=== PATIENT | female | born 1985 | race Caucasian/White ===

== ENCOUNTER → 2018-11-22 | Day surgery (SDC) | payer OTHER ==
--- NOTE | 2018-11-23 16:04 | PATH ---
Surgical Pathology Report Patient Name: LISA CONWAY [facility]. Rec. #: [id number] /Age/Gender: 1985 (Age: 33) / F Account: [id number] [facility] Taken: 11/22/2018 Received: 11/22/2018 Reported: 11/23/2018 Physicians: Branden Bella M.D. Specimen(s) Received A: BREAST, RIGHT, 9:00 B: AXILLA, LYMPH NODE, RIGHT Clinical History Palpable mass Ultrasound findings: Highly suspicious/malignant Final Diagnosis A. BREAST, RIGHT, 9:00, CORE BIOPSY: INVASIVE DUCTAL CARCINOMA, POORLY DIFFERENTIATED, MEASURING AT LEAST 1.3 CM IN THIS MATERIAL. SEE COMMENT. B. AXILLA, LYMPH NODE, RIGHT, CORE BIOPSY: METASTATIC CARCINOMA. SEE COMMENT. Comment: Immunohistochemical stain performed and interpreted at [facility] show the breast tumor is E-Cadherin positive, supportive of ductal phenotype. The carcinoma in the breast (part A) and axillary lymph node (part B) show morphologic overlap. Findings discussed with Dr. Varela. Results of Estrogen Receptor (ER) and Progesterone Receptor (DC) studies performed on block "A" at [facility] are as follows: ER (clone [id number] mouse monoclonal antibody by [employer]): ~90% nuclear staining with moderate to strong intensity (Positive). DC (clone16 mouse monoclonal antibody by [employer]): ~80% nuclear staining with moderate to strong intensity (Positive). Positive and negative controls (internal if applicable) show appropriate results. Formalin fixation and cold ischemic times are within current ASCO/CAP recommendations for ER, DC and Her2 testing. Results of Her2 (IHC) & Ki-67 studies pending and will be reported separately. Electronically Signed June Castillo M.D. Addendum Reported: 11/24/2018 Addendum Diagnosis Results of Her2 (IHC) & Ki-67 studies performed on block "A" at [place], [place] ([id number]) are as follows: Her2 IHC (EP3 from [employer], formerly known as [id number], using Pérez Polymer Refine detection kit): 3+ (Positive). Ki-67: ~25% (Intermediate proliferative index). Positive and negative controls (internal if applicable) show appropriate results. June Castillo M.D. Gross Description A. Received in formalin labeled "right 9:00," are 4 clinton-yellow, cylindrical portions of fibroadipose tissue ranging from 0.5-1.5 cm in length and averaging 0.1 cm in diameter. The specimens are submitted in toto in one cassette. B. Received in formalin labeled "right axilla," are 2 clinton-yellow, cylindrical portions of fibroadipose tissue measuring 0.5 and 0.7 cm in length and averaging 0.1 cm in diameter. The specimens are submitted in toto in one cassette. Time to formalin fixation: Less than one minute Total formalin fixation time: Approximately 7 hours. 11/22/2018 [facility]11/22/2018
== END | disposition home or self-care (01) ==
LOC: JRADUS 10:38 → JRADUS-SUR 10:38
PROVIDERS: ATTEND Physician Assistant
PROC: 0HBT3ZX Excision of Right Breast, Percutaneous Approach, Diagnostic (ICD-10-PCS; principal; 2018-11-22)
PROC: 07B53ZX Excision of Right Axillary Lymphatic, Percutaneous Approach, Diagnostic (ICD-10-PCS; 2018-11-22)
DX: C50.911 Malignant neoplasm of unspecified site of right female breast (principal); C77.3 Secondary and unspecified malignant neoplasm of axilla and upper limb lymph nodes; Z17.0 Estrogen receptor positive status [ER+]
CPT/HCPCS: 19083; 19084; 38505; 87899; 88305-TC; A4648

== ENCOUNTER 2018-12-22 08:34 | Day surgery (SDC) | payer OTHER ==
[2018-12-21 13:29] VITALS: BMI 25.9
[2018-12-22 09:00] LABS: BASO % 0.6 % (0-2.0); EOS % 4.5 % (0-4.5); HEMATOCRIT 35.5 % (32.4-45.2); HEMOGLOBIN 11.6 GM/dL (10.7-15.3); LYMPH % 23.1 % (8-40); MCH 25.8 pg (25.7-33.7); MCHC 32.7 g/dl (32.0-36.0); MEAN CELL VOLUME 78.8 fl (80-96); MEAN PLT VOLUME 8.6 fl (7.5-11.1); MONO % 4.8 % (3.8-10.2); PLATELET COUNT 262 K/MM3 (134-434); RDW 13.6 % (11.6-15.6); WHITE BLOOD COUNT 8.2 K/mm3 (4.0-10.0)
[2018-12-22] MEDS ORDERED: PORTA CATH FLUSH 10 ML IVPUSH PRN (09:03)
[2018-12-22 09:43] LABS: INR 0.98 (0.83-1.09); PROTHROMBIN TIME (PATIENT) 11.6 SEC (9.7-13.0)
[2018-12-22 12:40] VITALS: BP 110/70; PULSE 78; TEMP 98.2
== END 2018-12-22 11:20 | disposition home or self-care (01) ==
LOC: JRADIR 08:34
PROVIDERS: ATTEND Internal Medicine Hematology & Oncology
PROC: 3E013GC Introduction of Other Therapeutic Substance into Subcutaneous Tissue, Percutaneous Approach (ICD-10-PCS; principal; 2018-12-22)
DX: Z53.8 Procedure and treatment not carried out for other reasons (principal)
CPT/HCPCS: 36415; 84703; 85025; 85610

== ENCOUNTER 2018-12-28 08:55 | Day surgery (SDC) | payer OTHER ==
[2018-12-24 10:20] VITALS: BMI 25.9
[2018-12-28] MEDS ORDERED: MIDAZOLAM HCL 2 MG/2 ML SINGLE DOSE VIAL ONE (11:10)
[2018-12-28] MEDS ORDERED: ACETAMINOPHEN 325 MG TABLET (FP) ONE (12:40)
[2018-12-28 13:03] VITALS: TEMP 98
[2018-12-28] MEDS ORDERED: oxyCODONE HCL 5 MG TABLET ONE (13:22)
[2018-12-28 15:13] VITALS: BP 118/78; PULSE 78
== END 2018-12-28 14:30 | disposition home or self-care (01) ==
LOC: JRADIR 08:55
PROVIDERS: ATTEND Internal Medicine Hematology & Oncology
PROC: 05HN33Z Insertion of Infusion Device into Left Internal Jugular Vein, Percutaneous Approach (ICD-10-PCS; principal; 2018-12-28)
PROC: B544ZZA Ultrasonography of Left Jugular Veins, Guidance (ICD-10-PCS; 2018-12-28)
DX: C50.911 Malignant neoplasm of unspecified site of right female breast (principal)
CPT/HCPCS: 36561; 76937; 77001; C1751; 84703; C1788

== ENCOUNTER 2019-01-10 11:42 | Inpatient (IN) | payer OTHER ==
--- NOTE | 2019-01-10 12:10 | PDOC ---
History of Present Illness - General Chief Complaint: Vomiting/Diarrhea Stated Complaint: SENT BY PCP Time Seen by Provider: 01/10/19 12:09 - History of Present Illness Initial Comments: 33yo F with PMH of invasive ductal breast carcinoma s/p 1st cycle of (tamoxifen , herceptin) chemotherapy sent by her oncologist Dr Cruz for abdominal pain, diarrhea, nausea, weakness, and chest pain. Reports fevers of 101 on both Thursday and Thursday. Patient states she had 11 episodes of diarrhea yesterday and 5 today. The episodes are watery and without blood. Her stools were black but have since turned brown which she associated with not taking an iron pill. No recent antibiotic use. Patient endorses nausea but no vomiting. She has no history of abdominal surgeries. Endorses two days of 10/10 epigastric pain that she describes as "exploding" and similar to an ulcer she has had in the past. Reports pain upon defecation which she attributes to an "acidy" feeling which she associates with the chemotherapy. She also reports the same sensation upon urinating for the same reason. No hematuria or frequency. Patient reports intermittent chest pain that started two days after chemotherapy which she rates 8/10. Has never felt this before. It is located midsternum and it is described as "pulling" and palpitations. She states her port is located on the left side of her chest and is wondering if it might be causing her pain. No personal or family history of CO. Maternal and paternal grandparents had CVAs in their 50s and 70s. No hemoptysis, no recent surgical history, no recent immobilization, no hormone use, no history of DVT or PE. Also reporting headaches. Patient has taken tylenol at home as recent as last night which relieved her pain but only for a half hour or so. PCP: Dr. Shakir Valentine Past History - Past Medical History Allergies/Adverse Reactions: Allergies Allergy/AdvReac Type Severity Reaction Status Date / Time No Known Allergies Allergy Verified 01/10/19 11:45 Home Medications: Ambulatory Orders NK [No Known Home Medication] 12/21/18 Anemia: Yes (sickle cell trait) Asthma: No Cancer: Yes (breast) Cardiac Disorders: No CVA: No COPD: No CHF: No Dementia: No Diabetes: No GI Disorders: No Disorders: No HTN: No (hypotension) Hypercholesterolemia: No Liver Disease: No Seizures: No Thyroid Disease: No - Immunization History Immunization Up to Date: Yes - Suicide/Smoking/Psychosocial Hx Smoking History: Never smoked Have you smoked in the past 12 months: No Hx Alcohol Use: No Drug/Substance Use Hx: No Review of Systems - Review of Systems Comments:: Constitutional: +fever, +chills HEENT: no throat pain, no dysphagia Cardiovascular: +chest pain, +palpitations Respiratory: no cough, no shortness of breath Gastrointestinal: +abdominal pain, +nausea Genitourinary: no hematuria, no frequency Musculoskeletal: no myalgia, no arthralgia Skin: no rash, no itching Neurologic: +headache, +weakness *Physical Exam - Vital Signs Last Vital Signs Temp Pulse Resp BP Pulse Ox 97.3 F L 94 H 16 126/76 100 01/10/19 11:45 01/10/19 11:45 01/10/19 11:45 01/10/19 11:45 01/10/19 11:45 - Physical Exam Comments: General: Awake, alert, and fully oriented, in no acute distress Head: No signs of trauma Eyes: EOMI, sclera anicteric ENT: Dry mucus membranes Neck: Normal ROM, supple Lungs: Lungs clear, Normal breath sounds Cardio: Regular rhythm, S1 and S2 present; port present on left side of chest Abdomen: Tender to palpation in epigastrium. Soft. No guarding, no rebound, no masses Extremities: Normal range of motion, Distal pulses present. No calf tenderness SKIN: Warm, Dry, normal turgor Neurologic: Cranial nerves II through XII grossly intact. Normal speech ED Treatment Course - LABORATORY CBC & Chemistry Diagram: 01/10/19 13:12 01/10/19 13:12 Medical Decision Making - Medical Decision Making 33yo F with PMH of invasive ductal breast carcinoma s/p 1st cycle of (tamoxifen , herceptin) chemotherapy sent by her oncologist Dr Cruz for abdominal pain, diarrhea, nausea, weakness, and chest pain. DDX including but not limited to infection due to c.diff colitis, bacteremia, UTI, pneumonia; ACS, PE, MSK, complication with port Patient immunosuppressed due to recent chemotherapy. Will complete thorough infectious workup. Empiric antibiotic coverage with cefepime and flagyl Fluids 4mg morphine for pain 10mg reglan for headache EKG: rate 83, QTc 420, NSR 01/10/19 13:23 CXR: "Single portable chest x-ray. Left port catheter in place. Unremarkable contour of the cardiomediastinal silhouette. The lungs are well aerated. There is no evidence of pneumonia, atelectasis. The pulmonary vasculature is normal. No pleural effusion or pneumothorax is seen. No evidence of bulky hilar adenopathy. The visualized osseous structures appear intact. Impression. No evidence of active pulmonary disease. No pleural effusion, or pneumothorax is seen. " CBC WBC 4.1 K/mm3 (4.0-10.0) 01/10/19 13:12 RBC 4.96 M/mm3 (3.60-5.2) 01/10/19 13:12 Hgb 13.1 GM/dL (10.7-15.3) 01/10/19 13:12 Hct 39.3 % (32.4-45.2) 01/10/19 13:12 MCV 79.1 fl (80-96) L 01/10/19 13:12 MCH 26.4 pg (25.7-33.7) 01/10/19 13:12 MCHC 33.4 g/dl (32.0-36.0) 01/10/19 13:12 RDW 13.5 % (11.6-15.6) 01/10/19 13:12 Plt Count 141 K/MM3 (134-434) D 01/10/19 13:12 MPV 9.6 fl (7.5-11.1) D 01/10/19 13:12 Absolute Neuts (auto) 1.4 K/mm3 (1.5-8.0) L 01/10/19 13:12 Neutrophils % 35.4 % (42.8-82.8) L D 01/10/19 13:12 Neutrophils % (Manual) 29.0 % (42.8-82.8) L 01/10/19 13:12 Band Neutrophils % 0.0 % 01/10/19 13:12 Lymphocytes % 43.9 % (8-40) H D 01/10/19 13:12 Lymphocytes % (Manual) 56.0 % (8-40) H 01/10/19 13:12 Monocytes % 18.2 % (3.8-10.2) H D 01/10/19 13:12 Monocytes % (Manual) 8 % (3.8-10.2) 01/10/19 13:12 Eosinophils % 2.1 % (0-4.5) 01/10/19 13:12 Eosinophils % (Manual) 2.0 % (0-4.5) 01/10/19 13:12 Basophils % 0.4 % (0-2.0) 01/10/19 13:12 Basophils % (Manual) 0.0 % (0-2.0) 01/10/19 13:12 Myelocytes % (Man) 0 % (0-2) 01/10/19 13:12 Promyelocytes % (Man) 0 % (0-2) 01/10/19 13:12 Blast Cells % (Manual) 0 % (0-0) 01/10/19 13:12 Nucleated RBC % 0 % (0-0) 01/10/19 13:12 Metamyelocytes 0 % (0-2) 01/10/19 13:12 Hypochromia 0 01/10/19 13:12 Platelet Estimate Normal 01/10/19 13:12 Polychromasia 0 01/10/19 13:12 Poikilocytosis 0 01/10/19 13:12 Anisocytosis 0 01/10/19 13:12 Microcytosis 0 01/10/19 13:12 Macrocytosis 0 01/10/19 13:12 Calculated ANC~ 1450 which indicates mild neutropenia No anemia or thrombocytopenia CMP Sodium 133 mmol/L (136-145) L 01/10/19 13:12 Potassium 3.6 mmol/L (3.5-5.1) 01/10/19 13:12 Chloride 98 mmol/L (98-107) 01/10/19 13:12 Carbon Dioxide 27 mmol/L (21-32) 01/10/19 13:12 Anion Gap 7 MMOL/L (8-16) L 01/10/19 13:12 BUN 12 mg/dL (7-18) 01/10/19 13:12 Creatinine 0.7 mg/dL (0.55-1.3) 01/10/19 13:12 Creat Clearance w eGFR 97.60 (>60) 01/10/19 13:12 Random Glucose 78 mg/dL (74-106) 01/10/19 13:12 Lactic Acid 1.2 mmol/L (0.4-2.0) 01/10/19 13:12 Calcium 9.5 mg/dL (8.5-10.1) 01/10/19 13:12 Total Bilirubin 0.6 mg/dL (0.2-1) 01/10/19 13:12 AST 14 U/L (15-37) L 01/10/19 13:12 ALT 38 U/L (13-61) 01/10/19 13:12 Alkaline Phosphatase 106 U/L (45-117) 01/10/19 13:12 Creatine Kinase 22 U/L (26-192) L 01/10/19 13:12 Troponin I < 0.02 ng/ml (0.00-0.05) 01/10/19 13:12 Total Protein 8.2 g/dl (6.4-8.2) 01/10/19 13:12 Albumin 4.3 g/dl (3.4-5.0) 01/10/19 13:12 Total Amylase 59 U/L (25-115) 01/10/19 13:12 Lipase 83 U/L (73-393) 01/10/19 13:12 Beta HCG, Quant < 1.0 mIU/ml 01/10/19 13:12 Serum , Qual Negative 01/10/19 13:12 Lactate normal Tpn undetectable Patient resting in stretcher. Will send to CT scan 01/10/19 15:[address] report Patient reports that her abdominal pain is alleviated Another 1L NS ordered 01/10/19 16:[address] Palafox who accepted patient for admission. 01/10/19 17:15 *DC/Admit/Observation/Transfer Diagnosis at time of Disposition: Colitis Neutropenia Qualifiers: Neutropenia type: secondary to cancer chemotherapy Qualified Code(s): D70.1 - Agranulocytosis secondary to cancer chemotherapy; T45.1X5A - Adverse effect of antineoplastic and immunosuppressive drugs, initial encounter - Discharge Dispostion Condition at time of disposition: Guarded Decision to Admit order: Yes - Referrals Referrals: ON STAFF,NOT [Primary Care Provider] - - Patient Instructions - Post Discharge Activity
[2019-01-10] MEDS ORDERED: morphine CARPU-JECT 4 MG/1 ML DISP.SYRIN IVPUSH ONE (12:54)
[2019-01-10] MEDS ORDERED: METOCLOPRAMIDE HCL INJECTION 10 MG/2 ML VIAL IVPUSH ONE (12:54)
[2019-01-10] MEDS ORDERED: SODIUM CHLORIDE 1,000 ML IV STA ×2 (12:54→16:50)
[2019-01-10] MEDS ORDERED: CEFEPIME HCL/D5W 2 GM/50 ML BAG IVPB ONE (12:57)
[2019-01-10] MEDS ORDERED: morphine SULFATE 4 MG/ML VIAL ONE (13:27)
[2019-01-10] MEDS ORDERED: CEFEPIME 2 GM/100 ML BAG IVPB ONE (13:27)
[2019-01-10] MEDS ORDERED: METOCLOPRAMIDE HCL INJECTION 10 MG/2 ML VIAL ONE (13:27)
[2019-01-10 13:56] LABS: BASO % 0.4 % (0-2.0); EOS % 2.1 % (0-4.5); HEMATOCRIT 39.3 % (32.4-45.2); HEMOGLOBIN 13.1 GM/dL (10.7-15.3); LYMPH % 43.9 % (8-40); MCH 26.4 pg (25.7-33.7); MCHC 33.4 g/dl (32.0-36.0); MEAN CELL VOLUME 79.1 fl (80-96); MEAN PLT VOLUME 9.6 fl (7.5-11.1); MONO % 18.2 % (3.8-10.2); NEUT % 35.4 % (42.8-82.8); PLATELET COUNT 141 K/MM3 (134-434); RBC 4.96 M/mm3 (3.60-5.2); RDW 13.5 % (11.6-15.6); WHITE BLOOD COUNT 4.1 K/mm3 (4.0-10.0)
[2019-01-10 14:07] LABS: INR 1.2 (0.83-1.09); PROTHROMBIN TIME (PATIENT) 14.2 SEC (9.7-13.0)
[2019-01-10 14:10] LABS: ACTIVATED PTT 31.1 SECONDS (25.2-36.5)
[2019-01-10 14:18] LABS: EPI CELLS 6.6 /HPF (0-5/HPF); URINE APPEARANCE CLEAR; URINE BACTERIA 81.1 /hpf (NEGATIVE); URINE BILIRUBIN NEGATIVE (NEGATIVE); URINE CASTS 6 /lpf (0-8); URINE COLOR YELLOW; URINE GLUCOSE (UA) TRACE (NEGATIVE); URINE KETONE NEGATIVE (NEGATIVE); URINE LEUK ESTERASE NEGATIVE (NEGATIVE); URINE NITRITE NEGATIVE (NEGATIVE); URINE PROTEIN 1+ (NEGATIVE); URINE RBC 2 /hpf (0-4); URINE UROBILINOGEN 0.2 mg/dL (0.2-1.0); URINE WBC 5 /hpf (0-5)
[2019-01-10] MEDS ORDERED: PANTOPRAZOLE SODIUM 40 MG VIAL IVPUSH SCH (14:30)
[2019-01-10] MEDS ORDERED: PANTOPRAZOLE SODIUM 40 MG/100 ML BAG IVPB ONE (14:31)
[2019-01-10 14:35] LABS: ANISOCYTOSIS 0; MACROCYTOSIS 0; PLATELET ESTIMATE NORMAL
[2019-01-10 14:48] LABS: ALBUMIN 4.3 g/dl (3.4-5.0); ALK PHOS 106 U/L (45-117); ANION GAP 7 MMOL/L (8-16); BILIRUBIN,TOTAL 0.6 mg/dL (0.2-1); BLOOD UREA NITROGEN 12 mg/dL (7-18); CALCIUM 9.5 mg/dL (8.5-10.1); CHLORIDE 98 mmol/L (98-107); CO2 27 mmol/L (21-32); CREATININE 0.7 mg/dL (0.55-1.3); GLUCOSE,RANDOM 78 mg/dL (74-106); POTASSIUM 3.6 mmol/L (3.5-5.1); SGOT/AST 14 U/L (15-37); SGPT/ALT 38 U/L (13-61); SODIUM 133 mmol/L (136-145); TOT PROT 8.2 g/dl (6.4-8.2)
--- NOTE | 2019-01-10 15:00 | CONSULT ---
Consultation: REQUESTING PROVIDER: CONSULT REQUEST: We have been asked to medically evaluate this patient for heme/ onc. HISTORY OF PRESENT ILLNESS: 33 y/o F w/PMH of recently diagnosed R breast ca (poorly diff ductal ca w/mets to R axillary node s/p chemo on 01/04 (first chemo)) presents to the ER with abdominal pain and diarrhea. She has had abdominal pain since having chemo but over the last 3 days has had 11 episodes of diarrhea (without blood and not tarry). She has felt nauseous but has not vomited but has not had an appetite due to the pain. The pain is located in epigastric and LUQ with no radiation and no alleviating or aggravating factors. She also reports having a fever 12/31 and 01/01. Fever on 01/01 was 102 F and no fevers since then but daily chills since getting chemo. She also reports R chest tightness with no radiation currently (initially had radiation to the R shoulder) with no aggravating or alleviating factors and is constant. She also reports having a runny nose currently but no cough and she also reports burning with urination since getting chemo. She denies SOB, dizziness, LE edema, sick contacts, recent travel , vomiting. Last episode of diarrhea was at 10:30 AM today. Has not had BM since. PMH: recently diagnosed R breast ca (poorly diff ductal ca w/mets to R axillary node s/p chemo on 01/04), Anemia PSHx: No surgeries SH: No smoking, drinking. +marijuana use. 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 FH: Maternal uncle with colon cancer, no other cancer hx in family Allergies: NKDA REVIEW OF SYSTEMS: CONSTITUTIONAL: +fevers and chills, decreased appetite HEENT: +rhinorrhea CARDIOVASCULAR: +chest pain Absent: peripheral edema RESPIRATORY: Absent: cough, shortness of breath GASTROINTESTINAL:+abd pain, nausea, diarrhea Absent: vomiting, constipation, melena, hematochezia GENITOURINARY: +dysuria Absent: hematuria NEUROLOGIC: Absent: mental status change PHYSICAL EXAMINATION Vital Signs - 24 hr 01/10/19 01/10/19 11:45 13:34 Temperature 97.3 F L Pulse Rate 94 H Respiratory 16 Rate Blood Pressure 126/76 O2 Sat by Pulse 100 99 Oximetry (%) GENERAL: Awake, alert, and fully oriented, in no acute distress. EYES: extraocular movements intact, sclera anicteric, conjunctiva clear. NECK: Normal range of motion, supple LUNGS: Breath sounds equal, clear to auscultation bilaterally. HEART: Regular rate and rhythm, normal S1 and S2 ABDOMEN: Soft. +RUQ, epigastric, LUQ tenderness. No rebound. Hypoactive BS. LOWER EXTREMITIES: warm, well-perfused. No calf tenderness. No peripheral edema. NEUROLOGICAL: Cranial nerves II-XII grossly intact. Normal speech. Gait not observed. MSK: No CVA tenderness. PSYCHIATRIC: Cooperative. Good eye contact. Appropriate mood and affect. SKIN: Warm, dry CBCD WBC 4.1 K/mm3 (4.0-10.0) 01/10/19 13:12 RBC 4.96 M/mm3 (3.60-5.2) 01/10/19 13:12 Hgb 13.1 GM/dL (10.7-15.3) 01/10/19 13:12 Hct 39.3 % (32.4-45.2) 01/10/19 13:12 MCV 79.1 fl (80-96) L 01/10/19 13:12 MCHC 33.4 g/dl (32.0-36.0) 01/10/19 13:12 RDW 13.5 % (11.6-15.6) 01/10/19 13:12 Plt Count 141 K/MM3 (134-434) D 01/10/19 13:12 MPV 9.6 fl (7.5-11.1) D 01/10/19 13:12 CMP Sodium 133 mmol/L (136-145) L 01/10/19 13:12 Potassium 3.6 mmol/L (3.5-5.1) 01/10/19 13:12 Chloride 98 mmol/L (98-107) 01/10/19 13:12 Carbon Dioxide 27 mmol/L (21-32) 01/10/19 13:12 Anion Gap 7 MMOL/L (8-16) L 01/10/19 13:12 BUN 12 mg/dL (7-18) 01/10/19 13:12 Creatinine 0.7 mg/dL (0.55-1.3) 01/10/19 13:12 Creat Clearance w eGFR 97.60 (>60) 01/10/19 13:12 Random Glucose 78 mg/dL (74-106) 01/10/19 13:12 Calcium 9.5 mg/dL (8.5-10.1) 01/10/19 13:12 Total Bilirubin 0.6 mg/dL (0.2-1) 01/10/19 13:12 AST 14 U/L (15-37) L 01/10/19 13:12 ALT 38 U/L (13-61) 01/10/19 13:12 Alkaline Phosphatase 106 U/L (45-117) 01/10/19 13:12 Total Protein 8.2 g/dl (6.4-8.2) 01/10/19 13:12 Albumin 4.3 g/dl (3.4-5.0) 01/10/19 13:12 CARDIAC ENZYMES Creatine Kinase 22 U/L (26-192) L 01/10/19 13:12 Troponin I < 0.02 ng/ml (0.00-0.05) 01/10/19 13:12 Active Medications Generic Name Dose Route Start Last Admin Trade Name Freq PRN Reason Stop Dose Admin Pantoprazole Sodium 40 mg 01/10/19 14:30 Protonix Iv IVPUSH DAILY BRENNON ASSESSMENT/PLAN: 33 y/o F w/PMH of recently diagnosed R breast ca (poorly diff ductal ca w/mets to R axillary node s/p chemo on 01/04 (first chemo)) presents to the ER with abdominal pain and diarrhea. Breast ca s/p chemo Abd pain with diarrhea Fevers Dysuria Chest pain -Pt with recent chemotherapy and immunocompromised. May not be mounting sufficient response on labs/testing to look for infectious etiology. Will need to treat empirically for infection (pt does c/o dysuria and fevers). Monitor for fevers. c/w abx Metro and Cefepime. -f/u CT abd/pelvis, BCx, UCx, stool studies, C. Diff -GI consult and ID consult appreciated. -R/o ACS Dispo: We will continue to follow the patient. Thank you for this consultative opportunity. Visit type - Emergency Visit Emergency Visit: Yes Care time: The patient presented to the Emergency Department on the above date and was hospitalized for further evaluation of their emergent condition. - New Patient This patient is new to me today: Yes Date on this admission: 01/10/19 - Critical Care Critical Care patient: No
[2019-01-10 15:14] LABS: AMYLASE 59 U/L (25-115); LIPASE 83 U/L (73-393)
--- NOTE | 2019-01-10 17:16 | PDOC ---
Documentation entered by Dannie Copeland SCRIBE, acting as scribe for Bo Mcguire MD. Bo Mcguire MD: This documentation has been prepared by the Min douglas Nirvannie, SCRIBE, under my direction and personally reviewed by me in its entirety. I confirm that the documentation accurately reflects all work, treatment, procedures, and medical decision making performed by me. Attending Attestation - Resident Resident Name: Sabrina Ozuna - ED Attending Attestation I have performed the following: I have examined & evaluated the patient, The case was reviewed & discussed with the resident, I agree w/resident's findings & plan - HPI HPI: 01/10/19 13:45 CC: Chest pain, abdominal pain, nausea, and diarrhea HPI: The patient is a 33 year old female, with a significant past medical history of metastatic breast cancer (on Tamoxifen), who presents to the emergency department with, abdominal pain, nausea, diarrhea, and chest pain. She endorses approx 11 episodes of diarrhea and 5 episodes today. She describes her chest pain as lasting 2 days, pleuritic, and ranked a 8/10. She denies recent fevers, chills, headache or dizziness. She denies recent dysuria, frequency, urgency or hematuria. Allergies: NKDA Heme/Onc: Dr. Cruz - Physicial Exam PE: 01/10/19 17:49 Vitals: Triage Vital signs reviewed General Appearance: no acute distress, well nourished well developed, Head: Atraumatic, Neck: Supple;No Nucal rigidity Chest Wall: Nontender Cardiac: Regular rate and rhythym, no murmurs, no rubs, no gallops, Lungs: Clear to auscultation bilateral, good air movement bilaterally, Abdomen: Soft, non distended, normal bowel sounds, Epigastric tenderness to palpation] Extremities: Full range of motion to all extremities, no cyanosis, clubbing, or edema Skin: Warm and dry, no rashes or lesions, no rash, no petechiae Psych: normal mood, normal affect - Medical Decision Making 01/10/19 17:49 Patient sent to the ED for admission and antibiotics 2/2 mild neutropenia and GI symptoms CAT scan demonstrates colitis patient has a ready been covered with antibiotics We'll admit the hospital for further management. Oncology aware for consultation.
[2019-01-10] MEDS ORDERED: ACETAMINOPHEN 1000 MG/100 ML VIAL (NON FORMULARY) IVPB ONE (17:40)
[2019-01-10] MEDS ORDERED: ACETAMINOPHEN INJECTION 100 ML IVPB ONE (17:50)
--- NOTE | 2019-01-10 18:56 | HP ---
Admitting History and Physical - Primary Care Physician PCP: Leandro Palafox - Admission History of Present Illness: 33 year old female, with a significant past medical history of metastatic breast cancer (on Tamoxifen), who presents to the emergency department with, abdominal pain, nausea, diarrhea, and chest pain. She endorses approx 11 episodes of diarrhea and 5 episodes today. She describes her chest pain as lasting 2 days, pleuritic, and ranked a 8/10. 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, Other (astigmatism) ...LMP: 11/18/18 Heme/Onc: Yes: Sickle Cell Trait - Smoking History Smoking history: Never smoked Have you smoked in the past 12 months: No - Alcohol/Substance Use Hx Alcohol Use: No Home Medications - Allergies Allergies/Adverse Reactions: Allergies Allergy/AdvReac Type Severity Reaction Status Date / Time No Known Allergies Allergy Verified 01/10/19 11:45 - Home Medications Home Medications: Ambulatory Orders NK [No Known Home Medication] 12/21/18 Physical Examination Vital Signs: Vital Signs Temperature 97.3 F L 01/10/19 11:45 Pulse Rate 94 H 01/10/19 11:45 Respiratory Rate 16 01/10/19 11:45 Blood Pressure 126/76 01/10/19 11:45 O2 Sat by Pulse Oximetry (%) 99 01/10/19 13:34 Constitutional: Yes: No Distress HENT: Yes: Atraumatic Neck: Yes: Supple Cardiovascular: Yes: Regular Rate and Rhythm Respiratory: Yes: CTA Bilaterally Gastrointestinal: Yes: Normal Bowel Sounds Extremities: Yes: WNL Edema: No Neurological: Yes: Alert, Oriented Labs: CBC, BMP 01/10/19 13:12 01/10/19 13:12 Imaging - Results Cat Scan: Report Reviewed Problem List - Problems (1) Colitis Assessment/Plan: prn pain meds ivf clear liquid diet on iv abx id and onc consult send stool cxs and c diff Code(s): K52.9 - NONINFECTIVE GASTROENTERITIS AND COLITIS, UNSPECIFIED (2) Neutropenia Assessment/Plan: wbc count high Code(s): D70.9 - NEUTROPENIA, UNSPECIFIED Qualifiers: Neutropenia type: secondary to cancer chemotherapy Qualified Code(s): D70.1 - Agranulocytosis secondary to cancer chemotherapy; T45.1X5A - Adverse effect of antineoplastic and immunosuppressive drugs, initial encounter Assessment/Plan Laboratory Tests 01/10/19 01/10/19 01/10/19 13:12 13:12 13:12 WBC 4.1 RBC 4.96 Hgb 13.1 Hct 39.3 MCV 79.1 L MCH 26.4 MCHC 33.4 RDW 13.5 Plt Count 141 D MPV 9.6 D Absolute Neuts (auto) 1.4 L Neutrophils % 35.4 L D Neutrophils % (Manual) 29.0 L Band Neutrophils % 0.0 Lymphocytes % 43.9 H D Lymphocytes % (Manual) 56.0 H Monocytes % 18.2 H D Monocytes % (Manual) 8 Eosinophils % 2.1 Eosinophils % (Manual) 2.0 Basophils % 0.4 Basophils % (Manual) 0.0 Myelocytes % (Man) 0 Promyelocytes % (Man) 0 Blast Cells % (Manual) 0 Nucleated RBC % 0 Metamyelocytes 0 Hypochromia 0 Platelet Estimate Normal Polychromasia 0 Poikilocytosis 0 Anisocytosis 0 Microcytosis 0 Macrocytosis 0 PT with INR 14.20 H INR 1.20 H PTT (Actin FS) 31.1 Sodium 133 L Potassium 3.6 Chloride 98 Carbon Dioxide 27 Anion Gap 7 L BUN 12 Creatinine 0.7 Creat Clearance w eGFR 97.60 Random Glucose 78 Lactic Acid Calcium 9.5 Total Bilirubin 0.6 AST 14 L ALT 38 Alkaline Phosphatase 106 Creatine Kinase 22 L Troponin I < 0.02 Total Protein 8.2 Albumin 4.3 Total Amylase 59 Lipase 83 Beta HCG, Quant < 1.0 Serum , Qual Urine Color Urine Appearance Urine pH Ur Specific [place] Urine Protein Urine Glucose (UA) Urine Ketones Urine Blood Urine Nitrite Urine Bilirubin Urine Urobilinogen Ur Leukocyte Esterase Urine WBC (Auto) Urine RBC (Auto) Urine Casts (Auto) U Epithel Cells (Auto) Urine Bacteria (Auto) 01/10/19 01/10/19 01/10/19 13:12 13:12 13:40 WBC RBC Hgb Hct MCV MCH MCHC RDW Plt Count MPV Absolute Neuts (auto) Neutrophils % Neutrophils % (Manual) Band Neutrophils % Lymphocytes % Lymphocytes % (Manual) Monocytes % Monocytes % (Manual) Eosinophils % Eosinophils % (Manual) Basophils % Basophils % (Manual) Myelocytes % (Man) Promyelocytes % (Man) Blast Cells % (Manual) Nucleated RBC % Metamyelocytes Hypochromia Platelet Estimate Polychromasia Poikilocytosis Anisocytosis Microcytosis Macrocytosis PT with INR INR PTT (Actin FS) Sodium Potassium Chloride Carbon Dioxide Anion Gap BUN Creatinine Creat Clearance w eGFR Random Glucose Lactic Acid 1.2 Calcium Total Bilirubin AST ALT Alkaline Phosphatase Creatine Kinase Troponin I Total Protein Albumin Total Amylase Lipase Beta HCG, Quant Serum , Qual Negative Urine Color Yellow Urine Appearance Clear Urine pH 6.0 Ur Specific [place] 1.016 Urine Protein 1+ H Urine Glucose (UA) Trace Urine Ketones Negative Urine Blood Negative Urine Nitrite Negative Urine Bilirubin Negative Urine Urobilinogen 0.2 Ur Leukocyte Esterase Negative Urine WBC (Auto) 5 Urine RBC (Auto) 2 Urine Casts (Auto) 6 U Epithel Cells (Auto) 6.6 Urine Bacteria (Auto) 81.1 Active Medications Generic Name Dose Route Start Last Admin Trade Name Freq PRN Reason Stop Dose Admin Cefepime HCl 2 gm in 50 mls @ 100 mls/hr 01/10/19 22:00 Maxipime 2gm Ivpb (Premix) IVPB Q8H BRENNON Protocol Metronidazole 500 mg in 100 mls @ 100 mls/hr 01/10/19 22:00 Flagyl 500mg Premixed Ivpb - IVPB Q8H-IV BRENNON Cefepime HCl 2 gm/ Dextrose 100 mls @ 200 mls/hr 01/10/19 22:00 IVPB 01/11/19 14:29 Q8H BRENNON Pantoprazole Sodium 40 mg 01/10/19 14:30 01/10/19 15:00 Protonix Iv IVPUSH 40 mg DAILY BRENNON Administration
[2019-01-10] MEDS: SODIUM CHLORIDE 1,000 ML IV SCH (19:04)
--- NOTE | 2019-01-10 20:02 | PN ---
Teaching Attending Note Name of Resident: Rodney Ro ATTENDING PHYSICIAN STATEMENT I saw and evaluated the patient. I reviewed the resident's note and discussed the case with the resident. I agree with the resident's findings and plan as documented. 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 hepatic cyst, right pericolic fluid Chemotherapy induced colitis Check blood cultures/ stool for c.diff/oand P Cefepime/flagyl emopirically Protonix IV IV fluids Immodium pain control as needed
[2019-01-10] MEDS ORDERED: LOPERAMIDE HCL 2 MG CAPSULE PO PRN (20:03)
[2019-01-10] MEDS ORDERED: DEXTROSE 5%-WATER 100 ML IVPB ONE (21:17)
[2019-01-10] MEDS ORDERED: CEFEPIME HCL 2 GM VIAL (RESTRICTED TO ID) ONE (21:17)
[2019-01-10] MEDS: HEPARIN NA (PORCINE) 5,000 UNITS/ML 1ML VIAL SQ SCH (21:44)
[2019-01-10] MEDS: PANTOPRAZOLE SODIUM 40 MG VIAL IVPB SCH (21:44)
[2019-01-10] MEDS ORDERED: CEFEPIME HCL/D5W 2 GM/50 ML BAG IVPB SCH (22:00)
[2019-01-10] MEDS: CEFEPIME 2 GM in DEXTROSE 5%-WATER 100 ML IVPB SCH (23:15)
[2019-01-10] MEDS: morphine SULFATE 4 MG/ML VIAL IVPUSH PRN (23:59)
[2019-01-11] MEDS: ONDANSETRON 4 MG/2 ML VIAL IVPB PRN ×3 (01:20→21:31)
[2019-01-11] MEDS: CEFEPIME 2 GM in DEXTROSE 5%-WATER 100 ML IVPB SCH ×4 (05:47→18:36)
[2019-01-11 07:25] LABS: BASO % 0.3 % (0-2.0); EOS % 0.8 % (0-4.5); HEMATOCRIT 31.9 % (32.4-45.2); HEMOGLOBIN 10.6 GM/dL (10.7-15.3); LYMPH % 27.4 % (8-40); MCH 26.2 pg (25.7-33.7); MCHC 33.3 g/dl (32.0-36.0); MEAN CELL VOLUME 78.5 fl (80-96); MEAN PLT VOLUME 9.6 fl (7.5-11.1); MONO % 18.4 % (3.8-10.2); NEUT % 53.1 % (42.8-82.8); PLATELET COUNT 138 K/MM3 (134-434); RBC 4.06 M/mm3 (3.60-5.2); RDW 13.6 % (11.6-15.6); WHITE BLOOD COUNT 8.1 K/mm3 (4.0-10.0)
[2019-01-11 07:39] LABS: ALBUMIN 3.3 g/dl (3.4-5.0); ALK PHOS 83 U/L (45-117); AMYLASE 70 U/L (25-115); ANION GAP 7 MMOL/L (8-16); BILIRUBIN,TOTAL 0.4 mg/dL (0.2-1); BLOOD UREA NITROGEN 8 mg/dL (7-18); CALCIUM 8.5 mg/dL (8.5-10.1); CHLORIDE 103 mmol/L (98-107); CO2 27 mmol/L (21-32); CREATININE 0.7 mg/dL (0.55-1.3); GLUCOSE,RANDOM 78 mg/dL (74-106); LDH 150 U/L (84-246); LIPASE 93 U/L (73-393); SGOT/AST 11 U/L (15-37); SGPT/ALT 29 U/L (13-61); SODIUM 137 mmol/L (136-145); TOT PROT 6.2 g/dl (6.4-8.2)
[2019-01-11 09:35] LABS: ANISOCYTOSIS 0; MACROCYTOSIS 0; PLATELET ESTIMATE DECREASED
--- NOTE | 2019-01-11 09:54 | CON.GI ---
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: Yes: Migraine, Other (astigmatism) ...LMP: 11/18/18 Additional Medical History: hemorrhoids - Alcohol/Substance Use Hx Alcohol Use: No - Smoking History Smoking history: Never smoked Have you smoked in the past 12 months: No Home Medications - Allergies Allergies/Adverse Reactions: Allergies Allergy/AdvReac Type Severity Reaction Status Date / Time No Known Allergies Allergy Verified 01/10/19 11:45 - Home Medications Home Medications: Ambulatory Orders NK [No Known Home Medication] 12/21/18 Physical Exam-GI Vital Signs: Vital Signs Temperature 98.8 F 01/11/19 05:52 Pulse Rate 87 01/11/19 05:52 Respiratory Rate 18 01/11/19 05:52 Blood Pressure 99/56 L 01/11/19 05:52 O2 Sat by Pulse Oximetry (%) 100 01/11/19 03:00 Labs: CBC, BMP 01/11/19 06:00 01/11/19 06:00 INR, PTT INR 1.20 (0.83-1.09) H 01/10/19 13:12
[2019-01-11] MEDS: PANTOPRAZOLE SODIUM 40 MG VIAL IVPB SCH ×2 (10:20→23:05)
[2019-01-11] MEDS: morphine SULFATE 4 MG/ML VIAL IVPUSH PRN (10:20)
[2019-01-11] MEDS: HEPARIN NA (PORCINE) 5,000 UNITS/ML 1ML VIAL SQ SCH ×3 (10:20→21:31)
--- NOTE | 2019-01-11 12:20 | CONS ---
DATE OF CONSULTATION: DATE OF DICTATION: 01/11/2019 HISTORY OF PRESENT ILLNESS: The patient is a 33-year-old female with a past medical history significant for peptic ulcer disease. Last upper endoscopy was done in 2012 as well as a colonoscopy at that time. She was recently diagnosed this past November with metastatic breast cancer and is currently on tamoxifen. She has also received her 1st cycle of chemotherapy and shortly after developed abdominal pain in the epigastrium along with crampy diffuse abdominal pain, nausea, vomiting and multiple episodes of diarrhea apparently 11 episodes prior to admission and she states her symptoms got better this morning after being given Imodium. She denies any blood in the stool or mucus, hematemesis, fevers, chills or other symptoms. PAST MEDICAL HISTORY: As per the HPI with the addition of migraine headache and sickle cell trait. SURGICAL HISTORY: As per the HPI. SOCIAL HISTORY: Does not smoke, drink or use drugs. FAMILY HISTORY: No history of GI malignancy. ALLERGIES: No known drug allergies. HOME MEDICATIONS: Reviewed. PHYSICAL EXAMINATION: Vital Signs: Temperature 98, pulse 87, blood pressure 102/63, respiratory rate 18, saturation of oxygen 100% on room air. General: No acute distress. HEENT: Anicteric sclerae. Cardiovascular: S1, S2. Regular rate and rhythm. Lungs: Bilaterally clear to auscultation. Abdomen: Soft and nontender. Extremities: No edema. LABORATORIES: White blood cell count 8.1, hemoglobin 10, hematocrit 31, MCV 78, platelet count 138. INR 1.2. Sodium 137, potassium 4, BUN 8, creatinine 0.7, lactic acid 1.2, AST 11, ALT 29, total bilirubin 0.4, alkaline phosphatase 83, lipase 93, amylase 70. Urine: Protein 1+. Cultures are pending. She had a CT scan of the abdomen and pelvis which revealed possible acute colitis, normal amount of free fluid in the right paracolic space, 2.3-cm involuting left ovarian cyst, 0.5-cm right hepatic lobe hypodense focus representing a cyst although too difficult to characterize secondary to size, thickened skin along partially imaged breast also noted on a previous CT scan. IMPRESSION: Acute diarrheal illness in the setting of recent chemotherapy most likely secondary to an infectious etiology. RECOMMENDATIONS: Stool culture, ova, parasites, C difficile, PCR. Would also check the stool for opportunistic infections considering she is immunosuppressed on chemotherapy. Microsporidium, cryptosporidium, Isospora, Cyclospora, stool Giardia antigen. She can be continued on clear liquid diet today. As she continues to improve would advance her to a low-residue lactose-free diet. Start her on Protonix 40 mg IV daily for her history of peptic ulcer disease. Also continue her antiemetic therapy. If her stool cultures are negative for C difficile she can be started on Lomotil therapy prior to her meals. This patient will be followed by the GI service. DO LUIS A SALTER/[id number]
--- NOTE | 2019-01-11 12:25 | CON.GI ---
Consult Consult Specialty:: GI Reason for Consultation:: Diarrhea - History of Present Illness Chief Complaint: diarrhea , vomiting History of Present Illness: 33 y/o F w/PMH of recently diagnosed R breast ca (poorly diff ductal ca w/mets to R axillary node s/p chemo on 01/04 (first chemo)) presents to the ER with abdominal pain and diarrhea. She has had abdominal pain since having chemo but over the last 3 days has had 11 episodes of diarrhea (without blood and not tarry). She has felt nauseous but has not vomited but has not had an appetite due to the pain. The pain is located in epigastric and periumbilical and suprapubic with no radiation and no alleviating or aggravating factors. She also reports having a fever 12/31 and 01/01. Fever on 01/01 was 102 F and no fevers since then but daily chills since getting chemo. She also reports R chest tightness with no radiation currently (initially had radiation to the R shoulder) with no aggravating or alleviating factors and is constant. She also reports having a runny nose currently but no cough and she also reports burning with urination since getting chemo. She denies SOB, dizziness, LE edema, sick contacts, recent travel, vomiting. PMH: recently diagnosed R breast ca (poorly diff ductal ca w/mets to R axillary node s/p chemo on 01/04), Anemia PSHx: No surgeries SH: No smoking, drinking. +marijuana use. 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, Other (astigmatism) ...LMP: 11/18/18 Additional Medical History: hemorrhoids - Alcohol/Substance Use Hx Alcohol Use: No - Smoking History Smoking history: Never smoked Have you smoked in the past 12 months: No Home Medications - Allergies Allergies/Adverse Reactions: Allergies Allergy/AdvReac Type Severity Reaction Status Date / Time No Known Allergies Allergy Verified 01/10/19 11:45 - Home Medications Home Medications: Ambulatory Orders NK [No Known Home Medication] 12/21/18 Physical Exam-GI Vital Signs: Vital Signs Temperature 98.8 F 01/11/19 05:52 Pulse Rate 87 01/11/19 05:52 Respiratory Rate 18 01/11/19 05:52 Blood Pressure 99/56 L 01/11/19 05:52 O2 Sat by Pulse Oximetry (%) 100 01/11/19 03:00 Labs: CBC, BMP 01/11/19 06:00 01/11/19 06:00 INR, PTT INR 1.20 (0.83-1.09) H 01/10/19 13:12 Problem List - Problems (1) Acute diarrhea Assessment/Plan: s.p chemo therapy C.diff stool ove and paracytes Microsporidium cryptosporidium Stool lytes Stool wbc stool osmolality stool fat cont abx cefipim and metronidazole follow cx tylenol for fever cont iv fluids monitor lytes and replenished as needed Zofran for nausea Stool H pylroi ag as pt has a history of H.pylori 9 years ago Code(s): R19.7 - DIARRHEA, UNSPECIFIED
--- NOTE | 2019-01-11 13:39 | CON.ID ---
Consult Consult Specialty:: infectious diseases Referred by:: Reason for Consultation:: dirhoea/colitis - History of Present Illness Chief Complaint: abd pain,dirrhoea History of Present Illness: 33 y/o F w/PMH of recently diagnosed R breast ca (poorly diff ductal ca w/mets to R axillary node s/p chemo on 01/04 (first chemo)) admitted with abdominal pain and diarrhea. She has had abdominal pain since having chemo but over the last 3 days has had 11 episodes of diarrhea (without blood and not tarry). She has felt nauseous but has not vomited but has not had an appetite due to the pain. The pain is located in epigastric and LUQ with no radiation and no alleviating or aggravating factors. She also reports having a fever 12/31 and . Fever on 01/01 was 102 F and no fevers since then but daily chills since getting chemo. She also reports R chest tightness with no radiation currently ( initially had radiation to the R shoulder) with no aggravating or alleviating factors and is constant. She also reports having a runny nose currently but no cough and she also reports burning with urination since getting chemo. She denies SOB, dizziness, LE edema, sick contacts, recent travel, vomiting. Last episode of diarrhea was at 10:30 AM today. Has not had BM since. 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, Other (astigmatism) ...LMP: 11/18/18 Additional Medical History: hemorrhoids - Alcohol/Substance Use Hx Alcohol Use: No - Smoking History Smoking history: Never smoked Have you smoked in the past 12 months: No Home Medications - Allergies Allergies/Adverse Reactions: Allergies Allergy/AdvReac Type Severity Reaction Status Date / Time No Known Allergies Allergy Verified 01/10/19 11:45 - Home Medications Home Medications: Ambulatory Orders NK [No Known Home Medication] 12/21/18 Review of Systems - Review of Systems Constitutional: reports: Fever, Weakness Eyes: reports: No Symptoms HENT: reports: No Symptoms Neck: reports: No Symptoms Cardiovascular: reports: No Symptoms Respiratory: reports: No Symptoms Gastrointestinal: reports: Abdominal Pain, Diarrhea Genitourinary: reports: No Symptoms Musculoskeletal: reports: No Symptoms Integumentary: reports: No Symptoms Neurological: reports: No Symptoms Endocrine: reports: No Symptoms Hematology/Lymphatic: reports: No Symptoms Psychiatric: reports: No Symptoms Physical Exam Vital Signs: Vital Signs Temperature 98.8 F 01/11/19 05:52 Pulse Rate 87 01/11/19 05:52 Respiratory Rate 18 01/11/19 05:52 Blood Pressure 99/56 L 01/11/19 05:52 O2 Sat by Pulse Oximetry (%) 100 01/11/19 03:00 Constitutional: Yes: Well Nourished, No Distress, Calm HENT: Yes: Atraumatic, Normocephalic Neck: Yes: Supple, Trachea Midline Cardiovascular: Yes: Regular Rate and Rhythm Respiratory: Yes: Regular, CTA Bilaterally Gastrointestinal: Yes: Normal Bowel Sounds, Soft, Other (dirrhoea) Musculoskeletal: Yes: WNL Extremities: Yes: WNL Neurological: Yes: Alert, Oriented Psychiatric: Yes: Alert, Oriented Labs: CBC, BMP 01/11/19 06:00 01/11/19 06:00 Imaging - Results Chest X-ray: Report Reviewed, Image Reviewed Cat Scan: Report Reviewed, Image Reviewed Assessment/Plan Problem List - Problems (1) Chemotherapy induced diarrhea Code(s): K52.1 - TOXIC GASTROENTERITIS AND COLITIS; T45.1X5A - ADVERSE EFFECT OF ANTINEOPLASTIC AND IMMUNOSUP DRUGS, INIT (2) Diarrhea of presumed infectious origin Code(s): R19.7 - DIARRHEA, UNSPECIFIED (3) Nausea and vomiting Code(s): R11.2 - NAUSEA WITH VOMITING, UNSPECIFIED Qualifiers: Vomiting type: unspecified Vomiting Intractability: non-intractable Qualified Code(s): R11.2 - Nausea with vomiting, unspecified (4) Epigastric pain Code(s): R10.13 - EPIGASTRIC PAIN (5) Cancer of right breast Code(s): C50.911 - MALIGNANT NEOPLASM OF UNSP SITE OF RIGHT FEMALE BREAST Qualifiers: Breast location: unspecified site of breast Estrogen receptor status: positive Patient sex: female Qualified Code(s): C50.911 - Malignant neoplasm of unspecified site of right female breast; Z17.0 - Estrogen receptor positive status [ER+] (6) Epistaxis Code(s): R04.0 - EPISTAXIS 7 colitis plan will continue current abx will see how patient behaves monitor dirrhoea and fever rest as per the team
[2019-01-11] MEDS ORDERED: traMADol HCL 50 MG TABLET PO PRN (13:43)
[2019-01-11] MEDS ORDERED: CEFEPIME HCL/D5W 2 GM/50 ML BAG IVPB SCH (13:45)
--- NOTE | 2019-01-11 14:25 | EKG ---
Test Reason : Blood Pressure : / mmHG Vent. Rate : 083 BPM Atrial Rate : 083 BPM P-R Int : 130 ms QRS Dur : 082 ms QT Int : 358 ms P-R-T Axes : 061 043 025 degrees QTc Int : 420 ms NORMAL SINUS RHYTHM NORMAL ECG NO PREVIOUS ECGS AVAILABLE Confirmed by MD SOURAV, NEGRA ([id number]) on 01/11/2019 2:25:19 PM Referred By: Confirmed By:NEGRA BENJAMIN MD
--- NOTE | 2019-01-11 14:26 | PN ---
Progress Note, Physician History of Present Illness: still has diarrhea - Current Medication List Current Medications: Active Medications Heparin Sodium (Porcine) (Heparin -) 5,000 unit SQ BID BRENNON Last Admin: 01/11/19 10:40 Dose: Not Given Metronidazole (Flagyl 500mg Premixed Ivpb -) 500 mg in 100 mls @ 100 mls/hr IVPB Q8H-IV BRENNON Last Admin: 01/11/19 10:21 Dose: 100 mls/hr Sodium Chloride (Normal Saline -) 1,000 mls @ 75 mls/hr IV ASDIR BRENNON Last Admin: 01/10/19 19:04 Dose: 75 mls/hr Cefepime HCl 2 gm/ Dextrose 100 mls @ 200 mls/hr IVPB Q8H-IV BRENNON; Protocol Loperamide HCl (Imodium -) 2 mg PO Q4H PRN PRN Reason: DIARRHEA Ondansetron HCl (Zofran Injection) 8 mg IVPB Q12H PRN PRN Reason: NAUSEA Last Admin: 01/11/19 10:37 Dose: 8 mg Pantoprazole Sodium (Protonix Iv) 40 mg IVPB BID BRENNON Last Admin: 01/11/19 10:20 Dose: 40 mg Tramadol HCl (Ultram -) 50 mg PO Q6H PRN PRN Reason: PAIN LEVEL 6-10 Last Admin: 01/11/19 14:12 Dose: 50 mg - Objective Vital Signs: Vital Signs Temperature 98 F 01/11/19 09:00 Pulse Rate 89 01/11/19 09:00 Respiratory Rate 18 01/11/19 11:00 Blood Pressure 103/61 01/11/19 09:00 O2 Sat by Pulse Oximetry (%) 100 01/11/19 11:00 Constitutional: Yes: No Distress HENT: Yes: Atraumatic Neck: Yes: Supple Cardiovascular: Yes: Regular Rate and Rhythm Respiratory: Yes: CTA Bilaterally Gastrointestinal: Yes: Normal Bowel Sounds Extremities: Yes: WNL Edema: No Peripheral Pulses WNL: Yes Neurological: Yes: Alert, Oriented Labs: CBC, BMP 01/11/19 06:00 01/11/19 06:00 INR, PTT INR 1.20 (0.83-1.09) H 01/10/19 13:12 Problem List - Problems (1) Colitis Assessment/Plan: prn pain meds ivf clear liquid diet on iv abx Code(s): K52.9 - NONINFECTIVE GASTROENTERITIS AND COLITIS, UNSPECIFIED (2) Neutropenia Assessment/Plan: wbc count high Code(s): D70.9 - NEUTROPENIA, UNSPECIFIED Qualifiers: Neutropenia type: secondary to cancer chemotherapy Qualified Code(s): D70.1 - Agranulocytosis secondary to cancer chemotherapy; T45.1X5A - Adverse effect of antineoplastic and immunosuppressive drugs, initial encounter
--- NOTE | 2019-01-11 15:39 | PN ---
Physical Exam: SUBJECTIVE: Patient seen and examined at bedside. Had multiple episodes of emesis. No BMs so far while in hospital. Still having abd pain but is hungry. Has not passed gas since yesterday. OBJECTIVE: Vital Signs Period Temp Pulse Resp BP Sys/James Pulse Ox Last 24 Hr 98 F-98.8 F 77-89 18-18 93-103/55-63 100-100 GENERAL: Awake, alert, and fully oriented, in no acute distress. EYES: extraocular movements intact, sclera anicteric, conjunctiva clear. NECK: Normal range of motion, supple LUNGS: Breath sounds equal, clear to auscultation bilaterally. HEART: Regular rate and rhythm, normal S1 and S2 ABDOMEN: Soft. +RUQ, epigastric, LUQ tenderness. No rebound. Hypoactive BS. LOWER EXTREMITIES: warm, well-perfused. No calf tenderness. No peripheral edema. NEUROLOGICAL: Cranial nerves II-XII grossly intact. Normal speech. Gait not observed. MSK: No CVA tenderness. PSYCHIATRIC: Cooperative. Good eye contact. Appropriate mood and affect. SKIN: Warm, dry Laboratory Results - last 24 hr 01/11/19 01/11/19 06:00 06:00 WBC 8.1 RBC 4.06 Hgb 10.6 L Hct 31.9 L D MCV 78.5 L MCH 26.2 MCHC 33.3 RDW 13.6 Plt Count 138 MPV 9.6 Absolute Neuts (auto) 4.3 Neutrophils % 53.1 D Neutrophils % (Manual) 28.9 L Band Neutrophils % 13.4 Lymphocytes % 27.4 D Lymphocytes % (Manual) 32.0 D Monocytes % 18.4 H Monocytes % (Manual) 13 H Eosinophils % 0.8 Eosinophils % (Manual) 2.1 Basophils % 0.3 Basophils % (Manual) 1.0 D Myelocytes % (Man) 0 Promyelocytes % (Man) 0 Blast Cells % (Manual) 0 Nucleated RBC % 0 Metamyelocytes 1 D Hypochromia 0 Platelet Estimate Decreased Polychromasia 0 Poikilocytosis 0 Anisocytosis 0 Microcytosis 0 Macrocytosis 0 Sodium 137 Potassium 4.0 Chloride 103 Carbon Dioxide 27 Anion Gap 7 L BUN 8 Creatinine 0.7 Creat Clearance w eGFR 97.60 Random Glucose 78 Calcium 8.5 Total Bilirubin 0.4 AST 11 L ALT 29 Alkaline Phosphatase 83 LD Total 150 Total Protein 6.2 L Albumin 3.3 L Total Amylase 70 Lipase 93 Active Medications Generic Name Dose Route Start Last Admin Trade Name Freq PRN Reason Stop Dose Admin Heparin Sodium (Porcine) 5,000 unit 01/10/19 22:00 01/11/19 10:40 Heparin - SQ Not Given BID BRENNON Metronidazole 500 mg in 100 mls @ 100 mls/hr 01/10/19 22:00 01/11/19 10:21 Flagyl 500mg Premixed Ivpb - IVPB 100 mls/hr Q8H-IV BRENNON Administration Sodium Chloride 1,000 mls @ 75 mls/hr 01/10/19 19:00 01/10/19 19:04 Normal Saline - IV 75 mls/hr ASDIR BRENNON Administration Cefepime HCl 2 gm/ Dextrose 100 mls @ 200 mls/hr 01/11/19 14:30 IVPB Q8H-IV BRENNON Protocol Loperamide HCl 2 mg 01/10/19 20:03 Imodium - PO Q4H PRN DIARRHEA Ondansetron HCl 8 mg 01/10/19 21:16 01/11/19 10:37 Zofran Injection IVPB 8 mg Q12H PRN Administration NAUSEA Pantoprazole Sodium 40 mg 01/10/19 22:00 01/11/19 10:20 Protonix Iv IVPB 40 mg BID BRENNON Administration Tramadol HCl 50 mg 01/11/19 13:43 01/11/19 14:12 Ultram - PO 50 mg Q6H PRN Administration PAIN LEVEL 6-10 ASSESSMENT/PLAN: 33 y/o F w/PMH of recently diagnosed R breast ca (poorly diff ductal ca w/mets to R axillary node s/p chemo on 01/04 (first chemo)) presents to the ER with abdominal pain and diarrhea. Breast ca s/p chemo Abd pain with diarrhea -KUB shows no signs of obstrution. No BMs and no flatus since yesterday. Loperamide stopped. -Pain meds changed from morphine to tramadol. -Tramadol caused dizziness. Pt would is ok with trying tylenol for now for pain. -Pt with recent chemotherapy and immunocompromised. May not be mounting sufficient response on labs/testing to look for infectious etiology. Will need to treat empirically for infection (pt does c/o dysuria and fevers). Monitor for fevers. c/w abx Metro and Cefepime. -Possible chemo induced colitis. -BCx, UCx, stool studies, C. Diff -GI consult and ID consult. Visit type - Emergency Visit Emergency Visit: Yes ED Registration Date: 01/10/19 Care time: The patient presented to the Emergency Department on the above date and was hospitalized for further evaluation of their emergent condition. - New Patient This patient is new to me today: No - Critical Care Critical Care patient: No
[2019-01-11] MEDS ORDERED: SODIUM CHLORIDE 500 ML IV STA (16:35)
[2019-01-11] MEDS ORDERED: ACETAMINOPHEN 325 MG TABLET (FP) PO PRN ×2 (16:40→20:51)
[2019-01-11] MEDS ORDERED: HYDROCORTISONE 0.5% TOPICAL CREAM 30 GM TUBE TP PRN (17:29)
--- NOTE | 2019-01-11 17:35 | PN ---
Teaching Attending Note Name of Resident: Rodney Ro ATTENDING PHYSICIAN STATEMENT I saw and evaluated the patient. I reviewed the resident's note and discussed the case with the resident. I agree with the resident's findings and plan as documented. SUBJECTIVE: Patient seen and examined No further diarrhea. Feels somewhat 'strange' likely related to morphine and tramadol These will be discontinued Last Vital Signs Temp Pulse Resp BP Pulse Ox 98.8 F 77 18 93/55 L 100 01/11/19 14:39 01/11/19 14:39 01/11/19 14:39 01/11/19 14:39 01/11/19 11:00 HEENT: GÉNESIS, EOM Intact Oropharynx: No thrush, No mucositis Breasts: Current Medications Generic Name Dose Route Start Last Admin Trade Name Freq PRN Reason Stop Dose Admin Acetaminophen 650 mg 01/11/19 16:40 Tylenol - PO Q4H PRN PAIN Heparin Sodium (Porcine) 5,000 unit 01/10/19 22:00 01/11/19 10:40 Heparin - SQ Not Given BID BRENNON Hydrocortisone 1 applic 01/11/19 17:29 Hytone 0.5% Cream - TP DAILY PRN DRY SKIN Metronidazole 500 mg in 100 mls @ 100 mls/hr 01/10/19 22:00 01/11/19 10:21 Flagyl 500mg Premixed Ivpb - IVPB 100 mls/hr Q8H-IV BRENNON Administration Sodium Chloride 1,000 mls @ 75 mls/hr 01/10/19 19:00 01/10/19 19:04 Normal Saline - IV 75 mls/hr ASDIR BRENNON Administration Cefepime HCl 2 gm/ Dextrose 100 mls @ 200 mls/hr 01/11/19 14:30 01/11/19 16: 49 IVPB Not Given Q8H-IV BRENNON Protocol Sodium Chloride 500 mls @ 500 mls/hr 01/11/19 16:35 Normal Saline - IV 01/11/19 17:34 ASDIR STA Ondansetron HCl 8 mg 01/10/19 21:16 01/11/19 10:37 Zofran Injection IVPB 8 mg Q12H PRN Administration NAUSEA Pantoprazole Sodium 40 mg 01/10/19 22:00 01/11/19 10:20 Protonix Iv IVPB 40 mg BID BRENNON Administration RUOQ breast mass Cor: RSR, No murmurs, No gallops Lungs: Clear to P&A Abd: Soft, Normal bowel sounds, No organomegaly Ext:No significant edema Skin: No rashes, Integument intact CBC, BMP 01/11/19 06:00 01/11/19 06:00 Impression: Breast ca Colitis Plan: Continue with antibiotics , monitoring of chems and CBC ; clear diet. to advancement. OBJECTIVE: ASSESSMENT AND PLAN:
[2019-01-11] MEDS ORDERED: CEFEPIME 2 GM in DEXTROSE 5%-WATER 100 ML IVPB SCH (18:00)
--- NOTE | 2019-01-11 18:07 | CONSULT ---
Consult Consult Specialty:: General Surgery Referred by:: Dr. Nancy Pimentel Reason for Consultation:: colitis, possibly chemo-related - History of Present Illness Chief Complaint: epigastric pain, fever, n/v, diarrhea History of Present Illness: 33yo F with h/o migraines, possible "ulcer," R breast CA stage 2 on chemotherapy first started last Thursday, was admitted through ER yesterday with 3 days of many episodes of "hot" diarrhea, not foul-smelling, associated with fevers (to 102 at home), sharp epigastric pain, weakness overall, and N/V starting yesterday, prompting ER visit. In ER, she was neutropenic, afebrile, and had CT without po contrast showing possible wall thickening of ascending and part of transverse colon, little fluid in pelvis and R paracolic space, suggestive of possible colitis. She has had chills here at hospital. Nausea persists, but she has not had stool yet to offer for studies, including C. diff. She is on empiric antibiotics. She just went down for AXR and has returned to the floor. Surgery was asked to assess. She is seen and examined in bed, family stepped out for exam. She reports feeling better overall, but c/o nausea near the end of exam. She has had chills. Since starting chemo, noted overall elements of weakness, body aches and pains, crampy abdominal discomfort in addition to the more unusual sharp epigastric pain noted above, and she had a runny nose a couple days after chemo started. She used to smoke MJ daily, but stopped a few days before the chemo started because she was concerned about possible effects. She is considering a medical MJ card. Never smoked cigarettes. Does not drink alcohol but rarely, as she had a problem in the past requiring them to "pump her stomach," and she recalls being told about an ulcer, but not if she was scoped from above. Had colonoscopy in past. She also reports a few days of epistaxis at home. She gets migraines sometimes, but only uses tylenol prn. She has not had BM since yesterday, but feels some rumbling in her abdomen. Has been hesitant to have much of the liquids offered. 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, Other (astigmatism) Gastrointestinal: Yes: Peptic Ulcer Disease (reports previous h/o ulcer - had "stomach pumped," not sure if endoscopy) Reproductive: No: Postmenopausal ...LMP: 11/18/18 ...: No ...: 2 ...Para: 2 Heme/Onc: Yes: Cancer (right breast, stage 2 by onc notes, ER/[place]/Her-2+), Current Chemotherapy (first cycle last Thursday) Additional Medical History: hemorrhoids - Past Surgical History Past Surgical History: Yes: Breast Biopsy (right excisional biopsy and LN sampled from axilla), Colonoscopy Additional Surgical History: left chest port placement - Alcohol/Substance Use Hx Alcohol Use: Yes (rarely) History of Substance Use: reports: Marijuana (daily until few days before chemo started, plans to get med [facility] card) - Smoking History Smoking history: Never smoked Have you smoked in the past 12 months: No - Social History ADL: Independent Home Medications - Allergies Allergies/Adverse Reactions: Allergies Allergy/AdvReac Type Severity Reaction Status Date / Time No Known Allergies Allergy Verified 01/10/19 11:45 - Home Medications Home Medications: Ambulatory Orders NK [No Known Home Medication] 12/21/18 Home Medications (free text): tylenol prn Family Disease History - Family Disease History Family History: Unremarkable (noncontributory) Review of Systems - Review of Systems Constitutional: reports: Chills (here in hospital), Fever, Weakness Eyes: denies: Blurred Vision, Recent Change in Vision HENT: reports: Epistaxis (for 3 days). denies: Difficult Swallowing, Nasal Congestion, Throat Pain Neck: reports: Other (occasional pain in neck, with migraines). denies: Swollen Glands, Tenderness Cardiovascular: reports: Chest Pain (since port placed, sometimes tightness, more to right), Palpitations (racing heartbeats, since port placed) Respiratory: reports: SOB (at times, feels SOB when heart races). denies: Cough Gastrointestinal: reports: Abdominal Pain (with hpi), Diarrhea (with hpi), Nausea (with hpi), Vomiting (with hpi). denies: Constipation, Vomiting Blood Genitourinary: reports: Other (feels "hot" - thinks it might be the chemo). denies: Burning, Dysuria Musculoskeletal: reports: Back Pain (at times), Joint Pain (since chemo started) . denies: Muscle Pain Integumentary: denies: Change in Color, Rash Neurological: reports: Dizziness (mild, with hpi), Headache (migraines at times) Psychiatric: denies: Anxiety, Depression Physical Exam Vital Signs: Vital Signs Temperature 98.8 F 01/11/19 14:39 Pulse Rate 77 01/11/19 14:39 Respiratory Rate 18 01/11/19 14:39 Blood Pressure 93/55 L 01/11/19 14:39 O2 Sat by Pulse Oximetry (%) 100 01/11/19 11:00 Vital Signs Period Temp Pulse Resp BP Sys/James Pulse Ox Last 24 Hr 98 F-98.8 F 77-89 18-18 93-103/55-63 100-100 Constitutional: Yes: Well Nourished, No Distress, Calm Eyes: Yes: Conjunctiva Clear, EOM Intact HENT: Yes: Atraumatic, Normocephalic. No: Epistaxis Neck: Yes: Supple, Trachea Midline Cardiovascular: Yes: Regular Rate and Rhythm, Murmur (poss soft systolic) Respiratory: Yes: Regular, CTA Bilaterally Gastrointestinal: Yes: Normal Bowel Sounds (normal to light), Soft, Tenderness, Epigastrium (no R/G), Other (feeling nauseated). No: Distention ...Rectal Exam: Yes: Deferred Renal/: No: CVA Tenderness - Left, CVA Tenderness - Right Extremities: No: Cool, Cyanosis Edema: No Peripheral Pulses WNL: Yes Integumentary: No: Jaundice, Rash Neurological: Yes: Alert, Oriented Psychiatric: Yes: Alert, Oriented Labs: CBC, BMP 01/11/19 06:00 01/11/19 06:00 wbc was 4.1 yesterday with ANC 1400; today ANC over 4000 CMP Sodium 137 mmol/L (136-145) 01/11/19 06:00 Potassium 4.0 mmol/L (3.5-5.1) 01/11/19 06:00 Chloride 103 mmol/L (98-107) 01/11/19 06:00 Carbon Dioxide 27 mmol/L (21-32) 01/11/19 06:00 Anion Gap 7 MMOL/L (8-16) L 01/11/19 06:00 BUN 8 mg/dL (7-18) 01/11/19 06:00 Creatinine 0.7 mg/dL (0.55-1.3) 01/11/19 06:00 Creat Clearance w eGFR 97.60 (>60) 01/11/19 06:00 Random Glucose 78 mg/dL (74-106) 01/11/19 06:00 Lactic Acid 1.2 mmol/L (0.4-2.0) 01/10/19 13:12 Calcium 8.5 mg/dL (8.5-10.1) 01/11/19 06:00 Total Bilirubin 0.4 mg/dL (0.2-1) 01/11/19 06:00 AST 11 U/L (15-37) L 01/11/19 06:00 ALT 29 U/L (13-61) 01/11/19 06:00 Alkaline Phosphatase 83 U/L (45-117) 01/11/19 06:00 LD Total 150 U/L (84-246) 01/11/19 06:00 Creatine Kinase 22 U/L (26-192) L 01/10/19 13:12 Troponin I < 0.02 ng/ml (0.00-0.05) 01/10/19 13:12 Total Protein 6.2 g/dl (6.4-8.2) L 01/11/19 06:00 Albumin 3.3 g/dl (3.4-5.0) L 01/11/19 06:00 Total Amylase 70 U/L (25-115) 01/11/19 06:00 Lipase 93 U/L (73-393) 01/11/19 06:00 Beta HCG, Quant < 1.0 mIU/ml 01/10/19 13:12 Serum , Qual Negative 01/10/19 13:12 INR, PTT INR 1.20 (0.83-1.09) H 01/10/19 13:12 Urine Test Results Urine Color Yellow 01/10/19 13:40 Urine Appearance Clear 01/10/19 13:40 Urine pH 6.0 (5.0-8.0) 01/10/19 13:40 Ur Specific [place] 1.016 (1.010-1.035) 01/10/19 13:40 Urine Protein 1+ (NEGATIVE) H 01/10/19 13:40 Urine Glucose (UA) Trace (NEGATIVE) 01/10/19 13:40 Urine Ketones Negative (NEGATIVE) 01/10/19 13:40 Urine Blood Negative (NEGATIVE) 01/10/19 13:40 Urine Nitrite Negative (NEGATIVE) 01/10/19 13:40 Urine Bilirubin Negative (NEGATIVE) 01/10/19 13:40 Ur Leukocyte Esterase Negative (NEGATIVE) 01/10/19 13:40 Microbiology 01/10/19 13:10 Blood Culture - Preliminary Blood - Peripheral Venous NO GROWTH OBTAINED AFTER 24 HOURS, INCUBATION TO CONTINUE FOR 4 DAYS. 01/10/19 13:26 Blood Culture - Preliminary Blood - Peripheral Venous NO GROWTH OBTAINED AFTER 24 HOURS, INCUBATION TO CONTINUE FOR 4 DAYS. 01/10/19 13:40 Urine Culture - Final Urine - Urine Clean Catch Imaging - Results X-ray: Report Reviewed, Image Reviewed (AXR just taken - no remarkable findings) Cat Scan: Report Reviewed, Image Reviewed (images reviewed - possible mild concentric thickening of ascending and proximal transverse colon, little fluid in pelvis and RLQ/paracolic space, limited with no enteric contrast; no appendicitis, no obstruction) Problem List - Problems (1) Chemotherapy induced diarrhea Assessment/Plan: with N/V, fever also epistaxis, epigastric pain neutropenic stool studies pending to evaluate for infectious cause - no stool since getting here would not use imodium unless C. diff r/o for certain no acute surgical issues agree with going slowly on resumption of PO obtain stool for studies will follow peripherally and remain available for questions Thank you for the opportunity to participate in the care of this patient. discussed with Dr. Beckett Code(s): K52.1 - TOXIC GASTROENTERITIS AND COLITIS; T45.1X5A - ADVERSE EFFECT OF ANTINEOPLASTIC AND IMMUNOSUP DRUGS, INIT (2) Diarrhea of presumed infectious origin Assessment/Plan: awaiting stool for studies improved - no stool today or last night Code(s): R19.7 - DIARRHEA, UNSPECIFIED (3) Nausea and vomiting Assessment/Plan: still nauseated - getting zofran prn clears and fulls at bedside - pt hesitant about having much Code(s): R11.2 - NAUSEA WITH VOMITING, UNSPECIFIED Qualifiers: Vomiting type: unspecified Vomiting Intractability: non-intractable Qualified Code(s): R11.2 - Nausea with vomiting, unspecified (4) Epigastric pain Assessment/Plan: improved but still present some, tender recommend GI prophylaxis pt gives h/o possible previous "ulcer" - not sure if it was ever scoped might consider carafate as well Code(s): R10.13 - EPIGASTRIC PAIN (5) Cancer of right breast Assessment/Plan: first cycle of chemo was last Thursday Code(s): C50.911 - MALIGNANT NEOPLASM OF UNSP SITE OF RIGHT FEMALE BREAST Qualifiers: Breast location: unspecified site of breast Estrogen receptor status: positive Patient sex: female Qualified Code(s): C50.911 - Malignant neoplasm of unspecified site of right female breast; Z17.0 - Estrogen receptor positive status [ER+] (6) Epistaxis Assessment/Plan: pt reports episodes over past 3 days - initially may have been provoked "cleaning her nose" the next morning, woke up with bleeding from nose had one more time not in hospital Code(s): R04.0 - EPISTAXIS
[2019-01-11] MEDS ORDERED: DEXTROSE 5%-WATER 100 ML IVPB ONE (18:35)
[2019-01-11] MEDS ORDERED: CEFEPIME HCL 2 GM VIAL (RESTRICTED TO ID) ONE (18:35)
[2019-01-11] MEDS ORDERED: ACETAMINOPHEN 1000 MG/100 ML VIAL (NON FORMULARY) IVPB ONE (21:35)
[2019-01-11] MEDS: SODIUM CHLORIDE 1,000 ML IV SCH (23:06)
[2019-01-12] MEDS ORDERED: CEFEPIME HCL 2 GM VIAL (RESTRICTED TO ID) ONE ×3 (01:50→16:46)
[2019-01-12] MEDS ORDERED: DEXTROSE 5%-WATER 100 ML IVPB ONE ×3 (01:50→16:45)
[2019-01-12] MEDS: CEFEPIME 2 GM in DEXTROSE 5%-WATER 100 ML IVPB SCH ×3 (02:15→17:00)
[2019-01-12] MEDS ORDERED: PANTOPRAZOLE SODIUM 40 MG VIAL IVPB SCH (10:00)
[2019-01-12] MEDS ORDERED: ACETAMINOPHEN 325 MG TABLET (FP) PO PRN (10:07)
[2019-01-12] MEDS: HEPARIN NA (PORCINE) 5,000 UNITS/ML 1ML VIAL SQ SCH ×3 (10:14→21:21)
[2019-01-12] MEDS: PANTOPRAZOLE SODIUM 40 MG VIAL IVPB SCH ×2 (10:14→21:21)
--- NOTE | 2019-01-12 11:23 | PN.GI ---
GI Progress Note Subjective: Pt seen/examined at bedside, feels slightly better, reports intermittent nausea/ vomiting, no blood, with no further diarrhea or bms since admission Some epigastric pain and appetite poor. Denies fever/chills. - Objective Vital Signs: Vital Signs Temperature 97.7 F 01/12/19 10:00 Pulse Rate 73 01/12/19 10:00 Respiratory Rate 18 01/12/19 10:00 Blood Pressure 102/60 01/12/19 10:00 O2 Sat by Pulse Oximetry (%) 100 01/12/19 03:00 Constitutional: Well Nourished, No Distress, Calm Cardiovascular: Yes: WNL, Regular Rate and Rhythm Respiratory: Yes: WNL, Regular, CTA Bilaterally Gastrointestinal Inspection: Yes: WNL ...Palpate: Yes: Other (Abd soft, mildly tender in epigastrium on palpation, nondistended) Labs: CBC, BMP 01/11/19 06:00 01/11/19 06:00 INR, PTT INR 1.20 (0.83-1.09) H 01/10/19 13:12 Problem List - Problems (1) Acute diarrhea Assessment/Plan: 33 yo female h/o breast ca s/p chemotherapy (12/2018) presenting with diarrhea up to 12x daily now resolved, no further bm since admission though pt was given loperamide on 01/10. No stool studies yet obtained. CT imaging revealing thickening at right and transverse colons ?infectious colitis vs underdistension. Diarrhea may also be secondary to chemotherapy. Low grade temperature and leucocytosis noted today. -Recommend obtain stool studies for C difficile and ova/parasites if further loose stool r/o infectious diarrhea -Avoid loperamide until infectious diarrhea has been excluded -Complete infectious workup including blood/urine cultures -Follow up ID recommendations Code(s): R19.7 - DIARRHEA, UNSPECIFIED (2) Nausea and vomiting Assessment/Plan: with associated epigastric pain, possibly secondary to chemotherapy vs gastritis vs self limiting gastroenteritis. No overt bleeding. -Check stool studies as noted above -Continue supportive measures, IVF, diet as tolerated -Decrease to PPI daily -Repeat abd xray -Note reported h/o PUD, if symptoms persist and infectious workup negative may consider EGD at that time Code(s): R11.2 - NAUSEA WITH VOMITING, UNSPECIFIED Qualifiers: Vomiting type: unspecified Vomiting Intractability: non-intractable Qualified Code(s): R11.2 - Nausea with vomiting, unspecified
--- NOTE | 2019-01-12 13:37 | PN ---
Progress Note, Physician History of Present Illness: patient starting to feel better was able to eat a little still with abd pain improving - Current Medication List Current Medications: Active Medications Acetaminophen (Tylenol -) 650 mg PO Q4H PRN PRN Reason: PAIN Heparin Sodium (Porcine) (Heparin -) 5,000 unit SQ BID [facility] Last Admin: 01/12/19 10:15 Dose: 5,000 unit Hydrocortisone (Hytone 0.5% Cream -) 1 applic TP DAILY PRN PRN Reason: DRY SKIN Metronidazole (Flagyl 500mg Premixed Ivpb -) 500 mg in 100 mls @ 100 mls/hr IVPB Q8H-IV [facility] Last Admin: 01/12/19 10:14 Dose: 100 mls/hr Sodium Chloride (Normal Saline -) 1,000 mls @ 75 mls/hr IV ASDIR [facility] Last Admin: 01/11/19 23:06 Dose: 75 mls/hr Cefepime HCl 2 gm/ Dextrose 100 mls @ 200 mls/hr IVPB Q8H-IV [facility]; Protocol Last Admin: 01/12/19 10:15 Dose: 200 mls/hr Ondansetron HCl (Zofran Injection) 8 mg IVPB Q12H PRN PRN Reason: NAUSEA Last Admin: 01/11/19 21:31 Dose: 8 mg Pantoprazole Sodium (Protonix Iv) 40 mg IVPB BID [facility] Last Admin: 01/12/19 10:14 Dose: 40 mg - Objective Vital Signs: Vital Signs Temperature 97.7 F 01/12/19 10:00 Pulse Rate 73 01/12/19 10:00 Respiratory Rate 18 01/12/19 10:00 Blood Pressure 102/60 01/12/19 10:00 O2 Sat by Pulse Oximetry (%) 100 01/12/19 03:00 Constitutional: Yes: No Distress, Calm Cardiovascular: Yes: Regular Rate and Rhythm Respiratory: Yes: Regular, CTA Bilaterally Gastrointestinal: Yes: Soft, Hyperactive Bowel Sounds Musculoskeletal: Yes: WNL Extremities: Yes: WNL Neurological: Yes: Alert, Oriented Psychiatric: Yes: Alert, Oriented Labs: CBC, BMP 01/11/19 06:00 01/11/19 06:00 INR, PTT INR 1.20 (0.83-1.09) H 01/10/19 13:12 Assessment/Plan Problem List - Problems (1) Chemotherapy induced diarrhea Code(s): K52.1 - TOXIC GASTROENTERITIS AND COLITIS; T45.1X5A - ADVERSE EFFECT OF ANTINEOPLASTIC AND IMMUNOSUP DRUGS, INIT (2) Diarrhea of presumed infectious origin Code(s): R19.7 - DIARRHEA, UNSPECIFIED (3) Nausea and vomiting Code(s): R11.2 - NAUSEA WITH VOMITING, UNSPECIFIED Qualifiers: Vomiting type: unspecified Vomiting Intractability: non-intractable Qualified Code(s): R11.2 - Nausea with vomiting, unspecified (4) Epigastric pain Code(s): R10.13 - EPIGASTRIC PAIN (5) Cancer of right breast Code(s): C50.911 - MALIGNANT NEOPLASM OF UNSP SITE OF RIGHT FEMALE BREAST Qualifiers: Breast location: unspecified site of breast Estrogen receptor status: positive Patient sex: female Qualified Code(s): C50.911 - Malignant neoplasm of unspecified site of right female breast; Z17.0 - Estrogen receptor positive status [ER+] (6) Epistaxis Code(s): R04.0 - EPISTAXIS plan will continue abx will deescalte flagyl tomorrow continue current mgmt rest as per the team
[2019-01-12 14:01] LABS: BASO % 0.3 % (0-2.0); EOS % 0.2 % (0-4.5); HEMATOCRIT 33.1 % (32.4-45.2); LYMPH % 13.2 % (8-40); MCH 25.7 pg (25.7-33.7); MCHC 33.2 g/dl (32.0-36.0); MEAN CELL VOLUME 77.5 fl (80-96); MEAN PLT VOLUME 8.7 fl (7.5-11.1); MONO % 8.2 % (3.8-10.2); NEUT % 78.1 % (42.8-82.8); PLATELET COUNT 195 K/MM3 (134-434); RBC 4.28 M/mm3 (3.60-5.2); RDW 13.3 % (11.6-15.6); WHITE BLOOD COUNT 16.7 K/mm3 (4.0-10.0)
[2019-01-12 14:44] LABS: ALBUMIN 3.8 g/dl (3.4-5.0); ALK PHOS 107 U/L (45-117); ANION GAP 8 MMOL/L (8-16); BILIRUBIN,TOTAL 0.3 mg/dL (0.2-1); BLOOD UREA NITROGEN 8 mg/dL (7-18); CHLORIDE 102 mmol/L (98-107); CO2 25 mmol/L (21-32); CREATININE 0.8 mg/dL (0.55-1.3); GLUCOSE,RANDOM 93 mg/dL (74-106); POTASSIUM 3.4 mmol/L (3.5-5.1); SGOT/AST 26 U/L (15-37); SGPT/ALT 41 U/L (13-61); SODIUM 135 mmol/L (136-145); TOT PROT 6.9 g/dl (6.4-8.2)
--- NOTE | 2019-01-12 14:45 | PN ---
Progress Note (short form) - Note Progress Note: Patient seen and examined Abdominal discomfort has improved Had BM and stool sample submitted Has no fevers. Emesis last PM Last Vital Signs Temp Pulse Resp BP Pulse Ox 97.7 F 73 18 102/60 100 01/12/19 10:00 01/12/19 10:00 01/12/19 10:00 01/12/19 10:00 01/12/19 03:00 HEENT: GÉNESIS, EOM Intact Oropharynx: No thrush, No mucositis Cor: RSR, No murmurs, No gallops Lungs: Clear to P&A Abd: Soft, Normal bowel sounds, No organomegaly Ext:No significant edema Skin: No rashes, Integument intact CBC, BMP 01/12/19 13:13 Current Medications Generic Name Dose Route Start Last Admin Trade Name Freq PRN Reason Stop Dose Admin Acetaminophen 650 mg 01/12/19 10:07 Tylenol - PO Q4H PRN PAIN Heparin Sodium (Porcine) 5,000 unit 01/10/19 22:00 01/12/19 10:15 Heparin - SQ 5,000 unit BID [facility] Administration Hydrocortisone 1 applic 01/11/19 17:29 Hytone 0.5% Cream - TP DAILY PRN DRY SKIN Metronidazole 500 mg in 100 mls @ 100 mls/hr 01/10/19 22:00 01/12/19 10:14 Flagyl 500mg Premixed Ivpb - IVPB 100 mls/hr Q8H-IV [facility] Administration Sodium Chloride 1,000 mls @ 75 mls/hr 01/10/19 19:00 01/11/19 23:06 Normal Saline - IV 75 mls/hr ASDIR [facility]NON Administration Cefepime HCl 2 gm/ Dextrose 100 mls @ 200 mls/hr 01/11/19 14:30 01/12/19 10: 15 IVPB 200 mls/hr Q8H-IV [facility] Administration Protocol Ondansetron HCl 8 mg 01/10/19 21:16 01/11/19 21:31 Zofran Injection IVPB 8 mg Q12H PRN Administration NAUSEA Pantoprazole Sodium 40 mg 01/11/19 22:00 01/12/19 10:14 Protonix Iv IVPB 40 mg BID [facility] Administration Impression: Breast ca S/P chemotherapy and neulasta -01/04 and 01/05 Diarrhea and abdominal discomfort with CT revealing thickening of transverse colon ? colitis. On antibiotics and improving Leucocytosis- recovering BM s/p neulasta. Plan: Check stool cultures ?change to oral antibiotics Continue to monitor labs.
[2019-01-12 14:59] LABS: ANISOCYTOSIS 0; MACROCYTOSIS 0; PLATELET ESTIMATE NORMAL
[2019-01-12 16:20] VITALS: BMI 26.4
[2019-01-12] MEDS: ONDANSETRON 4 MG/2 ML VIAL IVPB PRN (16:50)
--- NOTE | 2019-01-12 18:25 | PN ---
Progress Note, Physician - Current Medication List Current Medications: Active Medications Acetaminophen (Tylenol -) 650 mg PO Q4H PRN PRN Reason: PAIN Heparin Sodium (Porcine) (Heparin -) 5,000 unit SQ BID [facility] Last Admin: 01/12/19 10:15 Dose: 5,000 unit Hydrocortisone (Hytone 0.5% Cream -) 1 applic TP DAILY PRN PRN Reason: DRY SKIN Metronidazole (Flagyl 500mg Premixed Ivpb -) 500 mg in 100 mls @ 100 mls/hr IVPB Q8H-IV [facility] Last Admin: 01/12/19 17:00 Dose: 100 mls/hr Sodium Chloride (Normal Saline -) 1,000 mls @ 75 mls/hr IV ASDIR [facility] Last Admin: 01/11/19 23:06 Dose: 75 mls/hr Cefepime HCl 2 gm/ Dextrose 100 mls @ 200 mls/hr IVPB Q8H-IV [facility]; Protocol Last Admin: 01/12/19 17:00 Dose: 200 mls/hr Ondansetron HCl (Zofran Injection) 8 mg IVPB Q12H PRN PRN Reason: NAUSEA Last Admin: 01/12/19 16:50 Dose: 8 mg Pantoprazole Sodium (Protonix Iv) 40 mg IVPB BID [facility] Last Admin: 01/12/19 10:14 Dose: 40 mg - Objective Vital Signs: Vital Signs Temperature 98.5 F 01/12/19 15:00 Pulse Rate 83 01/12/19 15:00 Respiratory Rate 20 01/12/19 15:00 Blood Pressure 115/67 01/12/19 15:00 O2 Sat by Pulse Oximetry (%) 100 01/12/19 11:00 Constitutional: Yes: No Distress HENT: Yes: Atraumatic Neck: Yes: Supple Cardiovascular: Yes: Regular Rate and Rhythm Respiratory: Yes: CTA Bilaterally Gastrointestinal: Yes: Normal Bowel Sounds Extremities: Yes: WNL Edema: No Peripheral Pulses WNL: Yes Neurological: Yes: Alert, Oriented Labs: CBC, BMP 01/12/19 13:13 01/12/19 13:13 INR, PTT INR 1.20 (0.83-1.09) H 01/10/19 13:12 Problem List - Problems (1) Colitis Assessment/Plan: prn pain meds ivf clear liquid diet on iv abx Code(s): K52.9 - NONINFECTIVE GASTROENTERITIS AND COLITIS, UNSPECIFIED (2) Neutropenia Assessment/Plan: wbc count high Code(s): D70.9 - NEUTROPENIA, UNSPECIFIED Qualifiers: Neutropenia type: secondary to cancer chemotherapy Qualified Code(s): D70.1 - Agranulocytosis secondary to cancer chemotherapy; T45.1X5A - Adverse effect of antineoplastic and immunosuppressive drugs, initial encounter
[2019-01-12] MEDS: SODIUM CHLORIDE 1,000 ML IV SCH (19:56)
[2019-01-13] MEDS ORDERED: ACETAMINOPHEN 1000 MG/100 ML VIAL (NON FORMULARY) IVPB PRN (01:14)
[2019-01-13] MEDS: SODIUM CHLORIDE 1,000 ML IV SCH ×2 (01:55→06:50)
[2019-01-13] MEDS ORDERED: DEXTROSE 5%-WATER 100 ML IVPB ONE ×2 (02:14→09:03)
[2019-01-13] MEDS ORDERED: CEFEPIME HCL 2 GM VIAL (RESTRICTED TO ID) ONE ×2 (02:14→09:04)
[2019-01-13] MEDS: CEFEPIME 2 GM in DEXTROSE 5%-WATER 100 ML IVPB SCH ×2 (02:17→09:23)
[2019-01-13 07:44] LABS: BASO % 0.3 % (0-2.0); EOS % 0.2 % (0-4.5); HEMATOCRIT 29.9 % (32.4-45.2); HEMOGLOBIN 9.8 GM/dL (10.7-15.3); LYMPH % 14.6 % (8-40); MCH 25.7 pg (25.7-33.7); MCHC 32.9 g/dl (32.0-36.0); MEAN CELL VOLUME 78.1 fl (80-96); MEAN PLT VOLUME 8.6 fl (7.5-11.1); MONO % 5.9 % (3.8-10.2); PLATELET COUNT 160 K/MM3 (134-434); RBC 3.83 M/mm3 (3.60-5.2); RDW 13.2 % (11.6-15.6); WHITE BLOOD COUNT 14.4 K/mm3 (4.0-10.0)
[2019-01-13 08:01] LABS: ALBUMIN 3.1 g/dl (3.4-5.0); ALK PHOS 92 U/L (45-117); ANION GAP 6 MMOL/L (8-16); BILIRUBIN,TOTAL 0.3 mg/dL (0.2-1); BLOOD UREA NITROGEN 7 mg/dL (7-18); CALCIUM 8.3 mg/dL (8.5-10.1); CHLORIDE 106 mmol/L (98-107); CO2 26 mmol/L (21-32); CREATININE 0.7 mg/dL (0.55-1.3); GLUCOSE,RANDOM 82 mg/dL (74-106); POTASSIUM 3.4 mmol/L (3.5-5.1); SGOT/AST 24 U/L (15-37); SGPT/ALT 35 U/L (13-61); SODIUM 137 mmol/L (136-145); TOT PROT 5.8 g/dl (6.4-8.2)
[2019-01-13] MEDS: PANTOPRAZOLE SODIUM 40 MG VIAL IVPB SCH (09:25)
[2019-01-13] MEDS: HEPARIN NA (PORCINE) 5,000 UNITS/ML 1ML VIAL SQ SCH ×2 (09:25→21:46)
[2019-01-13] MEDS ORDERED: POTASSIUM CHLORIDE TABS 20 MEQ TABLET.ER (FP) PO ONE (10:45)
[2019-01-13] MEDS ORDERED: LOPERAMIDE HCL 2 MG CAPSULE PO ONE (10:45)
[2019-01-13] MEDS ORDERED: LOPERAMIDE HCL 2 MG CAPSULE PO PRN (10:46)
[2019-01-13 11:17] LABS: ANISOCYTOSIS 0; MACROCYTOSIS 0; PLATELET ESTIMATE DECREASED
--- NOTE | 2019-01-13 12:08 | PN ---
Physical Exam: SUBJECTIVE: Patient seen and examined at bedside. Had 8 watery BMs overnight. No blood. Less nauseous. Is tolerating diet but is going to bathroom right after eating. No fevers. OBJECTIVE: Vital Signs Period Temp Pulse Resp BP Sys/James Pulse Ox Last 24 Hr 98.2 F-98.6 F 77-83 18-20 90-115/43-70 100-100 GENERAL: Awake, alert, and fully oriented, in no acute distress. EYES: extraocular movements intact, sclera anicteric, conjunctiva clear. NECK: Normal range of motion, supple LUNGS: Breath sounds equal, clear to auscultation bilaterally. HEART: Regular rate and rhythm, normal S1 and S2 ABDOMEN: Soft. mild +RUQ, epigastric, LUQ tenderness. No rebound. Normoactive BS LOWER EXTREMITIES: warm, well-perfused. No calf tenderness. No peripheral edema. NEUROLOGICAL: Cranial nerves II-XII grossly intact. Normal speech. Gait not observed. MSK: No CVA tenderness. PSYCHIATRIC: Cooperative. Good eye contact. Appropriate mood and affect. SKIN: Warm, dry Laboratory Results - last 24 hr 01/12/19 01/12/19 01/13/19 13:13 13:13 06:15 WBC 16.7 H 14.4 H RBC 4.28 3.83 Hgb 11.0 9.8 L Hct 33.1 29.9 L MCV 77.5 L 78.1 L MCH 25.7 25.7 MCHC 33.2 32.9 RDW 13.3 13.2 Plt Count 195 D 160 MPV 8.7 8.6 Absolute Neuts (auto) 13.1 H 11.3 H Neutrophils % 78.1 D 79.0 Neutrophils % (Manual) 61.6 Band Neutrophils % 15.2 Lymphocytes % 13.2 D 14.6 Lymphocytes % (Manual) 11.1 D Monocytes % 8.2 5.9 Monocytes % (Manual) 7 Eosinophils % 0.2 0.2 Eosinophils % (Manual) 0.0 D Basophils % 0.3 0.3 Basophils % (Manual) 0.0 Myelocytes % (Man) 1 D Promyelocytes % (Man) 0 Blast Cells % (Manual) 0 Nucleated RBC % 1 H 0 Metamyelocytes 4 H D Hypochromia 0 Platelet Estimate Normal Polychromasia 0 Poikilocytosis 0 Anisocytosis 0 Microcytosis 0 Macrocytosis 0 Sodium 135 L Potassium 3.4 L Chloride 102 Carbon Dioxide 25 Anion Gap 8 BUN 8 Creatinine 0.8 Creat Clearance w eGFR 83.66 Random Glucose 93 Calcium 9.0 Total Bilirubin 0.3 AST 26 ALT 41 Alkaline Phosphatase 107 Total Protein 6.9 Albumin 3.8 01/13/19 06:15 WBC RBC Hgb Hct MCV MCH MCHC RDW Plt Count MPV Absolute Neuts (auto) Neutrophils % Neutrophils % (Manual) Band Neutrophils % Lymphocytes % Lymphocytes % (Manual) Monocytes % Monocytes % (Manual) Eosinophils % Eosinophils % (Manual) Basophils % Basophils % (Manual) Myelocytes % (Man) Promyelocytes % (Man) Blast Cells % (Manual) Nucleated RBC % Metamyelocytes Hypochromia Platelet Estimate Polychromasia Poikilocytosis Anisocytosis Microcytosis Macrocytosis Sodium 137 Potassium 3.4 L Chloride 106 Carbon Dioxide 26 Anion Gap 6 L BUN 7 Creatinine 0.7 Creat Clearance w eGFR 97.60 Random Glucose 82 Calcium 8.3 L Total Bilirubin 0.3 AST 24 ALT 35 Alkaline Phosphatase 92 Total Protein 5.8 L Albumin 3.1 L Active Medications Generic Name Dose Route Start Last Admin Trade Name Freq PRN Reason Stop Dose Admin Acetaminophen 650 mg 01/12/19 10:07 01/12/19 19:29 Tylenol - PO 650 mg Q4H PRN Administration PAIN Acetaminophen 1,000 mg 01/13/19 01:14 01/13/19 01:21 Ofirmev Injection - IVPB 1,000 mg Q6H PRN Administration PAIN SCALE 4-6 Heparin Sodium (Porcine) 5,000 unit 01/10/19 22:00 01/13/19 09:25 Heparin - SQ 5,000 unit BID [facility] Administration Hydrocortisone 1 applic 01/11/19 17:29 Hytone 0.5% Cream - TP DAILY PRN DRY SKIN Metronidazole 500 mg in 100 mls @ 100 mls/hr 01/10/19 22:00 01/13/19 09:25 Flagyl 500mg Premixed Ivpb - IVPB 100 mls/hr Q8H-IV [facility] Administration Cefepime HCl 2 gm/ Dextrose 100 mls @ 200 mls/hr 01/11/19 14:30 01/13/19 09: 23 IVPB 200 mls/hr Q8H-IV [facility] Administration Protocol Sodium Chloride 1,000 mls @ 100 mls/hr 01/13/19 01:15 01/13/19 06:50 Normal Saline - IV 100 mls/hr ASDIR [facility] Administration Loperamide HCl 2 mg 01/13/19 10:46 Imodium - PO Q4H PRN DIARRHEA Ondansetron HCl 8 mg 01/10/19 21:16 01/12/19 16:50 Zofran Injection IVPB 8 mg Q12H PRN Administration NAUSEA Pantoprazole Sodium 40 mg 01/11/19 22:00 01/13/19 09:25 Protonix Iv IVPB 40 mg BID [facility] Administration ASSESSMENT/PLAN: 33 y/o F w/PMH of recently diagnosed R breast ca (poorly diff ductal ca w/mets to R axillary node s/p chemo on 01/04 (first chemo)) presents to the ER with abdominal pain and diarrhea. Breast ca s/p chemo Abd pain with diarrhea Leukocytosis -F/u stool cultures, c. diff -Leukocytosis may now be from recovering BM s/p neulasta -c/w abx as per ID. Visit type - Emergency Visit Emergency Visit: Yes ED Registration Date: 01/10/19 Care time: The patient presented to the Emergency Department on the above date and was hospitalized for further evaluation of their emergent condition. - New Patient This patient is new to me today: No - Critical Care Critical Care patient: No
--- NOTE | 2019-01-13 12:32 | PN ---
Progress Note, Physician History of Present Illness: patient stable though having lot of bm still cdiff negative no other symptoms - Current Medication List Current Medications: Active Medications Acetaminophen (Tylenol -) 650 mg PO Q4H PRN PRN Reason: PAIN Last Admin: 01/12/19 19:29 Dose: 650 mg Acetaminophen (Ofirmev Injection -) 1,000 mg IVPB Q6H PRN PRN Reason: PAIN SCALE 4-6 Last Admin: 01/13/19 01:21 Dose: 1,000 mg Heparin Sodium (Porcine) (Heparin -) 5,000 unit SQ BID BRENNON Last Admin: 01/13/19 09:25 Dose: 5,000 unit Hydrocortisone (Hytone 0.5% Cream -) 1 applic TP DAILY PRN PRN Reason: DRY SKIN Metronidazole (Flagyl 500mg Premixed Ivpb -) 500 mg in 100 mls @ 100 mls/hr IVPB Q8H-IV BRENNON Last Admin: 01/13/19 09:25 Dose: 100 mls/hr Cefepime HCl 2 gm/ Dextrose 100 mls @ 200 mls/hr IVPB Q8H-IV BRENNON; Protocol Last Admin: 01/13/19 09:23 Dose: 200 mls/hr Sodium Chloride (Normal Saline -) 1,000 mls @ 100 mls/hr IV ASDIR BRENNON Last Admin: 01/13/19 06:50 Dose: 100 mls/hr Loperamide HCl (Imodium -) 2 mg PO Q4H PRN PRN Reason: DIARRHEA Ondansetron HCl (Zofran Injection) 8 mg IVPB Q12H PRN PRN Reason: NAUSEA Last Admin: 01/12/19 16:50 Dose: 8 mg Pantoprazole Sodium (Protonix Iv) 40 mg IVPB BID BRENNON Last Admin: 01/13/19 09:25 Dose: 40 mg - Objective Vital Signs: Vital Signs Temperature 98.3 F 01/13/19 05:37 Pulse Rate 78 01/13/19 06:59 Respiratory Rate 18 01/13/19 05:37 Blood Pressure 90/45 L 01/13/19 06:59 O2 Sat by Pulse Oximetry (%) 100 01/13/19 03:00 Constitutional: Yes: No Distress, Calm Cardiovascular: Yes: Regular Rate and Rhythm Respiratory: Yes: Regular, CTA Bilaterally Gastrointestinal: Yes: Normal Bowel Sounds, Soft Musculoskeletal: Yes: WNL Extremities: Yes: WNL Neurological: Yes: Alert, Oriented Psychiatric: Yes: Alert, Oriented Labs: CBC, BMP 01/13/19 06:15 01/13/19 06:15 INR, PTT INR 1.20 (0.83-1.09) H 01/10/19 13:12 Assessment/Plan Problem List - Problems (1) Chemotherapy induced diarrhea Code(s): K52.1 - TOXIC GASTROENTERITIS AND COLITIS; T45.1X5A - ADVERSE EFFECT OF ANTINEOPLASTIC AND IMMUNOSUP DRUGS, INIT (2) Diarrhea of presumed infectious origin Code(s): R19.7 - DIARRHEA, UNSPECIFIED (3) Nausea and vomiting Code(s): R11.2 - NAUSEA WITH VOMITING, UNSPECIFIED Qualifiers: Vomiting type: unspecified Vomiting Intractability: non-intractable Qualified Code(s): R11.2 - Nausea with vomiting, unspecified (4) Epigastric pain Code(s): R10.13 - EPIGASTRIC PAIN (5) Cancer of right breast Code(s): C50.911 - MALIGNANT NEOPLASM OF UNSP SITE OF RIGHT FEMALE BREAST Qualifiers: Breast location: unspecified site of breast Estrogen receptor status: positive Patient sex: female Qualified Code(s): C50.911 - Malignant neoplasm of unspecified site of right female breast; Z17.0 - Estrogen receptor positive status [ER+] (6) Epistaxis Code(s): R04.0 - EPISTAXIS plan will continue abx will see how patient does tomorrow will decide after that rest as per the team
--- NOTE | 2019-01-13 17:07 | PN.GI ---
GI Progress Note Subjective: Overall states feeling better, however states still having loose BM's without Imodium 1 episode of vomiting this afternoon. No fevers/chills. Still with some upper abdominal discomfort No rectal bleeding - Objective Vital Signs: Vital Signs Temperature 98.0 F 01/13/19 15:15 Pulse Rate 83 01/13/19 15:15 Respiratory Rate 18 01/13/19 15:15 Blood Pressure 139/57 L 01/13/19 15:15 O2 Sat by Pulse Oximetry (%) 100 01/13/19 11:00 Constitutional: Calm Eyes: No: Sclera Icterus Cardiovascular: Yes: Regular Rate and Rhythm Respiratory: Yes: CTA Bilaterally Gastrointestinal Inspection: No: Distention ...Auscultate: Yes: Normoactive Bowel Sounds ...Palpate: Yes: Tenderness (Mild TTP). No: Guarding, Tenderness, Rebound ...Percussion: No: Tympanitic Edema: No (No LE edema) Neurological: Yes: Alert Labs: CBC, BMP 01/13/19 06:15 01/13/19 06:15 INR, PTT INR 1.20 (0.83-1.09) H 01/10/19 13:12 Problem List - Problems (1) Acute diarrhea Assessment/Plan: Still with diarrhea O&P pending C. Diff neg Culture not collected as of yet Cefepime doscontinued D/C'd metronidazole (? if contributing to nausea and diarrhea) Supportive measures Code(s): R19.7 - DIARRHEA, UNSPECIFIED (2) Epigastric pain Assessment/Plan: Minimal tenderness noted on exam. ? if related to retching that occurred along with her nausea/vomiting Changed Protonix to 20mg PO daily Upper GI series ordered for AM Code(s): R10.13 - EPIGASTRIC PAIN
--- NOTE | 2019-01-13 17:22 | PN ---
Progress Note, Physician History of Present Illness: had 2 bms today feeling much better - Current Medication List Current Medications: Active Medications Acetaminophen (Tylenol -) 650 mg PO Q4H PRN PRN Reason: PAIN Last Admin: 01/12/19 19:29 Dose: 650 mg Acetaminophen (Ofirmev Injection -) 1,000 mg IVPB Q6H PRN PRN Reason: PAIN SCALE 4-6 Last Admin: 01/13/19 01:21 Dose: 1,000 mg Heparin Sodium (Porcine) (Heparin -) 5,000 unit SQ BID BRENNON Last Admin: 01/13/19 09:25 Dose: 5,000 unit Hydrocortisone (Hytone 0.5% Cream -) 1 applic TP DAILY PRN PRN Reason: DRY SKIN Sodium Chloride (Normal Saline -) 1,000 mls @ 100 mls/hr IV ASDIR [facility] Last Admin: 01/13/19 06:50 Dose: 100 mls/hr Loperamide HCl (Imodium -) 2 mg PO Q4H PRN PRN Reason: DIARRHEA Ondansetron HCl (Zofran Injection) 8 mg IVPB Q12H PRN PRN Reason: NAUSEA Last Admin: 01/12/19 16:50 Dose: 8 mg Pantoprazole Sodium (Protonix -) 20 mg PO DAILY [facility] - Objective Vital Signs: Vital Signs Temperature 98.0 F 01/13/19 15:15 Pulse Rate 83 01/13/19 15:15 Respiratory Rate 18 01/13/19 15:15 Blood Pressure 139/57 L 01/13/19 15:15 O2 Sat by Pulse Oximetry (%) 100 01/13/19 11:00 Constitutional: Yes: No Distress HENT: Yes: Atraumatic Neck: Yes: Supple Cardiovascular: Yes: Regular Rate and Rhythm Respiratory: Yes: CTA Bilaterally Gastrointestinal: Yes: Normal Bowel Sounds Extremities: Yes: WNL Neurological: Yes: Alert, Oriented Labs: CBC, BMP 01/13/19 06:15 01/13/19 06:15 INR, PTT INR 1.20 (0.83-1.09) H 01/10/19 13:12 Problem List - Problems (1) Colitis Assessment/Plan: prn pain meds ivf full liquid diet cxs negative dc iv abx Code(s): K52.9 - NONINFECTIVE GASTROENTERITIS AND COLITIS, UNSPECIFIED (2) Neutropenia Assessment/Plan: wbc count high Code(s): D70.9 - NEUTROPENIA, UNSPECIFIED Qualifiers: Neutropenia type: secondary to cancer chemotherapy Qualified Code(s): D70.1 - Agranulocytosis secondary to cancer chemotherapy; T45.1X5A - Adverse effect of antineoplastic and immunosuppressive drugs, initial encounter
[2019-01-13] MEDS: ONDANSETRON 4 MG/2 ML VIAL IVPB PRN (17:52)
[2019-01-13] MEDS ORDERED: SODIUM CHLORIDE 1,000 ML IV SCH (19:20)
--- NOTE | 2019-01-13 19:24 | PN ---
Progress Note (short form) - Note Progress Note: Patient seen and eexamined Feels better Had diarrhea overnight Last Vital Signs Temp Pulse Resp BP Pulse Ox 99 F 112 H 20 122/65 100 01/13/19 18:00 01/13/19 18:00 01/13/19 18:00 01/13/19 18:00 01/13/19 11:00 Cor: RSR, No murmurs, No gallops Lungs: Clear to P&A Abd: Soft, Normal bowel sounds, No organomegaly Ext:No significant edema Abnormal Lab Results 01/13/19 01/13/19 06:15 06:15 WBC 14.4 H Hgb 9.8 L Hct 29.9 L MCV 78.1 L Absolute Neuts (auto) 11.3 H Myelocytes % (Man) 4 H D Potassium 3.4 L Anion Gap 6 L Calcium 8.3 L Total Protein 5.8 L Albumin 3.1 L Active Medications Generic Name Dose Route Start Last Admin Trade Name Freq PRN Reason Stop Dose Admin Acetaminophen 650 mg 01/12/19 10:07 01/12/19 19:29 Tylenol - PO 650 mg Q4H PRN Administration PAIN Acetaminophen 1,000 mg 01/13/19 01:14 01/13/19 01:21 Ofirmev Injection - IVPB 1,000 mg Q6H PRN Administration PAIN SCALE 4-6 Heparin Sodium (Porcine) 5,000 unit 01/10/19 22:00 01/13/19 09:25 Heparin - SQ 5,000 unit BID BRENNON Administration Hydrocortisone 1 applic 01/11/19 17:29 Hytone 0.5% Cream - TP DAILY PRN DRY SKIN Loperamide HCl 2 mg 01/13/19 10:46 Imodium - PO Q4H PRN DIARRHEA Metronidazole 250 mg 01/14/19 22:00 Flagyl - PO TID BRENNON Ondansetron HCl 8 mg 01/10/19 21:16 01/13/19 17:52 Zofran Injection IVPB 8 mg Q12H PRN Administration NAUSEA Pantoprazole Sodium 20 mg 01/14/19 10:00 Protonix - PO DAILY [facility] A/P 33 y/o patient with stage II ER+ , OR+, Her2-3+ IDC of rt. breast, s/p C1TCHP/ zoladex with neulasta support-- C1D10 today Patient comes in with diarrhea for 3 days, fever yesterday upto 102 Also reports abdominal pain--currently epigastric No shortness of breath or cough CT a/p with IV ontast ( no PO contrast) -- no pneumoperitoneum, ? hepatic cyst, right pericolic fluid Chemotherapy induced colitis Gastritis d/c iv fluids d/c antibiotics UGI series protonix Zofran d/c planning appreciate GI recommendations Will follow
[2019-01-13] MEDS ORDERED: diphenhydrAMINE HCL 25 MG CAPSULE (FP) PO ONE (23:15)
[2019-01-13] MEDS ORDERED: ACETAMINOPHEN 325 MG TABLET (FP) PO ONE (23:15)
[2019-01-14 07:31] LABS: BASO % 0.4 % (0-2.0); EOS % 0.1 % (0-4.5); HEMATOCRIT 29.1 % (32.4-45.2); HEMOGLOBIN 9.9 GM/dL (10.7-15.3); LYMPH % 18.2 % (8-40); MCH 26.4 pg (25.7-33.7); MCHC 33.9 g/dl (32.0-36.0); MEAN CELL VOLUME 77.7 fl (80-96); MEAN PLT VOLUME 8.5 fl (7.5-11.1); MONO % 4.7 % (3.8-10.2); NEUT % 76.6 % (42.8-82.8); PLATELET COUNT 152 K/MM3 (134-434); RBC 3.75 M/mm3 (3.60-5.2); RDW 13.6 % (11.6-15.6); WHITE BLOOD COUNT 11.7 K/mm3 (4.0-10.0)
[2019-01-14 07:58] LABS: ALBUMIN 3.2 g/dl (3.4-5.0); ALK PHOS 94 U/L (45-117); ANION GAP 6 MMOL/L (8-16); BILIRUBIN,TOTAL 0.2 mg/dL (0.2-1); BLOOD UREA NITROGEN 5 mg/dL (7-18); CALCIUM 8.3 mg/dL (8.5-10.1); CHLORIDE 107 mmol/L (98-107); CO2 26 mmol/L (21-32); CREATININE 0.7 mg/dL (0.55-1.3); GLUCOSE,RANDOM 82 mg/dL (74-106); LDH 205 U/L (84-246); POTASSIUM 3.4 mmol/L (3.5-5.1); SGOT/AST 25 U/L (15-37); SGPT/ALT 40 U/L (13-61); SODIUM 138 mmol/L (136-145); TOT PROT 5.9 g/dl (6.4-8.2)
--- NOTE | 2019-01-14 09:57 | PN ---
Progress Note, Physician History of Present Illness: patient stable no new issues - Current Medication List Current Medications: Active Medications Acetaminophen (Ofirmev Injection -) 1,000 mg IVPB Q6H PRN PRN Reason: PAIN SCALE 4-6 Last Admin: 01/13/19 01:21 Dose: 1,000 mg Heparin Sodium (Porcine) (Heparin -) 5,000 unit SQ BID BRENNON Last Admin: 01/13/19 21:46 Dose: Not Given Hydrocortisone (Hytone 0.5% Cream -) 1 applic TP DAILY PRN PRN Reason: DRY SKIN Loperamide HCl (Imodium -) 2 mg PO Q4H PRN PRN Reason: DIARRHEA Ondansetron HCl (Zofran Injection) 8 mg IVPB Q12H PRN PRN Reason: NAUSEA Last Admin: 01/13/19 17:52 Dose: 8 mg Pantoprazole Sodium (Protonix -) 20 mg PO DAILY [facility] - Objective Vital Signs: Vital Signs Temperature 98.9 F 01/14/19 06:00 Pulse Rate 75 01/14/19 06:00 Respiratory Rate 18 01/14/19 06:00 Blood Pressure 110/57 L 01/14/19 06:00 O2 Sat by Pulse Oximetry (%) 100 01/14/19 03:00 Constitutional: Yes: No Distress, Calm Cardiovascular: Yes: Regular Rate and Rhythm Respiratory: Yes: Regular, CTA Bilaterally Gastrointestinal: Yes: Normal Bowel Sounds, Soft Musculoskeletal: Yes: WNL Extremities: Yes: WNL Neurological: Yes: Alert, Oriented Psychiatric: Yes: Alert, Oriented Labs: CBC, BMP 01/14/19 07:00 01/14/19 07:00 INR, PTT INR 1.20 (0.83-1.09) H 01/10/19 13:12 Assessment/Plan Problem List - Problems (1) Chemotherapy induced diarrhea Code(s): K52.1 - TOXIC GASTROENTERITIS AND COLITIS; T45.1X5A - ADVERSE EFFECT OF ANTINEOPLASTIC AND IMMUNOSUP DRUGS, INIT (2) Diarrhea of presumed infectious origin Code(s): R19.7 - DIARRHEA, UNSPECIFIED (3) Nausea and vomiting Code(s): R11.2 - NAUSEA WITH VOMITING, UNSPECIFIED Qualifiers: Vomiting type: unspecified Vomiting Intractability: non-intractable Qualified Code(s): R11.2 - Nausea with vomiting, unspecified (4) Epigastric pain Code(s): R10.13 - EPIGASTRIC PAIN (5) Cancer of right breast Code(s): C50.911 - MALIGNANT NEOPLASM OF UNSP SITE OF RIGHT FEMALE BREAST Qualifiers: Breast location: unspecified site of breast Estrogen receptor status: positive Patient sex: female Qualified Code(s): C50.911 - Malignant neoplasm of unspecified site of right female breast; Z17.0 - Estrogen receptor positive status [ER+] (6) Epistaxis Code(s): R04.0 - EPISTAXIS 7 colitis plan can change patient to oral levaquin and flagyl rest continue current mgmt
[2019-01-14] MEDS ORDERED: PANTOPRAZOLE 20 MG TABLET (FP) PO SCH (10:00)
[2019-01-14] MEDS: HEPARIN NA (PORCINE) 5,000 UNITS/ML 1ML VIAL SQ SCH ×2 (10:47→11:31)
[2019-01-14 11:13] LABS: ANISOCYTOSIS 1+; MACROCYTOSIS 0; PLATELET ESTIMATE DECREASED
--- NOTE | 2019-01-14 11:17 | DS ---
Physical Examination Vital Signs: Vital Signs Temperature 98.9 F 01/14/19 06:00 Pulse Rate 75 01/14/19 06:00 Respiratory Rate 18 01/14/19 06:00 Blood Pressure 110/57 L 01/14/19 06:00 O2 Sat by Pulse Oximetry (%) 100 01/14/19 03:00 Constitutional: Yes: No Distress HENT: Yes: Atraumatic Neck: Yes: Supple Cardiovascular: Yes: Regular Rate and Rhythm Respiratory: Yes: CTA Bilaterally Gastrointestinal: Yes: Normal Bowel Sounds Extremities: Yes: WNL Neurological: Yes: Alert, Oriented Labs: CBC, BMP 01/14/19 07:00 01/14/19 07:00 Discharge Summary Reason For Visit: COLITIS,NEUTROPENIA Current Active Problems Acute diarrhea (Acute) Cancer of right breast (Acute) Chemotherapy induced diarrhea (Acute) Colitis (Acute) Diarrhea of presumed infectious origin (Acute) Epigastric pain (Acute) Epistaxis (Acute) Nausea and vomiting (Acute) Neutropenia (Acute) Condition: Guarded - Instructions Disposition: HOME - Home Medications Comprehensive Discharge Medication List: Ambulatory Orders Pantoprazole Sodium [Protonix -] 20 mg PO DAILY #30 tablet.ec 01/13/19 nc home
[2019-01-14] MEDS ORDERED: POTASSIUM CHLORIDE ORAL LIQUID 20 MEQ/15 ML PO ONE (11:25)
--- NOTE | 2019-01-14 11:33 | PN.GI ---
GI Progress Note Subjective: No acute events No BM's overnight 2 loose BM's this morning No abdominal pain UGIS unrevealing - Objective Vital Signs: Vital Signs Temperature 98.9 F 01/14/19 06:00 Pulse Rate 75 01/14/19 06:00 Respiratory Rate 18 01/14/19 06:00 Blood Pressure 110/57 L 01/14/19 06:00 O2 Sat by Pulse Oximetry (%) 100 01/14/19 03:00 Constitutional: Calm Eyes: No: Sclera Icterus Cardiovascular: Yes: Regular Rate and Rhythm. No: Murmur Respiratory: Yes: CTA Bilaterally Gastrointestinal Inspection: No: Distention ...Auscultate: Yes: Normoactive Bowel Sounds ...Palpate: Yes: Soft. No: Tenderness Edema: No (No LE edema) Neurological: Yes: Alert Labs: CBC, BMP 01/14/19 07:00 01/14/19 07:00 INR, PTT INR 1.20 (0.83-1.09) H 01/10/19 13:12 Hepatic Panel Total Bilirubin 0.2 mg/dL (0.2-1) 01/14/19 07:00 AST 25 U/L (15-37) 01/14/19 07:00 ALT 40 U/L (13-61) 01/14/19 07:00 Alkaline Phosphatase 94 U/L (45-117) 01/14/19 07:00 Albumin 3.2 g/dl (3.4-5.0) L 01/14/19 07:00 Problem List - Problems (1) Acute diarrhea Assessment/Plan: Suspected chemo induced colitis Improving overall Stool O&P pending Stool culture if diarrhea persists Code(s): R19.7 - DIARRHEA, UNSPECIFIED (2) Epigastric pain Assessment/Plan: Improved. Unrevealing UGIS Protonix 20mg once daily Code(s): R10.13 - EPIGASTRIC PAIN
[2019-01-14 14:16] LABS: MAGNESIUM 1.8 mg/dL (1.8-2.4)
[2019-01-14 14:49] VITALS: BP 115/61; PULSE 77; TEMP 97.9
--- NOTE | 2019-01-14 16:33 | PN ---
Progress Note (short form) - Note Progress Note: Patient seen and eexamined Feels much better Bowel movements are now semiformed Last Vital Signs Temp Pulse Resp BP Pulse Ox 97.9 F 77 18 115/61 100 01/14/19 14:46 01/14/19 14:46 01/14/19 14:46 01/14/19 14:46 01/14/19 11:00 Cor: RSR, No murmurs, No gallops Lungs: Clear to P&A Abd: Soft, Normal bowel sounds, No organomegaly Ext:No significant edema Abnormal Lab Results 01/14/19 01/14/19 01/14/19 07:00 07:00 07:00 WBC 11.7 H Hgb 9.9 L Hct 29.1 L MCV 77.7 L Absolute Neuts (auto) 9.0 H Potassium 3.4 L Anion Gap 6 L BUN 5 L Calcium 8.3 L Total Protein 5.9 L Albumin 3.2 L Vitamin B12 5039 H A/P 33 y/o patient with stage II ER+ , LA+, Her2-3+ IDC of rt. breast, s/p C1TCHP/ zoladex with neulasta support-- C1D10 today Patient comes in with diarrhea for 3 days, fever yesterday upto 102 Also reports abdominal pain--currently epigastric No shortness of breath or cough CT a/p with IV ontast ( no PO contrast) -- no pneumoperitoneum, ? hepatic cyst, right pericolic fluid Chemotherapy induced colitis Gastritis UGI series --no ulcer protonix Zofran immodium replete potaium chloride d/c planning f/u in the office
[2019-01-14] MEDS ORDERED: metroNIDAZOLE 250 MG TABLET PO SCH (22:00)
[2019-01-15 04:10] LABS: SERUM IRON SATURATION 56 % (15-55); TOTAL IRON BINDING CAPACITY 211 ug/dL (250-450); UIBC 93 ug/dL (131-425)
[2019-01-16 02:08] LABS: STOOL CHLORIDE 46 mmol/L (.); STOOL POTASSIUM 19 mmol/L (.); STOOL SODIUM 118 mmol/L (.)
== END 2019-01-14 15:37 | disposition home or self-care (01) | DRG 249 ==
LOC: JER 11:42 → JERBED 17:17 → OBSVTOIN 19:08 → J7W 20:48
PROVIDERS: ADMIT Internal Medicine; ATTEND Internal Medicine
DX: K52.1 Toxic gastroenteritis and colitis (principal); D70.1 Agranulocytosis secondary to cancer chemotherapy; C50.911 Malignant neoplasm of unspecified site of right female breast; C79.89 Secondary malignant neoplasm of other specified sites; D64.9 Anemia, unspecified; T45.1X5A Adverse effect of antineoplastic and immunosuppressive drugs, initial encounter; K27.9 Peptic ulcer, site unspecified, unspecified as acute or chronic, without hemorrhage or perforation; D57.3 Sickle-cell trait; R04.0 Epistaxis; Z17.0 Estrogen receptor positive status [ER+]; K29.60 Other gastritis without bleeding
CPT/HCPCS: 36415; 71045-TC-FY; 74018-TC-FY; 74019-TC-FY; 74177-TC; 74240-TC-FY; 80053; 81003; 82150; 82438; 82550; 82607; 82728; 82747; 83540; 83550; 83605; 83615; 83690; 83735; 84302; 84484; 84702; 84703; 84999; 85014; 85025; 85610; 85730; 87040; 87086; 87177; 87209; 87324; 87328; 87449; 93005; 93010; 99283-25; G0378; J0131; J1644; J7030

== ENCOUNTER 2019-01-29 18:44 | Inpatient (IN) | payer OTHER, SELFPAY | END 2019-02-03 19:35 | disposition home or self-care (01) | LOC: J7W 02-02 13:34 → JER 18:44 → JERBED 01-30 00:47 → J7W 01-30 02:44 ==

== ENCOUNTER 2019-02-18 07:23 | Day surgery (SDC) | payer OTHER ==
[2019-02-18] MEDS ORDERED: SODIUM CHLORIDE 1,000 ML IV ONE (10:00)
[2019-02-18] MEDS: MAGNESIUM SULF 50% (8.12 MEQ/2 ML-1 GM VIAL) IVPB SCH ×2 (16:40→17:48)
[2019-02-18] MEDS ORDERED: MAGNESIUM SULF 50% (8.12 MEQ/2 ML-1 GM VIAL) IVPB ONE (16:45)
[2019-02-18 18:44] VITALS: BP 99/59; PULSE 79
[2019-02-18 18:45] VITALS: TEMP 97.4
== END 2019-02-18 18:49 | disposition home or self-care (01) ==
LOC: JONCNONCHE 07:23 → J7W 16:07 → JONCNONCHE 18:49
PROVIDERS: ATTEND Internal Medicine Hematology & Oncology
PROC: 3E0337Z Introduction of Electrolytic and Water Balance Substance into Peripheral Vein, Percutaneous Approach (ICD-10-PCS; principal; 2019-02-18)
DX: T45.1X5A Adverse effect of antineoplastic and immunosuppressive drugs, initial encounter (principal); E86.0 Dehydration; C50.111 Malignant neoplasm of central portion of right female breast; Y92.9 Unspecified place or not applicable
CPT/HCPCS: 96361; 96415; 96417; J7030

== ENCOUNTER 2019-02-19 14:11 | Inpatient (IN) | payer OTHER | END 2019-02-23 18:50 | disposition home or self-care (01) | LOC: JONCNONCHE 14:15 → J7W 02-20 13:38 ==

== ENCOUNTER 2019-03-11 22:55 | Inpatient (IN) | payer OTHER ==
[2019-03-11 23:02] VITALS: BMI 24.6
[2019-03-11] MEDS ORDERED: LACTATED RINGERS SOLUTION 1000 ML INFUS.BAG IV ONE ×2 (23:26→23:35)
[2019-03-11] MEDS ORDERED: ONDANSETRON 4 MG/2 ML VIAL IVPUSH ONE (23:37)
[2019-03-11] MEDS ORDERED: METOCLOPRAMIDE HCL INJECTION 10 MG/2 ML VIAL IVPUSH ONE (23:39)
[2019-03-11 23:56] LABS: BASO % 0.4 % (0-2.0); EOS % 0.1 % (0-4.5); HEMATOCRIT 25.2 % (32.4-45.2); HEMOGLOBIN 8.4 GM/dL (10.7-15.3); LYMPH % 15.5 % (8-40); MCH 27.4 pg (25.7-33.7); MCHC 33.3 g/dl (32.0-36.0); MEAN CELL VOLUME 82.2 fl (80-96); MEAN PLT VOLUME 8.4 fl (7.5-11.1); MONO % 0.8 % (3.8-10.2); NEUT % 83.2 % (42.8-82.8); PLATELET COUNT 163 K/MM3 (134-434); RBC 3.07 M/mm3 (3.60-5.2); RDW 18.1 % (11.6-15.6); WHITE BLOOD COUNT 11.4 K/mm3 (4.0-10.0)
--- NOTE | 2019-03-11 23:58 | PDOC ---
History of Present Illness - General Chief Complaint: Pain Stated Complaint: PAIN/SENT BY ONCOLOGIST Time Seen by Provider: 03/11/19 23:17 History Source: Patient, Family (Father present at bedside.), Old Records, Other (Dr. Cruz called prior to pt's arrival.) Exam Limitations: No Limitations - History of Present Illness Initial Comments: HPI: 33 y/o female presenting to [facility] ER complaining of two days of upper abdominal pain, nausea, fatigue, and diaphoresis. Pt reports decreased PO intake. Attempted to eat today, which made the pain worse. Now reports she is unable to tolerate even her silivia secondary to nausea. Last BM over two days ago, which she suspects is secondary to her iron supplementation. Is not on a bowel regimin. Endorses nonproductive cough, generalized aches, diaphoresis, and chills. Pt is s/p fourth cycle of chemotherapy on Thursday (08 March 2019) for ductal breast CA. Was suppose to come in to clinic today for IV hydration but felt too weak. Dr. Cruz called before pts arrival and requested IV hydration and CMP. Would like phone call to discuss results. Oncologist: Dr. Cruz Medical Hx: - Invasive ductal breast carcinoma on chemotherapy - S/p port placement in left chest Review of Systems: In addition to that documented in the HPI above, the additional ROS was obtained : Constitutional: Endorses chills and general malaise. Denies fevers Head: Denies vision changes ENMT: Denies sore throat CV: Denies chest pain Resp: Denies SOB GI: Denies vomiting or diarrhea : Endorses painful urination MSK: Denies recent trauma Skin: Denies new rashes Neuro: Denies new numbness or tingling or weakness Endocrine: Denies polyuria Heme: Denies bleeding or bruising Physical Examination: Constitutional: Puny appearing adult female in no acute distress but obvious discomfort. Found semi-fowlers on hospital bed. Alert and oriented x4. Answered all questions appropriately and completely. Speech was non-labored, non- pressured. Head: Normocephalic. No obvious external signs of trauma. Cardiovascular / Chest: Mildly tachycardic rate with regular rhythm. No murmur, rubs, clicks, or gallops. Peripheral pulses: radial pulses full. Port in left upper region. Respiratory: Breathing unlabored. Equal chest rise and fall. Clear to auscultation bilaterally. No stridor, no wheezing, no rhonchi. Gastrointestinal: abdomen is tender with grimace in epigastric> LUQ and RUQ. Globally, abdomen is soft and non-distended. Pt able to bend at the waist without obvious discomfort. No pulsatile masses. No overlying skin lesions or obvious signs of trauma. Neuro: Alert and oriented. Moving all four extremities spontaneously. Skin: Pale and diaphoretic. : No R or L CVA tenderness. Psych: Affect: appropriate. Mood: normal. MDM: *Reviewed vital signs, nursing notes, and prior visit documentation (if available). Previously healthy, fully immunized 10 y/o male presenting with nausea/vomiting, sore throat, fever, and headache x6 hours. Febrile. Vitals remarkable for tachycardia without hypotension. Physical exam as described above. No acute abdominal signs. Suspect likely viral pharyngitis versus strep pharyngitis versus gastritis versus influenza versus other viral syndrome. Low suspicion for SBI given immunization status and clinical picture. Zofran ODT ordered by RME. Ordered Motrin for symptom relief. Rapid influenza and strep throat negative. Pt reassessed. Reports feeling better. Fever and tachycardia have downtrended but persist. Ordered Tylenol. Fever and tachycardia resolved after second antipyretic. ED Attending assessed pt and provided discharge instructions. Prescription for Zofran ODT sent to pharmacy. Encouraged pt to f/u with director of strategic marketing on Thursday. Sergio Dodd M.D., PGY1 Emergency Medicine Resident Past History - Past Medical History Allergies/Adverse Reactions: Allergies Allergy/AdvReac Type Severity Reaction Status Date / Time No Known Allergies Allergy Verified 01/10/19 11:45 Home Medications: Ambulatory Orders Pantoprazole Sodium [Protonix -] 20 mg PO DAILY #30 tablet.ec 01/13/19 Ondansetron HCl [Zofran] 8 mg PO Q6H PRN 7 Days #28 tablet 02/03/19 oxyCODONE HCL [Roxicodone -] 5 mg PO Q6H PRN #8 tablet MDD 4 02/03/19 Anemia: Yes (sickle cell trait) Asthma: No Cancer: Yes (breast) Cardiac Disorders: No CVA: No COPD: No CHF: No Dementia: No Diabetes: No GI Disorders: No Disorders: No HTN: No (hypotension) Hypercholesterolemia: No Liver Disease: No Seizures: No Thyroid Disease: No - Surgical History Abdominal Surgery: No Appendectomy: No Cardiac Surgery: No Cholecystectomy: No Lung Surgery: No Neurologic Surgery: No Orthopedic Surgery: No - Immunization History Immunization Up to Date: Yes - Suicide/Smoking/Psychosocial Hx Smoking History: Never smoked Have you smoked in the past 12 months: No Hx Alcohol Use: No Drug/Substance Use Hx: No Substance Use Type: Marijuana Hx Substance Use Treatment: No *Physical Exam - Vital Signs Last Vital Signs Temp Pulse Resp BP Pulse Ox 98.5 F 96 H 18 89/58 L 98 03/11/19 22:59 03/11/19 22:59 03/11/19 22:59 03/11/19 22:59 03/11/19 22:59 ED Treatment Course - LABORATORY CBC & Chemistry Diagram: 03/11/19 23:45 03/11/19 23:45 - ADDITIONAL ORDERS Additional order review: 03/11/19 23:45 RBC 3.07 L MCV 82.2 MCHC 33.3 RDW 18.1 H MPV 8.4 Neutrophils % 83.2 H D Lymphocytes % 15.5 D Monocytes % 0.8 L D Eosinophils % 0.1 D Basophils % 0.4 - RADIOLOGY Radiology Studies Ordered: Category Date Time Status CHEST PA & LAT [RAD] Stat Radiology 03/11/19 23:37 Ordered - Medications Given in the ED: ED Medications Discontinued Medications Generic Name Dose Route Start Last Admin Trade Name Freq PRN Reason Stop Dose Admin Lactated Ringer's 1,000 ml 03/11/19 23:26 03/11/19 23:46 Lactated Ringers Solution IV 03/11/19 23:27 1,000 ml ONCE ONE Administration *DC/Admit/Observation/Transfer Diagnosis at time of Disposition: Hypokalemia, Hypomagnesemia, Chills (without fever) Hypotension Qualifiers: Hypotension type: unspecified hypotension type Qualified Code(s): I95.9 - Hypotension, unspecified - Discharge Dispostion Condition at time of disposition: Stable Decision to Admit order: Yes - Referrals - Patient Instructions - Post Discharge Activity
[2019-03-12] MEDS ORDERED: METOCLOPRAMIDE HCL INJECTION 10 MG/2 ML VIAL ONE
[2019-03-12 00:21] LABS: ALBUMIN 3.5 g/dl (3.4-5.0); BILIRUBIN,TOTAL 0.4 mg/dL (0.2-1); BLOOD UREA NITROGEN 11.7 mg/dL (7-18); CALCIUM 8.1 mg/dL (8.5-10.1); CREATININE 0.6 mg/dL (0.55-1.3); MAGNESIUM 1.5 mg/dL (1.8-2.4); PHOSPHOROUS 2.8 mg/dL (2.5-4.9); TOT PROT 6.3 g/dl (6.4-8.2)
[2019-03-12 00:22] LABS: POTASSIUM 2.9 mmol/L (3.5-5.1)
[2019-03-12] MEDS ORDERED: KCL 10 MEQ IVPB 10 MEQ/100 ML INFUS.BAG IVPB SCH (00:30)
[2019-03-12] MEDS ORDERED: MAGNESIUM SULF 50% (8.12 MEQ/2 ML-1 GM VIAL) IVPB ONE ×2 (00:43→02:00)
[2019-03-12] MEDS ORDERED: MAGNESIUM SULF 50% (8.12 MEQ/2 ML-1 GM VIAL) ONE (00:58)
--- NOTE | 2019-03-12 01:09 | PN ---
Teaching Attending Note Name of Resident: Johnson Us ATTENDING PHYSICIAN STATEMENT I saw and evaluated the patient. I reviewed the resident's note and discussed the case with the resident. I agree with the resident's findings and plan as documented. SUBJECTIVE: Seen and examined; please refer to resident note for further historical information. Briefly, this is a 33 y/o female presenting to the ER after being sent in by her oncologist. 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 He has had issues with hypokalemia, hypomagnesemia, and hypocalcemia in the past and was seen by nephrology at that time. She is on neoadjuvant TCHP with Neulasta and Zolodez infusions q3 weeks with planned mastectomy. 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 Last time this occurred she was not taking her K of Mg supplements and presented with lip twitching. Today, her K is 2.9, Mg is 1.5, Ca 8.1 with normal albumin by lab indices. Her last infusion was several days ago and she is having chills/malaise/etc. She was too weak to go to the clinic to get fluid so she came here. She tells us that he BP runs low-normal. She occasionally will develop severe nausea and has vomited up her medications several times over the past couple days. MAP is normal and HR never technically tachycardic. Will place on the medicine service. When I saw the patient later in the night she informed me she doesn't think she had a BM in 2 days. 10 sys ROS done and negative aside from HPI PMH, PSH, FH, SH reviewed Home Medications Medication Instructions Recorded Pantoprazole Sodium [Protonix -] 20 mg PO DAILY #30 tablet.ec 01/13/19 Ondansetron HCl [Zofran] 8 mg PO Q6H PRN 7 Days #28 tablet 02/03/19 oxyCODONE HCL [Roxicodone -] 5 mg PO Q6H PRN #8 tablet MDD 4 02/03/19 OBJECTIVE: VS, labs, imaging reviewed NAD, AAO, resting in bed NC AT EOMI PERRLA RRR s1/2 no mgr Lungs CTAB, w/ sym exp Mild to moderate tenderness throughout ND +BS CN2-12 wnl, no fnd EKG reviewed Telemetry reviewed CXR reviewed CT Abdomen pending ASSESSMENT AND PLAN: Patient presents with repeated electrolyte derangements and is found to have abdominal pain; she had diarrhea several days ago and has a history of chemo- induced colitis. 1) Chemo Rxn/nausea/vomiting/malaise/weakness -Continue pain meds; advance diet as tolerated; PRN antiemetics -IV protonix from her home PO -Discuss with her oncology team in the AM 2) Electrolyte derrangements (low K, Mg, Ca) -Replacing 60K, 4mg, 1Ca. Rechecking post infusion. If e-lytes improved DC telemetry. -Confirm doses of home supplements and continue -Address underlying nausea 3) Abdominal Pain -History of colitis noted; will obtain CT and followup. She is not having diarrhea today but was a few days ago. She has seen Dr. Medrano for this before in the past. 4) Metabolic Alkalosis -Cl 100 (low nl) with hx vomiting, diarrhea several days ago; will hydrate and trend repeat BMP. Has had elevated in past. 5) Normocytic Anemia -No s/s bleeding; does have the sickle cell trait. Can discuss with heme onc. Checking retics, iron studies, b12/folate, FOBT. 6) Leukocytosis -Could be reactive; monitor CBC and followup UA and CT Abdomen. 7) Constipation -No bowel obstruction on CT; sx tx but keep in mind her propensity for diarrhea Full Code
--- NOTE | 2019-03-12 01:32 | PDOC ---
Documentation entered by Brook Esteves SCRIBE, acting as scribe for Donna Katz MD. Donna Katz MD: This documentation has been prepared by the Linn douglas Xhesika, SCRIBE, under my direction and personally reviewed by me in its entirety. I confirm that the documentation accurately reflects all work, treatment, procedures, and medical decision making performed by me. Attending Attestation - Resident Resident Name: Sergio Dodd - ED Attending Attestation I have performed the following: I have examined & evaluated the patient, The case was reviewed & discussed with the resident, I agree w/resident's findings & plan, Exceptions are as noted - HPI HPI: 03/12/19 00:25 The patient is a 33 year old female, with a significant PMH of chemotherapy induced colitis and invasive ductal breast carcinoma (s/p port placement in left chest, on chemotherapy, 4th cycle was on 03/08/19) sent by her oncologist Dr. Cruz with 2 days of generalized malaise, upper abdominal pain, increased nausea, constipation, chills, sweats, and decreased PO intake. The patient states she was able to eat earlier today which made her pain worse, however, she is now unable to tolerate her own saliva. The patient notes her last normal bowel movement was 2 days ago. The patient denies chest pain, shortness of breath, headache, focal weakness/ numbness, and dizziness. Denies fever, vomiting, diarrhea. Denies dysuria, frequency, urgency and hematuria. Allergies: NKA, NKDA Oncologist: Dr. Cruz - Physicial Exam PE: 03/12/19 00:26 GENERAL: Awake, alert, and fully oriented, in no acute distress. Look uncomfortable. EYES: PERRLA, EOMI, sclera anicteric, conjunctiva clear ENT: Auricles normal inspection, hearing grossly normal, nares patent, oropharynx clear without exudates. Dry MM NECK: Normal ROM, supple, no lymphadenopathy, JVD, or masses LUNGS: Breath sounds equal, clear to auscultation bilaterally. No wheezes, and no crackles HEART: Regular rate and rhythm, normal S1 and S2, no murmurs, rubs or gallops ABDOMEN: Soft, nontender, normoactive bowel sounds. No guarding, no rebound. No masses EXTREMITIES: Normal range of motion, no edema. No cords, erythema, or tenderness. WWP. 2+ peripheral pulses BACK: No midline spinal tenderness in cervical/thoracic/lumbar region NEUROLOGICAL: Normal speech, cranial nerves intact, equal strength and sensation b/l SKIN: Warm, Dry, normal turgor, no rashes or lesions noted. - Medical Decision Making 03/12/19 01:18 33yo F presents to the ED with malaise, N/V since chemo 3 days ago No abd ttp, abdomen is benign BP low, likely 2/2 hypovolemia from GI losses Pt with similar sxs after previous 3 rounds of chemo Labs with hypokalemia and hypomagnesemia Pt's port accessed, will replete mg with 2G, as well as K at 20meq/hr Dr. Cruz updated Pt accepted for admission Case discussed in detail with admitting physician including history, physical exam and ancillary studies. Admitting physician has assumed care for the patient, will follow all pending diagnostics and will complete the evaluation and treatment.
[2019-03-12] MEDS ORDERED: CALCIUM GLUCONATE 10% - 1,000 MG/10 ML VIAL IVPUSH ONE (02:00)
[2019-03-12] MEDS ORDERED: LACTATED RINGERS IV SCH (02:00)
[2019-03-12] MEDS ORDERED: WATER DEXTROSE IV SCH (02:00)
[2019-03-12] MEDS ORDERED: DEXTROSE IV SCH (02:00)
[2019-03-12 02:08] LABS: PH,URINE 7.5 (5.0-8.0); URINE APPEARANCE CLEAR; URINE BILIRUBIN NEGATIVE (NEGATIVE); URINE COLOR YELLOW; URINE GLUCOSE (UA) NEGATIVE (NEGATIVE); URINE KETONE NEGATIVE (NEGATIVE); URINE LEUK ESTERASE NEGATIVE (NEGATIVE); URINE NITRITE NEGATIVE (NEGATIVE); URINE PROTEIN NEGATIVE (NEGATIVE); URINE UROBILINOGEN 0.2 mg/dL (0.2-1.0)
[2019-03-12] MEDS ORDERED: KCL 10 MEQ IVPB 10 MEQ/100 ML INFUS.BAG IVPB ONE (02:19)
--- NOTE | 2019-03-12 02:20 | HP ---
CHIEF COMPLAINT: abd pain/weakness/fatigue PCP: Dr. Cruz HISTORY OF PRESENT ILLNESS: Patient is a 33 yo F with a PMHx of Stage II ER+/MI+ HER 2-3+ IDC of the R- breast (chemo q3 weeks), sickle cell trait, presenting with abdominal pain and cramping with nausea, fatigue, chills, malaise. She says she usually gets these symptoms after chemo. Her last chemo was Thursday (4th cycle). She says she has cramping lower abdominal pain and also some epigastric fullness. Her last BM was 2 days ago. She was supposed to get IV fluids today at the office but says she felt too weak so she came here. She has nausea, but denies vomiting. She does admit to not being able to tolerate her medications. Says she spits them back up. She's had decreased PO intake since chemo. She also admits to generalized aches, chills, weakness. 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 Denies urinary symptoms, sob, worsening cough ( chronic), fevers, vomiting, diarrhea, blood in stool, rash, chest pain. In the ER she was found with K of 2.9. Mag 1.5 and hypocalcemia. BP at baseline. Potassium 20mg IV x 3 started in ED via L chest port and 2gm of Mag. Blood cultures, ucx sent. Recent Travel: denies PAST MEDICAL HISTORY: per HPI Social History: Smoking: denies Alcohol: denies Drugs: denies Family History: Allergies No Known Allergies Allergy (Verified 01/10/19 11:45) HOME MEDICATIONS: Home Medications Medication Instructions Recorded Pantoprazole Sodium [Protonix -] 20 mg PO DAILY #30 tablet.ec 01/13/19 Ondansetron HCl [Zofran] 8 mg PO Q6H PRN 7 Days #28 tablet 02/03/19 oxyCODONE HCL [Roxicodone -] 5 mg PO Q6H PRN #8 tablet MDD 4 02/03/19 REVIEW OF SYSTEMS CONSTITUTIONAL: chills, diaphoresis, gen weakness, malaise, loss of appetite Absent: fever, weight change HEENT: Absent: rhinorrhea, nasal congestion, throat pain, throat swelling, difficulty swallowing, mouth swelling, ear pain, eye pain, visual changes CARDIOVASCULAR: Absent: chest pain, syncope, palpitations, irregular heart rate, lightheadedness , peripheral edema RESPIRATORY: Absent: cough, shortness of breath, dyspnea with exertion, orthopnea, wheezing, stridor, hemoptysis GASTROINTESTINAL: abd pain, nausea, constipation, cramping Absent: abdominal distension, melena, hematochezia GENITOURINARY: Absent: dysuria, frequency, urgency, hesitancy, hematuria, flank pain, genital pain MUSCULOSKELETAL: Absent: myalgia, arthralgia, joint swelling, back pain, neck pain SKIN: Absent: rash, itching, pallor HEMATOLOGIC/IMMUNOLOGIC: Absent: easy bleeding, easy bruising, lymphadenopathy, frequent infections NEUROLOGIC: Absent: headache, focal weakness or paresthesias, dizziness, unsteady gait, seizure, mental status changes, bladder or bowel incontinence PHYSICAL EXAMINATION Vital Signs - 24 hr 03/11/19 03/12/19 03/12/19 22:59 00:20 01:14 Temperature 98.5 F Pulse Rate 96 H Pulse Rate [ 80 86 Radial] Respiratory 18 Rate Blood Pressure 89/58 L Blood Pressure 91/59 L 93/61 [Left Arm] O2 Sat by Pulse 98 96 100 Oximetry (%) 03/12/19 01:39 Temperature Pulse Rate Pulse Rate [ Radial] Respiratory Rate Blood Pressure Blood Pressure 96/58 L [Left Arm] O2 Sat by Pulse Oximetry (%) GENERAL: a/o x 3, laying in bed HEAD: Normal with no signs of trauma. EYES: Pupils equal, round and reactive to light, extraocular movements intact, sclera anicteric, conjunctiva clear. EARS, NOSE, THROAT: oropharynx clear without exudates. dry mucous membranes NECK: Normal range of motion, supple without lymphadenopathy, JVD, or masses. LUNGS: Breath sounds equal, clear to auscultation bilaterally. No wheezes, and no crackles. HEART: Regular rate and rhythm, normal S1 and S2 without murmur, rub or gallop. ABDOMEN: Soft, epigastric tenderness, not distended, normoactive bowel sounds, no guarding, no rebound, no masses. MUSCULOSKELETAL: Normal range of motion at all joints. No bony deformities or tenderness. LOWER EXTREMITIES: 2+ pulses, warm, well-perfused. No calf tenderness. No peripheral edema. NEUROLOGICAL: Cranial nerves II-XII intact. Normal speech. PSYCHIATRIC: Cooperative. Good eye contact. Appropriate mood and affect. Chest: + L chest port Laboratory Results - last 24 hr 03/11/19 03/11/19 03/11/19 23:45 23:45 23:45 WBC 11.4 H RBC 3.07 L Hgb 8.4 L Hct 25.2 L MCV 82.2 MCH 27.4 MCHC 33.3 RDW 18.1 H Plt Count 163 D MPV 8.4 Absolute Neuts (auto) 9.5 H Neutrophils % 83.2 H D Neutrophils % (Manual) 83.0 H Lymphocytes % 15.5 D Lymphocytes % (Manual) 16.0 D Monocytes % 0.8 L D Monocytes % (Manual) 1 L D Eosinophils % 0.1 D Eosinophils % (Manual) 0.0 Basophils % 0.4 Basophils % (Manual) 0.0 Nucleated RBC % 0 Sodium 140 Potassium 2.9 L* Chloride 100 Carbon Dioxide 34 H Anion Gap 5 L BUN 11.7 Creatinine 0.6 Est GFR (CKD-EPI)AfAm 140.77 Est GFR (CKD-EPI)NonAf 121.46 Random Glucose 90 Lactic Acid 1.0 Calcium 8.1 L Phosphorus 2.8 Magnesium 1.5 L Total Bilirubin 0.4 AST 15 ALT 33 Alkaline Phosphatase 93 Total Protein 6.3 L Albumin 3.5 Lipase 128 Serum , Qual 03/11/19 23:45 WBC RBC Hgb Hct MCV MCH MCHC RDW Plt Count MPV Absolute Neuts (auto) Neutrophils % Neutrophils % (Manual) Lymphocytes % Lymphocytes % (Manual) Monocytes % Monocytes % (Manual) Eosinophils % Eosinophils % (Manual) Basophils % Basophils % (Manual) Nucleated RBC % Sodium Potassium Chloride Carbon Dioxide Anion Gap BUN Creatinine Est GFR (CKD-EPI)AfAm Est GFR (CKD-EPI)NonAf Random Glucose Lactic Acid Calcium Phosphorus Magnesium Total Bilirubin AST ALT Alkaline Phosphatase Total Protein Albumin Lipase Serum , Qual Negative ASSESSMENT/PLAN: 33 yo F with a PMHx of Stage II ER+/MI+ HER 2-3+ IDC of the R-breast (chemo q3 weeks), sickle cell trait, presenting with abdominal pain and cramping with nausea, fatigue, chills, malaise. #Nausea/vomiting/malaise/weakness -likely effect from chemo -Zofran prn q6h -IV fluids D5-LR @ 100 -IV protonix 40mg Daily -Give calcium gluc 1gm -Discuss with heme/onc in the AM -Give pain meds if needed. Currently in no pain. #Electrolyte Derangements -Hypokalemia 2.9, hypocalcemic, low mag 1.9 -20meq K x 3 ordered in ER -Mag 2gm given, order 2 more -IV fluids D5-LR @ 100 -tele monitoring -repeat CMP, mag, phos in AM -monitor lytes #Abd pain -recent hx of chemo-induced colitis -CTAP w contrast ordered' #Metabolic Alkalosis -Cl 100, low normal -IV fluids -elevated in the past -monitor #Normocytic Anemia -has sickle cell trait. -no signs of bleeding -FU retics, iron studies, b12/folate -FOBT #Leukocytosis -likely reactive -monitor #Hx of R sided IDC Breast Cancer -outpatient management #DVT ppx -hep sq -monitor lytes and replete as needed #FEN -D5-LR @ 100 -monitor lytes and replete as needed dispo: monitor for now Visit type - Emergency Visit Emergency Visit: Yes ED Registration Date: 03/12/19 Care time: The patient presented to the Emergency Department on the above date and was hospitalized for further evaluation of their emergent condition. - New Patient This patient is new to me today: Yes Date on this admission: 03/12/19 - Critical Care Critical Care patient: No
[2019-03-12] MEDS: POTASSIUM CHLORIDE 20 MEQ PREMIX IVPB 100 ML IVPB SCH ×3 (02:27→04:50)
[2019-03-12] MEDS ORDERED: KCL 10 MEQ IVPB 20 MEQ/200 ML INFUS.BAG IVPB ONE (03:42)
[2019-03-12] MEDS: DEXTROSE 5%-LACTATED RINGERS 1,000 ML IV SCH ×3 (03:54→21:50)
[2019-03-12 05:22] LABS: EOS % 0.2 % (0-4.5); HEMOGLOBIN 8.6 GM/dL (10.7-15.3); RBC 3.12 M/mm3 (3.60-5.2); RDW 17.7 % (11.6-15.6)
[2019-03-12] MEDS ORDERED: CALCIUM GLUCONATE 10% - 1,000 MG/10 ML VIAL ONE (05:35)
[2019-03-12 05:36] LABS: BASO % 0.4 % (0-2.0); HEMATOCRIT 25.6 % (32.4-45.2); LYMPH % 18.2 % (8-40); MCH 27.6 pg (25.7-33.7); MCHC 33.5 g/dl (32.0-36.0); MEAN CELL VOLUME 82.2 fl (80-96); MEAN PLT VOLUME 8.8 fl (7.5-11.1); MONO % 0.7 % (3.8-10.2); NEUT % 80.5 % (42.8-82.8); PLATELET COUNT 149 K/MM3 (134-434); WHITE BLOOD COUNT 8.7 K/mm3 (4.0-10.0)
[2019-03-12] MEDS ORDERED: HEPARIN NA (PORCINE) 5,000 UNITS/ML 1ML VIAL SQ SCH (06:00)
[2019-03-12 06:24] LABS: ALBUMIN 3.2 g/dl (3.4-5.0); BILIRUBIN,TOTAL 0.3 mg/dL (0.2-1); CALCIUM 8.1 mg/dL (8.5-10.1); CREATININE 0.6 mg/dL (0.55-1.3); PHOSPHOROUS 2.8 mg/dL (2.5-4.9); POTASSIUM 3.4 mmol/L (3.5-5.1); TOT PROT 5.6 g/dl (6.4-8.2)
[2019-03-12] MEDS ORDERED: HEPARIN NA (PORCINE) 5,000 UNITS/ML 1ML VIAL ONE (06:46)
[2019-03-12] MEDS ORDERED: ONDANSETRON 4 MG/2 ML VIAL ONE ×2 (06:47)
[2019-03-12] MEDS: ONDANSETRON 4 MG/2 ML VIAL IVPUSH PRN ×4 (06:51→22:48)
[2019-03-12] MEDS: PANTOPRAZOLE SODIUM 40 MG VIAL IVPUSH SCH (10:34)
--- NOTE | 2019-03-12 10:50 | PN ---
Progress Note (short form) - Note Progress Note: c/o lethargy and anorexia. states abdominal pain has improved. tolerating clear liquids but does not have an appetite to eat any more. had 1 BM this AM and since then has had abdominal pain relief. also admits to metallic taste in the mouth, has had EGD in the past and was told she had ulcers but never had repeat EGD. had neulasta on Thursday. denies Cp, SOB< fever, chills, N/V/C?D Current Medications Generic Name Dose Route Start Last Admin Trade Name Freq PRN Reason Stop Dose Admin Heparin Sodium (Porcine) 5,000 unit 03/12/19 06:00 03/12/19 06:51 Heparin - SQ Not Given TID BRENNON Dextrose/Lactated Ringer's 1,000 mls @ 100 mls/hr 03/12/19 02:00 03/12/19 08: 28 D5-Lr - IV 100 mls/hr ASDIR BRENNON Administration Ondansetron HCl 4 mg 03/12/19 01:51 03/12/19 06:51 Zofran Injection IVPUSH 4 mg Q6H PRN Administration NAUSEA Pantoprazole Sodium 40 mg 03/12/19 10:00 03/12/19 10:34 Protonix Iv IVPUSH 40 mg DAILY BRENNON Administration Last Vital Signs Temp Pulse Resp BP Pulse Ox 98.5 F 70 14 100/64 100 03/11/19 22:59 03/12/19 04:51 03/12/19 08:30 03/12/19 04:51 03/12/19 08:30 General lethargic and pale CV S1 S2 RRR no murmur/rub/gallop + L chest port Lungs CTA B/L no wheezing/rlaes/rhonchi Abdomen soft +epigastric tenderness no rebound or guarding normoactive BS Extremities no pedal edema CBCD WBC 8.7 K/mm3 (4.0-10.0) 03/12/19 05:08 RBC 3.12 M/mm3 (3.60-5.2) L 03/12/19 05:08 Hgb 8.6 GM/dL (10.7-15.3) L 03/12/19 05:08 Hct 25.6 % (32.4-45.2) L 03/12/19 05:08 MCV 82.2 fl (80-96) 03/12/19 05:08 MCHC 33.5 g/dl (32.0-36.0) 03/12/19 05:08 RDW 17.7 % (11.6-15.6) H 03/12/19 05:08 Plt Count 149 K/MM3 (134-434) 03/12/19 05:08 MPV 8.8 fl (7.5-11.1) 03/12/19 05:08 CMP Sodium 139 mmol/L (136-145) 03/12/19 05:08 Potassium 3.4 mmol/L (3.5-5.1) L 03/12/19 05:08 Chloride 100 mmol/L (98-107) 03/12/19 05:08 Carbon Dioxide 35 mmol/L (21-32) H 03/12/19 05:08 Anion Gap 4 MMOL/L (8-16) L 03/12/19 05:08 BUN 9.0 mg/dL (7-18) 03/12/19 05:08 Creatinine 0.6 mg/dL (0.55-1.3) 03/12/19 05:08 Calcium 8.1 mg/dL (8.5-10.1) L 03/12/19 05:08 Total Bilirubin 0.3 mg/dL (0.2-1) 03/12/19 05:08 AST 14 U/L (15-37) L 03/12/19 05:08 ALT 30 U/L (13-61) 03/12/19 05:08 Alkaline Phosphatase 88 U/L (45-117) 03/12/19 05:08 Total Protein 5.6 g/dl (6.4-8.2) L 03/12/19 05:08 Albumin 3.2 g/dl (3.4-5.0) L 03/12/19 05:08 A/P 33yo F wtih PMH Stage II ER+/VA+ HER 2-3+ IDC of the R-breast on chemotherapy since December presenting with abdominal pain and constipation 1. ABdominal pain- could be GERD vs PUD vs constipation. CT done but awaiting read. tolerated clears and pain relief with bowel movement. will cont with current diet as no interest in advancing at this time. start with stool softeners and PPI. cont with IVF for hydration. trial elimination diet to see if improvement in epigstric pain with metallic taste and encouraged to f/u with GI as may benefit from repeat EGD 2. leukocytosis- can be stressed induced vs recent Neulasta. no assoc fevers. however pt may not mount fever or white count given cancer hx. UA and CXR negative for infection. will hold off on abx at this time 3. Hypokalemia- improved. will add Kcl to IVF 4. Hypomagnesemia- resolved. monitor while on PPI 5. pseudoHypocalcemia- corrected Ca 8.7 but would benefit from calcium supplementation 6. Met alkalosis- due to GI losses. slowly improving. 7. Normocytic anemia- no signs of bleeding. received neulasta last week. iron studies pending. no indication for transfusion 8. breast cancer- oncology eval 9. DVT ppx- switch hep to lovenox Visit type - Emergency Visit Emergency Visit: Yes ED Registration Date: 03/12/19 Care time: The patient presented to the Emergency Department on the above date and was hospitalized for further evaluation of their emergent condition. - New Patient This patient is new to me today: Yes Date on this admission: 03/12/19 - Critical Care Critical Care patient: No - Discharge Referral Referred to [facility] Med P.C.: No
[2019-03-12 11:37] LABS: ANISOCYTOSIS 0; HELMET CELLS 0; HOWELL-JOLLY BODIES 0; MACROCYTOSIS 0; OVALOCYTE 0; PLATELET ESTIMATE DECREASED; ROULEAU 0; SICKELED CELLS 0; TARGET CELLS 0; TEAR DROP CELLS 0; TOXIC GRANULATION 0
[2019-03-12] MEDS: POLYETHYLENE GLYCOL 3350 119 GM BTL PO SCH ×2 (17:22→21:28)
--- NOTE | 2019-03-12 17:37 | CONSULT ---
Consult Consult Specialty:: Oncology Referred by:: Dr. Marin Reason for Consultation:: Breast ca - History of Present Illness Chief Complaint: abdominal pain History of Present Illness: 33 yo F with a PMHx of Stage II ER+/ID+ HER 2-3+ IDC of the R-breast on neoadjuvant taxotere/carboplatin/perjeta/herceptin (C4D5) presents with abdominal pain, nausea, generalized weakness, decreased PO intake and malaise. Symptoms are typical after chemo. Has had recurrent chemo induced colitis with multiple admission. Feeling better after IVF so far. Still nauseas. Has not had vomiting. No diarrhea. No bleeding. Denies fevers. Repeat CTAP with possible mild enteritis. - Past Medical History CIGAR BANDER: Yes: Migraine, Other (astigmatism) Gastrointestinal: Yes: Peptic Ulcer Disease (reports previous h/o ulcer - had "stomach pumped," not sure if endoscopy) ...LMP: 01/21/19 Additional Medical History: hemorrhoids - Past Surgical History Past Surgical History: Yes: Breast Biopsy (right excisional biopsy and LN sampled from axilla), Colonoscopy - Alcohol/Substance Use Hx Alcohol Use: No History of Substance Use: reports: Marijuana (daily until few days before chemo started, plans to get [employer] card) - Smoking History Smoking history: Never smoked Have you smoked in the past 12 months: No - Social History ADL: Independent Home Medications - Allergies Allergies/Adverse Reactions: Allergies Allergy/AdvReac Type Severity Reaction Status Date / Time No Known Allergies Allergy Verified 01/10/19 11:45 - Home Medications Home Medications: Ambulatory Orders Pantoprazole Sodium [Protonix -] 20 mg PO DAILY #30 tablet.ec 01/13/19 Ondansetron HCl [Zofran] 8 mg PO Q6H PRN 7 Days #28 tablet 02/03/19 oxyCODONE HCL [Roxicodone -] 5 mg PO Q6H PRN #8 tablet MDD 4 02/03/19 Nystatin Oral Suspension - 100,000 units PO DAILY 03/12/19 Potassium Chloride [Potassium Chloride Oral Liquid] 20 meq PO DAILY 03/12/19 Prochlorperazine Maleate [Compazine] 10 mg PO PRN PRN 03/12/19 Review of Systems - Review of Systems Constitutional: denies: Fever Cardiovascular: reports: No Symptoms Respiratory: reports: No Symptoms Gastrointestinal: reports: Abdominal Pain, Constipation. denies: Vomiting Neurological: reports: No Symptoms Hematology/Lymphatic: reports: No Symptoms Physical Exam Vital Signs: Vital Signs Temperature 98.3 F 03/12/19 13:58 Pulse Rate 84 03/12/19 13:58 Respiratory Rate 20 03/12/19 13:58 Blood Pressure 107/72 03/12/19 13:58 O2 Sat by Pulse Oximetry (%) 100 03/12/19 08:30 Constitutional: Yes: No Distress, Calm Eyes: Yes: Conjunctiva Clear Cardiovascular: Yes: Regular Rate and Rhythm Respiratory: Yes: Regular, CTA Bilaterally Gastrointestinal: Yes: Normal Bowel Sounds, Soft, Tenderness (mild, diffuse). No: Distention Edema: No Labs: CBC, BMP 03/12/19 05:08 03/12/19 05:08 Assessment/Plan 33F with stage II ER+/ID+/Her2-3+ IDC of rt. breast, on neoadjuvant TCHP c/b recurrent chemo induced colitis, c4d5, admitted with abdominal pain, nausea, generalized weakness in setting of poor PO intake. Symptoms are typical after chemo. CTAP with possible mild enteritis. No neutropenia. Please continue IVF with monitoring of volume status, correction of electrolyte abnormalities, Zofran. Will follow.
[2019-03-12] MEDS: CALCIUM 500MG/VIT-D 200 UNITS COMBO TABLET (FP) PO SCH (17:42)
[2019-03-12] MEDS ORDERED: MELATONIN 5 MG TABLETS PO ONE (23:20)
[2019-03-13] MEDS: DEXTROSE 5%-LACTATED RINGERS 1,000 ML IV SCH ×2 (02:10→07:03)
[2019-03-13] MEDS ORDERED: ACETAMINOPHEN 1000 MG/100 ML VIAL (NON FORMULARY) IVPB ONE ×2 (06:48→22:35)
[2019-03-13] MEDS ORDERED: LOPERAMIDE HCL 2 MG CAPSULE PO ONE ×2 (06:52→10:34)
[2019-03-13 07:08] LABS: SERUM IRON SATURATION 83 % (15-55); TOTAL IRON BINDING CAPACITY 224 ug/dL (250-450)
[2019-03-13 07:39] LABS: BASO % 0.4 % (0-2.0); EOS % 1.8 % (0-4.5); HEMATOCRIT 24.4 % (32.4-45.2); HEMOGLOBIN 8.3 GM/dL (10.7-15.3); LYMPH % 43.7 % (8-40); MCH 27.6 pg (25.7-33.7); MCHC 33.8 g/dl (32.0-36.0); MEAN CELL VOLUME 81.6 fl (80-96); MONO % 2.7 % (3.8-10.2); NEUT % 51.4 % (42.8-82.8); RDW 17.5 % (11.6-15.6); WHITE BLOOD COUNT 2.3 K/mm3 (4.0-10.0)
[2019-03-13 08:03] LABS: BLOOD UREA NITROGEN 6.3 mg/dL (7-18); CALCIUM 8.4 mg/dL (8.5-10.1); CREATININE 0.6 mg/dL (0.55-1.3); MAGNESIUM 1.4 mg/dL (1.8-2.4); POTASSIUM 3.1 mmol/L (3.5-5.1)
[2019-03-13] MEDS ORDERED: MAGNESIUM SULF 50% (8.12 MEQ/2 ML-1 GM VIAL) IVPB ONE (08:10)
[2019-03-13] MEDS ORDERED: POTASSIUM CHLORIDE TABS 20 MEQ TABLET.ER (FP) PO ONE (08:10)
[2019-03-13] MEDS ORDERED: MAGNESIUM OXIDE 400 MG TABLET (FP) PO ONE (08:10)
[2019-03-13 08:48] LABS: PLATELET COUNT 121 K/MM3 (134-434)
--- NOTE | 2019-03-13 11:09 | PN ---
Teaching Attending Note Name of Resident: Gege Greene ATTENDING PHYSICIAN STATEMENT I saw and evaluated the patient. I reviewed the resident's note and discussed the case with the resident. I agree with the resident's findings and plan as documented. SUBJECTIVE:able to eat some breakfast. had 3 loose BM this AM. denies Cp, SOB, fever, chills, N/V/C OBJECTIVE: Last Vital Signs Temp Pulse Resp BP Pulse Ox 98.7 F 85 17 94/50 L 100 03/13/19 05:00 03/13/19 05:00 03/13/19 05:00 03/13/19 05:00 03/12/19 21:00 General NAD CV S1 S2 RRR + chest port Lungs CTA B/L no wheezing/rale/rhonchi Assessment and PLan 33yo F wtih PMH Stage II ER+/MT+ HER 2-3+ IDC of the R-breast on chemotherapy since December presenting with abdominal pain and constipation 1. ABdominal pain- could be GERD vs PUD vs constipation. CT abdomen showing enterocoloitis. tolerating diet. requesting to go home. will ensure she is able to eat a larger portion at lunch time. immodium prn with loose BM. encouraged GI follow up as outpatient for further testing. 2. leukocytosis- can be stressed induced vs recent Neulasta. no assoc fevers. however pt may not mount fever or white count given cancer hx. UA and CXR negative for infection. will hold off on abx at this time 3. Hypokalemia- improved. Kcl po and IV. will repeat 4. Hypomagnesemia- will give Mg IV and po. will need monitoring while on PPI 5. pseudoHypocalcemia- corrected Ca 8.7 but would benefit from calcium supplementation 6. Met alkalosis- due to GI losses. slowly improving. 7. Normocytic anemia- no signs of bleeding. received neulasta last week. iron studies pending. no indication for transfusion 8. breast cancer- oncology eval 9. DVT ppx- switch hep to lovenox 10. requests to go home. will ensure is eating adequately and repeat electrolytes. if ok possible d/c later today
[2019-03-13] MEDS: CALCIUM 500MG/VIT-D 200 UNITS COMBO TABLET (FP) PO SCH (11:12)
[2019-03-13] MEDS: PANTOPRAZOLE SODIUM 40 MG VIAL IVPUSH SCH (11:12)
[2019-03-13] MEDS: POLYETHYLENE GLYCOL 3350 119 GM BTL PO SCH (11:13)
[2019-03-13] MEDS: DEXTROSE 5%-LACTATED RINGERS 990 ML with POTASSIUM CHLORIDE 20 MEQ IVPB SCH ×2 (11:13→19:19)
[2019-03-13] MEDS: ENOXAPARIN NA (PORCINE) 40 MG/0.4 ML DISP.SYRIN SQ SCH (11:13)
[2019-03-13 11:25] LABS: ANISOCYTOSIS 0; HELMET CELLS 0; HOWELL-JOLLY BODIES 0; MACROCYTOSIS 0; OVALOCYTE 0; PLATELET ESTIMATE DECREASED; ROULEAU 0; SICKELED CELLS 0; TARGET CELLS 0; TEAR DROP CELLS 0; TOXIC GRANULATION 0
--- NOTE | 2019-03-13 14:27 | PN ---
Physical Exam: SUBJECTIVE: Patient seen and examined at bedside. Overnight, nauseated- received zofran x 1. Had three BM's this AM which were of liquid consistency. OBJECTIVE: Vital Signs Period Temp Pulse Resp BP Sys/James Pulse Ox Last 24 Hr 98.3 F-98.9 F 80-85 17-20 90-106/50-73 100 GENERAL: AAO x 3, in NAD HEAD: Normal with no signs of trauma. EYES: PERRL, extraocular movements intact, sclera anicteric, conjunctiva clear. ENT: Ears normal, nares patent, oropharynx clear without exudates, moist mucous membranes. NECK: Trachea midline,supple. LUNGS: Breath sounds equal, clear to auscultation bilaterally HEART: Regular rate and rhythm, S1, S2 without murmur, rub or gallop. ABDOMEN: Soft, +diffusely TTP, edith in lower quadrants. nondistended, normoactive bowel sounds EXTREMITIES: 2+ pt pulses, warm, well-perfused, no edema. NEUROLOGICAL: Cranial nerves II through XII grossly intact. PSYCH: Normal mood, normal affect. SKIN: Warm, dry, normal turgor Laboratory Results - last 24 hr 03/12/19 03/13/19 03/13/19 05:08 05:45 05:45 WBC 2.3 L RBC 3.00 L Hgb 8.3 L Hct 24.4 L MCV 81.6 MCH 27.6 MCHC 33.8 RDW 17.5 H Plt Count 121 L MPV 9.0 Absolute Neuts (auto) 1.2 L Neutrophils % 51.4 D Neutrophils % (Manual) 41.7 L Band Neutrophils % 2.9 Lymphocytes % 43.7 H D Lymphocytes % (Manual) 54.4 H D Monocytes % 2.7 L D Monocytes % (Manual) 1 L D Eosinophils % 1.8 D Eosinophils % (Manual) 0.0 Basophils % 0.4 Basophils % (Manual) 0.0 Myelocytes % (Man) 0 Promyelocytes % (Man) 0 Blast Cells % (Manual) 0 Nucleated RBC % 0 Metamyelocytes 0 Hypochromia 0 Toxic Granulation 0 Dohle Bodies 0 Platelet Estimate Decreased Polychromasia 0 Poikilocytosis 0 Basophilic Stippling 0 Anisocytosis 0 Microcytosis 0 Macrocytosis 0 Spherocytes 0 Sickle Cells 0 Target Cells 0 Tear Drop Cells 0 Ovalocytes 0 Stomatocytes 0 Helmet Cells 0 [place] Bodies 0 [place] Rings 0 [place] Cells 0 Acanthocytes (Spur) 0 Rouleaux 0 Fragmented RBCs 0 Schistocytes 0 Sodium 139 Potassium 3.1 L Chloride 100 Carbon Dioxide 34 H Anion Gap 6 L BUN 6.3 L Creatinine 0.6 Est GFR (CKD-EPI)AfAm 140.77 Est GFR (CKD-EPI)NonAf 121.46 Random Glucose 93 Calcium 8.4 L Magnesium 1.4 L Iron 185 H TIBC 224 L Iron Saturation 83 H Unsaturated IBC 39 L ASSESSMENT/PLAN: 33yo F with PMH 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 Found to have chemo-induced colitis. #Abdominal pain likely 2/2 chemo-induced colitis -with mild toleration of PO diet. continue to monitor for improvement -nausea resolving -c/w stool softeners. miralax. can give loperamide PRN for loose stools -c/w protonix -seen by onc. -will need GI f/u as outpt #Neutropenia -2/2 chemotherapy -neutropenic precautions -cont to monitor #hypokalemia, hypomagnesemia -possible 2/2 current diarrhea -repleted. cont to monitor levels #F/E/N c/w IVF until improved PO intake. d5LR +20meq KCl 100 cc/hr continue to follow lytes reg diet #PPX on lovenox #dispo cont'd monitoring on med-surg if neutropenia improves, anticipate d/c Visit type - Emergency Visit Emergency Visit: No - New Patient This patient is new to me today: Yes Date on this admission: 03/13/19 - Critical Care Critical Care patient: No
[2019-03-13] MEDS: ONDANSETRON 4 MG/2 ML VIAL IVPUSH PRN (15:23)
[2019-03-13] MEDS ORDERED: LOPERAMIDE HCL 2 MG CAPSULE PO PRN (16:15)
[2019-03-13] MEDS: PROCHLORPERAZINE MALEATE 5 MG TABLET PO PRN (19:18)
--- NOTE | 2019-03-13 19:56 | PN ---
Progress Note, Physician History of Present Illness: Still with nausea. Eating a little. Tolerated orange. No vomiting. Starting having diarrhea - Current Medication List Current Medications: Active Medications Calcium Carbonate/Cholecalciferol (Os-Rafael 500+D -) 2 tab PO DAILY [facility] Last Admin: 03/13/19 11:12 Dose: Not Given Enoxaparin Sodium (Lovenox -) 40 mg SQ DAILY [facility] Last Admin: 03/13/19 11:13 Dose: 40 mg Potassium Chloride 20 meq/ (Dextrose/Lactated Ringer's) 1,000 mls @ 100 mls/hr IVPB ASDIR [facility] Last Admin: 03/13/19 19:19 Dose: 100 mls/hr Loperamide HCl (Imodium -) 2 mg PO Q4H PRN PRN Reason: DIARRHEA Ondansetron HCl (Zofran Injection) 8 mg IVPB Q12H PRN PRN Reason: NAUSEA Pantoprazole Sodium (Protonix Iv) 40 mg IVPUSH DAILY [facility] Prochlorperazine Maleate (Compazine -) 10 mg PO Q6H PRN PRN Reason: NAUSEA AND/OR VOMITING Last Admin: 03/13/19 19:18 Dose: 10 mg - Objective Vital Signs: Vital Signs Temperature 98.9 F 03/13/19 17:35 Pulse Rate 90 03/13/19 17:35 Respiratory Rate 18 03/13/19 17:35 Blood Pressure 111/62 03/13/19 17:35 O2 Sat by Pulse Oximetry (%) 100 03/13/19 09:00 Constitutional: Yes: Well Nourished, No Distress Eyes: Yes: Conjunctiva Clear Cardiovascular: Yes: Regular Rate and Rhythm Respiratory: Yes: Regular, CTA Bilaterally Gastrointestinal: Yes: Soft. No: Tenderness Edema: No Labs: CBC, BMP 03/13/19 05:45 03/13/19 05:45 Assessment/Plan 33F with stage II ER+/AZ+/Her2-3+ IDC of rt. breast, on neoadjuvant TCHP c/b recurrent chemo induced colitis, c4d5, admitted with abdominal pain, nausea, generalized weakness in setting of poor PO intake. Symptoms are typical after chemo. CTAP with possible mild enteritis. Plt/ANC trending down after chemo. Pls c/w pain control (patient says IV tylenol helps with abd pain), nausea meds , PO as tolerated. Will follow.
[2019-03-13] MEDS ORDERED: ACETAMINOPHEN 500 MG TABLET (FP) PO ONE (21:35)
--- NOTE | 2019-03-14 00:30 | EKG ---
Test Reason : Blood Pressure : / mmHG Vent. Rate : 075 BPM Atrial Rate : 075 BPM P-R Int : 138 ms QRS Dur : 084 ms QT Int : 350 ms P-R-T Axes : 059 034 020 degrees QTc Int : 390 ms NORMAL SINUS RHYTHM NORMAL ECG WHEN COMPARED WITH ECG OF 20-FEB-2019 00:12, NONSPECIFIC T WAVE ABNORMALITY NOW EVIDENT IN ANTERIOR LEADS Confirmed by MD Benton, Justin ([id number]) on 03/14/2019 12:29:40 AM Referred By: Confirmed By:Justin Bhardwaj MD
[2019-03-14] MEDS: D5-LR+20 MEQ KCL - 20 MEQ/1,000 ML INFUS.BAG IV SCH ×2 (05:02→15:14)
[2019-03-14 08:00] LABS: BASO % 0.4 % (0-2.0); EOS % 1.4 % (0-4.5); HEMATOCRIT 25.2 % (32.4-45.2); HEMOGLOBIN 8.5 GM/dL (10.7-15.3); LYMPH % 48.9 % (8-40); MCH 27.5 pg (25.7-33.7); MCHC 33.6 g/dl (32.0-36.0); MEAN CELL VOLUME 81.7 fl (80-96); MEAN PLT VOLUME 9.1 fl (7.5-11.1); NEUT % 34.3 % (42.8-82.8); PLATELET COUNT 122 K/MM3 (134-434); RBC 3.09 M/mm3 (3.60-5.2); RDW 17.2 % (11.6-15.6); WHITE BLOOD COUNT 2.2 K/mm3 (4.0-10.0)
[2019-03-14 08:09] LABS: BLOOD UREA NITROGEN 5.8 mg/dL (7-18); CALCIUM 9.1 mg/dL (8.5-10.1); CREATININE 0.6 mg/dL (0.55-1.3); MAGNESIUM 1.6 mg/dL (1.8-2.4); PHOSPHOROUS 3.8 mg/dL (2.5-4.9); POTASSIUM 3.4 mmol/L (3.5-5.1)
[2019-03-14] MEDS: ONDANSETRON 4 MG/2 ML VIAL IVPB PRN ×2 (09:00→21:07)
[2019-03-14] MEDS: ENOXAPARIN NA (PORCINE) 40 MG/0.4 ML DISP.SYRIN SQ SCH (09:11)
[2019-03-14] MEDS: PANTOPRAZOLE SODIUM 40 MG VIAL IVPUSH SCH (09:12)
[2019-03-14] MEDS: CALCIUM 500MG/VIT-D 200 UNITS COMBO TABLET (FP) PO SCH (09:12)
[2019-03-14 10:41] LABS: ANISOCYTOSIS 2+; MACROCYTOSIS 0; PLATELET ESTIMATE DECREASED; TEAR DROP CELLS 1+
[2019-03-14] MEDS: ACETAMINOPHEN 1000 MG/100 ML VIAL (NON FORMULARY) IVPB PRN (12:31)
[2019-03-14] MEDS: KCL 10 MEQ IVPB 10 MEQ/100 ML INFUS.BAG IVPB SCH ×3 (15:14→18:51)
[2019-03-14] MEDS ORDERED: MAGNESIUM OXIDE 400 MG TABLET (FP) PO ONE (15:17)
[2019-03-14] MEDS ORDERED: MAGNESIUM SULF 50% (8.12 MEQ/2 ML-1 GM VIAL) IVPB ONE ×2 (15:17)
--- NOTE | 2019-03-14 15:17 | PN ---
Teaching Attending Note Name of Resident: Kristine Joe ATTENDING PHYSICIAN STATEMENT I saw and evaluated the patient. I reviewed the resident's note and discussed the case with the resident. I agree with the resident's findings and plan as documented. SUBJECTIVE:continues to have epigastric pain. not related to eating. but has been having difficulty keeping food down. and was only able to tolerate some jello for lunch at this point. continue to have diarrhea. denies Cp, SOB, fever , chills, N/V/C OBJECTIVE: Last Vital Signs Temp Pulse Resp BP Pulse Ox 98.9 F 87 18 99/51 L 96 03/14/19 13:53 03/14/19 13:53 03/14/19 13:53 03/14/19 13:53 03/14/19 09:00 General NAD abdomen soft +epigastric tenderness Assessment and PLan 33yo F wtih PMH Stage II ER+/WA+ HER 2-3+ IDC of the R-breast on chemotherapy since December presenting with abdominal pain and constipation 1. ABdominal pain-CT showing enterocolitis and now Cdiff ag +. although patient did not have diarrhea on presentation would treat with abx. start vanco po. will d/c loperamide. cont with clear liquid diet. contact precautions. would benefit from EGD as outpatient to further evaluate hx of gastric ulcers and r/o hpylori. 2. leukocytosis-+neutropenia. on neutrapenic precuations. 3. Hypokalemia- improved. Kcl po and IV. will repeat 4. Hypomagnesemia- will give Mg IV and po. will need monitoring while on PPI 5. pseudoHypocalcemia- corrected Ca 8.7 but would benefit from calcium supplementation 6. Met alkalosis- due to GI losses. resolved 7. Normocytic anemia- no signs of bleeding. received neulasta last week. iron studies pending. no indication for transfusion 8. breast cancer- oncology eval 9. DVT ppx- lovenox
[2019-03-14] MEDS ORDERED: KCL 10 MEQ IVPB 10 MEQ/100 ML INFUS.BAG IVPB SCH (15:30)
[2019-03-14] MEDS: VANCOMYCIN 250 MG/5 ML ORAL SOLUTION PO SCH (17:23)
--- NOTE | 2019-03-14 18:02 | PN ---
Physical Exam: SUBJECTIVE: Patient examined at bedside today. She continues to endorse diffuse abdominal cramping most severe in the lower abdomen. Labs for C.Dif Ag were +- pt started on PO Vanc. She was able to eat 1 cup of jello and a popsicle early this afternoon and tolerated well. OBJECTIVE: Vital Signs Period Temp Pulse Resp BP Sys/James Pulse Ox Last 24 Hr 98.2 F-98.9 F 81-92 18-18 91-99/51-59 96-100 GENERAL: The patient is awake, alert, and fully oriented, in mild discomfort motion, supple. LUNGS: Breath sounds equal, clear to auscultation bilaterally, no wheezes, no crackles, no accessory muscle use. HEART: Regular rate and rhythm, S1, S2 without murmur, rub or gallop. ABDOMEN: Soft, mildly tender to palpation in lower abdomen, nondistended, normoactive bowel sounds, no masses. EXTREMITIES: 2+ pulses, warm, well-perfused, no edema. PSYCH: Normal mood, normal affect. SKIN: No rashes or lesions noted Laboratory Results - last 24 hr Laboratory Last Values WBC 2.2 K/mm3 (4.0-10.0) L 03/14/19 06:00 RBC 3.09 M/mm3 (3.60-5.2) L 03/14/19 06:00 Hgb 8.5 GM/dL (10.7-15.3) L 03/14/19 06:00 Hct 25.2 % (32.4-45.2) L 03/14/19 06:00 MCV 81.7 fl (80-96) 03/14/19 06:00 MCH 27.5 pg (25.7-33.7) 03/14/19 06:00 MCHC 33.6 g/dl (32.0-36.0) 03/14/19 06:00 RDW 17.2 % (11.6-15.6) H 03/14/19 06:00 Plt Count 122 K/MM3 (134-434) L 03/14/19 06:00 MPV 9.1 fl (7.5-11.1) 03/14/19 06:00 Absolute Neuts (auto) 0.8 K/mm3 (1.5-8.0) L 03/14/19 06:00 Neutrophils % 34.3 % (42.8-82.8) L D 03/14/19 06:00 Neutrophils % (Manual) 24.0 % (42.8-82.8) L 03/14/19 06:00 Band Neutrophils % 1.0 % 03/14/19 06:00 Lymphocytes % 48.9 % (8-40) H 03/14/19 06:00 Lymphocytes % (Manual) 61.0 % (8-40) H 03/14/19 06:00 Monocytes % 15.0 % (3.8-10.2) H D 03/14/19 06:00 Monocytes % (Manual) 7 % (3.8-10.2) D 03/14/19 06:00 Eosinophils % 1.4 % (0-4.5) 03/14/19 06:00 Eosinophils % (Manual) 2.0 % (0-4.5) D 03/14/19 06:00 Basophils % 0.4 % (0-2.0) 03/14/19 06:00 Basophils % (Manual) 0.0 % (0-2.0) 03/14/19 06:00 Myelocytes % (Man) 0 % (0-2) 03/14/19 06:00 Promyelocytes % (Man) 0 % (0-2) 03/14/19 06:00 Blast Cells % (Manual) 0 % (0-0) 03/14/19 06:00 Nucleated RBC % 0 % (0-0) 03/14/19 06:00 Metamyelocytes 4 % (0-2) H D 03/14/19 06:00 Hypochromia 0 03/14/19 06:00 Toxic Granulation 0 03/13/19 05:45 Dohle Bodies 0 03/13/19 05:45 Platelet Estimate Decreased 03/14/19 06:00 Platelet Comment Present 03/14/19 06:00 Polychromasia 0 03/14/19 06:00 Poikilocytosis 1+ 03/14/19 06:00 Basophilic Stippling 0 03/13/19 05:45 Anisocytosis 2+ 03/14/19 06:00 Microcytosis 1+ 03/14/19 06:00 Macrocytosis 0 03/14/19 06:00 Spherocytes 0 03/13/19 05:45 Sickle Cells 0 03/13/19 05:45 Target Cells 0 03/13/19 05:45 Tear Drop Cells 1+ 03/14/19 06:00 Ovalocytes 0 03/13/19 05:45 Stomatocytes 0 03/13/19 05:45 Helmet Cells 0 03/13/19 05:45 [place] Bodies 0 03/13/19 05:45 [place] Rings 0 03/13/19 05:45 [place] Cells 0 03/13/19 05:45 Acanthocytes (Spur) 1+ 03/14/19 06:00 Rouleaux 0 03/13/19 05:45 Fragmented RBCs 0 03/13/19 05:45 Schistocytes 0 03/13/19 05:45 Retic Count 0.67 % (0.5-1.5) 03/12/19 05:08 Sodium 139 mmol/L (136-145) 03/14/19 06:00 Potassium 3.4 mmol/L (3.5-5.1) L 03/14/19 06:00 Chloride 100 mmol/L (98-107) 03/14/19 06:00 Carbon Dioxide 32 mmol/L (21-32) 03/14/19 06:00 Anion Gap 6 MMOL/L (8-16) L 03/14/19 06:00 BUN 5.8 mg/dL (7-18) L 03/14/19 06:00 Creatinine 0.6 mg/dL (0.55-1.3) 03/14/19 06:00 Est GFR (CKD-EPI)AfAm 140.77 03/14/19 06:00 Est GFR (CKD-EPI)NonAf 121.46 03/14/19 06:00 Random Glucose 94 mg/dL (74-106) 03/14/19 06:00 Lactic Acid 1.0 mmol/L (0.4-2.0) 03/11/19 23:45 Calcium 9.1 mg/dL (8.5-10.1) 03/14/19 06:00 Phosphorus 3.8 mg/dL (2.5-4.9) 03/14/19 06:00 Magnesium 1.6 mg/dL (1.8-2.4) L 03/14/19 06:00 Iron 185 ug/dL (27-159) H 03/12/19 05:08 TIBC 224 ug/dL (250-450) L 03/12/19 05:08 Iron Saturation 83 % (15-55) H 03/12/19 05:08 Unsaturated IBC 39 ug/dL (131-425) L 03/12/19 05:08 Total Bilirubin 0.3 mg/dL (0.2-1) 03/12/19 05:08 AST 14 U/L (15-37) L 03/12/19 05:08 ALT 30 U/L (13-61) 03/12/19 05:08 Alkaline Phosphatase 88 U/L (45-117) 03/12/19 05:08 Total Protein 5.6 g/dl (6.4-8.2) L 03/12/19 05:08 Albumin 3.2 g/dl (3.4-5.0) L 03/12/19 05:08 Lipase 128 U/L (73-393) 03/11/19 23:45 Vitamin B12 5218 pg/ml (193-986) H 03/12/19 05:08 Serum Folate 5 ng/mL (3.1-17.5) 03/12/19 05:08 Serum , Qual Negative 03/11/19 23:45 Urine Color Yellow 03/12/19 01:35 Urine Appearance Clear 03/12/19 01:35 Urine pH 7.5 (5.0-8.0) 03/12/19 01:35 Ur Specific Babb 1.006 (1.010-1.035) L 03/12/19 01:35 Urine Protein Negative (NEGATIVE) 03/12/19 01:35 Urine Glucose (UA) Negative (NEGATIVE) 03/12/19 01:35 Urine Ketones Negative (NEGATIVE) 03/12/19 01:35 Urine Blood Negative (NEGATIVE) 03/12/19 01:35 Urine Nitrite Negative (NEGATIVE) 03/12/19 01:35 Urine Bilirubin Negative (NEGATIVE) 03/12/19 01:35 Urine Urobilinogen 0.2 mg/dL (0.2-1.0) 03/12/19 01:35 Ur Leukocyte Esterase Negative (NEGATIVE) 03/12/19 01:35 Stool Occult Blood Negative (NEGATIVE) 03/13/19 20:00 Active Medications Generic Name Dose Route Start Last Admin Trade Name Freq PRN Reason Stop Dose Admin Acetaminophen 1,000 mg 03/14/19 12:16 03/14/19 12:31 Ofirmev Injection - IVPB 1,000 mg Q6H PRN Administration PAIN LEVEL 5-10 Calcium Carbonate/Cholecalciferol 2 tab 03/12/19 12:00 03/14/19 09:12 Os-Rafael 500+D - PO Not Given DAILY [facility] Enoxaparin Sodium 40 mg 03/13/19 10:00 03/14/19 09:11 Lovenox - SQ 40 mg DAILY [facility] Administration Dextrose/Lactated Ringer's 20 meq in 1,000 mls @ 100 mls/hr 03/14/19 05:15 15:14 D5-Lr+20 Meq Kcl - IV 100 mls/hr ASDIR [facility] Administration Potassium Chloride 10 meq in 100 mls @ 100 mls/hr 03/14/19 15:00 03/14/19 17: 24 Potassium Chloride 10 Meq Premix Ivpb - IVPB 03/14/19 17:59 100 mls/hr Q60M [facility] Administration Ondansetron HCl 8 mg 03/13/19 16:13 03/14/19 09:00 Zofran Injection IVPB 8 mg Q12H PRN Administration NAUSEA Pantoprazole Sodium 40 mg 03/14/19 10:00 03/14/19 09:12 Protonix Iv IVPUSH 40 mg DAILY [facility] Administration Prochlorperazine Maleate 10 mg 03/13/19 16:12 03/13/19 19:18 Compazine - PO 10 mg Q6H PRN Administration NAUSEA AND/OR VOMITING Vancomycin HCl 125 mg 03/14/19 18:00 03/14/19 17:23 Vancomycin Oral Solution PO 125 mg Q6HPO [facility] Administration ASSESSMENT/PLAN: 33yo F w/ PMH Stage II ER+/ID+ HER 2-3+ IDC of the R-breast on chemotherapy since December who presented to the ED with abdominal pain and constipation. Found to have enteritis of small bowel and + C. Dif antigen. Pt is on contact and neutropenic precautions #Abdominal pain -CT Abd/ pelvis 03/12: minimal enhancehent of all visualized sm bowel; mild enteritis -C. Dif Ag+: Vanc PO -D/c loperamide -CLD -Contact precautions -F/u with GI outpt for gastric ulcers to r/o H.Pylori #Neutropenia -neutropenic precautions -ANC 776 today #hypokalemia -replete w/ KCl IV & PO -Repeat BMP #Hypomagnesemia -Mg IV & PO -Repeat Mg #Breast CA -Follow oncology recs #DVT ppx -Lovenox #Dispo -If neutropenia improves, d/c Visit type - Emergency Visit Emergency Visit: No - New Patient This patient is new to me today: No - Critical Care Critical Care patient: No
--- NOTE | 2019-03-14 18:19 | PN ---
Progress Note (short form) - Note Progress Note: Patient seen and examined Has diarrhea C. diff antigen +/ toxin negative Last Vital Signs Temp Pulse Resp BP Pulse Ox 98.9 F 87 18 99/51 L 96 03/14/19 13:53 03/14/19 13:53 03/14/19 13:53 03/14/19 13:53 03/14/19 09:00 Cor: RSR, No murmurs, No gallops Lungs: Clear to P&A Abd: Soft, Normal bowel sounds, No organomegaly Ext:No significant edema Abnormal Lab Results 03/14/19 03/14/19 06:00 06:00 WBC 2.2 L RBC 3.09 L Hgb 8.5 L Hct 25.2 L RDW 17.2 H Plt Count 122 L Absolute Neuts (auto) 0.8 L Neutrophils % 34.3 L D Neutrophils % (Manual) 24.0 L Lymphocytes % 48.9 H Lymphocytes % (Manual) 61.0 H Monocytes % 15.0 H D Metamyelocytes 4 H D Potassium 3.4 L Anion Gap 6 L BUN 5.8 L Magnesium 1.6 L Active Medications Generic Name Dose Route Start Last Admin Trade Name Freq PRN Reason Stop Dose Admin Acetaminophen 1,000 mg 03/14/19 12:16 03/14/19 12:31 Ofirmev Injection - IVPB 1,000 mg Q6H PRN Administration PAIN LEVEL 5-10 Calcium Carbonate/Cholecalciferol 2 tab 03/12/19 12:00 03/14/19 09:12 Os-Rafael 500+D - PO Not Given DAILY [facility] Enoxaparin Sodium 40 mg 03/13/19 10:00 03/14/19 09:11 Lovenox - SQ 40 mg DAILY [facility] Administration Dextrose/Lactated Ringer's 20 meq in 1,000 mls @ 100 mls/hr 03/14/19 05:15 15:14 D5-Lr+20 Meq Kcl - IV 100 mls/hr ASDIR [facility] Administration Ondansetron HCl 8 mg 03/13/19 16:13 03/14/19 09:00 Zofran Injection IVPB 8 mg Q12H PRN Administration NAUSEA Pantoprazole Sodium 40 mg 03/14/19 10:00 03/14/19 09:12 Protonix Iv IVPUSH 40 mg DAILY [facility] Administration Prochlorperazine Maleate 10 mg 03/13/19 16:12 03/13/19 19:18 Compazine - PO 10 mg Q6H PRN Administration NAUSEA AND/OR VOMITING Vancomycin HCl 125 mg 03/14/19 18:00 03/14/19 17:23 Vancomycin Oral Solution PO 125 mg Q6HPO [facility] Administration A/P 33F with stage II ER+/NE+/Her2-3+ IDC of rt. breast, on neoadjuvant TCHP c/b recurrent chemo induced colitis, c4d7, admitted with abdominal pain, nausea, generalized weakness in setting of poor PO intake. CTAP with possible mild enteritis. c. diff antigen +/toxin negative --for vancomycin 125 mg PO Q6h for 10-14 days Replete potasium/Magnesium Advance diet will follow
[2019-03-14] MEDS ORDERED: PORTA CATH FLUSH 10 ML IVPUSH ONE (22:04)
[2019-03-15] MEDS: VANCOMYCIN 250 MG/5 ML ORAL SOLUTION PO SCH ×4 (00:56→17:10)
[2019-03-15] MEDS: D5-LR+20 MEQ KCL - 20 MEQ/1,000 ML INFUS.BAG IV SCH (06:03)
[2019-03-15] MEDS: ACETAMINOPHEN 1000 MG/100 ML VIAL (NON FORMULARY) IVPB PRN ×2 (08:09→17:13)
[2019-03-15 08:42] LABS: BASO % 0.3 % (0-2.0); EOS % 0.2 % (0-4.5); HEMATOCRIT 27.3 % (32.4-45.2); HEMOGLOBIN 9.1 GM/dL (10.7-15.3); LYMPH % 32.6 % (8-40); MCH 27.5 pg (25.7-33.7); MCHC 33.3 g/dl (32.0-36.0); MEAN CELL VOLUME 82.5 fl (80-96); MONO % 21.9 % (3.8-10.2); PLATELET COUNT 138 K/MM3 (134-434); RBC 3.32 M/mm3 (3.60-5.2); RDW 17.7 % (11.6-15.6); WHITE BLOOD COUNT 5.6 K/mm3 (4.0-10.0)
[2019-03-15 09:07] LABS: ALBUMIN 2.4 g/dl (3.4-5.0); BILIRUBIN,TOTAL 0.6 mg/dL (0.2-1); CREATININE 0.4 mg/dL (0.55-1.3); TOT PROT 4.3 g/dl (6.4-8.2)
[2019-03-15] MEDS ORDERED: MAGNESIUM OXIDE 400 MG TABLET (FP) PO ONE (09:12)
[2019-03-15] MEDS ORDERED: MAGNESIUM SULF 50% (8.12 MEQ/2 ML-1 GM VIAL) IVPB ONE ×3 (09:12→22:16)
[2019-03-15 09:21] LABS: BLOOD UREA NITROGEN 2.8 mg/dL (7-18)
[2019-03-15 09:22] LABS: CALCIUM 5.8 mg/dL (8.5-10.1); POTASSIUM 2.7 mmol/L (3.5-5.1)
[2019-03-15] MEDS: ENOXAPARIN NA (PORCINE) 40 MG/0.4 ML DISP.SYRIN SQ SCH (09:44)
[2019-03-15] MEDS: PANTOPRAZOLE SODIUM 40 MG VIAL IVPUSH SCH (09:44)
[2019-03-15] MEDS: CALCIUM 500MG/VIT-D 200 UNITS COMBO TABLET (FP) PO SCH (09:44)
[2019-03-15 11:06] LABS: ANISOCYTOSIS 0; MACROCYTOSIS 0; PLATELET ESTIMATE DECREASED
[2019-03-15] MEDS ORDERED: CALCIUM GLUCONATE 10% - 1,000 MG/10 ML VIAL IVPB ONE ×2 (11:30→22:16)
--- NOTE | 2019-03-15 11:39 | PN ---
Progress Note (short form) - Note Progress Note: ID CONSULT DICTATED C DIFFICILE COLITIS CHEMO-INDUCED DIARRHEA LEUKOPENIA/ NEUTROPENIA RESOLVED VANCOMYCIN 125MG PO QID X 10D
--- NOTE | 2019-03-15 12:31 | CONS ---
DATE OF CONSULTATION: DATE OF DICTATION: 03/15/2019 HISTORY OF PRESENT ILLNESS: The patient is a 33-year-old female with a history of stage II breast cancer, evaluated for positive C-difficile. She presented to the hospital with a 2-day history of malaise, abdominal discomfort, anorexia, nausea, chills and sweats. She had received chemotherapy approximately 3 days prior to admission. In the emergency room she was noted to be hypotensive and hypokalemic. She was also noted to be leukopenic/pancytopenic. Stool for C-difficile was sent and is positive for C-difficile antigen. Patient reports several loose bowel movements daily described as non-bloody. She reports she has had similar episodes after chemotherapy. She denies any recent antibiotic therapy. She was recently hospitalized earlier this month. PAST MEDICAL HISTORY: Positive for invasive ductal cancer stage II. ALLERGIES: No known allergies. PAST SURGICAL HISTORY: She is status post port placement. LABORATORY DATA: White count 5.6, 45 neutrophils, 32 lymphocytes, 21 monocytes, hematocrit 27.2, platelet count 138, creatinine 0.4. Urine leukocyte esterase negative. Blood cultures negative. CAT scan of the abdomen and pelvis consistent with mild enteritis. PHYSICAL EXAMINATION: General: On physical examination, she was alert and awake in no acute distress. She is supine in bed, appears pale. Vitals: Temperature 98.6, blood pressure 91/57, pulse 91 regular, respirations 18 per minute. HEENT: Sclera anicteric. Port site no erythema or tenderness. Heart: Sounds S1, S2. Lungs: Clear. Abdomen: Soft. No tenderness elicited. Extremities: Negative for edema. IMPRESSION: 1. Clostridium difficile colitis. 2. Chemotherapy-induced diarrhea. 3. Stage II breast cancer on chemotherapy. 4. Leukopenia/neutropenia, now resolved. RECOMMENDATIONS: Continue vancomycin 125 mg p.o. 4 times daily, complete 10-day course. Contact precautions for C-difficile. Thank you for the kind referral. MADELEINE SANCHEZ M.D. [id number]
[2019-03-15] MEDS: KCL 10 MEQ IVPB 10 MEQ/100 ML INFUS.BAG IVPB SCH ×6 (12:51→23:06)
[2019-03-15] MEDS: ONDANSETRON 4 MG/2 ML VIAL IVPB PRN (14:56)
--- NOTE | 2019-03-15 15:20 | PN ---
Physical Exam: SUBJECTIVE: Patient seen and examined at bedside today. Remains on contact precautions. Endorses she is still having some diarrhea, 1 episode this morning , but significantly less than yesterday. She tolerated CLD well today with mild nausea. Will advance to full She denies abdominal pain, blood in stool, fatigue. OBJECTIVE: Vital Signs Period Temp Pulse Resp BP Sys/James Pulse Ox Last 24 Hr 98.2 F-98.8 F 91-107 18-20 91-125/57-68 98-98 GENERAL: The patient is awake, alert, and fully oriented, in no acute distress. HEENT: No lymphadenopathy LUNGS: CTABL HEART: S1 S2h eard. Tachycardic. ABDOMEN: Soft, ND. Mild epigastric discomfort. EXTREMITIES: No edema. 2+ dorsalis pedis & radial pulses. PSYCH: Normal mood, good affect. Skin: No lesions, bruising, ulcerations noted Laboratory Results - last 24 hr Laboratory Last Values WBC 5.6 K/mm3 (4.0-10.0) 03/15/19 06:00 RBC 3.32 M/mm3 (3.60-5.2) L 03/15/19 06:00 Hgb 9.1 GM/dL (10.7-15.3) L 03/15/19 06:00 Hct 27.3 % (32.4-45.2) L 03/15/19 06:00 MCV 82.5 fl (80-96) 03/15/19 06:00 MCH 27.5 pg (25.7-33.7) 03/15/19 06:00 MCHC 33.3 g/dl (32.0-36.0) 03/15/19 06:00 RDW 17.7 % (11.6-15.6) H 03/15/19 06:00 Plt Count 138 K/MM3 (134-434) 03/15/19 06:00 MPV 9.0 fl (7.5-11.1) 03/15/19 06:00 Absolute Neuts (auto) 2.5 K/mm3 (1.5-8.0) 03/15/19 06:00 Neutrophils % 45.0 % (42.8-82.8) D 03/15/19 06:00 Neutrophils % (Manual) 22.5 % (42.8-82.8) L 03/15/19 06:00 Band Neutrophils % 14.3 % 03/15/19 06:00 Lymphocytes % 32.6 % (8-40) D 03/15/19 06:00 Lymphocytes % (Manual) 37.8 % (8-40) D 03/15/19 06:00 Monocytes % 21.9 % (3.8-10.2) H 03/15/19 06:00 Monocytes % (Manual) 17 % (3.8-10.2) H D 03/15/19 06:00 Eosinophils % 0.2 % (0-4.5) D 03/15/19 06:00 Eosinophils % (Manual) 0.0 % (0-4.5) D 03/15/19 06:00 Basophils % 0.3 % (0-2.0) 03/15/19 06:00 Basophils % (Manual) 0.0 % (0-2.0) 03/15/19 06:00 Myelocytes % (Man) 4 % (0-2) H D 03/15/19 06:00 Promyelocytes % (Man) 0 % (0-2) 03/15/19 06:00 Blast Cells % (Manual) 0 % (0-0) 03/15/19 06:00 Nucleated RBC % 1 % (0-0) H 03/15/19 06:00 Metamyelocytes 2 % (0-2) D 03/15/19 06:00 Hypochromia 0 03/15/19 06:00 Toxic Granulation 0 03/13/19 05:45 Dohle Bodies 0 03/13/19 05:45 Platelet Estimate Decreased 03/15/19 06:00 Platelet Comment Present 03/14/19 06:00 Polychromasia 0 03/15/19 06:00 Poikilocytosis 0 03/15/19 06:00 Basophilic Stippling 0 03/13/19 05:45 Anisocytosis 0 03/15/19 06:00 Microcytosis 0 03/15/19 06:00 Macrocytosis 0 03/15/19 06:00 Spherocytes 0 03/13/19 05:45 Sickle Cells 0 03/13/19 05:45 Target Cells 0 03/13/19 05:45 Tear Drop Cells 1+ 03/14/19 06:00 Ovalocytes 0 03/13/19 05:45 Stomatocytes 0 03/13/19 05:45 Helmet Cells 0 03/13/19 05:45 [place] Bodies 0 03/13/19 05:45 [place] Rings 0 03/13/19 05:45 [place] Cells 0 03/13/19 05:45 Acanthocytes (Spur) 1+ 03/14/19 06:00 Rouleaux 0 03/13/19 05:45 Fragmented RBCs 0 03/13/19 05:45 Schistocytes 0 03/13/19 05:45 Retic Count 0.67 % (0.5-1.5) 03/12/19 05:08 Sodium 148 mmol/L (136-145) H 03/15/19 06:00 Potassium 2.7 mmol/L (3.5-5.1) L* 03/15/19 06:00 Chloride 120 mmol/L (98-107) H 03/15/19 06:00 Carbon Dioxide 20 mmol/L (21-32) L 03/15/19 06:00 Anion Gap 9 MMOL/L (8-16) 03/15/19 06:00 BUN 2.8 mg/dL (7-18) L* 03/15/19 06:00 Creatinine 0.4 mg/dL (0.55-1.3) L 03/15/19 06:00 Est GFR (CKD-EPI)AfAm 160.86 03/15/19 06:00 Est GFR (CKD-EPI)NonAf 138.79 03/15/19 06:00 Random Glucose 69 mg/dL (74-106) L 03/15/19 06:00 Lactic Acid 1.0 mmol/L (0.4-2.0) 03/11/19 23:45 Calcium 5.8 mg/dL (8.5-10.1) L* 03/15/19 06:00 Phosphorus 3.8 mg/dL (2.5-4.9) 03/14/19 06:00 Magnesium 1.0 mg/dL (1.8-2.4) L 03/15/19 06:00 Iron 185 ug/dL (27-159) H 03/12/19 05:08 TIBC 224 ug/dL (250-450) L 03/12/19 05:08 Iron Saturation 83 % (15-55) H 03/12/19 05:08 Unsaturated IBC 39 ug/dL (131-425) L 03/12/19 05:08 Total Bilirubin 0.6 mg/dL (0.2-1) 03/15/19 06:00 AST 15 U/L (15-37) 03/15/19 06:00 ALT 40 U/L (13-61) 03/15/19 06:00 Alkaline Phosphatase 66 U/L (45-117) 03/15/19 06:00 Total Protein 4.3 g/dl (6.4-8.2) L 03/15/19 06:00 Albumin 2.4 g/dl (3.4-5.0) L 03/15/19 06:00 Lipase 128 U/L (73-393) 03/11/19 23:45 Vitamin B12 5218 pg/ml (193-986) H 03/12/19 05:08 Serum Folate 5 ng/mL (3.1-17.5) 03/12/19 05:08 Serum , Qual Negative 03/11/19 23:45 Urine Color Yellow 03/12/19 01:35 Urine Appearance Clear 03/12/19 01:35 Urine pH 7.5 (5.0-8.0) 03/12/19 01:35 Ur Specific [place] 1.006 (1.010-1.035) L 03/12/19 01:35 Urine Protein Negative (NEGATIVE) 03/12/19 01:35 Urine Glucose (UA) Negative (NEGATIVE) 03/12/19 01:35 Urine Ketones Negative (NEGATIVE) 03/12/19 01:35 Urine Blood Negative (NEGATIVE) 03/12/19 01:35 Urine Nitrite Negative (NEGATIVE) 03/12/19 01:35 Urine Bilirubin Negative (NEGATIVE) 03/12/19 01:35 Urine Urobilinogen 0.2 mg/dL (0.2-1.0) 03/12/19 01:35 Ur Leukocyte Esterase Negative (NEGATIVE) 03/12/19 01:35 Stool Occult Blood Negative (NEGATIVE) 03/13/19 20:00 Active Medications Generic Name Dose Route Start Last Admin Trade Name Freq PRN Reason Stop Dose Admin Acetaminophen 1,000 mg 03/14/19 12:16 03/15/19 08:09 Ofirmev Injection - IVPB 1,000 mg Q6H PRN Administration PAIN LEVEL 5-10 Calcium Carbonate/Cholecalciferol 2 tab 03/12/19 12:00 03/15/19 09:44 Os-Rafael 500+D - PO Not Given DAILY BRENNON Enoxaparin Sodium 40 mg 03/13/19 10:00 03/15/19 09:44 Lovenox - SQ 40 mg DAILY BRENNON Administration Dextrose/Lactated Ringer's 20 meq in 1,000 mls @ 100 mls/hr 03/14/19 05:15 06:03 D5-Lr+20 Meq Kcl - IV 100 mls/hr ASDIR BRENNON Administration Potassium Chloride 10 meq in 100 mls @ 100 mls/hr 03/15/19 11:30 03/15/19 13: 54 Potassium Chloride 10 Meq Premix Ivpb - IVPB 03/15/19 16:29 100 mls/hr Q60M BRENNON Administration Ondansetron HCl 8 mg 03/13/19 16:13 03/15/19 14:56 Zofran Injection IVPB 8 mg Q12H PRN Administration NAUSEA Pantoprazole Sodium 40 mg 03/14/19 10:00 03/15/19 09:44 Protonix Iv IVPUSH 40 mg DAILY BRENNON Administration Prochlorperazine Maleate 10 mg 03/13/19 16:12 03/13/19 19:18 Compazine - PO 10 mg Q6H PRN Administration NAUSEA AND/OR VOMITING Vancomycin HCl 125 mg 03/14/19 18:00 03/15/19 12:06 Vancomycin Oral Solution PO 125 mg Q6HPO BRENNON Administration Imaging CXR 03/11: hair left apex artifact Abd/ pelvis CT: Possible minimal enhancement of practically all of the visualized small bowel abreu with no surrounding inflammation but a mild enteritis cannot be excluded ASSESSMENT/PLAN: 33yo F w/ PMH 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 Found to have enteritis of small bowel on CT abd/pelvis and + C. Dif antigen. Pt is on contact precautions. Tolerating CLD well, advancing to full liquids tonight. #Abdominal pain -CT Abd/ pelvis 03/12: minimal enhancehent of all visualized sm bowel; mild enteritis -C. Dif Ag+: Vanc PO day #2 -D/c loperamide -FLD; advance to soft diet in AM if tolerated -Contact precautions -F/u with GI outpt for gastric ulcers to r/o H.Pylori #Neutropenia -resolved -ANC 3320; neutrophils 45% #Hypokalemia -2.7 today -replete w/ KCl IV & PO (pt refused PO today d/t nausea) -Repeat BMP tonight and in AM #Hypomagnesemia -Mg IV & PO -Repeat Mg tonight & in AM #Breast CA -Follow oncology recs #FEN -D5-LR 20meq in 1,000mL @ 100/hr -Replete K+ & Mg as needed -Advancing to full liquids tonight -Ambulating well #DVT ppx -Lovenox #Dispo -Home Visit type - Emergency Visit Emergency Visit: No - New Patient This patient is new to me today: No - Critical Care Critical Care patient: No
--- NOTE | 2019-03-15 18:44 | PN ---
Progress Note (short form) - Note Progress Note: Patient seen and examined Complains of crampy abdominal pains Having diarrhea Elecctrolyte imbalance Receiving Ca++, K+, Mg++ repletion Last Vital Signs Temp Pulse Resp BP Pulse Ox 98.2 F 99 H 20 125/61 98 03/15/19 14:42 03/15/19 14:42 03/15/19 14:42 03/15/19 14:42 03/15/19 09:00 HEENT: GÉNESIS, EOM Intact Oropharynx: No thrush, No mucositis Cor: RSR, No murmurs, No gallops Lungs: Clear to P&A Abd: Soft, Normal bowel sounds, No organomegaly, some tenderness Ext:No significant edema Skin: No rashes, Integument intact CBC, BMP 03/15/19 06:00 03/15/19 06:00 Current Medications Generic Name Dose Route Start Last Admin Trade Name Freq PRN Reason Stop Dose Admin Acetaminophen 1,000 mg 03/14/19 12:16 03/15/19 17:13 Ofirmev Injection - IVPB 1,000 mg Q6H PRN Administration PAIN LEVEL 5-10 Calcium Carbonate/Cholecalciferol 2 tab 03/12/19 12:00 03/15/19 09:44 Os-Rafael 500+D - PO Not Given DAILY BRENNON Enoxaparin Sodium 40 mg 03/13/19 10:00 03/15/19 09:44 Lovenox - SQ 40 mg DAILY BRENNON Administration Dextrose/Lactated Ringer's 20 meq in 1,000 mls @ 100 mls/hr 03/14/19 05:15 06:03 D5-Lr+20 Meq Kcl - IV 100 mls/hr ASDIR BRENNON Administration Ondansetron HCl 8 mg 03/13/19 16:13 03/15/19 14:56 Zofran Injection IVPB 8 mg Q12H PRN Administration NAUSEA Pantoprazole Sodium 40 mg 03/14/19 10:00 03/15/19 09:44 Protonix Iv IVPUSH 40 mg DAILY BRENNON Administration Prochlorperazine Maleate 10 mg 03/13/19 16:12 03/13/19 19:18 Compazine - PO 10 mg Q6H PRN Administration NAUSEA AND/OR VOMITING Vancomycin HCl 125 mg 03/14/19 18:00 03/15/19 17:10 Vancomycin Oral Solution PO 125 mg Q6HPO BRENNON Administration Breast ca Neoadjuvant therapy Hypokalemia, Hypomagnesemia,hypocalcemia Anemia C. diff Ag +, toxin negative. Continue electrolyte repletion
--- NOTE | 2019-03-15 18:52 | PN ---
Teaching Attending Note Name of Resident: Kristine Joe ATTENDING PHYSICIAN STATEMENT I saw and evaluated the patient. I reviewed the resident's note and discussed the case with the resident. I agree with the resident's findings and plan as documented. SUBJECTIVE: Reports improving abdominal pain and improvement is diarrheal episodes. No nausea/vomiting/hematemesis/melena/hematochezia. No fever/chills. OBJECTIVE: Afebrile, Hemodynamically Stable. Last Vital Signs Temp Pulse Resp BP Pulse Ox 98.2 F 99 H 20 125/61 98 03/15/19 14:42 03/15/19 14:42 03/15/19 14:42 03/15/19 14:42 03/15/19 09:00 HEENT - Atraumatic, Normocephalic. Heart - S 1, S2, RRR Lungs - clear to auscultation. L permacath Abdomen - Soft, non-tender. Bowel Sounds normal. Extremities - no edema, no calf tenderness. Laboratory Results - last 24 hr 03/15/19 03/15/19 06:00 06:00 WBC 5.6 RBC 3.32 L Hgb 9.1 L Hct 27.3 L MCV 82.5 MCH 27.5 MCHC 33.3 RDW 17.7 H Plt Count 138 MPV 9.0 Absolute Neuts (auto) 2.5 Neutrophils % 45.0 D Neutrophils % (Manual) 22.5 L Band Neutrophils % 14.3 Lymphocytes % 32.6 D Lymphocytes % (Manual) 37.8 D Monocytes % 21.9 H Monocytes % (Manual) 17 H D Eosinophils % 0.2 D Eosinophils % (Manual) 0.0 D Basophils % 0.3 Basophils % (Manual) 0.0 Myelocytes % (Man) 4 H D Promyelocytes % (Man) 0 Blast Cells % (Manual) 0 Nucleated RBC % 1 H Metamyelocytes 2 D Hypochromia 0 Platelet Estimate Decreased Polychromasia 0 Poikilocytosis 0 Anisocytosis 0 Microcytosis 0 Macrocytosis 0 Sodium 148 H Potassium 2.7 L* Chloride 120 H Carbon Dioxide 20 L Anion Gap 9 BUN 2.8 L* Creatinine 0.4 L Est GFR (CKD-EPI)AfAm 160.86 Est GFR (CKD-EPI)NonAf 138.79 Random Glucose 69 L Calcium 5.8 L* Magnesium 1.0 L Total Bilirubin 0.6 AST 15 ALT 40 Alkaline Phosphatase 66 Total Protein 4.3 L Albumin 2.4 L Current Medications Generic Name Dose Route Start Last Admin Trade Name Freq PRN Reason Stop Dose Admin Acetaminophen 1,000 mg 03/14/19 12:16 03/15/19 17:13 Ofirmev Injection - IVPB 1,000 mg Q6H PRN Administration PAIN LEVEL 5-10 Calcium Carbonate/Cholecalciferol 2 tab 03/12/19 12:00 03/15/19 09:44 Os-Rafael 500+D - PO Not Given DAILY BRENNON Enoxaparin Sodium 40 mg 03/13/19 10:00 03/15/19 09:44 Lovenox - SQ 40 mg DAILY BRENNON Administration Dextrose/Lactated Ringer's 20 meq in 1,000 mls @ 100 mls/hr 03/14/19 05:15 06:03 D5-Lr+20 Meq Kcl - IV 100 mls/hr ASDIR BRENNON Administration Ondansetron HCl 8 mg 03/13/19 16:13 03/15/19 14:56 Zofran Injection IVPB 8 mg Q12H PRN Administration NAUSEA Pantoprazole Sodium 40 mg 03/14/19 10:00 03/15/19 09:44 Protonix Iv IVPUSH 40 mg DAILY BRENNON Administration Prochlorperazine Maleate 10 mg 03/13/19 16:12 03/13/19 19:18 Compazine - PO 10 mg Q6H PRN Administration NAUSEA AND/OR VOMITING Vancomycin HCl 125 mg 03/14/19 18:00 03/15/19 17:10 Vancomycin Oral Solution PO 125 mg Q6HPO BRENNON Administration ASSESSMENT AND PLAN: 33 year old female with Stage II ER+/KS+ HER 2-3+ IDC of the R-breast on chemotherapy since December, presents with abdominal pain, nausea, and constipation , eventually developed watery diarrhea, Cdiff positive. 1. Enterocolitis sec to Chemotherapy + Cdiff CT A/P - Enterocolitis. Cdiff positive. Diarrhea resolving. Continue Vancomycin po. Advance diet as tolerated. 2. Neutropenia - resolved. No signs of sepsis. 3. Hypokalemia - recurrent - repleted. Will monitor. 4. Hypomagnesemia - recurrent. Will replete and monitor. 5. Normocytic Anemia - no signs of bleeding. Likely secondary to marrow suppression due to Chemotherapy. Folate borderline at 5, will supplement. 6. Breast Ca - on Chemotherapy. Further management as per Oncology. DVT Px - Lovenox SQ. GI Px - PPI
[2019-03-15 21:33] LABS: MAGNESIUM 1.5 mg/dL (1.8-2.4); POTASSIUM 4.4 mmol/L (3.5-5.1)
[2019-03-15 21:38] LABS: BLOOD UREA NITROGEN 3.3 mg/dL (7-18); CREATININE 0.3 mg/dL (0.55-1.3)
[2019-03-15 21:39] LABS: POTASSIUM 2.9 mmol/L (3.5-5.1)
[2019-03-15 21:42] LABS: CALCIUM 5.7 mg/dL (8.5-10.1)
[2019-03-15] MEDS ORDERED: oxyCODONE HCL 5 MG TABLET PO ONE (22:15)
[2019-03-15] MEDS ORDERED: SODIUM CHLORIDE 0.45% 1,000 ML IV SCH (22:30)
[2019-03-15] MEDS ORDERED: PORTA CATH FLUSH 10 ML IVPUSH ONE (22:42)
[2019-03-16] MEDS: KCL 10 MEQ IVPB 10 MEQ/100 ML INFUS.BAG IVPB SCH ×10 (00:17→23:29)
[2019-03-16] MEDS: VANCOMYCIN 250 MG/5 ML ORAL SOLUTION PO SCH ×5 (00:17→23:35)
[2019-03-16 06:51] LABS: BASO % 0.2 % (0-2.0); EOS % 0.1 % (0-4.5); HEMATOCRIT 26.1 % (32.4-45.2); HEMOGLOBIN 8.5 GM/dL (10.7-15.3); LYMPH % 22.7 % (8-40); MCHC 32.6 g/dl (32.0-36.0); MEAN CELL VOLUME 82.7 fl (80-96); MEAN PLT VOLUME 8.8 fl (7.5-11.1); MONO % 11.4 % (3.8-10.2); NEUT % 65.6 % (42.8-82.8); PLATELET COUNT 141 K/MM3 (134-434); RBC 3.15 M/mm3 (3.60-5.2); RDW 17.4 % (11.6-15.6); WHITE BLOOD COUNT 11.4 K/mm3 (4.0-10.0)
[2019-03-16 08:06] LABS: ALBUMIN 2.3 g/dl (3.4-5.0); BILIRUBIN,TOTAL 0.2 mg/dL (0.2-1); CREATININE 0.3 mg/dL (0.55-1.3); MAGNESIUM 1.5 mg/dL (1.8-2.4); TOT PROT 4.1 g/dl (6.4-8.2)
[2019-03-16 08:09] LABS: CALCIUM 6.1 mg/dL (8.5-10.1); POTASSIUM 2.9 mmol/L (3.5-5.1)
[2019-03-16] MEDS ORDERED: MAGNESIUM SULF 50% (8.12 MEQ/2 ML-1 GM VIAL) IVPB ONE (09:15)
[2019-03-16] MEDS ORDERED: CALCIUM GLUCONATE 10% - 1,000 MG/10 ML VIAL IVPB ONE (09:16)
[2019-03-16 09:54] LABS: ANISOCYTOSIS 1+; MACROCYTOSIS 0; PLATELET ESTIMATE DECREASED
--- NOTE | 2019-03-16 11:10 | CON.GI ---
Consult Consult Specialty:: GI Referred by:: bhavani rios Reason for Consultation:: Hematemesis - History of Present Illness Chief Complaint: streak of blood. presented with abdominal pain and N/V low oral intake History of Present Illness: 33 year odl female with pmhx of breat cancer on chemo therapy last dose 3 weeks ago presented with sever abdominal pain / , local non radiating comes and goes , associated with 10 episode of sever vomiting /nausea , she developed diarrhea dueing hospitalization and was started on Vancomycin as C diff Ag is positive pt is very dehydrated with low BGM , generalized fatigue and low oral intake due to chemo therapy with low mg/ca and k today pt had one episode of diarrhea with watery stool but no blood and one episode of vomiting with streak of blood. never had hematemesis or hematochesia , denies any blood in urine or stool , no black stool was reported. - History Source History Provided By: Patient Limitations to Obtaining History: No Limitations - Past Medical History [employer]QU[employer] BARTENDER: Yes: Migraine, Other (astigmatism) Gastrointestinal: Yes: Gastritis, Peptic Ulcer Disease (reports previous h/o ulcer - had "stomach pumped," not sure if endoscopy) ...LMP: 01/21/19 Heme/Onc: Yes: Anemia, Cancer (breast CA ), Current Chemotherapy Additional Medical History: hemorrhoids - Past Surgical History Past Surgical History: Yes: Breast Biopsy (right excisional biopsy and LN sampled from axilla), Colonoscopy - Alcohol/Substance Use Hx Alcohol Use: No History of Substance Use: reports: Marijuana (daily until few days before chemo started, plans to get med [employer] card) - Smoking History Smoking history: Never smoked Have you smoked in the past 12 months: No - Social History ADL: Independent History of Recent Travel: No <Lux Sood - Last Filed: 03/16/19 14:15> Home Medications <Lux Sood - Last Filed: 03/16/19 14:15> <Arin Ahmadi - Last Filed: 03/16/19 16:00> - Allergies Allergies/Adverse Reactions: Allergies Allergy/AdvReac Type Severity Reaction Status Date / Time No Known Allergies Allergy Verified 01/10/19 11:45 - Home Medications Home Medications: Ambulatory Orders Pantoprazole Sodium [Protonix -] 20 mg PO DAILY #30 tablet.ec 05/02/19 Ondansetron HCl [Zofran] 8 mg PO Q6H PRN 7 Days #28 tablet 02/03/19 oxyCODONE HCL [Roxicodone -] 5 mg PO Q6H PRN #8 tablet MDD 4 02/03/19 Nystatin Oral Suspension - 5,000 units PO QID 03/12/19 Potassium Chloride [Potassium Chloride Oral Liquid] 20 meq PO DAILY 03/12/19 Calcium 500Mg/Vit-D 200 Units [Os-Rafael 500+D -] 2 tab PO DAILY #60 tab 03/13/19 Loperamide HCl [Imodium -] 2 mg PO Q8H #12 capsule 03/13/19 Review of Systems - Review of Systems Constitutional: reports: Chills, Lethargy, Loss of Appetite, Malaise, Night Sweats, Weakness Neck: denies: Stiffness Cardiovascular: reports: Palpitations, Shortness of Breath Respiratory: reports: Hemoptysis (streak of blood with vomiting) Gastrointestinal: reports: Abdominal Pain, Bloating, Diarrhea, Nausea, Vomiting Neurological: denies: Parasthesia, Seizure, Syncope <Lux Sood - Last Filed: 03/16/19 14:15> Physical Exam-GI Vital Signs: Vital Signs Temperature 98.3 F 03/16/19 05:37 Pulse Rate 100 H 03/16/19 05:37 Respiratory Rate 18 03/16/19 05:37 Blood Pressure 103/62 03/16/19 05:37 O2 Sat by Pulse Oximetry (%) 97 03/15/19 20:04 Constitutional: Yes: Well Nourished, Calm, Mild Distress, Pallor Eyes: Yes: Conjunctiva Clear, PERRL HENT: Yes: Atraumatic, Normocephalic Neck: Yes: Supple Cardiovascular: Yes: Regular Rate and Rhythm Respiratory: Yes: CTA Bilaterally Gastrointestinal Inspection: No: Distention ...Auscultate: Yes: Normoactive Bowel Sounds ...Palpate: Yes: Tenderness, Epigastium (epigastric and kyler umbilical). No: Firm/Rigid, Guarding ...Rectal Exam: Yes: Deferred Genitourinary: No: CVA Tenderness - Right, Hematuria, Incontinence Musculoskeletal: Yes: Back Pain, Other (bone pain generalized on chemo therapy) Edema: No Peripheral Pulses WNL: Yes Neurological: Yes: Alert, Oriented Labs: CBC, [facility] 03/16/19 06:00 03/16/19 06:00 <Noe Soodi - Last Filed: 03/16/19 14:15> Vital Signs: Vital Signs Temperature 98 F 03/16/19 13:56 Pulse Rate 97 H 03/16/19 13:56 Respiratory Rate 20 03/16/19 13:56 Blood Pressure 108/69 03/16/19 13:56 O2 Sat by Pulse Oximetry (%) 97 03/16/19 09:00 Labs: CBC, [facility] 03/16/19 06:00 03/16/19 06:00 <Arin Ahmadi - Last Filed: 03/16/19 16:00> Imaging - Results Cat Scan: Report Reviewed (mild eneteritis , small bowel inhacement) <IndigoLux - Last Filed: 03/16/19 14:15> Problem List - Problems (1) Hypokalemia Code(s): E87.6 - HYPOKALEMIA (2) Hypomagnesemia Code(s): E83.42 - HYPOMAGNESEMIA (3) Colitis Code(s): K52.9 - NONINFECTIVE GASTROENTERITIS AND COLITIS, UNSPECIFIED (4) Hypocalcemia Code(s): E83.51 - HYPOCALCEMIA (5) Cancer of right breast Code(s): C50.911 - MALIGNANT NEOPLASM OF UNSP SITE OF RIGHT FEMALE BREAST Qualifiers: Breast location: unspecified site of breast Estrogen receptor status: positive Patient sex: female Qualified Code(s): C50.911 - Malignant neoplasm of unspecified site of right female breast; Z17.0 - Estrogen receptor positive status [ER+] (6) Chemotherapy induced diarrhea Code(s): K52.1 - TOXIC GASTROENTERITIS AND COLITIS; T45.1X5A - ADVERSE EFFECT OF ANTINEOPLASTIC AND IMMUNOSUP DRUGS, INIT <AlankellemonicaLux - Last Filed: 03/16/19 14:15> Assessment/Plan CBC, [facility] 03/16/19 06:00 03/16/19 06:00 # diarrhea 2/2 cdiff 2/2 chemotherapy cont vancomycin for 10 days as it s first episode , # hematemesis streak 2/2 sever vomiting 2 days ago , no need for intervention , monitor H/H , PPI 40 po daily # Enetritis :Nausea /vomiting one time today , zofran and compazin , IV fluids , advance diet as tolerated # Electrolytes imbalance : replenished as needed # Anemia s.p 2 units PRBC transfusion , repeat cbc after transfusion # Hypoglycemia due to low oral intake , advance diet as tolerated <Lux Sood - Last Filed: 03/16/19 14:15> Pt seen/examined with Dr. Sood, agree with above assessment and plan. 33 yo female h/o Breast ca s/p chemotherapy (last session 1 week ago) with diarrhea and episode of blood streaked emesis. Hb stable, no further emesis reported. Diarrhea improved today (one bm reported), no blood. 1. ?hematemesis: no urgency for endoscopy in absence of ongoing overt bleeding and with stable Hb -Recommend continue supportive measures, antiemetics prn -Diet as tolerated -Monitor Hb -PPI daily -If further overt bleeding with drop in Hb would consider endoscopy at that time 2. Diarrhea: possibly secondary to chemotherapy vs C difficile (antigen +/toxin -) ?colonization vs false negative. Now improved. -Monitor stool output -Continue to monitor and replete electrolytes as needed -Continue course of po vancomycin <Arin Ahmadi - Last Filed: 03/16/19 16:00>
[2019-03-16] MEDS: ENOXAPARIN NA (PORCINE) 40 MG/0.4 ML DISP.SYRIN SQ SCH (11:31)
[2019-03-16] MEDS: POTASSIUM CHLORIDE TABS 20 MEQ TABLET.ER (FP) PO ONE ×2 (11:32→11:55)
[2019-03-16] MEDS: PROCHLORPERAZINE MALEATE 5 MG TABLET PO PRN (11:32)
[2019-03-16] MEDS: CALCIUM 500MG/VIT-D 200 UNITS COMBO TABLET (FP) PO SCH (11:34)
[2019-03-16] MEDS: PANTOPRAZOLE SODIUM 40 MG VIAL IVPUSH SCH (11:34)
--- NOTE | 2019-03-16 13:11 | CONSULT ---
Consult Consult Specialty:: Nephrology Reason for Consultation:: electrolyte abnormalities - History of Present Illness Chief Complaint: sent in for malaise and decreased PO intake History of Present Illness: Pt is a 33 year old female with pmhx of breast cancer on taxotere/carboplatin, perjeta/herceptin who presents to the ER wth malaise and decrease PO intake. She says she has not had much to eat for the last week. She also complains of diarrhea. She was found to be hypokalemic and hypocalcemic. She was on PO supplements at home but did not always tolerate them. She was recently admitted with similar symptoms. She denies shortness of breath. She is able to tolerate clears. 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, Other (astigmatism) Gastrointestinal: Yes: Peptic Ulcer Disease (reports previous h/o ulcer - had "stomach pumped," not sure if endoscopy) ...LMP: 01/21/19 Additional Medical History: hemorrhoids - Past Surgical History Past Surgical History: Yes: Breast Biopsy (right excisional biopsy and LN sampled from axilla), Colonoscopy - Alcohol/Substance Use Hx Alcohol Use: No History of Substance Use: reports: Marijuana (daily until few days before chemo started, plans to get [employer] card) - Smoking History Smoking history: Never smoked Have you smoked in the past 12 months: No - Social History ADL: Independent Home Medications - Allergies Allergies/Adverse Reactions: Allergies Allergy/AdvReac Type Severity Reaction Status Date / Time No Known Allergies Allergy Verified 01/10/19 11:45 - Home Medications Home Medications: Ambulatory Orders Pantoprazole Sodium [Protonix -] 20 mg PO DAILY #30 tablet.ec 01/13/19 Ondansetron HCl [Zofran] 8 mg PO Q6H PRN 7 Days #28 tablet 02/03/19 oxyCODONE HCL [Roxicodone -] 5 mg PO Q6H PRN #8 tablet MDD 4 02/03/19 Nystatin Oral Suspension - 100,000 units PO DAILY 03/12/19 Potassium Chloride [Potassium Chloride Oral Liquid] 20 meq PO DAILY 03/12/19 Calcium 500Mg/Vit-D 200 Units [Os-Rafael 500+D -] 2 tab PO DAILY #60 tab 03/13/19 Loperamide HCl [Imodium -] 2 mg PO Q8H #12 capsule 03/13/19 Family Disease History - Family Disease History Family History: Denies Review of Systems - Review of Systems Constitutional: reports: Loss of Appetite, Malaise Eyes: reports: No Symptoms HENT: reports: No Symptoms Neck: reports: No Symptoms Cardiovascular: reports: No Symptoms Respiratory: reports: No Symptoms Gastrointestinal: reports: Diarrhea Genitourinary: reports: No Symptoms Musculoskeletal: reports: No Symptoms Integumentary: reports: No Symptoms Neurological: reports: No Symptoms Endocrine: reports: No Symptoms Hematology/Lymphatic: reports: No Symptoms Psychiatric: reports: No Symptoms Physical Exam Vital Signs: Vital Signs Temperature 98.2 F 03/16/19 10:00 Pulse Rate 94 H 03/16/19 10:00 Respiratory Rate 20 03/16/19 10:00 Blood Pressure 105/50 L 03/16/19 10:00 O2 Sat by Pulse Oximetry (%) 97 03/16/19 09:00 Constitutional: Yes: Calm Eyes: Yes: Conjunctiva Clear HENT: Yes: Atraumatic Neck: Yes: Supple Cardiovascular: Yes: S1, S2 Respiratory: Yes: CTA Bilaterally Gastrointestinal: Yes: Soft Renal/: Yes: WNL Musculoskeletal: Yes: WNL Edema: No Neurological: Yes: Oriented Psychiatric: Yes: Oriented Labs: CBC, BMP 03/16/19 06:00 03/16/19 06:00 Laboratory Tests 03/12/19 03/13/19 03/13/19 01:35 20:00 20:00 WBC Hgb Potassium Calcium Magnesium Urine Protein Negative Urine Blood Negative Stool Occult Blood Negative Stool O & P [place] Pending 03/15/19 03/15/19 03/16/19 06:00 20:30 06:00 WBC 11.4 H Hgb 9.1 L 8.5 L Potassium 2.9 L* Calcium Magnesium Urine Protein Urine Blood Stool Occult Blood Stool O & P [place] 03/16/19 06:00 WBC Hgb Potassium 2.9 L* Calcium 6.1 L* Magnesium 1.5 L Urine Protein Urine Blood Stool Occult Blood Stool O & P [place] [facility] - Results Cat Scan: Report Reviewed Problem List - Problems (1) Hypokalemia Code(s): E87.6 - HYPOKALEMIA (2) Hypomagnesemia Code(s): E83.42 - HYPOMAGNESEMIA (3) Colitis Code(s): K52.9 - NONINFECTIVE GASTROENTERITIS AND COLITIS, UNSPECIFIED (4) Hypocalcemia Code(s): E83.51 - HYPOCALCEMIA (5) Cancer of right breast Code(s): C50.911 - MALIGNANT NEOPLASM OF UNSP SITE OF RIGHT FEMALE BREAST Qualifiers: Breast location: unspecified site of breast Estrogen receptor status: positive Patient sex: female Qualified Code(s): C50.911 - Malignant neoplasm of unspecified site of right female breast; Z17.0 - Estrogen receptor positive status [ER+] Assessment/Plan Current Medications Generic Name Dose Route Start Last Admin Trade Name Freq PRN Reason Stop Dose Admin Acetaminophen 1,000 mg 03/14/19 12:16 03/15/19 17:13 Ofirmev Injection - IVPB 1,000 mg Q6H PRN Administration PAIN LEVEL 5-10 Calcium Carbonate/Cholecalciferol 2 tab 03/12/19 12:00 03/16/19 11:34 Os-Rafael 500+D - PO Not Given DAILY BRENNON Enoxaparin Sodium 40 mg 03/13/19 10:00 03/16/19 11:31 Lovenox - SQ 40 mg DAILY BRENNON Administration Sodium Chloride 1,000 mls @ 75 mls/hr 03/15/19 22:30 03/15/19 22:52 1/2 Normal Saline IV 75 mls/hr ASDIR BRENNON Administration Potassium Chloride 10 meq in 100 mls @ 100 mls/hr 03/16/19 09:15 03/16/19 12: 24 Potassium Chloride 10 Meq Premix Ivpb - IVPB 03/16/19 15:14 100 mls/hr Q60M BRENNON Administration Ondansetron HCl 8 mg 03/13/19 16:13 03/15/19 14:56 Zofran Injection IVPB 8 mg Q12H PRN Administration NAUSEA Pantoprazole Sodium 40 mg 03/14/19 10:00 03/16/19 11:34 Protonix Iv IVPUSH 40 mg DAILY BRENNON Administration Prochlorperazine Maleate 10 mg 03/13/19 16:12 03/16/19 11:32 Compazine - PO 10 mg Q6H PRN Administration NAUSEA AND/OR VOMITING Vancomycin HCl 125 mg 03/14/19 18:00 03/16/19 05:17 Vancomycin Oral Solution PO 125 mg Q6HPO BRENNON Administration Impression 1. hypokalemia 2. hypocalcemia 3. hypomagnesemia 4. breast cancer 5. migraine 6. hx of colitis 7. pancytopenia 8. diarrhea Plan - replace lytes - changed fluids last night, will add potassium to fluids as well - replace mag and calcium - cont to monitor lytes - encourage PO intake Dr Ervin
[2019-03-16] MEDS ORDERED: SODIUM CHLORIDE 0.45%/POT 20 MEQ/1,000 ML INFUS.BAG IV SCH ×2 (13:12→13:14)
[2019-03-16] MEDS: ONDANSETRON 4 MG/2 ML VIAL IVPB PRN (16:02)
--- NOTE | 2019-03-16 17:05 | PN ---
Physical Exam: SUBJECTIVE: Patient assessed at bedside. Reported severe abdominal pain overnight which has since resolved today. 1 episode of blood tinged emesis, GI notified. Pt had ~10 loose bowel movements last night. OBJECTIVE: Vital Signs Period Temp Pulse Resp BP Sys/James Pulse Ox Last 24 Hr 98 F-98.3 F 84-100 18-20 97-108/50-69 97-97 GENERAL: Lying in bed NAD LUNGS: CTABL. No wheezing or use of access muscles for breathing HEART: Regular rate and rhythm, S1, S2 without murmur, rub or gallop. ABDOMEN: Soft, mild diffuse tenderness, ND EXTREMITIES: no edema. SKIN: No rashes/ bruising Laboratory Results - last 24 hr Laboratory Last Values WBC 11.4 K/mm3 (4.0-10.0) H 03/16/19 06:00 RBC 3.15 M/mm3 (3.60-5.2) L 03/16/19 06:00 Hgb 8.5 GM/dL (10.7-15.3) L 03/16/19 06:00 Hct 26.1 % (32.4-45.2) L 03/16/19 06:00 MCV 82.7 fl (80-96) 03/16/19 06:00 MCH 27.0 pg (25.7-33.7) 03/16/19 06:00 MCHC 32.6 g/dl (32.0-36.0) 03/16/19 06:00 RDW 17.4 % (11.6-15.6) H 03/16/19 06:00 Plt Count 141 K/MM3 (134-434) 03/16/19 06:00 MPV 8.8 fl (7.5-11.1) 03/16/19 06:00 Absolute Neuts (auto) 7.5 K/mm3 (1.5-8.0) 03/16/19 06:00 Neutrophils % 65.6 % (42.8-82.8) D 03/16/19 06:00 Neutrophils % (Manual) 48.0 % (42.8-82.8) 03/16/19 06:00 Band Neutrophils % 16.0 % 03/16/19 06:00 Lymphocytes % 22.7 % (8-40) D 03/16/19 06:00 Lymphocytes % (Manual) 23.0 % (8-40) D 03/16/19 06:00 Monocytes % 11.4 % (3.8-10.2) H 03/16/19 06:00 Monocytes % (Manual) 8 % (3.8-10.2) 03/16/19 06:00 Eosinophils % 0.1 % (0-4.5) 03/16/19 06:00 Eosinophils % (Manual) 0.0 % (0-4.5) 03/16/19 06:00 Basophils % 0.2 % (0-2.0) 03/16/19 06:00 Basophils % (Manual) 1.0 % (0-2.0) D 03/16/19 06:00 Myelocytes % (Man) 1 % (0-2) D 03/16/19 06:00 Promyelocytes % (Man) 0 % (0-2) 03/16/19 06:00 Blast Cells % (Manual) 0 % (0-0) 03/16/19 06:00 Nucleated RBC % 0 % (0-0) 03/16/19 06:00 Metamyelocytes 3 % (0-2) H D 03/16/19 06:00 Hypochromia 1+ 03/16/19 06:00 Toxic Granulation 0 03/13/19 05:45 Dohle Bodies 0 03/13/19 05:45 Platelet Estimate Decreased 03/16/19 06:00 Platelet Comment Present 03/14/19 06:00 Polychromasia 0 03/16/19 06:00 Poikilocytosis 0 03/16/19 06:00 Basophilic Stippling 0 03/13/19 05:45 Anisocytosis 1+ 03/16/19 06:00 Microcytosis 1+ 03/16/19 06:00 Macrocytosis 0 03/16/19 06:00 Spherocytes 0 03/13/19 05:45 Sickle Cells 0 03/13/19 05:45 Target Cells 0 03/13/19 05:45 Tear Drop Cells 1+ 03/14/19 06:00 Ovalocytes 0 03/13/19 05:45 Stomatocytes 0 03/13/19 05:45 Helmet Cells 0 03/13/19 05:45 [place] Bodies 0 03/13/19 05:45 [place] Rings 0 03/13/19 05:45 [place] Cells 0 03/13/19 05:45 Acanthocytes (Spur) 1+ 03/14/19 06:00 Rouleaux 0 03/13/19 05:45 Fragmented RBCs 0 03/13/19 05:45 Schistocytes 0 03/13/19 05:45 Retic Count 0.67 % (0.5-1.5) 03/12/19 05:08 Sodium 146 mmol/L (136-145) H 03/16/19 06:00 Potassium 2.9 mmol/L (3.5-5.1) L* 03/16/19 06:00 Chloride 118 mmol/L (98-107) H 03/16/19 06:00 Carbon Dioxide 21 mmol/L (21-32) 03/16/19 06:00 Anion Gap 7 MMOL/L (8-16) L 03/16/19 06:00 BUN 3.0 mg/dL (7-18) L 03/16/19 06:00 Creatinine 0.3 mg/dL (0.55-1.3) L 03/16/19 06:00 Est GFR (CKD-EPI)AfAm 176.82 03/16/19 06:00 Est GFR (CKD-EPI)NonAf 152.57 03/16/19 06:00 POC Glucometer 100 UNITS (80-120) 03/16/19 11:36 Random Glucose 55 mg/dL (74-106) L 03/16/19 06:00 Lactic Acid 1.0 mmol/L (0.4-2.0) 03/11/19 23:45 Calcium 6.1 mg/dL (8.5-10.1) L* 03/16/19 06:00 Phosphorus 3.8 mg/dL (2.5-4.9) 03/14/19 06:00 Magnesium 1.5 mg/dL (1.8-2.4) L 03/16/19 06:00 Iron 185 ug/dL (27-159) H 03/12/19 05:08 TIBC 224 ug/dL (250-450) L 03/12/19 05:08 Iron Saturation 83 % (15-55) H 03/12/19 05:08 Unsaturated IBC 39 ug/dL (131-425) L 03/12/19 05:08 Total Bilirubin 0.2 mg/dL (0.2-1) 03/16/19 06:00 AST 19 U/L (15-37) 03/16/19 06:00 ALT 49 U/L (13-61) 03/16/19 06:00 Alkaline Phosphatase 73 U/L (45-117) 03/16/19 06:00 Total Protein 4.1 g/dl (6.4-8.2) L 03/16/19 06:00 Albumin 2.3 g/dl (3.4-5.0) L 03/16/19 06:00 Lipase 128 U/L (73-393) 03/11/19 23:45 Vitamin B12 5218 pg/ml (193-986) H 03/12/19 05:08 Serum Folate 5 ng/mL (3.1-17.5) 03/12/19 05:08 Serum , Qual Negative 03/11/19 23:45 Urine Color Yellow 03/12/19 01:35 Urine Appearance Clear 03/12/19 01:35 Urine pH 7.5 (5.0-8.0) 03/12/19 01:35 Ur Specific [place] 1.006 (1.010-1.035) L 03/12/19 01:35 Urine Protein Negative (NEGATIVE) 03/12/19 01:35 Urine Glucose (UA) Negative (NEGATIVE) 03/12/19 01:35 Urine Ketones Negative (NEGATIVE) 03/12/19 01:35 Urine Blood Negative (NEGATIVE) 03/12/19 01:35 Urine Nitrite Negative (NEGATIVE) 03/12/19 01:35 Urine Bilirubin Negative (NEGATIVE) 03/12/19 01:35 Urine Urobilinogen 0.2 mg/dL (0.2-1.0) 03/12/19 01:35 Ur Leukocyte Esterase Negative (NEGATIVE) 03/12/19 01:35 Stool Occult Blood Negative (NEGATIVE) 03/13/19 20:00 Blood Type O POSITIVE 03/16/19 13:54 Antibody Screen Negative 03/16/19 12:05 Crossmatch See Detail 03/16/19 12:05 Active Medications Generic Name Dose Route Start Last Admin Trade Name Freq PRN Reason Stop Dose Admin Acetaminophen 1,000 mg 03/14/19 12:16 03/15/19 17:13 Ofirmev Injection - IVPB 1,000 mg Q6H PRN Administration PAIN LEVEL 5-10 Calcium Carbonate/Cholecalciferol 2 tab 03/12/19 12:00 03/16/19 11:34 Os-Rafael 500+D - PO Not Given DAILY BRENNON Enoxaparin Sodium 40 mg 03/13/19 10:00 03/16/19 11:31 Lovenox - SQ 40 mg DAILY BRENNON Administration Potassium Chloride/Sodium Chloride 20 meq in 1,000 mls @ 75 mls/hr 03/16/19 13 :14 03/16/19 14:49 1/2ns+20meq Kcl IV 75 mls/hr ASDIR BRENNON Administration Ondansetron HCl 8 mg 03/13/19 16:13 03/16/19 16:02 Zofran Injection IVPB 8 mg Q12H PRN Administration NAUSEA Pantoprazole Sodium 40 mg 03/14/19 10:00 03/16/19 11:34 Protonix Iv IVPUSH 40 mg DAILY BRENNON Administration Prochlorperazine Maleate 10 mg 03/13/19 16:12 03/16/19 11:32 Compazine - PO 10 mg Q6H PRN Administration NAUSEA AND/OR VOMITING Vancomycin HCl 125 mg 03/14/19 18:00 03/16/19 14:17 Vancomycin Oral Solution PO 125 mg Q6HPO BRENNON Administration ASSESSMENT/PLAN: 33 year old female with 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 Found to have enteritis of small bowel on CT abd/pelvis and + C. Dif antigen. Pt remains on contact precautions. Gi consulted regarding blood tinged emesis; hgb is stable, no further emesis reported, no urgency for endoscopy in absence of ongoing overt bleeding, recommends supportive measures at this time. #Colitis 2/2 chemo -CT Abd/ pelvis 03/12: minimal enhancehent of all visualized sm bowel; mild enteritis -C Dif ag +, c/w vanc PO day #3 -contact precautions -Full liquid diet; advance as tolerated #Hematemesis - 1 episode of blood streaked emesis -GI following; alert if drop in hgb #Neutropenia -resolved #Hypokalemia -2.9 today -repleted & monitoring #Hypomagnesemia -1.5 today, repeat Mg in AM -Replete PRN #Breast CA -Follow oncology recs #FEN -D5-LR 20meq in 1,000mL @ 100/hr -Replete K+ & Mg as needed -Advancing to full liquids tonight -Ambulating well #DVT ppx -Lovenox #Dispo -Home Visit type - Emergency Visit Emergency Visit: No - New Patient This patient is new to me today: No - Critical Care Critical Care patient: No
--- NOTE | 2019-03-16 17:06 | PN ---
Teaching Attending Note Name of Resident: Kristine Joe ATTENDING PHYSICIAN STATEMENT I saw and evaluated the patient. I reviewed the resident's note and discussed the case with the resident. I agree with the resident's findings and plan as documented. SUBJECTIVE: Improving abdominal pain. Multiple diarrheal episodes yesterday, one BM this AM, more formed. reports 1 episode of bloody vomitus. No melena/ hematochezia. No fever/chills. OBJECTIVE: Afebrile, Hemodynamically Stable. Last Vital Signs Temp Pulse Resp BP Pulse Ox 98 F 97 H 20 108/69 97 03/16/19 13:56 03/16/19 13:56 03/16/19 13:56 03/16/19 13:56 03/16/19 09:00 Heart - S 1, S2, RRR Lungs - clear to auscultation. L permacath Abdomen - Soft, mild epigastric tenderness. Bowel Sounds normal. Extremities - no edema, no calf tenderness. Laboratory Results - last 24 hr 03/15/19 03/15/19 03/16/19 20:30 20:30 06:00 WBC 11.4 H RBC 3.15 L Hgb 8.5 L Hct 26.1 L MCV 82.7 MCH 27.0 MCHC 32.6 RDW 17.4 H Plt Count 141 MPV 8.8 Absolute Neuts (auto) 7.5 Neutrophils % 65.6 D Neutrophils % (Manual) 48.0 Band Neutrophils % 16.0 Lymphocytes % 22.7 D Lymphocytes % (Manual) 23.0 D Monocytes % 11.4 H Monocytes % (Manual) 8 Eosinophils % 0.1 Eosinophils % (Manual) 0.0 Basophils % 0.2 Basophils % (Manual) 1.0 D Myelocytes % (Man) 1 D Promyelocytes % (Man) 0 Blast Cells % (Manual) 0 Nucleated RBC % 0 Metamyelocytes 3 H D Hypochromia 1+ Platelet Estimate Decreased Polychromasia 0 Poikilocytosis 0 Anisocytosis 1+ Microcytosis 1+ Macrocytosis 0 Sodium 148 H Potassium 4.4 2.9 L* Chloride 120 H Carbon Dioxide 18 L Anion Gap 9 BUN 3.3 L Creatinine 0.3 L Est GFR (CKD-EPI)AfAm 176.82 Est GFR (CKD-EPI)NonAf 152.57 POC Glucometer Random Glucose 85 Calcium 5.7 L* Magnesium 1.5 L Total Bilirubin AST ALT Alkaline Phosphatase Total Protein Albumin Blood Type Antibody Screen Crossmatch 03/16/19 03/16/19 03/16/19 06:00 11:36 12:05 WBC RBC Hgb Hct MCV MCH MCHC RDW Plt Count MPV Absolute Neuts (auto) Neutrophils % Neutrophils % (Manual) Band Neutrophils % Lymphocytes % Lymphocytes % (Manual) Monocytes % Monocytes % (Manual) Eosinophils % Eosinophils % (Manual) Basophils % Basophils % (Manual) Myelocytes % (Man) Promyelocytes % (Man) Blast Cells % (Manual) Nucleated RBC % Metamyelocytes Hypochromia Platelet Estimate Polychromasia Poikilocytosis Anisocytosis Microcytosis Macrocytosis Sodium 146 H Potassium 2.9 L* Chloride 118 H Carbon Dioxide 21 Anion Gap 7 L BUN 3.0 L Creatinine 0.3 L Est GFR (CKD-EPI)AfAm 176.82 Est GFR (CKD-EPI)NonAf 152.57 POC Glucometer 100 Random Glucose 55 L Calcium 6.1 L* Magnesium 1.5 L Total Bilirubin 0.2 AST 19 ALT 49 Alkaline Phosphatase 73 Total Protein 4.1 L Albumin 2.3 L Blood Type O POSITIVE Antibody Screen Negative Crossmatch See Detail 03/16/19 13:54 WBC RBC Hgb Hct MCV MCH MCHC RDW Plt Count MPV Absolute Neuts (auto) Neutrophils % Neutrophils % (Manual) Band Neutrophils % Lymphocytes % Lymphocytes % (Manual) Monocytes % Monocytes % (Manual) Eosinophils % Eosinophils % (Manual) Basophils % Basophils % (Manual) Myelocytes % (Man) Promyelocytes % (Man) Blast Cells % (Manual) Nucleated RBC % Metamyelocytes Hypochromia Platelet Estimate Polychromasia Poikilocytosis Anisocytosis Microcytosis Macrocytosis Sodium Potassium Chloride Carbon Dioxide Anion Gap BUN Creatinine Est GFR (CKD-EPI)AfAm Est GFR (CKD-EPI)NonAf POC Glucometer Random Glucose Calcium Magnesium Total Bilirubin AST ALT Alkaline Phosphatase Total Protein Albumin Blood Type O POSITIVE Antibody Screen Crossmatch Current Medications Generic Name Dose Route Start Last Admin Trade Name Freq PRN Reason Stop Dose Admin Acetaminophen 1,000 mg 03/14/19 12:16 03/15/19 17:13 Ofirmev Injection - IVPB 1,000 mg Q6H PRN Administration PAIN LEVEL 5-10 Calcium Carbonate/Cholecalciferol 2 tab 03/12/19 12:00 03/16/19 11:34 Os-Rafael 500+D - PO Not Given DAILY BRENNON Enoxaparin Sodium 40 mg 03/13/19 10:00 03/16/19 11:31 Lovenox - SQ 40 mg DAILY BRENNON Administration Potassium Chloride/Sodium Chloride 20 meq in 1,000 mls @ 75 mls/hr 03/16/19 13 :14 03/16/19 14:49 1/2ns+20meq Kcl IV 75 mls/hr ASDIR BRENNON Administration Ondansetron HCl 8 mg 03/13/19 16:13 03/16/19 16:02 Zofran Injection IVPB 8 mg Q12H PRN Administration NAUSEA Pantoprazole Sodium 40 mg 03/14/19 10:00 03/16/19 11:34 Protonix Iv IVPUSH 40 mg DAILY BRENNON Administration Prochlorperazine Maleate 10 mg 03/13/19 16:12 03/16/19 11:32 Compazine - PO 10 mg Q6H PRN Administration NAUSEA AND/OR VOMITING Vancomycin HCl 125 mg 03/14/19 18:00 03/16/19 14:17 Vancomycin Oral Solution PO 125 mg Q6HPO BRENNON Administration ASSESSMENT AND PLAN: 33 year old female with Stage II ER+/MI+ HER 2-3+ IDC of the R-breast on chemotherapy since December, presents with abdominal pain, nausea, and constipation , eventually developed watery diarrhea, Cdiff positive. 1. Enterocolitis sec to Chemotherapy + Cdiff CT A/P - Enterocolitis. Cdiff positive. Continue Vancomycin po. Advance diet as tolerated. 2. Hematemesis - one episode of BRB in vomitus. GI consulted for eval. On PPI. 3. Neutropenia secondary to Chemotherapy - resolved. No signs of sepsis. 4. Hypokalemia - recurrent - K 2.9, repleted. Will monitor. 5. Hypomagnesemia - recurrent. Will replete and monitor. 6. Hypocalcemia - repleted. 7. Normocytic Anemia - no signs of bleeding. Likely secondary to marrow suppression due to Chemotherapy. Folate borderline at 5, will supplement. 8. Breast Ca - on Chemotherapy. Further management as per Oncology. DVT Px - Lovenox SQ. GI Px - PPI
[2019-03-16] MEDS: FOLIC ACID 1 MG TABLET (FP) PO SCH (18:10)
--- NOTE | 2019-03-16 19:21 | PN ---
Progress Note (short form) - Note Progress Note: Patient seen and examined Bad day --dizzy, light headed most of day with nausea, emesis blood tinged Cramps abdominal and back pains Minimal p.o. intake Currently receiving packed cells Has only had one round of IV -K+ to date Needs repletion of K+, Ca++ __ received infusion , and needs Mg++ repletion Last Vital Signs Temp Pulse Resp BP Pulse Ox 98.6 F 102 H 18 115/74 97 03/16/19 17:16 03/16/19 17:16 03/16/19 17:16 03/16/19 17:16 03/16/19 09:00 HEENT: GÉNESIS, EOM Intact Oropharynx: No thrush, No mucositis Cor: RSR, No murmurs, No gallops Lungs: Clear to P&A Abd: Soft, Normal bowel sounds, No organomegaly Ext:No significant edema Skin: No rashes, Integument intact CBC, BMP 03/16/19 06:00 03/16/19 06:00 Current Medications Generic Name Dose Route Start Last Admin Trade Name Freq PRN Reason Stop Dose Admin Acetaminophen 1,000 mg 03/14/19 12:16 03/15/19 17:13 Ofirmev Injection - IVPB 1,000 mg Q6H PRN Administration PAIN LEVEL 5-10 Calcium Carbonate/Cholecalciferol 2 tab 03/12/19 12:00 03/16/19 11:34 Os-Rafael 500+D - PO Not Given DAILY BRENNON Enoxaparin Sodium 40 mg 03/13/19 10:00 03/16/19 11:31 Lovenox - SQ 40 mg DAILY BRENNON Administration Folic Acid 1 mg 03/16/19 17:15 03/16/19 18:10 Folic Acid - PO 1 mg DAILY BRENNON Administration Potassium Chloride/Sodium Chloride 20 meq in 1,000 mls @ 75 mls/hr 03/16/19 13 :14 03/16/19 14:49 1/2ns+20meq Kcl IV 75 mls/hr ASDIR BRENNON Administration Ondansetron HCl 8 mg 03/13/19 16:13 03/16/19 16:02 Zofran Injection IVPB 8 mg Q12H PRN Administration NAUSEA Pantoprazole Sodium 40 mg 03/14/19 10:00 03/16/19 11:34 Protonix Iv IVPUSH 40 mg DAILY BRENNON Administration Prochlorperazine Maleate 10 mg 03/13/19 16:12 03/16/19 11:32 Compazine - PO 10 mg Q6H PRN Administration NAUSEA AND/OR VOMITING Vancomycin HCl 125 mg 03/14/19 18:00 03/16/19 19:08 Vancomycin Oral Solution PO 125 mg Q6HPO BRENNON Administration Impression: Post chemotherapy C. difficile Ag+, toxin -negative - diarrhea has improved -continue p.o. vancomycin Emesis - blood tinged on protonix - continue with lovenox Electrolyte abnormalities-repletion of K+, Mg+, and Ca++ Anemia- receiving packed cells.
[2019-03-16] MEDS ORDERED: POTASSIUM CHLORIDE 20 MEQ PREMIX IVPB 100 ML IVPB SCH (19:45)
[2019-03-16 22:10] LABS: BASO % 0.2 % (0-2.0); EOS % 0.1 % (0-4.5); HEMATOCRIT 31.6 % (32.4-45.2); HEMOGLOBIN 10.4 GM/dL (10.7-15.3); LYMPH % 20.7 % (8-40); MCH 27.3 pg (25.7-33.7); MEAN CELL VOLUME 82.7 fl (80-96); MEAN PLT VOLUME 8.5 fl (7.5-11.1); MONO % 8.6 % (3.8-10.2); NEUT % 70.4 % (42.8-82.8); PLATELET COUNT 138 K/MM3 (134-434); RBC 3.82 M/mm3 (3.60-5.2); RDW 16.9 % (11.6-15.6)
[2019-03-16] MEDS ORDERED: oxyCODONE HCL 5 MG TABLET PO ONE (23:18)
[2019-03-16] MEDS ORDERED: PT OWN MED DRAWER 7, Y5N ONE (23:22)
[2019-03-16 23:23] LABS: ANISOCYTOSIS 1+; MACROCYTOSIS 1+; PLATELET ESTIMATE NORMAL
[2019-03-17] MEDS: KCL 10 MEQ IVPB 10 MEQ/100 ML INFUS.BAG IVPB SCH ×2 (02:14→04:31)
[2019-03-17] MEDS ORDERED: PT OWN MED DRAWER 7, Y5N ONE ×2 (04:38→06:30)
[2019-03-17] MEDS: VANCOMYCIN 250 MG/5 ML ORAL SOLUTION PO SCH ×4 (05:31→23:23)
[2019-03-17 07:25] LABS: BASO % 0.2 % (0-2.0); EOS % 0.1 % (0-4.5); HEMATOCRIT 30.3 % (32.4-45.2); HEMOGLOBIN 10.2 GM/dL (10.7-15.3); MCH 27.6 pg (25.7-33.7); MCHC 33.8 g/dl (32.0-36.0); MEAN CELL VOLUME 81.6 fl (80-96); MEAN PLT VOLUME 8.7 fl (7.5-11.1); MONO % 8.5 % (3.8-10.2); NEUT % 73.2 % (42.8-82.8); RBC 3.72 M/mm3 (3.60-5.2); RDW 17.2 % (11.6-15.6); WHITE BLOOD COUNT 12.9 K/mm3 (4.0-10.0)
[2019-03-17 07:43] LABS: ALBUMIN 3.6 g/dl (3.4-5.0); BILIRUBIN,TOTAL 0.4 mg/dL (0.2-1); BLOOD UREA NITROGEN 6.8 mg/dL (7-18); CALCIUM 8.7 mg/dL (8.5-10.1); CREATININE 0.9 mg/dL (0.55-1.3); MAGNESIUM 1.7 mg/dL (1.8-2.4); PHOSPHOROUS 4.2 mg/dL (2.5-4.9); POTASSIUM 4.3 mmol/L (3.5-5.1); TOT PROT 6.4 g/dl (6.4-8.2)
[2019-03-17] MEDS ORDERED: MAGNESIUM SULF 50% (8.12 MEQ/2 ML-1 GM VIAL) IVPB ONE (08:15)
[2019-03-17 08:16] LABS: PLATELET COUNT 142 K/MM3 (134-434)
[2019-03-17] MEDS: FOLIC ACID 1 MG TABLET (FP) PO SCH (10:01)
[2019-03-17] MEDS: ENOXAPARIN NA (PORCINE) 40 MG/0.4 ML DISP.SYRIN SQ SCH (10:01)
[2019-03-17] MEDS: D5-1/2NS+10 MEQ KCL - 10 MEQ/1,000 ML INFUS.BAG IV SCH ×2 (10:01→23:24)
[2019-03-17] MEDS: PANTOPRAZOLE SODIUM 40 MG VIAL IVPUSH SCH (10:01)
[2019-03-17] MEDS: CALCIUM 500MG/VIT-D 200 UNITS COMBO TABLET (FP) PO SCH (10:02)
--- NOTE | 2019-03-17 10:14 | PN ---
Progress Note, Physician History of Present Illness: Pt seen and examined at bedside. She had vomiting yesterday. She denies diarrhea today. - Current Medication List Current Medications: Active Medications Acetaminophen (Ofirmev Injection -) 1,000 mg IVPB Q6H PRN PRN Reason: PAIN LEVEL 5-10 Last Admin: 03/15/19 17:13 Dose: 1,000 mg Calcium Carbonate/Cholecalciferol (Os-Rafael 500+D -) 2 tab PO DAILY [facility] Last Admin: 03/17/19 10:02 Dose: 2 tab Enoxaparin Sodium (Lovenox -) 40 mg SQ DAILY [facility] Last Admin: 03/17/19 10:01 Dose: 40 mg Folic Acid (Folic Acid -) 1 mg PO DAILY [facility] Last Admin: 03/17/19 10:01 Dose: 1 mg Potassium Chloride/Dextrose/Sod Cl (D5-1/2ns+10 Meq Kcl -) 10 meq in 1,000 mls @ 100 mls/hr IV ASDIR [facility] Last Admin: 03/17/19 10:01 Dose: 100 mls/hr Ondansetron HCl (Zofran Injection) 8 mg IVPB Q12H PRN PRN Reason: NAUSEA Last Admin: 03/16/19 16:02 Dose: 8 mg Pantoprazole Sodium (Protonix Iv) 40 mg IVPUSH DAILY [facility] Last Admin: 03/17/19 10:01 Dose: 40 mg Prochlorperazine Maleate (Compazine -) 10 mg PO Q6H PRN PRN Reason: NAUSEA AND/OR VOMITING Last Admin: 03/16/19 11:32 Dose: 10 mg Vancomycin HCl (Vancomycin Oral Solution) 125 mg PO Q6HPO [facility] Last Admin: 03/17/19 05:31 Dose: 125 mg - Objective Vital Signs: Vital Signs Temperature 98.5 F 03/17/19 06:00 Pulse Rate 97 H 03/17/19 06:00 Respiratory Rate 18 03/17/19 06:00 Blood Pressure 99/56 L 03/17/19 06:00 O2 Sat by Pulse Oximetry (%) 99 03/16/19 21:00 Constitutional: Yes: Calm Eyes: Yes: Conjunctiva Clear HENT: Yes: Atraumatic Neck: Yes: Supple Cardiovascular: Yes: S1, S2 Respiratory: Yes: CTA Bilaterally Gastrointestinal: Yes: Soft Genitourinary: Yes: WNL Musculoskeletal: Yes: WNL Edema: No Neurological: Yes: Oriented Psychiatric: Yes: Oriented Labs: CBC, BMP 03/17/19 06:15 03/17/19 06:15 Problem List - Problems (1) Hypokalemia Code(s): E87.6 - HYPOKALEMIA (2) Hypomagnesemia Code(s): E83.42 - HYPOMAGNESEMIA (3) Colitis Code(s): K52.9 - NONINFECTIVE GASTROENTERITIS AND COLITIS, UNSPECIFIED (4) Hypocalcemia Code(s): E83.51 - HYPOCALCEMIA (5) Cancer of right breast Code(s): C50.911 - MALIGNANT NEOPLASM OF UNSP SITE OF RIGHT FEMALE BREAST Qualifiers: Breast location: unspecified site of breast Estrogen receptor status: positive Patient sex: female Qualified Code(s): C50.911 - Malignant neoplasm of unspecified site of right female breast; Z17.0 - Estrogen receptor positive status [ER+] Assessment/Plan Current Medications Generic Name Dose Route Start Last Admin Trade Name Freq PRN Reason Stop Dose Admin Acetaminophen 1,000 mg 03/14/19 12:16 03/15/19 17:13 Ofirmev Injection - IVPB 1,000 mg Q6H PRN Administration PAIN LEVEL 5-10 Calcium Carbonate/Cholecalciferol 2 tab 03/12/19 12:00 03/17/19 10:02 Os-Rafael 500+D - PO 2 tab DAILY [facility] Administration Enoxaparin Sodium 40 mg 03/13/19 10:00 03/17/19 10:01 Lovenox - SQ 40 mg DAILY [facility] Administration Folic Acid 1 mg 03/16/19 17:15 03/17/19 10:01 Folic Acid - PO 1 mg DAILY [facility] Administration Potassium Chloride/Dextrose/Sod Cl 10 meq in 1,000 mls @ 100 mls/hr 03/17/19 09:45 03/17/19 10:01 D5-1/2ns+10 Meq Kcl - IV 100 mls/hr ASDIR [facility] Administration Ondansetron HCl 8 mg 03/13/19 16:13 03/16/19 16:02 Zofran Injection IVPB 8 mg Q12H PRN Administration NAUSEA Pantoprazole Sodium 40 mg 03/14/19 10:00 03/17/19 10:01 Protonix Iv IVPUSH 40 mg DAILY [facility] Administration Prochlorperazine Maleate 10 mg 03/13/19 16:12 03/16/19 11:32 Compazine - PO 10 mg Q6H PRN Administration NAUSEA AND/OR VOMITING Vancomycin HCl 125 mg 03/14/19 18:00 03/17/19 05:31 Vancomycin Oral Solution PO 125 mg Q6HPO [facility] Administration Impression 1. hypokalemia 2. hypocalcemia 3. hypomagnesemia 4. breast cancer 5. migraine 6. hx of colitis 7. pancytopenia 8. diarrhea Plan - potassium improved - replace mag - monitor lytes - dextrose added to fluids - if she does not tolerated diet then start clinimix, discussed with medical team and heme onc - will follow PRN - pt has GI and renal losses - monitor health and wellness coordinator Dr Ervin
[2019-03-17 11:50] LABS: ANISOCYTOSIS 2+; MACROCYTOSIS 1+; PLATELET ESTIMATE DECREASED; TARGET CELLS 1+; TEAR DROP CELLS 1+; TOXIC GRANULATION 1+
--- NOTE | 2019-03-17 13:20 | PN ---
Physical Exam: SUBJECTIVE: Patient seen and examined this AM. Overnight patient reports 2 dark BM's, 2 episodes of vomiting with red streaks. Attempts to tolerate jello. Continued to have abdominal pain requiring 5mg Oxycodone x1. Denies any fevers, chills, chest pain, SOB, diarrhea, constipation. OBJECTIVE: Vital Signs Period Temp Pulse Resp BP Sys/James Pulse Ox Last 24 Hr 98 F-98.7 F 89-102 18-20 91-121/55-75 99 GENERAL: A&Ox3, NAD HEAD: NCAT EYES: PERRL, EOMI ENT: Moist mucous membranes. NECK: Supple, No JVD LUNGS: Clear to auscultation bilaterally, no wheezes, no crackles HEART: Regular rate and rhythm, S1, S2 without murmur ABDOMEN: Soft, mild midepigastric tenderness, nondistended, + bowel sounds, no guarding EXTREMITIES: No edema NEUROLOGICAL: Cranial nerves II through XII grossly intact. Normal speech. SKIN: Warm, dry Laboratory Results - last 24 hr 03/13/19 03/16/19 03/16/19 20:00 12:05 13:54 WBC RBC Hgb Hct MCV MCH MCHC RDW Plt Count MPV Absolute Neuts (auto) Neutrophils % Neutrophils % (Manual) Band Neutrophils % Lymphocytes % Lymphocytes % (Manual) Monocytes % Monocytes % (Manual) Eosinophils % Eosinophils % (Manual) Basophils % Basophils % (Manual) Myelocytes % (Man) Promyelocytes % (Man) Blast Cells % (Manual) Nucleated RBC % Metamyelocytes Hypochromia Toxic Granulation Platelet Estimate Platelet Comment Polychromasia Poikilocytosis Anisocytosis Microcytosis Macrocytosis Target Cells Tear Drop Cells [place] Cells Acanthocytes (Spur) Sodium Potassium Chloride Carbon Dioxide Anion Gap BUN Creatinine Est GFR (CKD-EPI)AfAm Est GFR (CKD-EPI)NonAf Random Glucose Calcium Phosphorus Magnesium Total Bilirubin AST ALT Alkaline Phosphatase Total Protein Albumin Stool O & P Wet [place] O & P Permanent Slide Final report Blood Type O POSITIVE O POSITIVE Antibody Screen Negative Crossmatch See Detail 03/16/19 03/17/19 03/17/19 21:50 06:15 06:15 WBC 14.0 H 12.9 H RBC 3.82 3.72 Hgb 10.4 L 10.2 L Hct 31.6 L D 30.3 L MCV 82.7 81.6 MCH 27.3 27.6 MCHC 33.0 33.8 RDW 16.9 H 17.2 H Plt Count 138 142 MPV 8.5 8.7 Absolute Neuts (auto) 9.9 H 9.4 H Neutrophils % 70.4 73.2 Neutrophils % (Manual) 73.0 48.0 Band Neutrophils % 13.0 Lymphocytes % 20.7 18.0 Lymphocytes % (Manual) 23.0 28.0 D Monocytes % 8.6 8.5 Monocytes % (Manual) 4 8 D Eosinophils % 0.1 0.1 Eosinophils % (Manual) 0.0 Basophils % 0.2 0.2 Basophils % (Manual) 0.0 Myelocytes % (Man) 0 D Promyelocytes % (Man) 0 Blast Cells % (Manual) 0 Nucleated RBC % 0 0 Metamyelocytes 1 D Hypochromia 0 Toxic Granulation 1+ Platelet Estimate Normal Decreased Platelet Comment No clumping noted Polychromasia 1+ 0 Poikilocytosis 1+ Anisocytosis 1+ 2+ Microcytosis 1+ Macrocytosis 1+ 1+ Target Cells 1+ Tear Drop Cells 1+ Marcellus Cells 1+ Acanthocytes (Spur) 1+ Sodium 136 Potassium 4.3 Chloride 101 Carbon Dioxide 29 Anion Gap 6 L BUN 6.8 L Creatinine 0.9 Est GFR (CKD-EPI)AfAm 98.75 Est GFR (CKD-EPI)NonAf 85.20 Random Glucose 83 Calcium 8.7 Phosphorus 4.2 Magnesium 1.7 L Total Bilirubin 0.4 AST 31 ALT 91 H Alkaline Phosphatase 115 Total Protein 6.4 Albumin 3.6 Stool O & P Wet [place] O & P Permanent Slide Blood Type Antibody Screen Crossmatch Microbiology 03/12/19 00:06 Blood - Peripheral Venous Blood Culture - Final NO GROWTH AFTER 5 DAYS INCUBATION 03/12/19 00:06 Blood - Peripheral Venous Blood Culture - Final NO GROWTH AFTER 5 DAYS INCUBATION 03/13/19 20:00 Stool Clostridioides difficile Antigen - Final 03/13/19 20:00 Stool Clostridioides difficile Toxin Assay - Final 03/12/19 01:35 Urine - Urine Clean Catch Urine Culture - Final Active Medications Acetaminophen (Ofirmev Injection -) 1,000 mg IVPB Q6H PRN PRN Reason: PAIN LEVEL 5-10 Last Admin: 03/15/19 17:13 Dose: 1,000 mg Calcium Carbonate/Cholecalciferol (Os-Rafael 500+D -) 2 tab PO DAILY [facility] Last Admin: 03/17/19 10:02 Dose: 2 tab Enoxaparin Sodium (Lovenox -) 40 mg SQ DAILY [facility] Last Admin: 03/17/19 10:01 Dose: 40 mg Folic Acid (Folic Acid -) 1 mg PO DAILY [facility] Last Admin: 03/17/19 10:01 Dose: 1 mg Potassium Chloride/Dextrose/Sod Cl (D5-1/2ns+10 Meq Kcl -) 10 meq in 1,000 mls @ 100 mls/hr IV ASDIR [facility] Last Admin: 03/17/19 10:01 Dose: 100 mls/hr Ondansetron HCl (Zofran Injection) 8 mg IVPB Q12H PRN PRN Reason: NAUSEA Last Admin: 03/16/19 16:02 Dose: 8 mg Pantoprazole Sodium (Protonix Iv) 40 mg IVPUSH DAILY [facility] Last Admin: 03/17/19 10:01 Dose: 40 mg Prochlorperazine Maleate (Compazine -) 10 mg PO Q6H PRN PRN Reason: NAUSEA AND/OR VOMITING Last Admin: 03/16/19 11:32 Dose: 10 mg Vancomycin HCl (Vancomycin Oral Solution) 125 mg PO Q6HPO [facility] Last Admin: 03/17/19 12:07 Dose: 125 mg IMAGING: -CT A/P w/ Contrast: Possible minimal enhancement of practically all of the visualized small bowel abreu with no surrounding inflammation but a mild enteritis cannot be excluded. Appendix not identified -CXR: No acute chest pathology. Possible hair artifact left apex. Follow-up recommended. 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 #Colitis -Likely chemotherapy induced, Now found to be C. Diff Ag + -Imaging and Micro noted above -Continue PO Vancomycin 125mg (Day 4) -Full liquid diet; advance as tolerated #Hematemesis -Unclear etiology; Still consider small zaira ty tears given recent vomiting -Continues to have blood streaked emesis this AM -Continue Pantoprazole 40mg IV Daily -GI (Dr. 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 Cruz) consulted, Appreciate Rec's #Hypomagnesemia -1.7 this AM, 2g IV given -Monitor daily #Hypokalemia, Resolved -Monitor #Hypocalcemia, Resolved -Monitor #Neutropenia, Resolved -In the setting of current Chemotherapy use -Remains AFebrile #FEN -D5-1/2ns+10 Meq Kcl @ 100 mls/hr -Replete Lytes PRN -Full liquid diet, Advance as tolerated #PPx -GI: PPI -DVT: Lovenox #Dispo: Monitor on Med-Surg Visit type - Emergency Visit Emergency Visit: Yes ED Registration Date: 03/12/19 Care time: The patient presented to the Emergency Department on the above date and was hospitalized for further evaluation of their emergent condition. - New Patient This patient is new to me today: No - Critical Care Critical Care patient: No - Discharge Referral Referred to [facility] Med P.C.: No
--- NOTE | 2019-03-17 13:59 | PN ---
Progress Note (short form) - Note Progress Note: Patient seen and examined Feels better Last Vital Signs Temp Pulse Resp BP Pulse Ox 98.2 F 91 H 18 109/62 99 03/17/19 10:00 03/17/19 10:00 03/17/19 10:00 03/17/19 10:00 03/17/19 09:00 HEENT-nl Cor: RSR, No murmurs, No gallops Lungs: Clear to P&A Abd: Soft, Normal bowel sounds, No organomegaly Ext:No significant edema Abnormal Lab Results 03/16/19 03/16/19 03/17/19 12:05 21:50 06:15 WBC 14.0 H Hgb 10.4 L Hct 31.6 L D RDW 16.9 H Absolute Neuts (auto) 9.9 H Anion Gap 6 L BUN 6.8 L Magnesium 1.7 L ALT 91 H Crossmatch See Detail 03/17/19 06:15 WBC 12.9 H Hgb 10.2 L Hct 30.3 L RDW 17.2 H Absolute Neuts (auto) 9.4 H Anion Gap BUN Magnesium ALT Crossmatch Active Medications Generic Name Dose Route Start Last Admin Trade Name Freq PRN Reason Stop Dose Admin Acetaminophen 1,000 mg 03/14/19 12:16 03/15/19 17:13 Ofirmev Injection - IVPB 1,000 mg Q6H PRN Administration PAIN LEVEL 5-10 Calcium Carbonate/Cholecalciferol 2 tab 03/12/19 12:00 03/17/19 10:02 Os-Rafael 500+D - PO 2 tab DAILY [facility] Administration Enoxaparin Sodium 40 mg 03/13/19 10:00 03/17/19 10:01 Lovenox - SQ 40 mg DAILY [facility] Administration Folic Acid 1 mg 03/16/19 17:15 03/17/19 10:01 Folic Acid - PO 1 mg DAILY [facility] Administration Potassium Chloride/Dextrose/Sod Cl 10 meq in 1,000 mls @ 100 mls/hr 03/17/19 09:45 03/17/19 10:01 D5-1/2ns+10 Meq Kcl - IV 100 mls/hr ASDIR [facility] Administration Ondansetron HCl 8 mg 03/13/19 16:13 03/16/19 16:02 Zofran Injection IVPB 8 mg Q12H PRN Administration NAUSEA Pantoprazole Sodium 40 mg 03/14/19 10:00 03/17/19 10:01 Protonix Iv IVPUSH 40 mg DAILY [facility] Administration Prochlorperazine Maleate 10 mg 03/13/19 16:12 03/16/19 11:32 Compazine - PO 10 mg Q6H PRN Administration NAUSEA AND/OR VOMITING Vancomycin HCl 125 mg 03/14/19 18:00 03/17/19 12:07 Vancomycin Oral Solution PO 125 mg Q6HPO [facility] Administration A/P 33F with stage II ER+/WI+/Her2-3+ IDC of rt. breast, on neoadjuvant TCHP c/b recurrent chemo induced colitis, c4d10, admitted with abdominal pain, nausea, generalized weakness in setting of very poor PO intake. CTAP with possible mild enteritis. C.diff antigen +/toxin negative --for vancomycin 125 mg PO Q6h for 10-14 days Replete potasium/magnesium Advance diet Chemotherapy induced anemia--s/p 1 unit PRBCs will follow
--- NOTE | 2019-03-17 14:05 | PN ---
Teaching Attending Note Name of Resident: Antonia Johnson ATTENDING PHYSICIAN STATEMENT I saw and evaluated the patient. I reviewed the resident's note and discussed the case with the resident. I agree with the resident's findings and plan as documented. SUBJECTIVE: Improving abdominal pain. Diarrhea appears to have subsided, formed BMs yesterday x 2, dark. 3 episodes of blood-streaked vomitus. Abdominal pain ( generalized, requiring oxycodone. No fever/chills. Not tolerating much oral intake. OBJECTIVE: Afebrile, Hemodynamically Stable. Last Vital Signs Temp Pulse Resp BP Pulse Ox 98.1 F 94 H 20 105/70 99 03/17/19 14:00 03/17/19 14:00 03/17/19 14:00 03/17/19 14:00 03/17/19 09:00 Heart - S 1, S2, RRR Lungs - clear to auscultation. L permacath Abdomen - Soft, epigastric and lower abdominal tenderness. Bowel Sounds normal. Extremities - no edema, no calf tenderness. Laboratory Results - last 24 hr 03/13/19 03/16/19 03/16/19 20:00 12:05 13:54 WBC RBC Hgb Hct MCV MCH MCHC RDW Plt Count MPV Absolute Neuts (auto) Neutrophils % Neutrophils % (Manual) Band Neutrophils % Lymphocytes % Lymphocytes % (Manual) Monocytes % Monocytes % (Manual) Eosinophils % Eosinophils % (Manual) Basophils % Basophils % (Manual) Myelocytes % (Man) Promyelocytes % (Man) Blast Cells % (Manual) Nucleated RBC % Metamyelocytes Hypochromia Toxic Granulation Platelet Estimate Platelet Comment Polychromasia Poikilocytosis Anisocytosis Microcytosis Macrocytosis Target Cells Tear Drop Cells [place] Cells Acanthocytes (Spur) Sodium Potassium Chloride Carbon Dioxide Anion Gap BUN Creatinine Est GFR (CKD-EPI)AfAm Est GFR (CKD-EPI)NonAf Random Glucose Calcium Phosphorus Magnesium Total Bilirubin AST ALT Alkaline Phosphatase Total Protein Albumin Stool O & P Wet [place] O & P Permanent Slide Final report Blood Type O POSITIVE O POSITIVE Antibody Screen Negative Crossmatch See Detail 03/16/19 03/17/19 03/17/19 21:50 06:15 06:15 WBC 14.0 H 12.9 H RBC 3.82 3.72 Hgb 10.4 L 10.2 L Hct 31.6 L D 30.3 L MCV 82.7 81.6 MCH 27.3 27.6 MCHC 33.0 33.8 RDW 16.9 H 17.2 H Plt Count 138 142 MPV 8.5 8.7 Absolute Neuts (auto) 9.9 H 9.4 H Neutrophils % 70.4 73.2 Neutrophils % (Manual) 73.0 48.0 Band Neutrophils % 13.0 Lymphocytes % 20.7 18.0 Lymphocytes % (Manual) 23.0 28.0 D Monocytes % 8.6 8.5 Monocytes % (Manual) 4 8 D Eosinophils % 0.1 0.1 Eosinophils % (Manual) 0.0 Basophils % 0.2 0.2 Basophils % (Manual) 0.0 Myelocytes % (Man) 0 D Promyelocytes % (Man) 0 Blast Cells % (Manual) 0 Nucleated RBC % 0 0 Metamyelocytes 1 D Hypochromia 0 Toxic Granulation 1+ Platelet Estimate Normal Decreased Platelet Comment No clumping noted Polychromasia 1+ 0 Poikilocytosis 1+ Anisocytosis 1+ 2+ Microcytosis 1+ Macrocytosis 1+ 1+ Target Cells 1+ Tear Drop Cells 1+ [place]ahy Cells 1+ Acanthocytes (Spur) 1+ Sodium 136 Potassium 4.3 Chloride 101 Carbon Dioxide 29 Anion Gap 6 L BUN 6.8 L Creatinine 0.9 Est GFR (CKD-EPI)AfAm 98.75 Est GFR (CKD-EPI)NonAf 85.20 Random Glucose 83 Calcium 8.7 Phosphorus 4.2 Magnesium 1.7 L Total Bilirubin 0.4 AST 31 ALT 91 H Alkaline Phosphatase 115 Total Protein 6.4 Albumin 3.6 Stool O & P Wet [place] O & P Permanent Slide Blood Type Antibody Screen Crossmatch Current Medications Generic Name Dose Route Start Last Admin Trade Name Freq PRN Reason Stop Dose Admin Acetaminophen 1,000 mg 03/14/19 12:16 03/15/19 17:13 Ofirmev Injection - IVPB 1,000 mg Q6H PRN Administration PAIN LEVEL 5-10 Calcium Carbonate/Cholecalciferol 2 tab 03/12/19 12:00 03/17/19 10:02 Os-Rafael 500+D - PO 2 tab DAILY [facility] Administration Enoxaparin Sodium 40 mg 03/13/19 10:00 03/17/19 10:01 Lovenox - SQ 40 mg DAILY [facility] Administration Folic Acid 1 mg 03/16/19 17:15 03/17/19 10:01 Folic Acid - PO 1 mg DAILY [facility] Administration Potassium Chloride/Dextrose/Sod Cl 10 meq in 1,000 mls @ 100 mls/hr 03/17/19 09:45 03/17/19 10:01 D5-1/2ns+10 Meq Kcl - IV 100 mls/hr ASDIR [facility] Administration Ondansetron HCl 8 mg 03/13/19 16:13 03/16/19 16:02 Zofran Injection IVPB 8 mg Q12H PRN Administration NAUSEA Pantoprazole Sodium 40 mg 03/14/19 10:00 03/17/19 10:01 Protonix Iv IVPUSH 40 mg DAILY [facility] Administration Prochlorperazine Maleate 10 mg 03/13/19 16:12 03/16/19 11:32 Compazine - PO 10 mg Q6H PRN Administration NAUSEA AND/OR VOMITING Vancomycin HCl 125 mg 03/14/19 18:00 03/17/19 12:07 Vancomycin Oral Solution PO 125 mg Q6HPO [facility] Administration ASSESSMENT AND PLAN: 33 year old female with Stage II ER+/PA+ HER 2-3+ IDC of the R-breast on chemotherapy since December, presents with abdominal pain, nausea, and constipation , eventually developed watery diarrhea, Cdiff positive. 1. Enterocolitis sec to Chemotherapy + Cdiff CT A/P - Enterocolitis. Cdiff positive. Continue Vancomycin po. BRAT Diet. Advance as tolerated. 2. GI Bleeding. Hematemesis - BRB streaked in vomitus. Dark stool. GI consulted for further eval and recommendations. On PPI. 3. Neutropenia secondary to Chemotherapy - resolved. No signs of sepsis. 4. Hypokalemia - resolved s/p repletion 5. Hypomagnesemia - recurrent. Will replete and monitor. 6. Hypocalcemia - resolved s/p repletion. 7. Hypoglycemia - sec to poor oral intake. Fluids switched to D5.1/2NS. 8. Normocytic Anemia - no signs of bleeding. Likely secondary to marrow suppression due to Chemotherapy. H/H 10.5/30.3 s/p 1 unit PRBCs. Folate borderline at 5, will supplement. 9. Breast Ca - on Chemotherapy. Further management as per Oncology. DVT Px - Lovenox SQ. GI Px - PPI
[2019-03-17] MEDS: ACETAMINOPHEN 1000 MG/100 ML VIAL (NON FORMULARY) IVPB PRN (17:56)
[2019-03-17 21:23] LABS: BASO % 0.4 % (0-2.0); EOS % 0.1 % (0-4.5); HEMATOCRIT 31.5 % (32.4-45.2); HEMOGLOBIN 10.5 GM/dL (10.7-15.3); LYMPH % 20.2 % (8-40); MCH 27.3 pg (25.7-33.7); MCHC 33.2 g/dl (32.0-36.0); MEAN CELL VOLUME 82.3 fl (80-96); MEAN PLT VOLUME 8.6 fl (7.5-11.1); MONO % 7.5 % (3.8-10.2); NEUT % 71.8 % (42.8-82.8); PLATELET COUNT 157 K/MM3 (134-434); RBC 3.83 M/mm3 (3.60-5.2); RDW 16.9 % (11.6-15.6); WHITE BLOOD COUNT 12.8 K/mm3 (4.0-10.0)
[2019-03-17] MEDS: ONDANSETRON 4 MG/2 ML VIAL IVPB PRN (21:59)
[2019-03-17 22:15] LABS: ANISOCYTOSIS 1+; MACROCYTOSIS 1+; PLATELET ESTIMATE ADEQUATE
[2019-03-17 22:16] LABS: TOXIC GRANULATION 1+
[2019-03-18] MEDS ORDERED: MELATONIN 5 MG TABLETS PO PRN (00:18)
[2019-03-18] MEDS ORDERED: oxyCODONE HCL 5 MG TABLET PO PRN (00:26)
[2019-03-18] MEDS: VANCOMYCIN 250 MG/5 ML ORAL SOLUTION PO SCH ×3 (06:39→17:44)
[2019-03-18 07:32] LABS: BASO % 0.2 % (0-2.0); HEMATOCRIT 27.5 % (32.4-45.2); HEMOGLOBIN 9.4 GM/dL (10.7-15.3); LYMPH % 20.8 % (8-40); MCH 27.9 pg (25.7-33.7); MEAN CELL VOLUME 82.1 fl (80-96); MEAN PLT VOLUME 8.5 fl (7.5-11.1); MONO % 7.5 % (3.8-10.2); NEUT % 71.5 % (42.8-82.8); PLATELET COUNT 138 K/MM3 (134-434); RBC 3.35 M/mm3 (3.60-5.2); RDW 16.9 % (11.6-15.6)
[2019-03-18 08:04] LABS: ALBUMIN 2.9 g/dl (3.4-5.0); BILIRUBIN,TOTAL 0.2 mg/dL (0.2-1); BLOOD UREA NITROGEN 4.4 mg/dL (7-18); CREATININE 0.7 mg/dL (0.55-1.3); MAGNESIUM 1.5 mg/dL (1.8-2.4); POTASSIUM 3.3 mmol/L (3.5-5.1); TOT PROT 5.9 g/dl (6.4-8.2)
[2019-03-18] MEDS ORDERED: MAGNESIUM SULF 50% (8.12 MEQ/2 ML-1 GM VIAL) IVPB ONE (08:29)
[2019-03-18] MEDS: ONDANSETRON 4 MG/2 ML VIAL IVPB PRN ×2 (09:30→22:48)
[2019-03-18] MEDS: PANTOPRAZOLE SODIUM 40 MG VIAL IVPUSH SCH (09:31)
[2019-03-18] MEDS: D5-1/2NS+10 MEQ KCL - 10 MEQ/1,000 ML INFUS.BAG IV SCH (09:33)
[2019-03-18] MEDS: FOLIC ACID 1 MG TABLET (FP) PO SCH (09:39)
[2019-03-18] MEDS: CALCIUM 500MG/VIT-D 200 UNITS COMBO TABLET (FP) PO SCH (09:40)
[2019-03-18 09:56] LABS: ANISOCYTOSIS 3+; MACROCYTOSIS 0; PLATELET ESTIMATE DECREASED; TOXIC GRANULATION 2+
[2019-03-18 10:06] LABS: CALCIUM 8.5 mg/dL (8.5-10.1)
--- NOTE | 2019-03-18 12:30 | PN.GI ---
GI Progress Note Subjective: No further blood tinged vomitus, which she states occurred 2 days ago. States that BM's have not been black, rather yellow and green. No dysphagia. Diarrhea has improved. Still with some mid abdominal cramping. - Objective Vital Signs: Vital Signs Temperature 98.1 F 03/18/19 09:00 Pulse Rate 90 03/18/19 09:00 Respiratory Rate 18 03/18/19 09:00 Blood Pressure 111/71 03/18/19 09:00 O2 Sat by Pulse Oximetry (%) 98 03/18/19 09:00 Constitutional: Calm Eyes: No: Sclera Icterus Cardiovascular: Yes: Regular Rate and Rhythm Respiratory: Yes: CTA Bilaterally ...Percussion: No: Tympanitic ...Rectal Exam: Yes: Other (No external lesions, no masses, no blood/stool/ melena in the rectal vault) Edema: No (No LE edema) Neurological: Yes: Alert Labs: CBC, BMP 03/18/19 06:24 03/18/19 06:24 Problem List - Problems (1) GI bleed Assessment/Plan: Currently no overt bleeding. normal /low BUN not suggestive of significant ongoing upper GI blood loss. Had discussion with Dr. Toledo today. Concerned regarding timing of endoscopy right now given timing of her recent chemotherapy. Would therefore reserve endoscopic evaluation for evaluation of overt acute ongoing GI bleeding. For now: Discontinued protonix therapy in favor of H2 allen. PPI therapy is an independent risk for recurrent C. Diff Advance diet. Monitor H/H. If continued dwindling H/H that cannot be explained by myelosuppression and there is overt GI bleeding, then upper endoscopy would need to be reconsidered Continue C. Diff therapy vanco 125mg PO q 6 hours for total 14 days Recall as needed Code(s): K92.2 - GASTROINTESTINAL HEMORRHAGE, UNSPECIFIED
[2019-03-18 13:28] LABS: INR 1.18 (0.83-1.09); PROTHROMBIN TIME (PATIENT) 13.9 SEC (9.7-13.0)
[2019-03-18] MEDS: KCL 10 MEQ IVPB 10 MEQ/100 ML INFUS.BAG IVPB SCH ×9 (15:01→22:47)
--- NOTE | 2019-03-18 15:49 | PN ---
Teaching Attending Note Name of Resident: Kristine Joe ATTENDING PHYSICIAN STATEMENT I saw and evaluated the patient. I reviewed the resident's note and discussed the case with the resident. I agree with the resident's findings and plan as documented. SUBJECTIVE: Improved abdominal pain. Diarrhea and vomiting resolved. No further blood streaked vomitus or dark stool. No fever/chills. Tolerating more orally. OBJECTIVE: Afebrile, Hemodynamically Stable. Last Vital Signs Temp Pulse Resp BP Pulse Ox 98.7 F 90 18 106/67 98 03/18/19 13:28 03/18/19 13:28 03/18/19 13:28 03/18/19 13:28 03/18/19 09:00 Heart - S1, S2, RRR Lungs - clear to auscultation. L permacath Abdomen - Soft, mild epigastric abdominal pain. Bowel Sounds normal. Extremities - no edema, no calf tenderness. Laboratory Results - last 24 hr 03/17/19 03/18/19 03/18/19 21:12 06:24 06:24 WBC 12.8 H 9.0 RBC 3.83 3.35 L Hgb 10.5 L 9.4 L Hct 31.5 L 27.5 L MCV 82.3 82.1 MCH 27.3 27.9 MCHC 33.2 34.0 RDW 16.9 H 16.9 H Plt Count 157 138 MPV 8.6 8.5 Absolute Neuts (auto) 9.2 H 6.4 Total Counted 100 Neutrophils % 71.8 71.5 Neutrophils % (Manual) 67.0 52.0 Band Neutrophils % 3.0 11.0 Lymphocytes % 20.2 20.8 Lymphocytes % (Manual) 23.0 28.0 D Monocytes % 7.5 7.5 Monocytes % (Manual) 3 L 3 L Eosinophils % 0.1 0.0 D Eosinophils % (Manual) 0.0 Basophils % 0.4 0.2 Basophils % (Manual) 0.0 Myelocytes % (Man) 2 D 1 D Promyelocytes % (Man) 1 D Blast Cells % (Manual) 0 Nucleated RBC % 0 0 Metamyelocytes 1 0 D Differential Comment Man diff performed Hypochromia 0 Toxic Granulation 1+ 2+ Platelet Estimate Adequate Decreased Platelet Comment Present Polychromasia 1+ 0 Poikilocytosis 0 Anisocytosis 1+ 3+ Microcytosis 3+ Macrocytosis 1+ 0 PT with INR INR PTT (Actin FS) Sodium 139 Potassium 3.3 L Chloride 102 Carbon Dioxide 28 Anion Gap 9 BUN 4.4 L Creatinine 0.7 Est GFR (CKD-EPI)AfAm 133.81 Est GFR (CKD-EPI)NonAf 115.45 Random Glucose 120 H Calcium 8.5 Phosphorus 5.0 H Magnesium 1.5 L Total Bilirubin 0.2 AST 20 ALT 76 H Alkaline Phosphatase 104 Total Protein 5.9 L Albumin 2.9 L Stool Occult Blood 03/18/19 03/18/19 10:37 12:48 WBC RBC Hgb Hct MCV MCH MCHC RDW Plt Count MPV Absolute Neuts (auto) Total Counted Neutrophils % Neutrophils % (Manual) Band Neutrophils % Lymphocytes % Lymphocytes % (Manual) Monocytes % Monocytes % (Manual) Eosinophils % Eosinophils % (Manual) Basophils % Basophils % (Manual) Myelocytes % (Man) Promyelocytes % (Man) Blast Cells % (Manual) Nucleated RBC % Metamyelocytes Differential Comment Hypochromia Toxic Granulation Platelet Estimate Platelet Comment Polychromasia Poikilocytosis Anisocytosis Microcytosis Macrocytosis PT with INR 13.90 H INR 1.18 H PTT (Actin FS) 29.0 Sodium Potassium Chloride Carbon Dioxide Anion Gap BUN Creatinine Est GFR (CKD-EPI)AfAm Est GFR (CKD-EPI)NonAf Random Glucose Calcium Phosphorus Magnesium Total Bilirubin AST ALT Alkaline Phosphatase Total Protein Albumin Stool Occult Blood Negative Current Medications Generic Name Dose Route Start Last Admin Trade Name Freq PRN Reason Stop Dose Admin Acetaminophen 1,000 mg 03/14/19 12:16 03/17/19 17:56 Ofirmev Injection - IVPB 1,000 mg Q6H PRN Administration PAIN LEVEL 5-10 Calcium Carbonate/Cholecalciferol 2 tab 03/12/19 12:00 03/18/19 09:40 Os-Rafael 500+D - PO 2 tab DAILY BRENNON Administration Folic Acid 1 mg 03/16/19 17:15 03/18/19 09:39 Folic Acid - PO 1 mg DAILY BRENNON Administration Potassium Chloride/Dextrose/Sod Cl 10 meq in 1,000 mls @ 100 mls/hr 03/17/19 09:45 03/18/19 09:33 D5-1/2ns+10 Meq Kcl - IV 100 mls/hr ASDIR BRENNON Administration Melatonin 5 mg 03/18/19 00:18 Melatonin PO HS PRN INSOMNIA Ondansetron HCl 8 mg 03/13/19 16:13 03/18/19 09:30 Zofran Injection IVPB 8 mg Q12H PRN Administration NAUSEA Prochlorperazine Maleate 10 mg 03/13/19 16:12 03/16/19 11:32 Compazine - PO 10 mg Q6H PRN Administration NAUSEA AND/OR VOMITING Ranitidine HCl 150 mg 03/18/19 22:00 Zantac - PO BID BRENNON Vancomycin HCl 125 mg 03/14/19 18:00 03/18/19 13:10 Vancomycin Oral Solution PO 125 mg Q6HPO BRENNON Administration ASSESSMENT AND PLAN: 33 year old female with 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 1. Enterocolitis sec to Chemotherapy + Cdiff - nausea/vomiting resolved. CT A/P - Enterocolitis. Cdiff positive. Continue Vancomycin po for total 14 days. Advance as tolerated. 2. GI Bleeding. Hematemesis - BRB streaked in vomitus 2/ ago. GI consulted for further eval and recommendations - EGD deferred. PPI switched to H2 allen. For return to ED if ongoing blood loss. Repeat H/H 03/21/19. 3. Neutropenia secondary to Chemotherapy - resolved. No signs of sepsis. 4. Hypokalemia - will replete. 5. Hypomagnesemia - recurrent. Will replete and monitor. 6. Hypocalcemia - resolved s/p repletion. 7. Hypoglycemia - sec to poor oral intake. Resolved. 8. Normocytic Anemia - Likely secondary to marrow suppression due to Chemotherapy. H/H 9.4/27.5 s/p 1 unit PRBCs. Folate borderline at 5, will supplement. 9. Breast Ca - on Chemotherapy. Further management as per Oncology. Patient wants to be discharged. No active bleeding currently. No further vomiting. FOBT negative. Tolerating oral intake. Advised to return to ED if any further blood loss or any symptoms of Anemia. Repeat H/H 03/21/19.
--- NOTE | 2019-03-18 17:09 | DS ---
Physical Exam: SUBJECTIVE: Patient seen and examined at bedside. No complaints at this time. Tolerating PO. OBJECTIVE: Vital Signs Period Temp Pulse Resp BP Sys/James Pulse Ox Last 24 Hr 98.1 F-98.9 F 84-98 18-20 103-120/57-76 97-98 PHYSICAL EXAM GENERAL: Lying in bed NAD LUNGS: CTABL. No wheezing or use of access muscles for breathing HEART: Regular rate and rhythm, S1, S2 without murmur, rub or gallop. ABDOMEN: Soft, mild diffuse tenderness, ND EXTREMITIES: no edema. SKIN: No rashes/ bruising LABS Laboratory Results - last 24 hr Laboratory Last Values WBC 9.0 K/mm3 (4.0-10.0) 03/18/19 06:24 RBC 3.35 M/mm3 (3.60-5.2) L 03/18/19 06:24 Hgb 9.4 GM/dL (10.7-15.3) L 03/18/19 06:24 Hct 27.5 % (32.4-45.2) L 03/18/19 06:24 MCV 82.1 fl (80-96) 03/18/19 06:24 MCH 27.9 pg (25.7-33.7) 03/18/19 06:24 MCHC 34.0 g/dl (32.0-36.0) 03/18/19 06:24 RDW 16.9 % (11.6-15.6) H 03/18/19 06:24 Plt Count 138 K/MM3 (134-434) 03/18/19 06:24 MPV 8.5 fl (7.5-11.1) 03/18/19 06:24 Absolute Neuts (auto) 6.4 K/mm3 (1.5-8.0) 03/18/19 06:24 Total Counted 100 03/17/19 21:12 Neutrophils % 71.5 % (42.8-82.8) 03/18/19 06:24 Neutrophils % (Manual) 52.0 % (42.8-82.8) 03/18/19 06:24 Band Neutrophils % 11.0 % 03/18/19 06:24 Lymphocytes % 20.8 % (8-40) 03/18/19 06:24 Lymphocytes % (Manual) 28.0 % (8-40) D 03/18/19 06:24 Monocytes % 7.5 % (3.8-10.2) 03/18/19 06:24 Monocytes % (Manual) 3 % (3.8-10.2) L 03/18/19 06:24 Eosinophils % 0.0 % (0-4.5) D 03/18/19 06:24 Eosinophils % (Manual) 0.0 % (0-4.5) 03/18/19 06:24 Basophils % 0.2 % (0-2.0) 03/18/19 06:24 Basophils % (Manual) 0.0 % (0-2.0) 03/18/19 06:24 Myelocytes % (Man) 1 % (0-2) D 03/18/19 06:24 Promyelocytes % (Man) 1 % (0-2) D 03/18/19 06:24 Blast Cells % (Manual) 0 % (0-0) 03/18/19 06:24 Nucleated RBC % 0 % (0-0) 03/18/19 06:24 Metamyelocytes 0 % (0-2) D 03/18/19 06:24 Differential Comment Man diff performed 03/17/19 21:12 Hypochromia 0 03/18/19 06:24 Toxic Granulation 2+ 03/18/19 06:24 Dohle Bodies 0 03/13/19 05:45 Platelet Estimate Decreased 03/18/19 06:24 Platelet Comment Present 03/18/19 06:24 Polychromasia 0 03/18/19 06:24 Poikilocytosis 0 03/18/19 06:24 Basophilic Stippling 0 03/13/19 05:45 Anisocytosis 3+ 03/18/19 06:24 Microcytosis 3+ 03/18/19 06:24 Macrocytosis 0 03/18/19 06:24 Spherocytes 0 03/13/19 05:45 Sickle Cells 0 03/13/19 05:45 Target Cells 1+ 03/17/19 06:15 Tear Drop Cells 1+ 03/17/19 06:15 Ovalocytes 0 03/13/19 05:45 Stomatocytes 0 03/13/19 05:45 Helmet Cells 0 03/13/19 05:45 [place] Bodies 0 03/13/19 05:45 [place] Rings 0 03/13/19 05:45 [place] Cells 1+ 03/17/19 06:15 Acanthocytes (Spur) 1+ 03/17/19 06:15 Rouleaux 0 03/13/19 05:45 Fragmented RBCs 0 03/13/19 05:45 Schistocytes 0 03/13/19 05:45 Retic Count 0.67 % (0.5-1.5) 03/12/19 05:08 PT with INR 13.90 SEC (9.7-13.0) H 03/18/19 12:48 INR 1.18 (0.83-1.09) H 03/18/19 12:48 PTT (Actin FS) 29.0 SECONDS (25.2-36.5) 03/18/19 12:48 Sodium 139 mmol/L (136-145) 03/18/19 06:24 Potassium 3.3 mmol/L (3.5-5.1) L 03/18/19 06:24 Chloride 102 mmol/L (98-107) 03/18/19 06:24 Carbon Dioxide 28 mmol/L (21-32) 03/18/19 06:24 Anion Gap 9 MMOL/L (8-16) 03/18/19 06:24 BUN 4.4 mg/dL (7-18) L 03/18/19 06:24 Creatinine 0.7 mg/dL (0.55-1.3) 03/18/19 06:24 Est GFR (CKD-EPI)AfAm 133.81 03/18/19 06:24 Est GFR (CKD-EPI)NonAf 115.45 03/18/19 06:24 POC Glucometer 100 UNITS (80-120) 03/16/19 11:36 Random Glucose 120 mg/dL (74-106) H 03/18/19 06:24 Lactic Acid 1.0 mmol/L (0.4-2.0) 03/11/19 23:45 Calcium 8.5 mg/dL (8.5-10.1) 03/18/19 06:24 Phosphorus 5.0 mg/dL (2.5-4.9) H 03/18/19 06:24 Magnesium 1.5 mg/dL (1.8-2.4) L 03/18/19 06:24 Iron 185 ug/dL (27-159) H 03/12/19 05:08 TIBC 224 ug/dL (250-450) L 03/12/19 05:08 Iron Saturation 83 % (15-55) H 03/12/19 05:08 Unsaturated IBC 39 ug/dL (131-425) L 03/12/19 05:08 Total Bilirubin 0.2 mg/dL (0.2-1) 03/18/19 06:24 AST 20 U/L (15-37) 03/18/19 06:24 ALT 76 U/L (13-61) H 03/18/19 06:24 Alkaline Phosphatase 104 U/L (45-117) 03/18/19 06:24 Total Protein 5.9 g/dl (6.4-8.2) L 03/18/19 06:24 Albumin 2.9 g/dl (3.4-5.0) L 03/18/19 06:24 Lipase 128 U/L (73-393) 03/11/19 23:45 Vitamin B12 5218 pg/ml (193-986) H 03/12/19 05:08 Serum Folate 5 ng/mL (3.1-17.5) 03/12/19 05:08 Serum , Qual Negative 03/11/19 23:45 Urine Color Yellow 03/12/19 01:35 Urine Appearance Clear 03/12/19 01:35 Urine pH 7.5 (5.0-8.0) 03/12/19 01:35 Ur Specific [place] 1.006 (1.010-1.035) L 03/12/19 01:35 Urine Protein Negative (NEGATIVE) 03/12/19 01:35 Urine Glucose (UA) Negative (NEGATIVE) 03/12/19 01:35 Urine Ketones Negative (NEGATIVE) 03/12/19 01:35 Urine Blood Negative (NEGATIVE) 03/12/19 01:35 Urine Nitrite Negative (NEGATIVE) 03/12/19 01:35 Urine Bilirubin Negative (NEGATIVE) 03/12/19 01:35 Urine Urobilinogen 0.2 mg/dL (0.2-1.0) 03/12/19 01:35 Ur Leukocyte Esterase Negative (NEGATIVE) 03/12/19 01:35 Stool Occult Blood Negative (NEGATIVE) 03/18/19 10:37 Stool O & P Wet [place] (.) 03/13/19 20:00 O & P Permanent Slide Final report (.) 03/13/19 20:00 Blood Type O POSITIVE 03/16/19 13:54 Antibody Screen Negative 03/16/19 12:05 Crossmatch See Detail 03/16/19 12:05 HOSPITAL COURSE: 33 year old female with Stage II ER+/FL+ HER 2-3+ IDC of the R-breast on chemotherapy since December, presents with abdominal pain, nausea, and constipation. Developed C. dif & watery diarhhea. Currently taking PO Vancomyinm will complete a 14 day course. Patient had blood streaked emesis yesterday which has since resolved; EGD deferred. PPI switched to H2 allen. She is to return to ED if there is repeat blood loss. Repeat H&H 03/21/19. Date of Admission:03/12/19 Date of Discharge: 03/18/19 Discharge Summary Reason For Visit: HYPOKALEMIA, HYPOMAGNESEMIA, HYPOCALCEMIA Current Active Problems Chills (without fever) (Acute) GI bleed (Acute) Hypokalemia (Acute) Hypomagnesemia (Acute) Condition: Stable - Instructions Diet, Activity, Other Instructions: You were in the hospital because you had pain in your stomach, constipation and later the development of diarrhea. You had a CT scan done of your abdomen which showed inflammation of your bowel. This was likely due to chemotherapy and an infection found in your stool. Care 1. Make sure you take adequate fluids and stay hydrated 2. Continue to monitor for any more signs of blood in vomiting and stool. If you see any visible blood, please let your PCP and Oncologist know REENA. 3. You will need to have a CBC drawn on Thursday03/21/19 to check your hemoglobin. Please bring the results to your oncologist. Medications 1. You will continue to take Vancomycin 125mg by mouth four times per day for the next 9 days, You will stop taking this medication on 03/27/19. 2. You have been started on calcium daily since your level was low. Please take 2 pills daily. 3. Please take folic acid 1mg by mouth every day You may continue your home medications Follow up 1. Please follow up with your oncologist, Dr. Cruz in a week. You will need to have your electrolytes repeated and may require further blood transfusions-- Please schedule follow up with her. 2. Please follow up with GI (Dr. Medrano) in one week. If you develop chest pain, shortness of breath, diarrhea, severe vomiting or nausea, or feel as if you will pass out, please go to the hospital. Please return to the ER if symptoms persist, worsen, or new symptoms arise. Referrals: Isiah Medrano DO [Staff Physician] - Nancy Toledo MD [Staff Physician] - 1 Week Disposition: HOME - Home Medications Comprehensive Discharge Medication List: Ambulatory Orders Ondansetron HCl [Zofran] 8 mg PO Q6H PRN 7 Days #28 tablet 02/03/19 oxyCODONE HCL [Roxicodone -] 5 mg PO Q6H PRN #8 tablet MDD 4 02/03/19 Nystatin Oral Suspension - 5,000 units PO QID 03/12/19 Potassium Chloride [Potassium Chloride Oral Liquid] 20 meq PO DAILY 03/12/19 Calcium 500Mg/Vit-D 200 Units [Os-Rafael 500+D -] 2 tab PO DAILY #60 tab 03/13/19 Folic Acid - 1 mg PO DAILY #30 tablet 03/18/19 Ranitidine [Zantac -] 150 mg PO BID #60 tablet 03/18/19 Vancomycin HCl 125 mg PO Q6H #36 capsule 03/18/19 - Discharge Referral Referred to [facility] No
--- NOTE | 2019-03-18 17:19 | DS ---
Physical Exam: SUBJECTIVE: Patient seen and examined at bedside. She is in no acute distress. Tolerating PO diet. Had 2 non-watery bowel movements yesterday. OBJECTIVE: Vital Signs Period Temp Pulse Resp BP Sys/James Pulse Ox Last 24 Hr 98.1 F-98.9 F 84-98 18-20 103-120/57-76 97-98 PHYSICAL EXAM GENERAL: Lying in bed NAD LUNGS: CTABL. No wheezing or use of access muscles for breathing HEART: Regular rate and rhythm, S1, S2 without murmur, rub or gallop. ABDOMEN: Soft, no tenderness, ND EXTREMITIES: no edema. SKIN: No rashes/ bruising LABS Laboratory Results - last 24 hr Laboratory Last Values WBC 9.0 K/mm3 (4.0-10.0) 03/18/19 06:24 RBC 3.35 M/mm3 (3.60-5.2) L 03/18/19 06:24 Hgb 9.4 GM/dL (10.7-15.3) L 03/18/19 06:24 Hct 27.5 % (32.4-45.2) L 03/18/19 06:24 MCV 82.1 fl (80-96) 03/18/19 06:24 MCH 27.9 pg (25.7-33.7) 03/18/19 06:24 MCHC 34.0 g/dl (32.0-36.0) 03/18/19 06:24 RDW 16.9 % (11.6-15.6) H 03/18/19 06:24 Plt Count 138 K/MM3 (134-434) 03/18/19 06:24 MPV 8.5 fl (7.5-11.1) 03/18/19 06:24 Absolute Neuts (auto) 6.4 K/mm3 (1.5-8.0) 03/18/19 06:24 Total Counted 100 03/17/19 21:12 Neutrophils % 71.5 % (42.8-82.8) 03/18/19 06:24 Neutrophils % (Manual) 52.0 % (42.8-82.8) 03/18/19 06:24 Band Neutrophils % 11.0 % 03/18/19 06:24 Lymphocytes % 20.8 % (8-40) 03/18/19 06:24 Lymphocytes % (Manual) 28.0 % (8-40) D 03/18/19 06:24 Monocytes % 7.5 % (3.8-10.2) 03/18/19 06:24 Monocytes % (Manual) 3 % (3.8-10.2) L 03/18/19 06:24 Eosinophils % 0.0 % (0-4.5) D 03/18/19 06:24 Eosinophils % (Manual) 0.0 % (0-4.5) 03/18/19 06:24 Basophils % 0.2 % (0-2.0) 03/18/19 06:24 Basophils % (Manual) 0.0 % (0-2.0) 03/18/19 06:24 Myelocytes % (Man) 1 % (0-2) D 03/18/19 06:24 Promyelocytes % (Man) 1 % (0-2) D 03/18/19 06:24 Blast Cells % (Manual) 0 % (0-0) 03/18/19 06:24 Nucleated RBC % 0 % (0-0) 03/18/19 06:24 Metamyelocytes 0 % (0-2) D 03/18/19 06:24 Differential Comment Man diff performed 03/17/19 21:12 Hypochromia 0 03/18/19 06:24 Toxic Granulation 2+ 03/18/19 06:24 Dohle Bodies 0 03/13/19 05:45 Platelet Estimate Decreased 03/18/19 06:24 Platelet Comment Present 03/18/19 06:24 Polychromasia 0 03/18/19 06:24 Poikilocytosis 0 03/18/19 06:24 Basophilic Stippling 0 03/13/19 05:45 Anisocytosis 3+ 03/18/19 06:24 Microcytosis 3+ 03/18/19 06:24 Macrocytosis 0 03/18/19 06:24 Spherocytes 0 03/13/19 05:45 Sickle Cells 0 03/13/19 05:45 Target Cells 1+ 03/17/19 06:15 Tear Drop Cells 1+ 03/17/19 06:15 Ovalocytes 0 03/13/19 05:45 Stomatocytes 0 03/13/19 05:45 Helmet Cells 0 03/13/19 05:45 [place] Bodies 0 03/13/19 05:45 [place] Rings 0 03/13/19 05:45 [place] Cells 1+ 03/17/19 06:15 Acanthocytes (Spur) 1+ 03/17/19 06:15 Rouleaux 0 03/13/19 05:45 Fragmented RBCs 0 03/13/19 05:45 Schistocytes 0 03/13/19 05:45 Retic Count 0.67 % (0.5-1.5) 03/12/19 05:08 PT with INR 13.90 SEC (9.7-13.0) H 03/18/19 12:48 INR 1.18 (0.83-1.09) H 03/18/19 12:48 PTT (Actin FS) 29.0 SECONDS (25.2-36.5) 03/18/19 12:48 Sodium 139 mmol/L (136-145) 03/18/19 06:24 Potassium 3.3 mmol/L (3.5-5.1) L 03/18/19 06:24 Chloride 102 mmol/L (98-107) 03/18/19 06:24 Carbon Dioxide 28 mmol/L (21-32) 03/18/19 06:24 Anion Gap 9 MMOL/L (8-16) 03/18/19 06:24 BUN 4.4 mg/dL (7-18) L 03/18/19 06:24 Creatinine 0.7 mg/dL (0.55-1.3) 03/18/19 06:24 Est GFR (CKD-EPI)AfAm 133.81 03/18/19 06:24 Est GFR (CKD-EPI)NonAf 115.45 03/18/19 06:24 POC Glucometer 100 UNITS (80-120) 03/16/19 11:36 Random Glucose 120 mg/dL (74-106) H 03/18/19 06:24 Lactic Acid 1.0 mmol/L (0.4-2.0) 03/11/19 23:45 Calcium 8.5 mg/dL (8.5-10.1) 03/18/19 06:24 Phosphorus 5.0 mg/dL (2.5-4.9) H 03/18/19 06:24 Magnesium 1.5 mg/dL (1.8-2.4) L 03/18/19 06:24 Iron 185 ug/dL (27-159) H 03/12/19 05:08 TIBC 224 ug/dL (250-450) L 03/12/19 05:08 Iron Saturation 83 % (15-55) H 03/12/19 05:08 Unsaturated IBC 39 ug/dL (131-425) L 03/12/19 05:08 Total Bilirubin 0.2 mg/dL (0.2-1) 03/18/19 06:24 AST 20 U/L (15-37) 03/18/19 06:24 ALT 76 U/L (13-61) H 03/18/19 06:24 Alkaline Phosphatase 104 U/L (45-117) 03/18/19 06:24 Total Protein 5.9 g/dl (6.4-8.2) L 03/18/19 06:24 Albumin 2.9 g/dl (3.4-5.0) L 03/18/19 06:24 Lipase 128 U/L (73-393) 03/11/19 23:45 Vitamin B12 5218 pg/ml (193-986) H 03/12/19 05:08 Serum Folate 5 ng/mL (3.1-17.5) 03/12/19 05:08 Serum , Qual Negative 03/11/19 23:45 Urine Color Yellow 03/12/19 01:35 Urine Appearance Clear 03/12/19 01:35 Urine pH 7.5 (5.0-8.0) 03/12/19 01:35 Ur Specific [place] 1.006 (1.010-1.035) L 03/12/19 01:35 Urine Protein Negative (NEGATIVE) 03/12/19 01:35 Urine Glucose (UA) Negative (NEGATIVE) 03/12/19 01:35 Urine Ketones Negative (NEGATIVE) 03/12/19 01:35 Urine Blood Negative (NEGATIVE) 03/12/19 01:35 Urine Nitrite Negative (NEGATIVE) 03/12/19 01:35 Urine Bilirubin Negative (NEGATIVE) 03/12/19 01:35 Urine Urobilinogen 0.2 mg/dL (0.2-1.0) 03/12/19 01:35 Ur Leukocyte Esterase Negative (NEGATIVE) 03/12/19 01:35 Stool Occult Blood Negative (NEGATIVE) 03/18/19 10:37 Stool O & P Wet [place] (.) 03/13/19 20:00 O & P Permanent Slide Final report (.) 03/13/19 20:00 Blood Type O POSITIVE 03/16/19 13:54 Antibody Screen Negative 03/16/19 12:05 Crossmatch See Detail 03/16/19 12:05 HOSPITAL COURSE: 33 year old female with Stage II ER+/OK+ HER 2-3+ IDC of the R-breast on chemotherapy since December, presents with abdominal pain, nausea, and constipation. Found to have enteritis of small bowel on CT abd/pelvis and + C. Dif antigen. Had a few episodes blood tinged emesis which has since resolved; hgb is stable. As per GI no urgency for endoscopy in absence of ongoing overt bleeding. Discontinued protonix therapy in favor of H2 allen (PPI therapy is an independent risk for recurrent C. Diff). Patient is to be discharged home and will continue with her chemotherapy sessions. Date of Admission:03/12/19 Abd/ Pel CT: Possible minimal enhancement of practically all of the visualized small bowel abreu with no surrounding inflammation but a mild enteritis cannot be excluded Appendix not identified Date of Discharge: 03/18/19 Minutes to complete discharge: 36 Discharge Summary Reason For Visit: HYPOKALEMIA, HYPOMAGNESEMIA, HYPOCALCEMIA Current Active Problems Chills (without fever) (Acute) GI bleed (Acute) Hypokalemia (Acute) Hypomagnesemia (Acute) Condition: Stable - Instructions Diet, Activity, Other Instructions: You were in the hospital because you had pain in your stomach, constipation and later the development of diarrhea. You had a CT scan done of your abdomen which showed inflammation of your bowel. This was likely due to chemotherapy and an infection found in your stool. Care 1. Make sure you take adequate fluids and stay hydrated 2. Continue to monitor for any more signs of blood in vomiting and stool. If you see any visible blood, please let your PCP and Oncologist know REENA. 3. You will need to have a CBC drawn on Thursday03/21/19 to check your hemoglobin. Please bring the results to your oncologist. Medications 1. You will continue to take Vancomycin 125mg by mouth four times per day for the next 9 days, You will stop taking this medication on 03/27/19. 2. You have been started on calcium daily since your level was low. Please take 2 pills daily. 3. Please take folic acid 1mg by mouth every day You may continue your home medications Follow up 1. Please follow up with your oncologist, Dr. Cruz in a week. You will need to have your electrolytes repeated and may require further blood transfusions-- Please schedule follow up with her. 2. Please follow up with GI (Dr. Medrano) in one week. If you develop chest pain, shortness of breath, diarrhea, severe vomiting or nausea, or feel as if you will pass out, please go to the hospital. Please return to the ER if symptoms persist, worsen, or new symptoms arise. Referrals: Isiah Medrano DO [Staff Physician] - Nancy Toledo MD [Staff Physician] - 1 Week Disposition: HOME - Home Medications Comprehensive Discharge Medication List: Ambulatory Orders Ondansetron HCl [Zofran] 8 mg PO Q6H PRN 7 Days #28 tablet 02/03/19 oxyCODONE HCL [Roxicodone -] 5 mg PO Q6H PRN #8 tablet MDD 4 02/03/19 Nystatin Oral Suspension - 5,000 units PO QID 03/12/19 Potassium Chloride [Potassium Chloride Oral Liquid] 20 meq PO DAILY 03/12/19 Calcium 500Mg/Vit-D 200 Units [Os-Rafael 500+D -] 2 tab PO DAILY #60 tab 03/13/19 Folic Acid - 1 mg PO DAILY #30 tablet 03/18/19 Ranitidine [Zantac -] 150 mg PO BID #60 tablet 03/18/19 Vancomycin HCl 125 mg PO Q6H #36 capsule 03/18/19 This patient is new to me today: No Emergency Visit: No Critical Care patient: No - Discharge Referral Referred to [facility] No
--- NOTE | 2019-03-18 18:48 | PN ---
Progress Note (short form) - Note Progress Note: Patient seen and examined Feels better Last Vital Signs Temp Pulse Resp BP Pulse Ox 98.4 F 87 18 97/66 98 03/18/19 18:01 03/18/19 18:01 03/18/19 18:01 03/18/19 18:01 03/18/19 09:00 HEENT-nl Cor: RSR, No murmurs, No gallops Lungs: Clear to P&A Abd: Soft, Normal bowel sounds, No organomegaly Ext:No significant edema Abnormal Lab Results 03/17/19 03/18/19 03/18/19 21:12 06:24 06:24 WBC 12.8 H RBC 3.35 L Hgb 10.5 L 9.4 L Hct 31.5 L 27.5 L RDW 16.9 H 16.9 H Absolute Neuts (auto) 9.2 H Monocytes % (Manual) 3 L 3 L PT with INR INR Potassium 3.3 L BUN 4.4 L Random Glucose 120 H Phosphorus 5.0 H Magnesium 1.5 L ALT 76 H Total Protein 5.9 L Albumin 2.9 L 03/18/19 12:48 WBC RBC Hgb Hct RDW Absolute Neuts (auto) Monocytes % (Manual) PT with INR 13.90 H INR 1.18 H Potassium BUN Random Glucose Phosphorus Magnesium ALT Total Protein Albumin Active Medications Generic Name Dose Route Start Last Admin Trade Name Freq PRN Reason Stop Dose Admin Acetaminophen 1,000 mg 03/14/19 12:16 03/17/19 17:56 Ofirmev Injection - IVPB 1,000 mg Q6H PRN Administration PAIN LEVEL 5-10 Calcium Carbonate/Cholecalciferol 2 tab 03/12/19 12:00 03/18/19 09:40 Os-Rafael 500+D - PO 2 tab DAILY BRENNON Administration Folic Acid 1 mg 03/16/19 17:15 03/18/19 09:39 Folic Acid - PO 1 mg DAILY BRENNON Administration Potassium Chloride/Dextrose/Sod Cl 10 meq in 1,000 mls @ 100 mls/hr 03/17/19 09:45 03/18/19 09:33 D5-1/2ns+10 Meq Kcl - IV 100 mls/hr ASDIR BRENNON Administration Melatonin 5 mg 03/18/19 00:18 Melatonin PO HS PRN INSOMNIA Ondansetron HCl 8 mg 03/13/19 16:13 03/18/19 09:30 Zofran Injection IVPB 8 mg Q12H PRN Administration NAUSEA Prochlorperazine Maleate 10 mg 03/13/19 16:12 03/16/19 11:32 Compazine - PO 10 mg Q6H PRN Administration NAUSEA AND/OR VOMITING Ranitidine HCl 150 mg 03/18/19 22:00 Zantac - PO BID BRENNON Vancomycin HCl 125 mg 03/14/19 18:00 03/18/19 17:44 Vancomycin Oral Solution PO 125 mg Q6HPO BRENNON Administration A/P 33F with 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 CTAP with possible mild enteritis. C.diff antigen +/toxin negative --for vancomycin 125 mg PO Q6h for 10-14 days Replete potasium/magnesium Chemotherapy induced anemia--s/p 1 unit PRBCs 1 episode of melena and blood tinged vomitus 2 days ago. Monitor If recurrent consider EGD Mponitor Hgb Switch to zantac Discusssed with Dr. Reed d/c IV fluids I f tolerating Po and Hgb stable will initiate d/c planning Discussed discharge plan in great detail with patient and father
[2019-03-18] MEDS: RANITIDINE HCL 150 MG TABLET (FP) PO SCH (21:38)
[2019-03-19] MEDS: VANCOMYCIN 250 MG/5 ML ORAL SOLUTION PO SCH ×4 (00:35→17:05)
[2019-03-19] MEDS: ACETAMINOPHEN 1000 MG/100 ML VIAL (NON FORMULARY) IVPB PRN (01:16)
[2019-03-19] MEDS ORDERED: oxyCODONE HCL 5 MG TABLET PO ONE (06:15)
[2019-03-19 08:58] LABS: BASO % 0.3 % (0-2.0); EOS % 0.1 % (0-4.5); HEMATOCRIT 29.4 % (32.4-45.2); HEMOGLOBIN 9.9 GM/dL (10.7-15.3); LYMPH % 14.4 % (8-40); MCH 27.7 pg (25.7-33.7); MCHC 33.8 g/dl (32.0-36.0); MEAN CELL VOLUME 81.8 fl (80-96); MEAN PLT VOLUME 8.7 fl (7.5-11.1); MONO % 5.4 % (3.8-10.2); NEUT % 79.8 % (42.8-82.8); RBC 3.59 M/mm3 (3.60-5.2); RDW 17.5 % (11.6-15.6); WHITE BLOOD COUNT 9.1 K/mm3 (4.0-10.0)
[2019-03-19 09:30] LABS: ALBUMIN 3.6 g/dl (3.4-5.0); BILIRUBIN,TOTAL 0.2 mg/dL (0.2-1); CALCIUM 8.8 mg/dL (8.5-10.1); CREATININE 0.7 mg/dL (0.55-1.3); MAGNESIUM 1.7 mg/dL (1.8-2.4); POTASSIUM 3.6 mmol/L (3.5-5.1); TOT PROT 6.5 g/dl (6.4-8.2)
[2019-03-19 09:44] LABS: PLATELET COUNT 144 K/MM3 (134-434)
[2019-03-19] MEDS: FOLIC ACID 1 MG TABLET (FP) PO SCH (09:44)
[2019-03-19] MEDS: D5-1/2NS+10 MEQ KCL - 10 MEQ/1,000 ML INFUS.BAG IV SCH (09:44)
[2019-03-19] MEDS: CALCIUM 500MG/VIT-D 200 UNITS COMBO TABLET (FP) PO SCH (09:44)
[2019-03-19] MEDS: RANITIDINE HCL 150 MG TABLET (FP) PO SCH ×2 (09:44→21:25)
[2019-03-19 10:01] LABS: BLOOD UREA NITROGEN 2.6 mg/dL (7-18)
[2019-03-19] MEDS ORDERED: MAGNESIUM SULF 50% (8.12 MEQ/2 ML-1 GM VIAL) IVPB ONE (12:00)
[2019-03-19] MEDS ORDERED: KCL 10 MEQ IVPB 10 MEQ/100 ML INFUS.BAG IVPB ONE (12:15)
[2019-03-19 12:48] LABS: ANISOCYTOSIS 2+; MACROCYTOSIS 0; OVALOCYTE 1+; PLATELET ESTIMATE DECREASED; TEAR DROP CELLS 1+
[2019-03-19] MEDS: ONDANSETRON 4 MG/2 ML VIAL IVPB PRN (14:55)
[2019-03-19 20:58] VITALS: BP 102/62; PULSE 80; TEMP 98.3
--- NOTE | 2019-03-19 21:24 | PN ---
Progress Note, Physician History of Present Illness: Feels well. No vomiting. Still with some diarrhea. Tolerating PO. - Current Medication List Current Medications: Active Medications Acetaminophen (Ofirmev Injection -) 1,000 mg IVPB Q6H PRN PRN Reason: PAIN LEVEL 5-10 Last Admin: 03/19/19 01:16 Dose: 1,000 mg Calcium Carbonate/Cholecalciferol (Os-Rafael 500+D -) 2 tab PO DAILY [facility] Last Admin: 03/19/19 09:44 Dose: Not Given Folic Acid (Folic Acid -) 1 mg PO DAILY [facility] Last Admin: 03/19/19 09:44 Dose: 1 mg Melatonin (Melatonin) 5 mg PO HS PRN PRN Reason: INSOMNIA Last Admin: 03/18/19 21:39 Dose: 5 mg Ondansetron HCl (Zofran Injection) 8 mg IVPB Q12H PRN PRN Reason: NAUSEA Last Admin: 03/19/19 14:55 Dose: 8 mg Prochlorperazine Maleate (Compazine -) 10 mg PO Q6H PRN PRN Reason: NAUSEA AND/OR VOMITING Last Admin: 03/16/19 11:32 Dose: 10 mg Ranitidine HCl (Zantac -) 150 mg PO BID [facility] Last Admin: 03/19/19 09:44 Dose: 150 mg Vancomycin HCl (Vancomycin Oral Solution) 125 mg PO Q6HPO [facility] Last Admin: 03/19/19 17:05 Dose: 125 mg - Objective Vital Signs: Vital Signs Temperature 98.3 F 03/19/19 20:57 Pulse Rate 80 03/19/19 20:57 Respiratory Rate 18 03/19/19 20:57 Blood Pressure 102/62 03/19/19 20:57 O2 Sat by Pulse Oximetry (%) 98 03/19/19 09:00 Constitutional: Yes: No Distress Eyes: Yes: Conjunctiva Clear Cardiovascular: Yes: Regular Rate and Rhythm Respiratory: Yes: Regular, CTA Bilaterally Gastrointestinal: Yes: Hemorrhoids (z). No: Distention, Tenderness Edema: No Labs: CBC, BMP 03/19/19 07:00 03/19/19 07:00 INR, PTT INR 1.18 (0.83-1.09) H 03/18/19 12:48 Assessment/Plan 33F with stage II ER+/IA+/Her2-3+ IDC of rt. breast, on neoadjuvant TCHP c/b recurrent chemo induced colitis, c4d5, admitted with abdominal pain, nausea, generalized weakness in setting of poor PO intake. Symptoms are typical after chemo. CTAP with possible mild enteritis. Also found to have C. diff on PO vanco, Had one episode of blood tinged emesis and melena 2 days ago but Hgb stable. Planned for discharge.
== END 2019-03-19 22:48 | disposition home or self-care (01) | DRG 248 ==
LOC: JER 22:55 → JERBED 03-12 00:46 → J7W 03-12 07:59
PROVIDERS: ADMIT Internal Medicine Hematology & Oncology; ATTEND Internal Medicine Hematology & Oncology
PROC: 30233N1 Transfusion of Nonautologous Red Blood Cells into Peripheral Vein, Percutaneous Approach (ICD-10-PCS; principal; 2019-03-16)
DX: A04.72 Enterocolitis due to Clostridium difficile, not specified as recurrent (principal); E83.42 Hypomagnesemia; E87.3 Alkalosis; I95.9 Hypotension, unspecified; E83.51 Hypocalcemia; D70.1 Agranulocytosis secondary to cancer chemotherapy; K92.0 Hematemesis; E87.6 Hypokalemia; G43.909 Migraine, unspecified, not intractable, without status migrainosus; G47.00 Insomnia, unspecified; E87.8 Other disorders of electrolyte and fluid balance, not elsewhere classified; D64.9 Anemia, unspecified; K59.00 Constipation, unspecified; T45.1X5A Adverse effect of antineoplastic and immunosuppressive drugs, initial encounter; C50.911 Malignant neoplasm of unspecified site of right female breast; Z17.0 Estrogen receptor positive status [ER+]; E16.2 Hypoglycemia, unspecified
CPT/HCPCS: 36415; 36430; 71046-TC-FY; 74177-TC; 80048; 80053; 81003; 82272; 82607; 82746; 82962; 83540; 83550; 83605; 83690; 83735; 84100; 84132; 84703; 85025; 85044; 85610; 85730; 86850; 86900; 86901; 86922; 87040; 87086; 87177; 87209; 87324; 87449; 93005; 93010; 99284-25; J0131; J3480; P9038; P9058

== ENCOUNTER → 2019-03-11 | Day surgery (SDC) | payer OTHER | LOC: JONCNONCHE 07:12 ==

== ENCOUNTER 2019-03-31 06:38 | Day surgery (SDC) | payer OTHER ==
[2019-03-31 11:45] LABS: BASO % 0.7 % (0-2.0); HEMATOCRIT 30.3 % (32.4-45.2); HEMOGLOBIN 9.9 GM/dL (10.7-15.3); LYMPH % 1.5 % (8-40); MCH 27.7 pg (25.7-33.7); MCHC 32.7 g/dl (32.0-36.0); MEAN CELL VOLUME 84.7 fl (80-96); MONO % 1.8 % (3.8-10.2); RBC 3.58 M/mm3 (3.60-5.2); RDW 18.3 % (11.6-15.6); WHITE BLOOD COUNT 27.8 K/mm3 (4.0-10.0)
[2019-03-31 11:46] LABS: PLATELET COUNT 107 K/MM3 (134-434)
[2019-03-31 12:34] LABS: ANISOCYTOSIS 0; MACROCYTOSIS 0; PLATELET ESTIMATE DECREASED; TEAR DROP CELLS 1+
[2019-03-31] MEDS ORDERED: MAGNESIUM SULF 50% (8.12 MEQ/2 ML-1 GM VIAL) ONE (13:08)
[2019-03-31] MEDS ORDERED: SODIUM CHLORIDE 0.9%/KCL 20 MEQ/1,000 ML INFUS.BAG IV ONE (13:15)
[2019-03-31] MEDS ORDERED: MAGNESIUM SULF 50% (8.12 MEQ/2 ML-1 GM VIAL) IVPB ONE (13:15)
[2019-03-31] MEDS ORDERED: ONDANSETRON 4 MG/2 ML VIAL IVPB ONE (13:15)
[2019-03-31 13:17] LABS: ALBUMIN 3.8 g/dl (3.4-5.0); BILIRUBIN,DIRECT 0.1 mg/dL (0.0-0.2); BILIRUBIN,TOTAL 0.4 mg/dL (0.2-1); BLOOD UREA NITROGEN 14.1 mg/dL (7-18); CALCIUM 8.8 mg/dL (8.5-10.1); CREATININE 0.7 mg/dL (0.55-1.3); MAGNESIUM 1.8 mg/dL (1.8-2.4); PHOSPHOROUS 3.2 mg/dL (2.5-4.9); POTASSIUM 3.4 mmol/L (3.5-5.1); TOT PROT 6.7 g/dl (6.4-8.2)
[2019-03-31 16:26] VITALS: TEMP 98.1
[2019-03-31] MEDS ORDERED: PORTA CATH FLUSH 10 ML IVPUSH ONE (16:42)
[2019-03-31 16:43] VITALS: BP 102/60; PULSE 88
== END 2019-03-31 16:10 | disposition home or self-care (01) ==
LOC: JONCCHEMO 06:38 → J7W 12:55 → JONCCHEMO 16:10
PROVIDERS: ATTEND Internal Medicine Hematology & Oncology
PROC: 3E033GC Introduction of Other Therapeutic Substance into Peripheral Vein, Percutaneous Approach (ICD-10-PCS; principal; 2019-03-31)
PROC: 3E0337Z Introduction of Electrolytic and Water Balance Substance into Peripheral Vein, Percutaneous Approach (ICD-10-PCS; 2019-03-31)
DX: C50.911 Malignant neoplasm of unspecified site of right female breast (principal); Z76.89 Persons encountering health services in other specified circumstances
CPT/HCPCS: 36415; 80048; 80076; 83735; 84100; 85025; 87086; 96361; 96375

== ENCOUNTER 2019-04-27 07:11 | Day surgery (SDC) | payer OTHER ==
[2019-04-27] MEDS ORDERED: GOSERELIN ACETATE 3.6 MG IMPLANT SYRINGE SQ ONE (10:00)
[2019-04-27] MEDS ORDERED: LIDOCAINE HCL 1%, 10 MG/ML (20ML VIAL) ID ONE (10:00)
[2019-04-27 13:34] LABS: BASO % 0.6 % (0-2.0); EOS % 2.6 % (0-4.5); HEMATOCRIT 29.9 % (32.4-45.2); LYMPH % 25.8 % (8-40); MCH 29.1 pg (25.7-33.7); MCHC 33.4 g/dl (32.0-36.0); MEAN CELL VOLUME 87.2 fl (80-96); MEAN PLT VOLUME 7.7 fl (7.5-11.1); MONO % 4.2 % (3.8-10.2); NEUT % 66.8 % (42.8-82.8); PLATELET COUNT 260 K/MM3 (134-434); RBC 3.44 M/mm3 (3.60-5.2); RDW 15.8 % (11.6-15.6); WHITE BLOOD COUNT 5.5 K/mm3 (4.0-10.0)
[2019-04-27 13:55] LABS: BILIRUBIN,DIRECT 0.1 mg/dL (0.0-0.2); BILIRUBIN,TOTAL 0.2 mg/dL (0.2-1); BLOOD UREA NITROGEN 6.8 mg/dL (7-18); CALCIUM 9.2 mg/dL (8.5-10.1); CREATININE 0.6 mg/dL (0.55-1.3); MAGNESIUM 1.5 mg/dL (1.8-2.4); POTASSIUM 3.6 mmol/L (3.5-5.1); TOT PROT 7.2 g/dl (6.4-8.2)
[2019-04-27 15:45] VITALS: BP 110/64; PULSE 76; TEMP 97.9
== END 2019-04-27 14:35 | disposition home or self-care (01) ==
LOC: JONCCHEMO 07:11 → EDSTATUS 09:12 → J7W 14:08 → JONCCHEMO 14:35
PROVIDERS: ATTEND Internal Medicine Hematology & Oncology
DX: Z51.11 Encounter for antineoplastic chemotherapy (principal); C50.911 Malignant neoplasm of unspecified site of right female breast
CPT/HCPCS: 36415; 80048; 80076; 83735; 85025; 96402; J9202

== ENCOUNTER 2019-05-25 05:40 | Day surgery (SDC) | payer OTHER ==
[2019-05-25] MEDS ORDERED: GOSERELIN ACETATE 3.6 MG IMPLANT SYRINGE SQ ONE (10:00)
[2019-05-25] MEDS ORDERED: LIDOCAINE HCL 1%, 10 MG/ML (20ML VIAL) ID ONE (10:00)
[2019-05-25 10:46] LABS: BASO % 0.6 % (0-2.0); EOS % 4.6 % (0-4.5); HEMATOCRIT 34.5 % (32.4-45.2); HEMOGLOBIN 11.4 GM/dL (10.7-15.3); LYMPH % 34.6 % (8-40); MCH 28.4 pg (25.7-33.7); MCHC 32.9 g/dl (32.0-36.0); MEAN CELL VOLUME 86.2 fl (80-96); MEAN PLT VOLUME 8.8 fl (7.5-11.1); MONO % 2.4 % (3.8-10.2); NEUT % 57.8 % (42.8-82.8); PLATELET COUNT 200 K/MM3 (134-434); RDW 13.2 % (11.6-15.6); WHITE BLOOD COUNT 4.3 K/mm3 (4.0-10.0)
[2019-05-25 11:14] LABS: ALBUMIN 4.4 g/dl (3.4-5.0); BILIRUBIN,DIRECT 0.1 mg/dL (0.0-0.2); BILIRUBIN,TOTAL 0.3 mg/dL (0.2-1); BLOOD UREA NITROGEN 8.4 mg/dL (7-18); CREATININE 0.8 mg/dL (0.55-1.3); MAGNESIUM 1.6 mg/dL (1.8-2.4); POTASSIUM 3.6 mmol/L (3.5-5.1); TOT PROT 7.7 g/dl (6.4-8.2)
[2019-05-25] MEDS ORDERED: MAGNESIUM OXIDE 400 MG TABLET (FP) PO ONE (11:24)
[2019-05-25 14:07] VITALS: BP 109/70; PULSE 80; TEMP 98.1
[2019-05-25] MEDS ORDERED: PORTA CATH FLUSH 10 ML IVPUSH ONE (14:07)
== END 2019-05-25 12:25 | disposition home or self-care (01) ==
LOC: JONCCHEMO 05:40 → J7W 11:37 → JONCCHEMO 12:25
PROVIDERS: ATTEND Internal Medicine Hematology & Oncology
DX: Z51.11 Encounter for antineoplastic chemotherapy (principal); C50.911 Malignant neoplasm of unspecified site of right female breast
CPT/HCPCS: 36415; 80048; 80076; 82670; 83735; 85025; 96402; J9202

== ENCOUNTER 2019-06-16 07:13 | Inpatient (IN) | payer OTHER ==
[2019-06-09 12:03] VITALS: BMI 24.1
--- NOTE | 2019-06-13 15:19 | HP ---
Admitting History and Physical - Primary Care Physician PCP: Abhishek Dubon - Admission Chief Complaint: Right breast cancer History of Present Illness: 33 year old premenapausal female with family H/O breast cancer who felt mass in lateral aspect of right breast 10/2018 and underwent a mammogram and US 11/2018. mammogram showed extensive calcifications extending over right breast upper outer quadrant to retroareolar region 2.4 cm. Us showed highly suspicious mass 3.2 cm right 9:00 retroareolar region . Ther were suspicious nodes in right axilla. US core bx of right breast and axilla 11/3018 showed invasive ductal carcinoma with mets to lymph node.ER/MS+ and HER2 +. MRI breast 11/2018 showed extensive enhancement in lateral aspect of right breast extending to just underneath of the nipple almost 5 cm and there were at least 2 to 3 involved nodes, one node biopsied showed cancer and clip was placed. Mariann no mutation vus MLH1 .She underwent Herceptin based neoadjuvant chemotherapy. MRI breast showed complete imaging response to neoadjuvant chemotherapy. History Source: Patient Limitations to Obtaining History: No Limitations - Past Medical History PATIENT DAY COORDINATOR: Yes: Migraine, Other (astigmatism) Gastrointestinal: Yes: Gastritis, Peptic Ulcer Disease ...LMP: 01/21/19 Heme/Onc: Yes: Anemia, Cancer, Current Chemotherapy - Past Surgical History Past Surgical History: Yes: Breast Biopsy (right excisional biopsy and LN sampled from axilla), Colonoscopy - Smoking History Smoking history: Never smoked Have you smoked in the past 12 months: No - Alcohol/Substance Use Hx Alcohol Use: No History of Substance Use: reports: Marijuana (daily until few days before chemo started, plans to get med [employer] card) - Social History ADL: Independent History of Recent Travel: No Home Medications - Allergies Allergies/Adverse Reactions: Allergies Allergy/AdvReac Type Severity Reaction Status Date / Time No Known Allergies Allergy Verified 06/09/19 11:42 - Home Medications Home Medications: Ambulatory Orders Ondansetron HCl [Zofran] 8 mg PO Q6H PRN 7 Days #28 tablet 02/03/19 Potassium Chloride [Potassium Chloride Oral Liquid] 20 meq PO DAILY 03/12/19 Calcium 500Mg/Vit-D 200 Units [Os-Rafael 500+D -] 2 tab PO DAILY #60 tab 03/13/19 Folic Acid - 1 mg PO DAILY #30 tablet 03/18/19 Acetaminophen [Tylenol -] 1,000 mg PO PRN PRN 06/09/19 Loperamide HCl [Imodium -] 2 mg PO Q4H PRN 06/09/19 Loratadine [Claritin] 10 mg PO DAILY 06/09/19 Magnesium Carbonate [Magonate] 54 mg PO ASDIR 06/09/19 Magnesium Chloride [Slow-Mag -] 64 mg PO DAILY 06/09/19 Oxycodone HCl 5 mg PO PRN PRN 06/09/19 Pantoprazole Sodium [Protonix -] 40 mg PO DAILY 06/09/19 Prochlorperazine Maleate [Compazine] 10 mg PO TID PRN 06/09/19 Ranitidine [Zantac -] 150 mg PO BID PRN 06/09/19 Family Medical History Other Family History: 2 maternal GA breast ca 75 and 80. mat GGM 41 CRC, mat uncle gastriic ca Physical Examination Constitutional: Yes: No Distress Breast(s): Yes: Other (ptotic C cup breast with clinical reoslution of palpable cancer in the right breast S/P neoadjuvant chemotherapy , left breast negative) Problem List - Problems (1) Cancer of right breast Code(s): C50.911 - MALIGNANT NEOPLASM OF UNSP SITE OF RIGHT FEMALE BREAST Qualifiers: Breast location: unspecified site of breast Estrogen receptor status: positive Patient sex: female Qualified Code(s): C50.911 - Malignant neoplasm of unspecified site of right female breast; Z17.0 - Estrogen receptor positive status [ER+] Assessment/Plan Bilateral total mastectomies ,retroareolar biopsies, right breast lymphoscintogram and right breast sentenel node biopsy and clip localization in axilla of node , possible axillary node dissection, implant and alloderm reconstruction
[~2019-06-16 07:13] MED LIST: BUPIVACAINE HCL/PF 0.25% (2.5MG/ML) 10 ML VIAL IJ ONE; BUPIVACAINE LIPOSOME/PF (EXPAREL) 266 MG/20 ML VIAL NR ONE
[2019-06-16] MEDS ORDERED: ceFAZolin SODIUM 1 GM VIAL ONE (11:24)
[2019-06-16] MEDS ORDERED: GENTAMICIN SO4 80 MG/2 ML VIAL ONE (11:24)
[2019-06-16] MEDS ORDERED: ONDANSETRON 4 MG/2 ML VIAL IVPUSH PRN (11:39)
[2019-06-16] MEDS ORDERED: LACTATED RINGERS SOLUTION 1,000 ML IV SCH (11:45)
[2019-06-16] MEDS ORDERED: ROCURONIUM BROMIDE 50 MG/5 ML SYRINGE ONE (12:13)
[2019-06-16] MEDS ORDERED: fentaNYL CITRATE 250 MCG/5 ML VIAL ONE (12:13)
[2019-06-16] MEDS ORDERED: MIDAZOLAM HCL 2 MG/2 ML SINGLE DOSE VIAL ONE (12:13)
[2019-06-16] MEDS ORDERED: DEXAMETHASONE SOD PHOSPHATE 4 MG/1 ML VIAL ONE (12:13)
[2019-06-16] MEDS ORDERED: ONDANSETRON 4 MG/2 ML VIAL ONE ×2 (12:13→17:01)
[2019-06-16] MEDS ORDERED: SODIUM CHLORIDE 0.9% P/F 10 ML VIAL IJ ONE (12:16)
[2019-06-16] MEDS ORDERED: BUPIVACAINE LIPOSOME/PF (EXPAREL) 266 MG/20 ML VIAL ONE (12:16)
[2019-06-16] MEDS ORDERED: BUPIVACAINE HCL/PF 2.5 MG/ML - 30 ML VIAL IJ ONE (12:17)
[2019-06-16] MEDS ORDERED: ISOSULFAN BLUE 10 MG/ML VIAL SQ ONE (12:17)
[2019-06-16] MEDS ORDERED: PROPOFOL 20 ML ONE (13:31)
[2019-06-16] MEDS ORDERED: DOCUSATE SODIUM 100 MG CAPSULE (FP) PO PRN (16:12)
[2019-06-16] MEDS ORDERED: DEXTROSE 5%-0.45% SALINE 1,000 ML IV SCH (16:15)
--- NOTE | 2019-06-16 16:51 | OP ---
Operative Note - Note: Operative Date: 06/16/19 Pre-Operative Diagnosis: Right acquired chest wall deformity s/p right mastectomy for Right breast cancer Operation: Right nipple sparring breast mastectomy, right axillary clip localization, right sentinel lymph node biopsy, right axillary lymph node dissection, right breast reconstruction with tissue cube cutter Findings: as dictated Implants: as dictated Post-Operative Diagnosis: Same as Pre-op Surgeon: Fco Rizo Special Needs Nanny: Cesar Eason Anesthesiologist/CHILD AND FAMILY THERAPIST: Sandra Jones Anesthesia: General, Local (Exparel injected at completion of case) Specimens Removed: right axillary sentinel node 1&2, extra right axillary sentinel nodes, right breast mastectomy, right breast retroareolar biopsy, right breast anterior margin Estimated Blood Loss (mls): 50 (ml) Drains & Tubes with Location: 2 mery drains right breast Fluid Volume Replaced (mls): 1,200 (ml LR) Operative Report Dictated: Yes
[2019-06-16] MEDS: ONDANSETRON 4 MG/2 ML VIAL IVPUSH PRN (17:03)
[2019-06-16] MEDS: oxyCODONE HCL 5 MG TABLET PO PRN ×3 (18:18→22:30)
[2019-06-16] MEDS: CEFAZOLIN 1 GM/D5W 1 GM/50 ML BAG IVPB SCH (21:26)
[2019-06-16] MEDS: ACETAMINOPHEN 325 MG TABLET (FP) PO PRN (21:41)
[2019-06-16] MEDS ORDERED: ZOLPIDEM TARTRATE 5 MG TABLET PO PRN (22:00)
[2019-06-17] MEDS: CEFAZOLIN 1 GM/D5W 1 GM/50 ML BAG IVPB SCH ×4 (03:14→20:02)
[2019-06-17] MEDS: oxyCODONE HCL 5 MG TABLET PO PRN ×4 (07:02→20:03)
[2019-06-17] MEDS: ONDANSETRON 4 MG/2 ML VIAL IVPUSH PRN ×2 (07:03→12:14)
--- NOTE | 2019-06-17 08:00 | PN ---
Progress Note (short form) - Note Progress Note: POD 1, s/p Right nipple sparing breast mastectomy, right axillary clip localization, right sentinel lymph node biopsy, right axillary lymph node dissection, right breast reconstruction with tissue director social/alloderm Pt seen and examined. Reports pain overnight, improved with pain regimen. Has been oob to restroom voiding without issue. Tolerating small amounts of clears with no vomiting, +nausea. Denies cp/sob, calf pain. Vital Signs Temp 98.0 F 06/17/19 04:00 Pulse 80 06/17/19 04:00 Resp 18 06/17/19 04:00 BP 87/50 L 06/17/19 04:00 Pulse Ox 100 06/17/19 04:00 Intake & Output 06/16/19 06/16/19 06/17/19 11:59 23:59 11:59 Intake Total 1400 Output Total 602 60 Balance 798 -60 Weight 145 lb Intake: IV 1400 Output: Drainage 127 60 #1R 40 40 #2R 25 20 Urine 400 Void 400 Estimated Blood Loss 75 Other: Voiding Method Toilet Toilet Height 5 ft 5 in Body Mass Index (BMI) 24.1 Weight Measurement Method Stated by Patient CBC, BMP 06/17/19 07:07 Gen: awake, alert, nad, mom at bedside Resp: Unlabored on RA Chest: Dressings/bra c/d/i, R breast with +ecchymosis/edema, + ttp, inframammary crease steristrips intact with no erythema or drainage, wound in axilla with steristrips intact, no erythema or drainage. Jps in place, minimal serosanguinous drainage in reservoir, tubing stripped. A/P: 33 y/o F PMhx Gastritis, Peptic Ulcer Disease, invasive ductal carcinoma with mets to lymph node (ER/NC+ and HER2 +) s/p neoadjuvant chemotherapy, now POD 1, s/p Right nipple sparing breast mastectomy, right axillary clip localization, right sentinel lymph node biopsy, right axillary lymph node dissection, right breast reconstruction with tissue director social/alloderm. D/w DI Molina, will add Valium for additional pain control Exam stable Boo output #1- 40ml overnight (80ml since OR) #2- 25 ml overnight (45ml since OR) -Labs stable -Monitor and record drain outputs -Keep bra/dressings c/d/i -Remainder of care per Dr Dubon d/w attending Dr Rizo
[2019-06-17 08:13] LABS: HEMATOCRIT 30.1 % (32.4-45.2); HEMOGLOBIN 10.1 GM/dl (10.7-15.3); MCH 28.8 pg (25.7-33.7); MCHC 33.8 g/dl (32.0-36.0); MEAN CELL VOLUME 85.2 fl (80-96); MEAN PLT VOLUME 9.3 fl (7.5-11.1); PLATELET COUNT 186 K/MM3 (134-434); RBC 3.53 M/mm3 (3.60-5.2); RDW 11.9 % (11.6-15.6); WHITE BLOOD COUNT 8.9 K/mm3 (4.0-10.8)
[2019-06-17] MEDS: HEPARIN NA (PORCINE) 5,000 UNITS/ML 1ML VIAL SQ SCH ×2 (08:24→20:03)
[2019-06-17] MEDS: ACETAMINOPHEN 325 MG TABLET (FP) PO PRN ×2 (08:25→20:02)
--- NOTE | 2019-06-17 09:11 | OP ---
DATE OF OPERATION: 06/16/2019 PREOPERATIVE DIAGNOSIS: Right breast cancer, upper outer quadrant, status post neoadjuvant chemotherapy. POSTOPERATIVE DIAGNOSIS: Right breast cancer, upper outer quadrant, status post neoadjuvant chemotherapy. PROCEDURE: Right breast nipple-sparing mastectomy with right axillary sentinel lymph node biopsy, followed by axillary lymph node dissection with subpectoral field clerk reconstruction with acellular dermal matrix. PRIMARY SURGEON: Abhishek Dubon MD GAS REFRIGERATOR SERVICER: Shannon Nunez, physician web marketing assistant PRIMARY SURGEON FOR THE ELECTRONIC EQUIPMENT MAINT TECH RECONSTRUCTION WITH ACELLULAR DERMAL MATRIX: Abhishek Rizo MD ANESTHESIA: General endotracheal anesthesia. There were no complications. INDICATION: Briefly, the patient is a 33-year-old pre-menopausal female of -[place] descent with a family history of two maternal great-aunts with breast cancer at age 75 and age 80. She has a maternal uncle who had colon cancer at age 41. The patient noticed a right lateral breast mass in October 2018 and mammography and ultrasound showed extensive calcifications in the right breast upper outer quadrant, extending toward the retroareolar region. An ultrasound showed a 3.2-cm mass in the right breast at the 9 o'clock region with a suspicious right axillary lymph node. Ultrasound core biopsy of the 9 o'clock density showed poorly-differentiated invasive duct cancer which was ER/ND positive, HER-2 positive, with a Ki-67 of 25%. The axillary lymph node biopsy was also positive for metastatic disease. An MRI showed extensive enhancement in the lateral aspect of the right breast, measuring almost 5 cm with two to three involved lymph nodes. She underwent neoadjuvant chemotherapy with Dr. Nancy Toledo with Herceptin-based chemotherapy. MRI after chemotherapy showed a complete radiologic response to therapy and clinically, she had no suspicious findings after neoadjuvant chemotherapy. The patient was advised on undergoing mastectomy, given the initial extent of disease, and actually wanted to have bilateral mastectomies, but given the fact that she was going to need post-mastectomy radiation, it was felt that she should just have unilateral right breast mastectomy at this time with field clerk reconstruction and she was seen by plastic surgery preoperatively. She understood the need for sentinel lymph node biopsy, localization of the previous positive node at the time of surgery and the possible need for an axillary lymph node dissection. PROCEDURE IN DETAIL: The patient was brought in for the procedure on June 16, 2019. She had lymphoscintigraphy with a periareolar injection of technetium-99 performed at [facility] the morning of the procedure. She was brought to the [place] holding area and in the holding area, sight verification was made and informed consent was obtained. She was marked preoperatively by the plastic surgeon. She was brought into the operating room and laid on the OR table in the supine position. Venodynes were placed on her lower extremities prior to induction. She received 1 gram of Ancef prior to incision. She initially underwent general laryngeal mask airway anesthesia which had to be converted to general endotracheal anesthesia at the beginning of the case. The right breast was sterilely prepped and draped in the usual fashion. No blue dye was given since we were performing a nipple-sparing procedure. Once she was properly anesthetized and sterilely prepped and draped, a timeout was performed. The right breast nipple-sparing mastectomy was performed through a 9-cm inframammary incision which was marked out using the plastic surgeon's preoperative desir. The incision was made, the skin edges were everted and the breast was retracted inferiorly using Jethro clamps. Prior to performing the mastectomy however, the sentinel lymph node biopsy and removal of the axillary wire, which was placed preoperatively into the previously positive node, were performed. Incision was made at the exit site of the wire from the skin and dissection was undertaken. The wire was removed with the surrounding axillary tissue. Specimen radiograph of this showed removal of the clip in question and the clip was noted to be present within the lymph node, which was sent to pathology for frozen section as right axillary sentinel lymph node biopsy with clip. This had a 10-second gamma count of 1374. Frozen section of this node came back negative. A separate, however, palpable firm node was sent separately for frozen section as sentinel lymph node no. 2 and this was positive on frozen section, so an axillary lymph node dissection was undertaken at the end of the mastectomy. The nipple-sparing mastectomy was performed after the sentinel lymph node procedure. The skin edges were everted and the breast was retracted inferiorly using Miller clamps. The skin flap was raised using a PEAK radiofrequency device, raising the skin slap superiorly to the level of the clavicle, medially to the level of the sternum, laterally to the level of the latissimus. and inferiorly below the level of the inframammary fold. The breast was taken down off the pectoralis major muscle from inferomedial to superolateral and completely removed intact. This was oriented with a long lateral, short superior suture and weighed to allow for appropriate cosmetic result. Specimen radiograph of the right breast was performed, showed removal of the clip in question. It was sent to pathology in formalin. Separate margin was taken on the anterior aspect and sent separately to pathology as anterolateral margin with a suture marking the biopsy cavity site. A retroareolar biopsy was also taken and sent for frozen section. It came back negative so the right nipple was spared. Hemostasis was achieved and the wound was copiously irrigated. At this point, the axillary lymph node dissection was undertaken through the inframammary incision. We were able to get exposure into the right axilla and a level 1 and level 2 axillary lymph node dissection was performed using the axillary vein as the superior border of the dissection, the latissimus as the lateral border of the dissection and the pectoralis minor as the medial border of the dissection. The nodes were completely removed from within these borders and sent separately for pathology as right axillary lymph node dissection and hemostasis was achieved. At this point, Dr. Rizo became the primary surgeon and performed the field clerk reconstruction using acellular dermal matrix. This will be dictated separately by plastic surgery. At this point in the case, all sponge and needle counts were correct. Estimated blood loss was about 100 mL. She was hemodynamically stable. We did use the SPY skin perfusion device, showing good perfusion of the skin flap and nipple at the end of the mastectomy. The patient will be recovered in the post-anesthesia care unit after the field clerk reconstruction and then will be admitted postoperatively for pain and wound management. MD DIANA Blake/[id number]
--- NOTE | 2019-06-17 09:23 | PN ---
Progress Note, Physician Chief Complaint: Right breast cancer S/P Right NS modified radical mastectomy alloderm bag mender reconstruction POD#! History of Present Illness: patient is eating small amount, C/O tightness and pain using oxycodone, will add valium prn - Current Medication List Current Medications: Active Medications Acetaminophen (Tylenol -) 650 mg PO Q4H PRN PRN Reason: FEVER Last Admin: 06/17/19 08:25 Dose: 650 mg Diazepam (Valium -) 5 mg PO Q8H [facility] Docusate Sodium (Colace -) 100 mg PO BID PRN PRN Reason: CONSTIPATION Heparin Sodium (Porcine) (Heparin -) 5,000 unit SQ BID@0800,2000 [facility] Last Admin: 06/17/19 08:24 Dose: 5,000 unit Lactated Ringer's (Lactated Ringers Solution) 1,000 mls @ 75 mls/hr IV ASDIR BRENNON Last Admin: 06/16/19 19:10 Dose: Not Given Cefazolin Sodium (Ancef 1 Gm Premixed Ivpb -) 1 gm in 50 mls @ 100 mls/hr IVPB Q6H-IV BRENNON Stop: 06/23/19 20:59 Last Admin: 06/17/19 08:24 Dose: 100 mls/hr Dextrose/Sodium Chloride (D5-1/2ns -) 1,000 mls @ 100 mls/hr IV ASDIR BRENNON Last Admin: 06/16/19 19:08 Dose: 100 mls/hr Ondansetron HCl (Zofran Injection) 4 mg IVPUSH Q6H PRN PRN Reason: NAUSEA AND/OR VOMITING Last Admin: 06/17/19 07:03 Dose: 4 mg Oxycodone HCl (Roxicodone -) 5 mg PO Q4H PRN PRN Reason: PAIN LEVEL 1-5 Last Admin: 06/16/19 19:08 Dose: 5 mg Oxycodone HCl (Roxicodone -) 10 mg PO Q4H PRN PRN Reason: PAIN LEVEL 6-10 Last Admin: 06/17/19 07:02 Dose: 10 mg Pantoprazole Sodium (Protonix -) 40 mg PO DAILY [facility] Zolpidem Tartrate (Ambien -) 5 mg PO HS PRN PRN Reason: Insomnia Last Admin: 06/16/19 21:41 Dose: 5 mg - Objective Vital Signs: Vital Signs Temperature 98.0 F 06/17/19 04:00 Pulse Rate 80 06/17/19 04:00 Respiratory Rate 18 06/17/19 08:58 Blood Pressure 87/50 L 06/17/19 04:00 O2 Sat by Pulse Oximetry (%) 100 06/17/19 08:58 Constitutional: Yes: No Distress Breast(s): Yes: Other (Right breast flap viable +echymopsis moderate, incision intact with steristrips, no signs of infection or expanding hematoma, KEVIN drains functioning well,dressings were changed by Yumi SEVILLA) Labs: CBC, BMP 06/17/19 07:07 Problem List - Problems (1) Cancer of right breast Code(s): C50.911 - MALIGNANT NEOPLASM OF UNSP SITE OF RIGHT FEMALE BREAST Qualifiers: Breast location: unspecified site of breast Estrogen receptor status: positive Patient sex: female Qualified Code(s): C50.911 - Malignant neoplasm of unspecified site of right female breast; Z17.0 - Estrogen receptor positive status [ER+] Assessment/Plan IV antibiotic oxycodone//tylenol prn pain/added valium prn SCD in bed ambulate with asistance Spirometry IV antibiotics plan for discharge tomorrow
[2019-06-17] MEDS: PANTOPRAZOLE 40 MG TABLET (FP) PO SCH (10:33)
[2019-06-17] MEDS: diazePAM 5 MG TABLET PO PRN ×2 (10:35→20:03)
--- NOTE | 2019-06-17 12:06 | PN ---
Progress Note (short form) - Note Progress Note: ANESTHESIA POSTOP 33 YO FEMALE POD#1 S/P MASTECTOMY WITH RECONSTRUCTION, GETA Patient resting in bed. Pain responsive to medications. VSS, Afebrile Encouraged IS and ambulation
[2019-06-18] MEDS: CEFAZOLIN 1 GM/D5W 1 GM/50 ML BAG IVPB SCH ×3 (03:36→14:14)
[2019-06-18] MEDS: oxyCODONE HCL 5 MG TABLET PO PRN (06:14)
[2019-06-18] MEDS: ACETAMINOPHEN 325 MG TABLET (FP) PO PRN ×3 (06:15→17:48)
[2019-06-18] MEDS: diazePAM 5 MG TABLET PO PRN (06:15)
[2019-06-18] MEDS: HEPARIN NA (PORCINE) 5,000 UNITS/ML 1ML VIAL SQ SCH (08:19)
[2019-06-18] MEDS: PANTOPRAZOLE 40 MG TABLET (FP) PO SCH (09:26)
[2019-06-18 11:30] VITALS: BP 104/64; PULSE 88; TEMP 98.7
--- NOTE | 2019-06-19 15:33 | OP ---
DATE OF OPERATION: 06/16/2019 SURGEON: Christiana Rizo MD FACILITY ATTENDANT SURGEON: DI Carvajal PREOPERATIVE DIAGNOSIS: Right acquired chest wall deformity, status post right mastectomy. POSTOPERATIVE DIAGNOSIS: Right acquired chest wall deformity, status post right mastectomy. OPERATIVE PROCEDURE: 1. Immediate right breast reconstruction utilizing immediate insertion of tissue closed circuit screen watcher reconstruction. 2. Insertion of acellular dermal matrix for reconstruction. 3. SPY intraoperative angiogram. 4. Interpretation of SPY intraoperative angiogram. OPERATIVE INDICATIONS: The patient is a young woman who was brought to the operating room by Dr. Christiana Dubon for a right breast mastectomy for breast cancer. The risks and benefits of surgical versus nonsurgical alternatives as well as the material complications of reconstruction were described to the patient on multiple occasions preoperatively, including today in the holding area, where she was marked in the standing position. All questions were asked and answered. OPERATIVE PROCEDURE IN DETAIL: The patient was taken to the operating room by Dr. Dubon. The entire chest wall was painted with ChloraPrep solution over its entire extent, and then Dr. Dubon performed a right nipple-sparing mastectomy. At this point, after performing the mastectomy, attention was turned to the reconstruction. Once the reconstruction was begun, I created the reconstructive device on the back table. Using an SSP AlloX2 tissue closed circuit screen watcher, low pole plus mid height profile, this was placed onto a 15 x 15 sheet of Covidien ProGrip mesh and, using Cortiva 16 x 20 one-millimeter allograft acellular dermal matrix, this was placed into the pocket. Using 2-0 Vicryl sutures, the mesh and acellular dermal matrix was used to cover the entire device on the chest wall. This device was inserted and the tissue closed circuit screen watcher filled to 300 mL volume. Once this was placed into the pocket, it was tacked in position using number 1 V-Loc suture in a running fashion from 3 o'clock to 9 o'clock position. This gave good shape and contour to the reconstructed breast, and then two 15 Fer drains were brought out through separate stab wounds laterally and the skin and subcutaneous tissue was advanced and closed upon itself. This was closed over the device itself and then Dermabond and Steri-Strip dressing was placed. The patient tolerated the procedure well. She was awakened, extubated, and transferred to the recovery room in a Surgi-Bra and tolerated procedure well. CHRISTIANA RIZO M.D. APOLINAR/[id number]
--- NOTE | 2019-06-20 11:30 | SURG ---
Surgery Final Finisher Forging Dies Note Final Finisher Forging Dies: Cesar Eason PA-C (Suzy) Date of Service: 06/16/19 Diagnosis: Right acquired chest wall deformity s/p right mastectomy for Right breast cancer Procedure: 1. Immediate right breast reconstruction utilizing immediate insertion of tissue supervising deputy 2. Insertion of acellular dermal matrix for reconstruction I was present for the entirety of the operative procedure. For further detail, please refer to operative report. Visit type - Case Type Case Type: Scheduled - Emergency Emergency Visit: No - New patient This patient is new to me today: Yes Date on this admission: 06/20/19 - Critical Care Critical Care patient: No
--- NOTE | 2019-06-21 16:25 | PATH ---
Surgical Pathology Report Patient Name: LISA CONWAY Med. Rec. #: [id number] /Age/Gender: 1985 (Age: 33) / F Account: [id number] Location: [facility] MED-SURG Taken: 06/16/2019 Received: 06/16/2019 Reported: 06/21/2019 Physicians: Abhishek Dubon M.D. Specimen(s) Received A: RIGHT AXILLARY SENTINEL LYMPH NODE #1 WITH CLIP (FS) B: RIGHT AXILLARY SENTINEL LYMPH NODE # 2 (FS) C: RIGHT BREAST RETROAREOLLAR BIOPSY (FS) D: EXTRA RIGHT AXILLARY SENTINEL LYMPH NODES E: RIGHT BREAST MASTECTOMY F: RIGHT BREAST ANTERIOR MARGIN G: RIGHT AXILLARY CONTENTS Clinical History Right breast CA Intraoperative Consult Diagnosis A. Right axillary sentinel lymph node #1 with clip, frozen section: Lymph node showing fibrous scar and prior biopsy site changes. No metastatic carcinoma is identified. (0/). B. Right axillary sentinel lymph node #2, frozen section: One lymph node, positive for metastatic carcinoma (1/). C. Right breast retroareolar biopsy, frozen section: Negative for malignancy. Branden Fisher 06/16/19 Final Diagnosis A. lymph node, right axillary sentinel #1 with clip, excision (FS): One lymph node showing isolated tumor cells (ITC; < 0.2 mm), seen on H&E STAINED permanent sections and cytokeratin (AE 1/3) immunostain. Note: The lymph node shows area of fibrous scar, consistent with treated metastatic tumor. B. lymph node, right axillary sentinel #2, excision (FS): Metastatic carcinoma, involving one of one lymph node, identified on H&E stained sections. (1/1) the Focus of metastatic carcinoma measures 1.5 mm in greatest dimension (micrometastasis). No extranodal extension is identified. C. Retroareola, right, biopsy (FS): Benign breast tissue; negative for malignancy. D. extra right axillary sentinel lymph nodes, excision: Benign breast tissue and fibrovascular tissue. No lymph nodes are identified. E. breast, right, total mastectomy: few scattered foci of invasive ductal carcinoma, well differentiated (TUBULE SCORE: 2/3, nuclear grade: 2/3, mitotic score: 1/3) ranging from < 1mm - 4 mm in greatest dimension, present in a background of extensive hyalinizing fibrosis with histiocytic/giant cell reaction, consistent with treated tumor BED tissue. RESIDUAL Carcinoma comprises approximately 5 % of the treated tumor bed tissue. Ductal carcinoma in situ (DCIS), high nuclear grade, with extensive necrosis and associated calcifications. Surgical margins are uninvolved by carcinoma; invasive carcinoma is focally at 2 mm from the closest (anterior) margin and DCIS is at 5 mm from the closest (anterior) margin. SEE SPECIMEN F FOR FINAL ANTERIOR MARGIN. No lymphovascular invasion is identified. Prior biopsy site changes are identified. Pathologic stage (ypTNM): ypT1a (m) ypN1(mi). see also invasive carcinoma Case summary below. Comment: Prior right breast and right axillary lymph node core biopsy is noted ([id number]; 11/22/18). F. breast, right, anterior margin, excision: Benign breast tissue. G. axillary contents, right, excision: nine BENIGN lymph nodes (0/9). Comments Breast Invasive Carcinoma: Surgical Pathology Case Summary (Based on AJCC TNM 8 th edition) Procedure _X_ Total mastectomy (including nipple-sparing and skin-sparing mastectomy) Specimen Laterality _X_ Right Tumor Size _X_ Greatest dimension of largest invasive focus >1 mm (millimeters): 4 mm Histologic Type _X_ Invasive carcinoma of no special type (ductal, not otherwise specified) Histologic Grade ([place] Histologic Score) Glandular (Acinar)/Tubular Differentiation _X_ Score 2 (10% to 75% of tumor area forming glandular/tubular structures) Nuclear Pleomorphism _X_ Score 2 Mitotic Rate _X_ Score 1 Overall Grade _X_ Grade 1 (scores of 3, 4, or 5) Tumor Focality _X_ Multiple foci of invasive carcinoma (multiple scattered foci of residual tumor in background of treated tumor bed tissue). Number of foci: cannot be determined Sizes of individual foci: < 1 mm -4 mm Ductal Carcinoma In Situ (DCIS) _X_ DCIS is present in specimen _X_ Negative for extensive intraductal component (EIC) Margins Invasive Carcinoma Margins _X_ Uninvolved by invasive carcinoma Distance from closest margin (millimeters): 2 mm Closest margin: anterior (final anterior margin F is negative for carcinoma) DCIS Margins _X_ Uninvolved by DCIS Distance from closest margin (millimeters): 5 mm Closest margin: anterior (final anterior margin F is negative for DCIS) Regional Lymph Nodes _X_ Involved by tumor cells Number of Lymph Nodes with Macrometastases (>2 mm): 0 Number of Lymph Nodes with Micrometastases (>0.2 mm to 2 mm and/or >200 cells): 1 Number of Lymph Nodes with Isolated Tumor Cells (=0.2 mm and =200 cells): 1 Size of Largest Metastatic Deposit (millimeters): 1.5 mm Extranodal Extension: _X_ Not identified Treatment Effect Treatment Effect in the Breast _X_ Probable or definite response to presurgical therapy in the invasive carcinoma Treatment Effect in the Lymph Nodes _X_ Probable or definite response to presurgical therapy in metastatic carcinoma Lymphovascular Invasion _X_ Not identified Pathologic Stage Classification (pTNM, AJCC 8th Edition) Primary Tumor (Invasive Carcinoma) (pT) _X_ ypT1a (m): Tumor >1 mm but =5 mm in greatest dimension (round any measurement >1.0-1.9mm to 2 mm) Regional Lymph Nodes (pN) Category (pN) _X_ pN1mi: Micrometastases (approximately 200 cells, larger than 0.2 mm, but none larger than 2.0 mm Biomarker Studies Results of ER, NH, Her2 and Ki67 studies will be reported separately in an addendum. Electronically Signed Josselin Zavala M.D. Addendum Reported: 06/24/2019 Addendum Diagnosis Results of ER and NH studies performed on block E12 at [facility] are as follows: ER (clone [id number] mouse monoclonal antibody by [employer]): > 95 % nuclear staining with strong intensity (positive). NH (clone16 mouse monoclonal antibody by [employer]): ~5 % nuclear staining with moderate to weak intensity (low positive). Results of Her2 (IHC) & Ki-67 studies performed on block E12 at [place], [place] ([id number]) are as follows: Her2 IHC (EP3 from [employer], formerly known as [id number], using Pérez Polymer Refine detection kit): 0 (negative). Ki-67: < 1% (low proliferative index). Positive and negative controls (internal if applicable) show appropriate results. Josselin Zavala M.D. Addendum Reported: 08/04/2019 Addendum Diagnosis Her2 FISH studies (requested by Dr. Nancy Perez) performed and interpreted at [facility] ([id number]) show the following: Her2: 2.2 CEP17: 1.9 Ratio: 1.2 Interpretation: Negative See Emerge report ([id number]) for additional details. Josselin Zavala M.D. Gross Description A. Received fresh for frozen section evaluation, labeled "right axillary sentinel lymph node #1 with clip" is a 2.5 x 1.5 x 0.5 cm lymph node with attached fatty tissue. A localizing needle is present within the specimen. The lymph node is bisected and shows a light clinton, nodular surface with focal dark clinton foci. A metallic clip is identified within the lymph node. Frozen section is performed on the lymph node. The frozen section residue is entirely submitted in two cassettes as follows: FSA1- one bisected half of lymph node; FSA2- other bisected half of lymph node. B. Received fresh for frozen section evaluation, labeled "right axillary sentinel node #2" is a 1 x 1 x 0.4 cm lymph node with attached fatty tissue. The lymph node is bisected and frozen section is performed on the lymph node. The frozen section residue is entirely submitted in one cassette. C. Received fresh for frozen section evaluation, labeled "right breast retroareolar biopsy" is a 1 x 0.8 x 0.2 cm portion of pink and red clinton soft tissue. Frozen section is performed on the specimen. The frozen section residue is entirely submitted in one cassette. /06/16/2019 D. Received in formalin, labeled "extra right axillary sentinel lymph nodes" is a 3.5 x 3 x 0.5 cm portion of fibroadipose tissue. No lymph nodes are identified within the tissue. Entirely submitted in three cassettes. E. Received in formalin, labeled "right breast, mastectomy" is a 14.2 x 12 x 4.3 cm" right breast mastectomy specimen. A long suture designates the lateral margin and a short suture indicates the superior margin, per the surgeon. There is no skin or nipple present. The anterior soft tissue margin is inked blue and the deep margin is inked black. Sectioning reveals ill-defined fibrous to firm foci in the upper outer quadrant (UOQ). Some of these foci abut the anterior soft tissue margin. A metallic clip is identified within this tissue. The remainder of the breast parenchyma is predominantly comprised of adipose tissue with rare white fibrous streaks and foci. System Controller sections are submitted in sixteen cassettes as follows: 7-13-vfeikij to firm foci in UOQ with anterior soft tissue margin (tissue with metallic clip in #1); 11-deep margin overlying fibrous to firm foci in UOQ; 12,13- additional fibrous to firm foci in UOQ; 14-lower outer quadrant; 15 -lower inner quadrant; 16- upper inner quadrant. Time to formalin fixation: 20 minutes Total formalin fixation time: approximately 29 hours F. Received in formalin, labeled "right breast, anterior margin" is a 5.5 x 3.6 x 1.0 cm portion of fibrous fatty tissue with a suture marking the biopsy cavity, side, per the surgeon. The margin opposite the suture is inked black. The specimen is serially sectioned and entirely submitted in nine cassettes. G. Received in formalin, labeled "right axillary contents" is a 6.5 x 5 x 1.5 cm aggregate of fragments of fibroadipose tissue. Multiple possible lymph nodes ranging from 0.3-2.2 cm are identified within the adipose tissue. The lymph nodes are entirely submitted in 6 cassettes as follows: 1, 2- one whole lymph node each; 2-5- two whole lymph nodes each; 6- three whole lymph nodes. AE/06/17/2019 ebram/06/16/2019
== END 2019-06-18 17:50 | disposition home or self-care (01) | DRG 362 ==
LOC: FM/S 07:13 → EDSTATUS 08:30 → FM/S 18:02
PROVIDERS: ADMIT Surgery Surgical Oncology; ATTEND Surgery Surgical Oncology
PROC: 4A1GXSH Monitoring of Skin and Breast Vascular Perfusion using Indocyanine Green Dye, External Approach (ICD-10-PCS; 2019-06-16)
PROC: 0HTT0ZZ Resection of Right Breast, Open Approach (ICD-10-PCS; principal; 2019-06-16 13:27)
PROC: 07B50ZX Excision of Right Axillary Lymphatic, Open Approach, Diagnostic (ICD-10-PCS; 2019-06-16 13:27)
PROC: 0HHT0NZ Insertion of Tissue Expander into Right Breast, Open Approach (ICD-10-PCS; 2019-06-16 13:27)
DX: C50.411 Malignant neoplasm of upper-outer quadrant of right female breast (principal); C77.3 Secondary and unspecified malignant neoplasm of axilla and upper limb lymph nodes; Z17.0 Estrogen receptor positive status [ER+]; M95.4 Acquired deformity of chest and rib; F12.90 Cannabis use, unspecified, uncomplicated; K29.70 Gastritis, unspecified, without bleeding; G43.909 Migraine, unspecified, not intractable, without status migrainosus; D64.9 Anemia, unspecified; K27.9 Peptic ulcer, site unspecified, unspecified as acute or chronic, without hemorrhage or perforation
CPT/HCPCS: 19281; 36415; 78195-TC; 84703; 85027; 87389; 88307-TC; 88331-TC; 88342-TC; 94760; A9541; J1644

== ENCOUNTER 2019-06-22 07:16 | Day surgery (SDC) | payer OTHER ==
[2019-06-22] MEDS ORDERED: LIDOCAINE HCL 1%, 10 MG/ML (20ML VIAL) ID ONE ×2 (09:30→09:45)
[2019-06-22] MEDS ORDERED: GOSERELIN ACETATE 3.6 MG IMPLANT SYRINGE SQ ONE (09:30)
[2019-06-22 09:53] VITALS: PULSE 84
[2019-06-22 10:29] LABS: BASO % 0.8 % (0-2.0); EOS % 4.4 % (0-4.5); HEMATOCRIT 31.5 % (32.4-45.2); HEMOGLOBIN 10.3 GM/dL (10.7-15.3); LYMPH % 22.9 % (8-40); MCH 27.6 pg (25.7-33.7); MCHC 32.7 g/dl (32.0-36.0); MEAN CELL VOLUME 84.5 fl (80-96); MEAN PLT VOLUME 8.6 fl (7.5-11.1); MONO % 2.8 % (3.8-10.2); NEUT % 69.1 % (42.8-82.8); PLATELET COUNT 237 K/MM3 (134-434); RBC 3.73 M/mm3 (3.60-5.2); RDW 12.6 % (11.6-15.6); WHITE BLOOD COUNT 6.7 K/mm3 (4.0-10.0)
[2019-06-22 10:54] LABS: BILIRUBIN,TOTAL 0.2 mg/dL (0.2-1); BLOOD UREA NITROGEN 13.4 mg/dL (7-18); CALCIUM 9.6 mg/dL (8.5-10.1); CREATININE 0.8 mg/dL (0.55-1.3); TOT PROT 7.7 g/dl (6.4-8.2)
[2019-06-22 11:23] VITALS: BP 97/72; TEMP 97.6
== END 2019-06-22 10:30 | disposition home or self-care (01) ==
LOC: JONCCHEMO 07:16 → J7W 10:05 → JONCCHEMO 10:30
PROVIDERS: ATTEND Internal Medicine Hematology & Oncology
DX: Z51.11 Encounter for antineoplastic chemotherapy (principal); C50.911 Malignant neoplasm of unspecified site of right female breast
CPT/HCPCS: 36415; 80053; 82670; 85025; 96402; J9202

== ENCOUNTER 2019-07-22 06:21 | Day surgery (SDC) | payer OTHER ==
[2019-07-22] MEDS ORDERED: LIDOCAINE HCL 1%, 10 MG/ML (20ML VIAL) ID ONE (10:00)
[2019-07-22] MEDS ORDERED: GOSERELIN ACETATE 3.6 MG IMPLANT SYRINGE SQ ONE (10:00)
[2019-07-22 11:49] LABS: BASO % 0.7 % (0-2.0); EOS % 2.8 % (0-4.5); HEMATOCRIT 34.6 % (32.4-45.2); HEMOGLOBIN 11.4 GM/dL (10.7-15.3); LYMPH % 25.5 % (8-40); MCH 26.6 pg (25.7-33.7); MEAN CELL VOLUME 80.6 fl (80-96); MEAN PLT VOLUME 8.5 fl (7.5-11.1); MONO % 4.6 % (3.8-10.2); NEUT % 66.4 % (42.8-82.8); PLATELET COUNT 211 K/MM3 (134-434); RBC 4.29 M/mm3 (3.60-5.2); RDW 12.7 % (11.6-15.6)
[2019-07-22 12:20] LABS: ALBUMIN 4.5 g/dl (3.4-5.0); BILIRUBIN,TOTAL 0.4 mg/dL (0.2-1); BLOOD UREA NITROGEN 13.4 mg/dL (7-18); CALCIUM 9.9 mg/dL (8.5-10.1); CREATININE 0.9 mg/dL (0.55-1.3); MAGNESIUM 1.5 mg/dL (1.8-2.4); POTASSIUM 3.6 mmol/L (3.5-5.1)
[2019-07-22] MEDS ORDERED: MAGNESIUM OXIDE 400 MG TABLET (FP) PO ONE (13:15)
[2019-07-22 13:42] VITALS: BP 113/75; PULSE 83; TEMP 97.9
== END 2019-07-22 13:35 | disposition home or self-care (01) ==
LOC: JONCCHEMO 06:21 → J7W 12:56 → JONCCHEMO 13:35
PROVIDERS: ATTEND Internal Medicine Hematology & Oncology
DX: Z51.11 Encounter for antineoplastic chemotherapy (principal); C50.911 Malignant neoplasm of unspecified site of right female breast
CPT/HCPCS: 36415; 80053; 83735; 85025; 96402; J9202

== ENCOUNTER 2019-07-27 05:50 | Day surgery (SDC) | payer OTHER ==
[2019-07-27] MEDS ORDERED: ACETAMINOPHEN 325 MG TABLET (FP) PO ONE (10:00)
[2019-07-27] MEDS ORDERED: DIPHENHYDRAMINE 25 MG in SODIUM CHLORIDE 50 ML IVPB ONE (10:00)
[2019-07-27] MEDS ORDERED: SODIUM CHLORIDE IVPB ONE (10:30)
[2019-07-27] MEDS ORDERED: ADO TRASTUZUMAB EMTANSINE IVPB ONE (10:30)
[2019-07-27 11:18] LABS: BASO % 0.6 % (0-2.0); EOS % 3.8 % (0-4.5); HEMATOCRIT 34.7 % (32.4-45.2); HEMOGLOBIN 11.4 GM/dL (10.7-15.3); LYMPH % 27.7 % (8-40); MCH 26.6 pg (25.7-33.7); MCHC 32.8 g/dl (32.0-36.0); MEAN CELL VOLUME 81.2 fl (80-96); MEAN PLT VOLUME 9.2 fl (7.5-11.1); MONO % 3.3 % (3.8-10.2); NEUT % 64.6 % (42.8-82.8); PLATELET COUNT 200 K/MM3 (134-434); RBC 4.28 M/mm3 (3.60-5.2); RDW 12.9 % (11.6-15.6); WHITE BLOOD COUNT 5.7 K/mm3 (4.0-10.0)
[2019-07-27 11:54] LABS: ALBUMIN 4.2 g/dl (3.4-5.0); BILIRUBIN,TOTAL 0.2 mg/dL (0.2-1); BLOOD UREA NITROGEN 9.8 mg/dL (7-18); CALCIUM 9.6 mg/dL (8.5-10.1); CREATININE 0.8 mg/dL (0.55-1.3); MAGNESIUM 1.6 mg/dL (1.8-2.4); POTASSIUM 3.8 mmol/L (3.5-5.1); TOT PROT 7.5 g/dl (6.4-8.2)
[2019-07-27] MEDS ORDERED: MAGNESIUM SULF 50% (8.12 MEQ/2 ML-1 GM VIAL) ONE (12:23)
[2019-07-27] MEDS ORDERED: MAGNESIUM SULF 50% (8.12 MEQ/2 ML-1 GM VIAL) IVPB ONE (12:31)
[2019-07-27 15:54] VITALS: BP 104/60; TEMP 98
[2019-07-27] MEDS ORDERED: PORTA CATH FLUSH 10 ML IVPUSH ONE (15:54)
[2019-07-27 15:55] VITALS: PULSE 64
== END 2019-07-27 15:50 | disposition home or self-care (01) ==
LOC: JONCCHEMO 05:50 → J7W 12:13 → JONCCHEMO 15:50
PROVIDERS: ATTEND Internal Medicine Hematology & Oncology
DX: Z51.11 Encounter for antineoplastic chemotherapy (principal); C50.911 Malignant neoplasm of unspecified site of right female breast
CPT/HCPCS: 36415; 80053; 83735; 84703; 85025; 96367; 96375; 96413; J9354

== ENCOUNTER 2019-08-17 05:38 | Day surgery (SDC) | payer OTHER ==
[2019-08-17] MEDS ORDERED: GOSERELIN ACETATE 3.6 MG IMPLANT SYRINGE SQ ONE (10:00)
[2019-08-17 10:10] LABS: BASO % 0.8 % (0-2.0); EOS % 4.5 % (0-4.5); HEMATOCRIT 34.7 % (32.4-45.2); HEMOGLOBIN 11.6 GM/dL (10.7-15.3); LYMPH % 37.8 % (8-40); MCH 26.1 pg (25.7-33.7); MCHC 33.4 g/dl (32.0-36.0); MEAN CELL VOLUME 78.2 fl (80-96); MEAN PLT VOLUME 8.8 fl (7.5-11.1); MONO % 4.5 % (3.8-10.2); NEUT % 52.4 % (42.8-82.8); PLATELET COUNT 233 K/MM3 (134-434); RBC 4.43 M/mm3 (3.60-5.2); WHITE BLOOD COUNT 6.9 K/mm3 (4.0-10.0)
[2019-08-17 10:42] LABS: ALBUMIN 4.2 g/dl (3.4-5.0); ALK PHOS 122 U/L (45-117); ANION GAP 6 MMOL/L (8-16); BILIRUBIN,TOTAL 0.2 mg/dL (0.2-1); CALCIUM 9.5 mg/dL (8.5-10.1); CHLORIDE 105 mmol/L (98-107); CO2 31 mmol/L (21-32); CREATININE 0.7 mg/dL (0.55-1.3); GLUCOSE,RANDOM 90 mg/dL (74-106); MAGNESIUM 1.9 mg/dL (1.8-2.4); POTASSIUM 3.7 mmol/L (3.5-5.1); SGOT/AST 26 U/L (15-37); SGPT/ALT 33 U/L (13-61); SODIUM 142 mmol/L (136-145); TOT PROT 7.6 g/dl (6.4-8.2)
[2019-08-17] MEDS ORDERED: ACETAMINOPHEN 325 MG TABLET (FP) PO ONE (11:30)
[2019-08-17] MEDS ORDERED: DIPHENHYDRAMINE 25 MG in SODIUM CHLORIDE 50 ML IVPB ONE (11:30)
[2019-08-17] MEDS ORDERED: ADO TRASTUZUMAB EMTANSINE IVPB ONE (12:00)
[2019-08-17] MEDS ORDERED: SODIUM CHLORIDE IVPB ONE (12:00)
[2019-08-17 14:18] VITALS: TEMP 97.6
[2019-08-17 14:39] VITALS: BP 107/70; PULSE 90
[2019-08-17] MEDS ORDERED: PORTA CATH FLUSH 10 ML IVPUSH ONE (14:39)
== END 2019-08-17 13:00 | disposition home or self-care (01) ==
LOC: JONCCHEMO 05:38 → J7W 10:50 → JONCCHEMO 13:00
PROVIDERS: ATTEND Internal Medicine Hematology & Oncology
DX: Z51.11 Encounter for antineoplastic chemotherapy (principal); C50.911 Malignant neoplasm of unspecified site of right female breast; C77.3 Secondary and unspecified malignant neoplasm of axilla and upper limb lymph nodes
CPT/HCPCS: 36415; 80053; 83735; 84702; 85025; 96375; 96402; 96411; 96413; J9202; J9354

== ENCOUNTER 2019-09-08 06:26 | Day surgery (SDC) | payer OTHER ==
[2019-09-08] MEDS ORDERED: ACETAMINOPHEN 325 MG TABLET (FP) PO ONE (10:00)
[2019-09-08] MEDS ORDERED: DIPHENHYDRAMINE 25 MG in SODIUM CHLORIDE 50 ML IVPB ONE (10:00)
[2019-09-08] MEDS ORDERED: [UNRECOGNIZED DRUG - OTHER] IVPB ONE (10:30)
[2019-09-08] MEDS ORDERED: ADO TRASTUZUMAB EMTANSINE IVPB ONE ×2 (10:30→14:00)
[2019-09-08 12:09] LABS: BASO % 0.6 % (0-2.0); EOS % 3.8 % (0-4.5); HEMATOCRIT 33.6 % (32.4-45.2); HEMOGLOBIN 11.1 GM/dL (10.7-15.3); LYMPH % 30.7 % (8-40); MCH 25.5 pg (25.7-33.7); MCHC 33.2 g/dl (32.0-36.0); MEAN CELL VOLUME 76.9 fl (80-96); MEAN PLT VOLUME 9.2 fl (7.5-11.1); MONO % 4.9 % (3.8-10.2); PLATELET COUNT 202 K/MM3 (134-434); RBC 4.37 M/mm3 (3.60-5.2); RDW 13.4 % (11.6-15.6); WHITE BLOOD COUNT 6.7 K/mm3 (4.0-10.0)
[2019-09-08 12:13] LABS: ALBUMIN 4.1 g/dl (3.4-5.0); BILIRUBIN,TOTAL 0.3 mg/dL (0.2-1); CALCIUM 9.3 mg/dL (8.5-10.1); CREATININE 0.7 mg/dL (0.55-1.3); MAGNESIUM 1.7 mg/dL (1.8-2.4); POTASSIUM 3.4 mmol/L (3.5-5.1); TOT PROT 7.6 g/dl (6.4-8.2)
[2019-09-08] MEDS ORDERED: POTASSIUM CHLORIDE ORAL LIQUID 20 MEQ/15 ML PO ONE (12:27)
[2019-09-08] MEDS ORDERED: MAGNESIUM SULF 50% (8.12 MEQ/2 ML-1 GM VIAL) IVPB ONE (12:27)
[2019-09-08] MEDS ORDERED: [UNRECOGNIZED DRUG - OTHER] IVPB ONE (14:00)
[2019-09-08 16:36] VITALS: BP 99/48; PULSE 74; TEMP 98
[2019-09-08] MEDS ORDERED: PORTA CATH FLUSH 10 ML IVPUSH ONE (16:36)
== END 2019-09-08 16:00 | disposition home or self-care (01) ==
LOC: JONCCHEMO 06:26 → J7W 13:07 → JONCCHEMO 16:00
PROVIDERS: ATTEND Internal Medicine Hematology & Oncology
DX: Z51.11 Encounter for antineoplastic chemotherapy (principal); C50.111 Malignant neoplasm of central portion of right female breast; C77.3 Secondary and unspecified malignant neoplasm of axilla and upper limb lymph nodes
CPT/HCPCS: 36415; 80053; 83735; 84703; 85025; 96367; 96375; 96413; J9354

== ENCOUNTER 2019-09-16 06:19 | Day surgery (SDC) | payer OTHER ==
[2019-09-16] MEDS ORDERED: LIDOCAINE HCL 1%, 10 MG/ML (20ML VIAL) ID ONE (10:00)
[2019-09-16] MEDS ORDERED: GOSERELIN ACETATE 3.6 MG IMPLANT SYRINGE SQ ONE (10:00)
[2019-09-16 10:59] LABS: ALBUMIN 3.9 g/dl (3.4-5.0); BILIRUBIN,TOTAL 0.2 mg/dL (0.2-1); BLOOD UREA NITROGEN 10.1 mg/dL (7-18); CALCIUM 9.4 mg/dL (8.5-10.1); CREATININE 0.7 mg/dL (0.55-1.3); MAGNESIUM 1.7 mg/dL (1.8-2.4); POTASSIUM 3.1 mmol/L (3.5-5.1); TOT PROT 7.6 g/dl (6.4-8.2)
[2019-09-16] MEDS ORDERED: POTASSIUM CHLORIDE ORAL LIQUID 20 MEQ/15 ML PO ONE (11:20)
[2019-09-16] MEDS ORDERED: MAGNESIUM OXIDE 400 MG TABLET (FP) PO ONE (11:21)
[2019-09-16 14:36] VITALS: BP 93/73; PULSE 76; TEMP 98
== END 2019-09-16 12:00 | disposition home or self-care (01) ==
LOC: JONCCHEMO 06:19 → J7W 10:35 → JONCCHEMO 12:00
PROVIDERS: ATTEND Internal Medicine Hematology & Oncology
DX: Z51.11 Encounter for antineoplastic chemotherapy (principal); C50.111 Malignant neoplasm of central portion of right female breast; C77.3 Secondary and unspecified malignant neoplasm of axilla and upper limb lymph nodes
CPT/HCPCS: 36415; 80053; 83735; 84703; 85025; 96402; J9202

== ENCOUNTER 2019-09-28 07:07 | Day surgery (SDC) | payer OTHER ==
[2019-09-28] MEDS ORDERED: DIPHENHYDRAMINE 25 MG in SODIUM CHLORIDE 50 ML IVPB ONE (10:00)
[2019-09-28] MEDS ORDERED: ACETAMINOPHEN 325 MG TABLET (FP) PO ONE (10:00)
[2019-09-28] MEDS ORDERED: ADO TRASTUZUMAB EMTANSINE IVPB ONE ×3 (10:30→13:45)
[2019-09-28] MEDS ORDERED: [UNRECOGNIZED DRUG - OTHER] IVPB ONE (10:30)
[2019-09-28 12:22] LABS: BASO % 0.9 % (0-2.0); EOS % 4.8 % (0-4.5); HEMATOCRIT 33.2 % (32.4-45.2); HEMOGLOBIN 11.2 GM/dL (10.7-15.3); LYMPH % 32.9 % (8-40); MCH 25.9 pg (25.7-33.7); MCHC 33.7 g/dl (32.0-36.0); MEAN CELL VOLUME 76.7 fl (80-96); MEAN PLT VOLUME 8.4 fl (7.5-11.1); MONO % 3.5 % (3.8-10.2); NEUT % 57.9 % (42.8-82.8); PLATELET COUNT 189 K/MM3 (134-434); RBC 4.33 M/mm3 (3.60-5.2); RDW 14.4 % (11.6-15.6); WHITE BLOOD COUNT 6.1 K/mm3 (4.0-10.0)
[2019-09-28 12:50] LABS: ALBUMIN 4.1 g/dl (3.4-5.0); BILIRUBIN,TOTAL 0.3 mg/dL (0.2-1); BLOOD UREA NITROGEN 11.4 mg/dL (7-18); CALCIUM 9.6 mg/dL (8.5-10.1); CREATININE 0.8 mg/dL (0.55-1.3); MAGNESIUM 1.5 mg/dL (1.8-2.4); POTASSIUM 3.4 mmol/L (3.5-5.1); TOT PROT 8.1 g/dl (6.4-8.2)
[2019-09-28] MEDS ORDERED: [UNRECOGNIZED DRUG - OTHER] IVPB ONE (13:15)
[2019-09-28] MEDS ORDERED: SODIUM CHLORIDE IVPB ONE (13:45)
[2019-09-28] MEDS ORDERED: GOSERELIN ACETATE 3.6 MG IMPLANT SYRINGE SQ ONE (14:00)
[2019-09-28] MEDS ORDERED: ACETAMINOPHEN 325 MG TABLET (FP) ONE (14:17)
[2019-09-28 14:33] VITALS: TEMP 97.7
[2019-09-28] MEDS ORDERED: PORTA CATH FLUSH 10 ML IVPUSH ONE (14:33)
[2019-09-28 15:20] VITALS: BP 90/50; PULSE 54
== END 2019-09-28 15:21 | disposition home or self-care (01) ==
LOC: JONCCHEMO 07:07 → J7W 13:34 → JONCCHEMO 15:21
PROVIDERS: ATTEND Internal Medicine Hematology & Oncology
DX: Z51.11 Encounter for antineoplastic chemotherapy (principal); C50.919 Malignant neoplasm of unspecified site of unspecified female breast
CPT/HCPCS: 36415; 80053; 82306; 82670; 83735; 85025; 96375; 96413; J9354

== ENCOUNTER 2019-10-12 07:07 | Day surgery (SDC) | payer OTHER ==
[2019-10-12] MEDS ORDERED: LIDOCAINE HCL 1%, 10 MG/ML (20ML VIAL) ID ONE (10:00)
[2019-10-12] MEDS ORDERED: GOSERELIN ACETATE 3.6 MG IMPLANT SYRINGE SQ ONE (10:00)
[2019-10-12 10:20] LABS: BASO % 0.7 % (0-2.0); EOS % 6.2 % (0-4.5); HEMOGLOBIN 11.2 GM/dL (10.7-15.3); LYMPH % 32.5 % (8-40); MCH 25.5 pg (25.7-33.7); MCHC 32.9 g/dl (32.0-36.0); MEAN CELL VOLUME 77.4 fl (80-96); MEAN PLT VOLUME 9.1 fl (7.5-11.1); MONO % 4.9 % (3.8-10.2); NEUT % 55.7 % (42.8-82.8); PLATELET COUNT 148 K/MM3 (134-434); RDW 14.7 % (11.6-15.6); WHITE BLOOD COUNT 5.9 K/mm3 (4.0-10.0)
[2019-10-12 10:49] LABS: BILIRUBIN,TOTAL 0.4 mg/dL (0.2-1); BLOOD UREA NITROGEN 10.4 mg/dL (7-18); CALCIUM 9.5 mg/dL (8.5-10.1); CREATININE 0.7 mg/dL (0.55-1.3); MAGNESIUM 1.7 mg/dL (1.8-2.4); POTASSIUM 3.6 mmol/L (3.5-5.1); TOT PROT 7.9 g/dl (6.4-8.2)
[2019-10-12 14:57] VITALS: BP 94/57; PULSE 72; TEMP 97.6
== END 2019-10-12 11:10 | disposition home or self-care (01) ==
LOC: JONCCHEMO 07:07 → J7W 11:02 → JONCCHEMO 11:10
PROVIDERS: ATTEND Internal Medicine Hematology & Oncology
DX: Z51.11 Encounter for antineoplastic chemotherapy (principal); C50.919 Malignant neoplasm of unspecified site of unspecified female breast
CPT/HCPCS: 36415; 80053; 83735; 85025; 96402; J9202

== ENCOUNTER → 2019-10-19 | Day surgery (SDC) | payer OTHER ==
[2019-10-19 11:54] LABS: BASO % 0.7 % (0-2.0); EOS % 4.8 % (0-4.5); HEMATOCRIT 33.2 % (32.4-45.2); LYMPH % 34.9 % (8-40); MCH 25.5 pg (25.7-33.7); MEAN CELL VOLUME 77.2 fl (80-96); MONO % 4.8 % (3.8-10.2); NEUT % 54.8 % (42.8-82.8); PLATELET COUNT 178 K/MM3 (134-434); RDW 14.8 % (11.6-15.6)
[2019-10-19 12:35] LABS: ALBUMIN 4.1 g/dl (3.4-5.0); BILIRUBIN,TOTAL 0.5 mg/dL (0.2-1); BLOOD UREA NITROGEN 10.8 mg/dL (7-18); CALCIUM 9.7 mg/dL (8.5-10.1); CREATININE 0.8 mg/dL (0.55-1.3); MAGNESIUM 1.8 mg/dL (1.8-2.4); POTASSIUM 3.8 mmol/L (3.5-5.1); TOT PROT 8.3 g/dl (6.4-8.2)
== END | disposition home or self-care (01) ==
LOC: JONCCHEMO 05:42
PROVIDERS: ATTEND Internal Medicine Hematology & Oncology
DX: Z53.8 Procedure and treatment not carried out for other reasons (principal)
CPT/HCPCS: 36415; 80053; 83735; 85025; 96365

== ENCOUNTER 2019-11-09 05:37 | Day surgery (SDC) | payer OTHER ==
[2019-11-09 09:57] LABS: BASO % 0.8 % (0-2.0); EOS % 6.7 % (0-4.5); HEMOGLOBIN 11.8 GM/dL (10.7-15.3); LYMPH % 31.1 % (8-40); MCH 25.7 pg (25.7-33.7); MCHC 32.8 g/dl (32.0-36.0); MEAN CELL VOLUME 78.2 fl (80-96); MONO % 4.5 % (3.8-10.2); NEUT % 56.9 % (42.8-82.8); PLATELET COUNT 177 K/MM3 (134-434); RDW 15.5 % (11.6-15.6); WHITE BLOOD COUNT 7.2 K/mm3 (4.0-10.0)
[2019-11-09] MEDS ORDERED: DIPHENHYDRAMINE 25 MG in SODIUM CHLORIDE 50 ML IVPB ONE (10:00)
[2019-11-09] MEDS ORDERED: ACETAMINOPHEN 325 MG TABLET (FP) PO ONE (10:00)
[2019-11-09] MEDS ORDERED: GOSERELIN ACETATE 3.6 MG IMPLANT SYRINGE SQ ONE (10:00)
[2019-11-09] MEDS ORDERED: LIDOCAINE HCL 1%, 10 MG/ML (20ML VIAL) ID ONE (10:00)
[2019-11-09 10:30] LABS: ALBUMIN 4.2 g/dl (3.4-5.0); BILIRUBIN,TOTAL 0.3 mg/dL (0.2-1); BLOOD UREA NITROGEN 16.5 mg/dL (7-18); CALCIUM 9.4 mg/dL (8.5-10.1); CREATININE 0.8 mg/dL (0.55-1.3); POTASSIUM 3.5 mmol/L (3.5-5.1); TOT PROT 8.1 g/dl (6.4-8.2)
[2019-11-09] MEDS ORDERED: [UNRECOGNIZED DRUG - OTHER] IVPB ONE (10:30)
[2019-11-09] MEDS ORDERED: ADO TRASTUZUMAB EMTANSINE IVPB ONE ×2 (10:30→11:30)
[2019-11-09] MEDS ORDERED: SODIUM CHLORIDE IVPB ONE (11:30)
[2019-11-09 16:51] VITALS: BP 101/56; PULSE 66; TEMP 98.5
== END 2019-11-09 13:40 | disposition home or self-care (01) ==
LOC: JONCCHEMO 05:37 → J7W 10:45 → JONCCHEMO 13:40
PROVIDERS: ATTEND Internal Medicine Hematology & Oncology
DX: Z51.11 Encounter for antineoplastic chemotherapy (principal); C50.919 Malignant neoplasm of unspecified site of unspecified female breast
CPT/HCPCS: 36415; 80053; 84703; 85025; 96372; 96375; 96413; J9202; J9354

== ENCOUNTER 2020-04-23 07:48 | Day surgery (SDC) | payer OTHER ==
[~2020-04-23 07:48] MED LIST changes: +ACETAMINOPHEN 325 MG TABLET (FP) PO ONE; +ADO TRASTUZUMAB EMTANSINE IVPB ONE; -BUPIVACAINE HCL/PF 0.25% (2.5MG/ML) 10 ML VIAL IJ ONE; -BUPIVACAINE LIPOSOME/PF (EXPAREL) 266 MG/20 ML VIAL NR ONE; +DIPHENHYDRAMINE 25 MG in SODIUM CHLORIDE 50 ML IVPB ONE; +[UNRECOGNIZED DRUG - OTHER] IVPB ONE
[2020-04-23] MEDS ORDERED: GOSERELIN ACETATE 3.6 MG IMPLANT SYRINGE SQ ONE (10:00)
[2020-04-23] MEDS ORDERED: ACETAMINOPHEN 325 MG TABLET (FP) PO ONE (10:00)
[2020-04-23] MEDS ORDERED: LIDOCAINE HCL 1%, 10 MG/ML (20ML VIAL) ID ONE (10:00)
[2020-04-23] MEDS ORDERED: DIPHENHYDRAMINE 25 MG in SODIUM CHLORIDE 50 ML IVPB ONE (10:00)
[2020-04-23] MEDS ORDERED: ADO TRASTUZUMAB EMTANSINE IVPB ONE (10:30)
[2020-04-23] MEDS ORDERED: [UNRECOGNIZED DRUG - OTHER] IVPB ONE (10:30)
[2020-04-23] MEDS ORDERED: LIDOCAINE 2.5%/PRILOCAINE 2.5% 30 GRAM TUBE TP ONE (12:00)
[2020-04-23 17:39] VITALS: BP 115/80; PULSE 100; TEMP 97.7
[2020-04-23] MEDS ORDERED: PORTA CATH FLUSH 10 ML IVPUSH ONE (17:39)
== END 2020-04-23 13:15 | disposition home or self-care (01) ==
LOC: JONCCHEMO 07:48
PROVIDERS: ATTEND Internal Medicine Hematology & Oncology
DX: Z51.11 Encounter for antineoplastic chemotherapy (principal); C50.919 Malignant neoplasm of unspecified site of unspecified female breast
CPT/HCPCS: 96367; 96402; 96413; J9202; J9354

== ENCOUNTER 2020-05-14 06:08 | Day surgery (SDC) | payer OTHER ==
[2020-05-14] MEDS ORDERED: ACETAMINOPHEN 325 MG TABLET (FP) PO ONE (09:30)
[2020-05-14] MEDS ORDERED: DIPHENHYDRAMINE 25 MG in SODIUM CHLORIDE 50 ML IVPB ONE (09:30)
[2020-05-14] MEDS ORDERED: [UNRECOGNIZED DRUG - OTHER] IVPB ONE (10:00)
[2020-05-14] MEDS ORDERED: ADO TRASTUZUMAB EMTANSINE IVPB ONE (10:00)
[2020-05-14 11:30] LABS: EOS % 6.4 % (0-4.5); HEMATOCRIT 34.6 % (32.4-45.2); HEMOGLOBIN 11.5 GM/dL (10.7-15.3); LYMPH % 30.2 % (8-40); MCHC 33.3 g/dl (32.0-36.0); MEAN CELL VOLUME 81.1 fl (80-96); MEAN PLT VOLUME 9.3 fl (7.5-11.1); MONO % 4.3 % (3.8-10.2); NEUT % 58.1 % (42.8-82.8); PLATELET COUNT 139 K/MM3 (134-434); RBC 4.27 M/mm3 (3.60-5.2); RDW 13.9 % (11.6-15.6); WHITE BLOOD COUNT 5.6 K/mm3 (4.0-10.0)
[2020-05-14 12:35] LABS: ALBUMIN 4.1 g/dl (3.4-5.0); BILIRUBIN,TOTAL 0.4 mg/dL (0.2-1); BLOOD UREA NITROGEN 9.6 mg/dL (7-18); CALCIUM 9.1 mg/dL (8.5-10.1); CREATININE 0.8 mg/dL (0.55-1.3); POTASSIUM 3.6 mmol/L (3.5-5.1); TOT PROT 7.6 g/dl (6.4-8.2)
[2020-05-14 16:20] VITALS: TEMP 98.1
[2020-05-14 16:21] VITALS: BP 101/56; PULSE 70
== END 2020-05-14 14:45 | disposition home or self-care (01) ==
LOC: JONCCHEMO 06:08
PROVIDERS: ATTEND Internal Medicine Hematology & Oncology
DX: Z51.11 Encounter for antineoplastic chemotherapy (principal); C50.919 Malignant neoplasm of unspecified site of unspecified female breast
CPT/HCPCS: 36415; 80053; 82306; 84703; 85025; 96375; 96413; J9354

== ENCOUNTER 2020-05-25 07:22 | Day surgery (SDC) | payer OTHER ==
[2020-05-25] MEDS ORDERED: LIDOCAINE HCL 1%, 10 MG/ML (20ML VIAL) ID ONE (10:00)
[2020-05-25] MEDS ORDERED: GOSERELIN ACETATE 3.6 MG IMPLANT SYRINGE SQ ONE (10:00)
[2020-05-25 12:12] LABS: EOS % 5.7 % (0-4.5); HEMATOCRIT 37.3 % (32.4-45.2); HEMOGLOBIN 12.1 GM/dL (10.7-15.3); LYMPH % 26.2 % (8-40); MCH 25.8 pg (25.7-33.7); MCHC 32.5 g/dl (32.0-36.0); MEAN CELL VOLUME 79.6 fl (80-96); MEAN PLT VOLUME 9.6 fl (7.5-11.1); MONO % 6.1 % (3.8-10.2); PLATELET COUNT 110 K/MM3 (134-434); RBC 4.69 M/mm3 (3.60-5.2); RDW 13.5 % (11.6-15.6); WHITE BLOOD COUNT 5.9 K/mm3 (4.0-10.0)
[2020-05-25 12:39] LABS: ALBUMIN 4.4 g/dl (3.4-5.0); BILIRUBIN,TOTAL 0.6 mg/dL (0.2-1); BLOOD UREA NITROGEN 11.7 mg/dL (7-18); CALCIUM 9.3 mg/dL (8.5-10.1); CREATININE 0.8 mg/dL (0.55-1.3); POTASSIUM 3.6 mmol/L (3.5-5.1); TOT PROT 8.4 g/dl (6.4-8.2)
[2020-05-25 17:17] VITALS: BP 102/60; PULSE 75; TEMP 98
[2020-05-25] MEDS ORDERED: PORTA CATH FLUSH 10 ML IVPUSH ONE (17:18)
== END 2020-05-25 11:40 | disposition home or self-care (01) ==
LOC: JONCCHEMO 07:22
PROVIDERS: ATTEND Internal Medicine Hematology & Oncology
DX: Z51.11 Encounter for antineoplastic chemotherapy (principal); C50.919 Malignant neoplasm of unspecified site of unspecified female breast
CPT/HCPCS: 36415; 80053; 84703; 85025; 96402; J9202

== ENCOUNTER 2020-06-08 08:16 | Day surgery (SDC) | payer OTHER ==
[2020-06-08] MEDS ORDERED: SODIUM CHLORIDE IVPB ONE (10:30)
[2020-06-08] MEDS ORDERED: ACETAMINOPHEN 325 MG TABLET (FP) PO ONE (10:30)
[2020-06-08] MEDS ORDERED: DIPHENHYDRAMINE 25 MG in SODIUM CHLORIDE 50 ML IVPB ONE (10:30)
[2020-06-08] MEDS ORDERED: ADO TRASTUZUMAB EMTANSINE IVPB ONE (10:30)
[2020-06-08 14:51] VITALS: TEMP 97.9
[2020-06-08 14:52] VITALS: BP 104/65; PULSE 70
== END 2020-06-08 11:20 | disposition home or self-care (01) ==
LOC: JONCCHEMO 08:16
PROVIDERS: ATTEND Internal Medicine Hematology & Oncology
DX: Z51.11 Encounter for antineoplastic chemotherapy (principal); C50.919 Malignant neoplasm of unspecified site of unspecified female breast
CPT/HCPCS: 36415; 84703; 96375; 96413; J9354

== ENCOUNTER 2020-06-22 06:17 | Day surgery (SDC) | payer OTHER ==
--- OUTSIDE RECORDS SUMMARY | 2020-06-22 06:29 | XMS ---
:1985 [facility] Support Name Relationship Address Phone UE, UNEMPLOYED Unavailable Unavailable Unavailable UE Unavailable Unavailable Unavailable ALBINA Unavailable Unavailable Unavailable KENTON CONWAY FATHER [address] [place] [address] Re-disclosure Warning The records that you are about to access may contain information from federally- assisted alcohol or drug abuse programs. If such information is present, then the following federally mandated warning applies: This information has been disclosed to you from records protected by federal confidentiality rules (42 CFR part 2). The federal rules prohibit you from making any further disclosure of this information unless further disclosure is expressly permitted by the written consent of the person to whom it pertains or as otherwise permitted by 42 CFR part 2. A general authorization for the release of medical or other information is NOT sufficient for this purpose. The Federal rules restrict any use of the information to criminally investigate or prosecute any alcohol or drug abuse patient.The records that you are about to access may contain highly sensitive health information, the redisclosure of which is protected by Article 27-F of the [facility] Public Health law. If you continue you may haveaccess to information: Regarding HIV / AIDS; Provided by facilities licensed or operated by the [facility] Office of Mental Health; or Provided by the [facility] Office for People With Developmental Disabilities. If such information is present, then the following [facility] mandated warning applies: This information has been disclosed to you from confidential records which are protected by state law. State law prohibits you from making any further disclosure of this information without the specific written consent of the person to whom it pertains, or as otherwise permitted by law. Any unauthorized further disclosure in violation of state law may result in a fine or fci sentence or both. A general authorization for the release of medical or other information is NOT sufficient authorization for further disclosure. Insurance Providers Payer name Policy type Policy ID Covered Covered libertarian's Policy P thelma / Coverage libertarian ID relationship to Solorio Inf ormation type solorio GERALDINE [id number] SP [id number] 600 HEALTH NON CAP MEDICAID [id number] SP [id number] GERALDINE [id number] SP [id number] 600 HEALTH NON CAP MEDICAID [id number] SP [id number] GERALDINE [id number] SP [id number] 600 HEALTH NON CAP GERALDINE [id number] SP [id number] 600 HEALTH NON CAP [address] [id number] SP [id number] [facility] AFFINITY [id number] SP [id number] 400 AFFINITY [id number] SP [id number] 400 SELF PAY SP INSURANCE
[2020-06-22] MEDS ORDERED: GOSERELIN ACETATE 3.6 MG IMPLANT SYRINGE SQ ONE (10:00)
[2020-06-22] MEDS ORDERED: LIDOCAINE HCL 1%, 10 MG/ML (20ML VIAL) ID ONE (10:00)
[2020-06-22 15:57] VITALS: BP 121/73; PULSE 78; TEMP 98.3
== END 2020-06-22 12:20 | disposition home or self-care (01) ==
LOC: JONCCHEMO 06:17
PROVIDERS: ATTEND Internal Medicine Hematology & Oncology
DX: Z51.11 Encounter for antineoplastic chemotherapy (principal); C50.919 Malignant neoplasm of unspecified site of unspecified female breast
CPT/HCPCS: 96402; J9202

== ENCOUNTER 2020-06-29 07:23 | Day surgery (SDC) | payer OTHER ==
--- OUTSIDE RECORDS SUMMARY | 2020-06-29 07:28 | XMS ---
:1985 Author [facility] Support Name Relationship Address Phone UE, UNEMPLOYED Unavailable Unavailable Unavailable UE Unavailable Unavailable Unavailable ALBINA Unavailable Unavailable Unavailable KENTON CONWAY FATHER [address] [place] [address] Re-disclosure Warning The records that you are [...] is protected by Article 27-F of the [facility] Public Health law. If you continue you may haveaccess to information: Regarding HIV / AIDS; Provided by facilities licensed or operated by the [facility] Office of Mental Health; or Provided by the [facility] Office for People With Developmental Disabilities. If such information is present, then the following [facility] mandated warning applies: This information has been [...] law may result in a fine or chcf sentence or both. A general authorization for the release of medical or other information is NOT sufficient authorization for further disclosure. Insurance Providers Payer name Policy type Policy ID Covered Covered green party's Policy P thelma / Coverage green party ID relationship to [employer] Inf ormation type solorio GERALDINE [id number] SP [id number] 600 HEALTH NON CAP MEDICAID [id number] SP [id number] GERALDINE [id number] SP [id number] 600 HEALTH NON CAP MEDICAID [id number] SP [id number] GERALDINE [id number] SP [id number] 600 HEALTH NON CAP GERALDINE [id number] SP [id number] 600 HEALTH NON CAP [address] [id number] SP [id number] [facility] AFFINITY [id number] SP [id number] 400 AFFINITY [id number] SP [id number] 400 SELF PAY SP INSURANCE
[2020-06-29] MEDS ORDERED: DIPHENHYDRAMINE 25 MG in SODIUM CHLORIDE 50 ML IVPB ONE (10:00)
[2020-06-29] MEDS ORDERED: ACETAMINOPHEN 325 MG TABLET (FP) PO ONE (10:00)
[2020-06-29 10:06] LABS: BASO % 0.6 % (0-2.0); EOS % 6.5 % (0-4.5); HEMATOCRIT 36.1 % (32.4-45.2); HEMOGLOBIN 12.2 GM/dL (10.7-15.3); LYMPH % 16.9 % (8-40); MCH 26.7 pg (25.7-33.7); MCHC 33.8 g/dl (32.0-36.0); MEAN CELL VOLUME 79.1 fl (80-96); MEAN PLT VOLUME 8.9 fl (7.5-11.1); MONO % 5.8 % (3.8-10.2); NEUT % 70.2 % (42.8-82.8); PLATELET COUNT 107 K/MM3 (134-434); RBC 4.56 M/mm3 (3.60-5.2); RDW 13.1 % (11.6-15.6); WHITE BLOOD COUNT 6.1 K/mm3 (4.0-10.0)
[2020-06-29] MEDS ORDERED: ADO TRASTUZUMAB EMTANSINE IVPB ONE (10:30)
[2020-06-29] MEDS ORDERED: [UNRECOGNIZED DRUG - OTHER] IVPB ONE (10:30)
[2020-06-29 10:44] LABS: BILIRUBIN,TOTAL 0.5 mg/dL (0.2-1); BLOOD UREA NITROGEN 11.4 mg/dL (7-18); CALCIUM 9.2 mg/dL (8.5-10.1); CREATININE 0.7 mg/dL (0.55-1.3); POTASSIUM 3.7 mmol/L (3.5-5.1)
[2020-06-29 15:34] VITALS: TEMP 98.3
[2020-06-29 15:49] VITALS: BP 107/73; PULSE 70
[2020-06-29] MEDS ORDERED: PORTA CATH FLUSH 10 ML IVPUSH ONE (15:50)
== END 2020-06-29 13:35 | disposition home or self-care (01) ==
LOC: JONCCHEMO 07:23
PROVIDERS: ATTEND Internal Medicine Hematology & Oncology
PROC: 3E04305 Introduction of Other Antineoplastic into Central Vein, Percutaneous Approach (ICD-10-PCS; principal; 2020-06-29)
PROC: 3E043GC Introduction of Other Therapeutic Substance into Central Vein, Percutaneous Approach (ICD-10-PCS; 2020-06-29)
DX: Z51.11 Encounter for antineoplastic chemotherapy (principal); C50.919 Malignant neoplasm of unspecified site of unspecified female breast; C77.3 Secondary and unspecified malignant neoplasm of axilla and upper limb lymph nodes; Z17.0 Estrogen receptor positive status [ER+]
CPT/HCPCS: 36415; 80053; 85025; 96375; 96413; J9354

== ENCOUNTER 2020-08-24 06:22 | Day surgery (SDC) | payer OTHER ==
[~2020-08-24 06:22] MED LIST changes: +GOSERELIN ACETATE 3.6 MG IMPLANT SYRINGE SQ ONE; +LIDOCAINE HCL 1%, 10 MG/ML (20ML VIAL) ID ONE; +[UNRECOGNIZED DRUG - OTHER] IVPB ONE; -[UNRECOGNIZED DRUG - OTHER] IVPB ONE
[2020-08-24] MEDS ORDERED: GOSERELIN ACETATE 3.6 MG IMPLANT SYRINGE SQ ONE (10:00)
[2020-08-24] MEDS ORDERED: LIDOCAINE HCL 1%, 10 MG/ML (20ML VIAL) ID ONE (10:00)
[2020-08-24] MEDS ORDERED: ACETAMINOPHEN 325 MG TABLET (FP) PO ONE (10:00)
[2020-08-24] MEDS ORDERED: DIPHENHYDRAMINE 25 MG in SODIUM CHLORIDE 50 ML IVPB ONE (10:00)
[2020-08-24] MEDS ORDERED: [UNRECOGNIZED DRUG - OTHER] IVPB ONE ×2 (10:30→12:00)
[2020-08-24] MEDS ORDERED: ADO TRASTUZUMAB EMTANSINE IVPB ONE ×2 (10:30→12:00)
[2020-08-24 13:43] LABS: BASO % 0.7 % (0-2.0); HEMATOCRIT 36.4 % (32.4-45.2); HEMOGLOBIN 11.5 GM/dL (10.7-15.3); LYMPH % 19.4 % (8-40); MCH 25.1 pg (25.7-33.7); MCHC 31.7 g/dl (32.0-36.0); MEAN CELL VOLUME 79.3 fl (80-96); MEAN PLT VOLUME 8.9 fl (7.5-11.1); MONO % 5.8 % (3.8-10.2); NEUT % 72.1 % (42.8-82.8); PLATELET COUNT 146 K/MM3 (134-434); RBC 4.59 M/mm3 (3.60-5.2); RDW 14.8 % (11.6-15.6); WHITE BLOOD COUNT 7.9 K/mm3 (4.0-10.0)
[2020-08-24 14:03] LABS: POTASSIUM 3.9 mmol/L (3.5-5.1)
[2020-08-24 14:05] LABS: BLOOD UREA NITROGEN 10.1 mg/dL (7-18); CALCIUM 9.3 mg/dL (8.5-10.1)
[2020-08-24 14:09] LABS: CREATININE 0.7 mg/dL (0.55-1.3)
[2020-08-24 14:10] LABS: BILIRUBIN,TOTAL 0.6 mg/dL (0.2-1); TOT PROT 7.7 g/dl (6.4-8.2)
[2020-08-24 16:40] VITALS: TEMP 98.9
[2020-08-24 16:49] VITALS: BP 107/55; PULSE 84
== END 2020-08-24 16:10 | disposition home or self-care (01) ==
LOC: JONCCHEMO 06:22
PROVIDERS: ATTEND Student in an Organized Health Care Education/Training Program
PROC: 3E04305 Introduction of Other Antineoplastic into Central Vein, Percutaneous Approach (ICD-10-PCS; principal; 2020-08-24)
PROC: 3E043GC Introduction of Other Therapeutic Substance into Central Vein, Percutaneous Approach (ICD-10-PCS; 2020-08-24)
DX: Z51.11 Encounter for antineoplastic chemotherapy (principal); C50.919 Malignant neoplasm of unspecified site of unspecified female breast; Z17.0 Estrogen receptor positive status [ER+]
CPT/HCPCS: 96375; 96411; 96413

== ENCOUNTER 2020-09-21 06:39 | Day surgery (SDC) | payer OTHER ==
[2020-09-21] MEDS ORDERED: DIPHENHYDRAMINE 25 MG in SODIUM CHLORIDE 50 ML IVPB ONE (09:30)
[2020-09-21] MEDS ORDERED: ACETAMINOPHEN 325 MG TABLET (FP) PO ONE (09:30)
[2020-09-21] MEDS ORDERED: [UNRECOGNIZED DRUG - OTHER] IVPB ONE (10:00)
[2020-09-21] MEDS ORDERED: ADO TRASTUZUMAB EMTANSINE IVPB ONE (10:00)
[2020-09-21 12:03] LABS: BASO % 0.7 % (0-2.0); EOS % 2.2 % (0-4.5); HEMATOCRIT 35.8 % (32.4-45.2); HEMOGLOBIN 11.9 GM/dL (10.7-15.3); LYMPH % 10.6 % (8-40); MCH 26.4 pg (25.7-33.7); MCHC 33.2 g/dl (32.0-36.0); MEAN CELL VOLUME 79.3 fl (80-96); MEAN PLT VOLUME 8.6 fl (7.5-11.1); NEUT % 82.5 % (42.8-82.8); PLATELET COUNT 132 K/MM3 (134-434); RBC 4.51 M/mm3 (3.60-5.2); RDW 14.7 % (11.6-15.6); WHITE BLOOD COUNT 7.2 K/mm3 (4.0-10.0)
[2020-09-21 12:30] LABS: CALCIUM 9.1 mg/dL (8.5-10.1)
[2020-09-21 12:31] LABS: ALBUMIN 4.1 g/dl (3.4-5.0); BLOOD UREA NITROGEN 13.7 mg/dL (7-18)
[2020-09-21 12:34] LABS: CREATININE 0.8 mg/dL (0.55-1.3)
[2020-09-21 12:36] LABS: BILIRUBIN,TOTAL 0.6 mg/dL (0.2-1); TOT PROT 8.2 g/dl (6.4-8.2)
[2020-09-21] MEDS ORDERED: GOSERELIN ACETATE 3.6 MG IMPLANT SYRINGE SQ ONE (13:00)
[2020-09-21] MEDS ORDERED: LIDOCAINE HCL 1%, 10 MG/ML (20ML VIAL) ID ONE (13:00)
[2020-09-21 16:06] VITALS: BP 115/69; PULSE 89; TEMP 97.5
== END 2020-09-21 13:30 | disposition home or self-care (01) ==
LOC: JONCCHEMO 06:39
PROVIDERS: ATTEND Internal Medicine Hematology & Oncology
DX: Z51.11 Encounter for antineoplastic chemotherapy (principal); C50.919 Malignant neoplasm of unspecified site of unspecified female breast
CPT/HCPCS: 36415; 80053; 82670; 84703; 85025; 96402; J9202

== ENCOUNTER 2020-10-19 08:43 | Day surgery (SDC) | payer OTHER ==
[2020-10-19] MEDS ORDERED: ACETAMINOPHEN 325 MG TABLET (FP) PO ONE (10:00)
[2020-10-19] MEDS ORDERED: DIPHENHYDRAMINE 25 MG in SODIUM CHLORIDE 50 ML IVPB ONE (10:00)
[2020-10-19] MEDS ORDERED: [UNRECOGNIZED DRUG - OTHER] IVPB ONE (10:30)
[2020-10-19] MEDS ORDERED: ADO TRASTUZUMAB EMTANSINE IVPB ONE (10:30)
[2020-10-19 11:47] LABS: BASO % 0.7 % (0-2.0); EOS % 5.1 % (0-4.5); HEMATOCRIT 35.9 % (32.4-45.2); HEMOGLOBIN 11.8 GM/dL (10.7-15.3); LYMPH % 20.6 % (8-40); MCH 26.4 pg (25.7-33.7); MCHC 32.9 g/dl (32.0-36.0); MEAN CELL VOLUME 80.3 fl (80-96); MEAN PLT VOLUME 8.7 fl (7.5-11.1); MONO % 3.8 % (3.8-10.2); NEUT % 69.8 % (42.8-82.8); PLATELET COUNT 127 K/MM3 (134-434); RBC 4.47 M/mm3 (3.60-5.2); RDW 14.4 % (11.6-15.6); WHITE BLOOD COUNT 6.4 K/mm3 (4.0-10.0)
[2020-10-19 12:00] LABS: POTASSIUM 3.7 mmol/L (3.5-5.1)
[2020-10-19 12:02] LABS: CALCIUM 9.1 mg/dL (8.5-10.1)
[2020-10-19 12:03] LABS: ALBUMIN 3.9 g/dl (3.4-5.0)
[2020-10-19 12:06] LABS: CREATININE 0.6 mg/dL (0.55-1.3)
[2020-10-19 12:08] LABS: BILIRUBIN,TOTAL 0.5 mg/dL (0.2-1); TOT PROT 7.4 g/dl (6.4-8.2)
[2020-10-19] MEDS ORDERED: LIDOCAINE HCL 1%, 10 MG/ML (20ML VIAL) ID ONE (13:00)
[2020-10-19] MEDS ORDERED: GOSERELIN ACETATE 3.6 MG IMPLANT SYRINGE SQ ONE (13:00)
[2020-10-19 18:14] VITALS: BP 114/69; PULSE 71; TEMP 97.3
== END 2020-10-19 13:00 | disposition home or self-care (01) ==
LOC: JONCCHEMO 08:43
PROVIDERS: ATTEND Internal Medicine Hematology & Oncology
DX: Z51.11 Encounter for antineoplastic chemotherapy (principal); C50.919 Malignant neoplasm of unspecified site of unspecified female breast
CPT/HCPCS: 36415; 80053; 85025; 96402; J9202

== ENCOUNTER 2020-11-22 07:30 | Day surgery (SDC) | payer OTHER ==
[~2020-11-22 07:30] MED LIST changes: -GOSERELIN ACETATE 3.6 MG IMPLANT SYRINGE SQ ONE; -LIDOCAINE HCL 1%, 10 MG/ML (20ML VIAL) ID ONE; +[UNRECOGNIZED DRUG - OTHER] IVPB ONE; -[UNRECOGNIZED DRUG - OTHER] IVPB ONE
[2020-11-22 09:53] LABS: BASO % 0.6 % (0-2.0); EOS % 5.2 % (0-4.5); HEMATOCRIT 35.7 % (32.4-45.2); HEMOGLOBIN 12.1 GM/dL (10.7-15.3); LYMPH % 18.5 % (8-40); MCHC 33.8 g/dl (32.0-36.0); MEAN CELL VOLUME 79.9 fl (80-96); MEAN PLT VOLUME 8.5 fl (7.5-11.1); MONO % 3.9 % (3.8-10.2); NEUT % 71.8 % (42.8-82.8); PLATELET COUNT 159 K/MM3 (134-434); RBC 4.47 M/mm3 (3.60-5.2); RDW 14.6 % (11.6-15.6); WHITE BLOOD COUNT 7.4 K/mm3 (4.0-10.0)
[2020-11-22 10:18] LABS: POTASSIUM 3.7 mmol/L (3.5-5.1)
[2020-11-22 10:20] LABS: ALBUMIN 3.8 g/dl (3.4-5.0); BLOOD UREA NITROGEN 13.9 mg/dL (7-18)
[2020-11-22 10:23] LABS: CREATININE 0.7 mg/dL (0.55-1.3)
[2020-11-22 10:25] LABS: BILIRUBIN,TOTAL 0.4 mg/dL (0.2-1); TOT PROT 7.8 g/dl (6.4-8.2)
[2020-11-22 10:31] LABS: CALCIUM 9.4 mg/dL (8.5-10.1)
[2020-11-22] MEDS ORDERED: DIPHENHYDRAMINE 25 MG in SODIUM CHLORIDE 50 ML IVPB ONE (14:00)
[2020-11-22] MEDS ORDERED: ADO TRASTUZUMAB EMTANSINE IVPB ONE (14:00)
[2020-11-22] MEDS ORDERED: [UNRECOGNIZED DRUG - OTHER] IVPB ONE (14:00)
[2020-11-22] MEDS ORDERED: ACETAMINOPHEN 325 MG TABLET (FP) PO ONE (14:00)
[2020-11-22] MEDS ORDERED: GOSERELIN ACETATE 3.6 MG IMPLANT SYRINGE SQ ONE (15:15)
[2020-11-22] MEDS ORDERED: LIDOCAINE HCL 1%, 10 MG/ML (20ML VIAL) INF ONE (15:15)
[2020-11-22 17:37] VITALS: BP 100/64; PULSE 72; TEMP 97.9
== END 2020-11-22 15:35 | disposition home or self-care (01) ==
LOC: JONCCHEMO 07:30
PROVIDERS: ATTEND Internal Medicine Hematology & Oncology
DX: Z51.11 Encounter for antineoplastic chemotherapy (principal); C50.919 Malignant neoplasm of unspecified site of unspecified female breast
CPT/HCPCS: 36415; 80053; 85025; 96375; 96402; 96413; J9202; J9354

== ENCOUNTER 2020-12-21 07:39 | Day surgery (SDC) | payer OTHER ==
[2020-12-21] MEDS ORDERED: DIPHENHYDRAMINE 25 MG in SODIUM CHLORIDE 50 ML IVPB ONE (10:00)
[2020-12-21] MEDS ORDERED: ACETAMINOPHEN 325 MG TABLET (FP) PO ONE (10:00)
[2020-12-21] MEDS ORDERED: [UNRECOGNIZED DRUG - OTHER] IVPB ONE ×2 (10:30→13:30)
[2020-12-21] MEDS ORDERED: ADO TRASTUZUMAB EMTANSINE IVPB ONE ×2 (10:30→13:30)
[2020-12-21 12:17] LABS: EOS % 4.8 % (0-4.5); HEMATOCRIT 35.2 % (32.4-45.2); HEMOGLOBIN 11.7 GM/dL (10.7-15.3); MCH 26.9 pg (25.7-33.7); MCHC 33.2 g/dl (32.0-36.0); MEAN CELL VOLUME 81.2 fl (80-96); MEAN PLT VOLUME 9.5 fl (7.5-11.1); MONO % 4.3 % (3.8-10.2); NEUT % 69.9 % (42.8-82.8); PLATELET COUNT 102 K/MM3 (134-434); RBC 4.33 M/mm3 (3.60-5.2); RDW 14.1 % (11.6-15.6); WHITE BLOOD COUNT 5.6 K/mm3 (4.0-10.0)
[2020-12-21 12:36] LABS: ALBUMIN 3.9 g/dl (3.4-5.0); BLOOD UREA NITROGEN 12.3 mg/dL (7-18); CALCIUM 9.4 mg/dL (8.5-10.1)
[2020-12-21 12:39] LABS: CREATININE 0.7 mg/dL (0.55-1.3)
[2020-12-21 12:41] LABS: BILIRUBIN,TOTAL 0.5 mg/dL (0.2-1); TOT PROT 7.8 g/dl (6.4-8.2)
[2020-12-21] MEDS ORDERED: GOSERELIN ACETATE 3.6 MG IMPLANT SYRINGE SQ ONE (14:15)
[2020-12-21] MEDS ORDERED: LIDOCAINE HCL 1%, 10 MG/ML (20ML VIAL) ID ONE (14:15)
[2020-12-21 16:12] VITALS: BP 100/69; PULSE 82; TEMP 98.3
== END 2020-12-21 15:15 | disposition home or self-care (01) ==
LOC: JONCCHEMO 07:39
PROVIDERS: ATTEND Internal Medicine Hematology & Oncology
DX: Z51.11 Encounter for antineoplastic chemotherapy (principal); C50.919 Malignant neoplasm of unspecified site of unspecified female breast
CPT/HCPCS: 36415; 80053; 82607; 82728; 82747; 83540; 83550; 85014; 85025; 96375; 96402; 96413; J9202; J9354

== ENCOUNTER → 2021-01-11 | Day surgery (SDC) | payer OTHER ==
[~2021-01-11] MED LIST changes: +GOSERELIN ACETATE 3.6 MG IMPLANT SYRINGE SQ ONE; +LIDOCAINE HCL 1%, 10 MG/ML (20ML VIAL) ID ONE
[2021-01-11 12:06] LABS: BASO % 0.9 % (0-2.0); HEMATOCRIT 36.4 % (32.4-45.2); HEMOGLOBIN 12.3 GM/dL (10.7-15.3); LYMPH % 23.7 % (8-40); MCH 26.7 pg (25.7-33.7); MCHC 33.8 g/dl (32.0-36.0); MEAN CELL VOLUME 79.1 fl (80-96); MEAN PLT VOLUME 9.1 fl (7.5-11.1); MONO % 4.5 % (3.8-10.2); NEUT % 64.9 % (42.8-82.8); PLATELET COUNT 96 K/MM3 (134-434); RDW 14.2 % (11.6-15.6); WHITE BLOOD COUNT 5.4 K/mm3 (4.0-10.0)
[2021-01-11 12:28] LABS: ALBUMIN 3.9 g/dl (3.4-5.0); BLOOD UREA NITROGEN 13.6 mg/dL (7-18)
[2021-01-11 12:33] LABS: BILIRUBIN,TOTAL 0.4 mg/dL (0.2-1); CREATININE 0.8 mg/dL (0.55-1.3); TOT PROT 7.9 g/dl (6.4-8.2)
== END | disposition home or self-care (01) ==
LOC: JONCCHEMO 10:10
PROVIDERS: ATTEND Internal Medicine Hematology & Oncology
DX: Z53.8 Procedure and treatment not carried out for other reasons (principal)
CPT/HCPCS: 36415; 80053; 85025

== ENCOUNTER 2021-01-25 07:40 | Day surgery (SDC) | payer OTHER ==
[~2021-01-25 07:40] MED LIST changes: -ACETAMINOPHEN 325 MG TABLET (FP) PO ONE; -ADO TRASTUZUMAB EMTANSINE IVPB ONE; -DIPHENHYDRAMINE 25 MG in SODIUM CHLORIDE 50 ML IVPB ONE; -[UNRECOGNIZED DRUG - OTHER] IVPB ONE
[2021-01-25] MEDS ORDERED: LIDOCAINE HCL 1%, 10 MG/ML (20ML VIAL) ID ONE (14:00)
[2021-01-25] MEDS ORDERED: GOSERELIN ACETATE 3.6 MG IMPLANT SYRINGE SQ ONE (14:00)
[2021-01-25 17:03] VITALS: BP 132/76; PULSE 78; TEMP 97.3
== END 2021-01-25 16:40 | disposition home or self-care (01) ==
LOC: JONCCHEMO 07:40
PROVIDERS: ATTEND Internal Medicine Hematology & Oncology
DX: Z51.11 Encounter for antineoplastic chemotherapy (principal); C50.919 Malignant neoplasm of unspecified site of unspecified female breast
CPT/HCPCS: 96402; J9202

== ENCOUNTER 2021-03-08 10:22 | Day surgery (SDC) | payer OTHER ==
[~2021-03-08 10:22] MED LIST changes: +LIDOCAINE HCL 1%, 10 MG/ML (20ML VIAL) ID SCH
[2021-03-08] MEDS ORDERED: GOSERELIN ACETATE 3.6 MG IMPLANT SYRINGE SQ ONE (11:00)
[2021-03-08 11:38] LABS: EOS % 4.9 % (0-4.5); HEMATOCRIT 35.6 % (32.4-45.2); HEMOGLOBIN 11.6 GM/dL (10.7-15.3); LYMPH % 26.1 % (8-40); MCH 26.3 pg (25.7-33.7); MCHC 32.6 g/dl (32.0-36.0); MEAN CELL VOLUME 80.8 fl (80-96); MEAN PLT VOLUME 8.6 fl (7.5-11.1); MONO % 4.7 % (3.8-10.2); NEUT % 63.3 % (42.8-82.8); PLATELET COUNT 129 10^3/uL (134-434); RBC 4.41 M/mm3 (3.60-5.2); RDW 14.2 % (11.6-15.6); WHITE BLOOD COUNT 5.4 K/mm3 (4.0-10.0)
[2021-03-08 12:07] LABS: ALBUMIN 3.9 g/dl (3.4-5.0); BLOOD UREA NITROGEN 11.2 mg/dL (7-18)
[2021-03-08 12:10] LABS: BILIRUBIN,TOTAL 0.3 mg/dL (0.2-1); TOT PROT 7.7 g/dl (6.4-8.2)
[2021-03-08 12:15] LABS: CREATININE 0.6 mg/dL (0.55-1.3)
[2021-03-08 16:41] VITALS: BP 101/70; PULSE 65; TEMP 98.1
== END 2021-03-08 12:20 | disposition home or self-care (01) ==
LOC: JONCCHEMO 10:22
PROVIDERS: ATTEND Internal Medicine Hematology & Oncology
DX: Z51.11 Encounter for antineoplastic chemotherapy (principal); C50.919 Malignant neoplasm of unspecified site of unspecified female breast
CPT/HCPCS: 36415; 80053; 82670; 84703; 85025; 96402; J9202

== ENCOUNTER 2021-04-12 07:58 | Day surgery (SDC) | payer OTHER ==
[~2021-04-12 07:58] MED LIST changes: -LIDOCAINE HCL 1%, 10 MG/ML (20ML VIAL) ID SCH
[2021-04-12 10:52] LABS: BASO % 0.9 % (0-2.0); EOS % 4.9 % (0-4.5); HEMATOCRIT 37.2 % (32.4-45.2); HEMOGLOBIN 12.5 GM/dL (10.7-15.3); LYMPH % 22.3 % (8-40); MCH 27.3 pg (25.7-33.7); MCHC 33.7 g/dl (32.0-36.0); MEAN PLT VOLUME 8.5 fl (7.5-11.1); MONO % 4.1 % (3.8-10.2); NEUT % 67.8 % (42.8-82.8); PLATELET COUNT 132 10^3/uL (134-434); RBC 4.59 M/mm3 (3.60-5.2); RDW 14.5 % (11.6-15.6); WHITE BLOOD COUNT 6.2 K/mm3 (4.0-10.0)
[2021-04-12 11:08] LABS: CALCIUM 9.1 mg/dL (8.5-10.1)
[2021-04-12 11:09] LABS: ALBUMIN 3.9 g/dl (3.4-5.0); BLOOD UREA NITROGEN 12.1 mg/dL (7-18)
[2021-04-12 11:12] LABS: CREATININE 0.8 mg/dL (0.55-1.3)
[2021-04-12 11:13] LABS: BILIRUBIN,TOTAL 0.3 mg/dL (0.2-1)
[2021-04-12 11:14] LABS: TOT PROT 7.8 g/dl (6.4-8.2)
[2021-04-12] MEDS ORDERED: LIDOCAINE 1% P/F 10 MG/ML VIAL ID ONE (12:00)
[2021-04-12] MEDS ORDERED: GOSERELIN ACETATE 3.6 MG IMPLANT SYRINGE SQ ONE (12:00)
[2021-04-12] MEDS ORDERED: LIDOCAINE 1% P/F 10 MG/ML VIAL SQ ONE (12:00)
[2021-04-12 15:26] VITALS: BP 93/62; PULSE 72; TEMP 97.5
== END 2021-04-12 12:15 | disposition home or self-care (01) ==
LOC: JONCCHEMO 07:58
PROVIDERS: ATTEND Internal Medicine Hematology & Oncology
DX: Z51.11 Encounter for antineoplastic chemotherapy (principal); C50.919 Malignant neoplasm of unspecified site of unspecified female breast; C77.3 Secondary and unspecified malignant neoplasm of axilla and upper limb lymph nodes
CPT/HCPCS: 36415; 80053; 84703; 85025; 96402; J9202

== ENCOUNTER 2021-06-07 07:12 | Day surgery (SDC) | payer MEDICARE, OTHER ==
[~2021-06-07 07:12] MED LIST changes: +LIDOCAINE 1% P/F 10 MG/ML VIAL ID ONE; -LIDOCAINE HCL 1%, 10 MG/ML (20ML VIAL) ID ONE
[2021-06-07] MEDS ORDERED: GOSERELIN ACETATE 3.6 MG IMPLANT SYRINGE SQ ONE (10:00)
[2021-06-07] MEDS ORDERED: LIDOCAINE 1% P/F 10 MG/ML VIAL ID ONE (10:00)
[2021-06-07 16:24] LABS: BASO % 0.7 % (0-2.0); EOS % 3.9 % (0-4.5); HEMATOCRIT 36.3 % (32.4-45.2); LYMPH % 21.9 % (8-40); MCH 26.7 pg (25.7-33.7); MCHC 33.1 g/dl (32.0-36.0); MEAN CELL VOLUME 80.7 fl (80-96); MEAN PLT VOLUME 9.1 fl (7.5-11.1); MONO % 3.6 % (3.8-10.2); NEUT % 69.9 % (42.8-82.8); PLATELET COUNT 128 10^3/uL (134-434); RDW 13.7 % (11.6-15.6)
[2021-06-07 16:31] LABS: ALBUMIN 3.9 g/dl (3.4-5.0); BLOOD UREA NITROGEN 12.6 mg/dL (7-18)
[2021-06-07 16:35] LABS: CREATININE 0.7 mg/dL (0.55-1.3)
[2021-06-07 16:36] LABS: BILIRUBIN,TOTAL 0.3 mg/dL (0.2-1); TOT PROT 7.7 g/dl (6.4-8.2)
[2021-06-14 16:38] VITALS: BP 74/57; PULSE 80; TEMP 98
== END 2021-06-07 17:36 | disposition home or self-care (01) ==
LOC: JONCCHEMO 07:12
PROVIDERS: ATTEND Internal Medicine Hematology & Oncology
DX: Z51.11 Encounter for antineoplastic chemotherapy (principal); C50.919 Malignant neoplasm of unspecified site of unspecified female breast; C77.3 Secondary and unspecified malignant neoplasm of axilla and upper limb lymph nodes
CPT/HCPCS: 36415; 80053; 84703; 85025; 96402; J9202

== ENCOUNTER 2021-07-26 08:29 | Day surgery (SDC) | payer MEDICARE, OTHER ==
[2021-07-26 10:46] LABS: BASO % 0.7 % (0-2.0); EOS % 5.5 % (0-4.5); HEMATOCRIT 34.5 % (32.4-45.2); HEMOGLOBIN 11.8 GM/dL (10.7-15.3); LYMPH % 23.7 % (8-40); MCH 26.5 pg (25.7-33.7); MCHC 34.2 g/dl (32.0-36.0); MEAN CELL VOLUME 77.6 fl (80-96); MONO % 4.6 % (3.8-10.2); NEUT % 65.5 % (42.8-82.8); PLATELET COUNT 153 10^3/uL (134-434); RBC 4.45 M/mm3 (3.60-5.2); RDW 13.4 % (11.6-15.6); WHITE BLOOD COUNT 5.9 K/mm3 (4.0-10.0)
[2021-07-26 11:05] LABS: CALCIUM 9.3 mg/dL (8.5-10.1)
[2021-07-26 11:06] LABS: ALBUMIN 3.8 g/dl (3.4-5.0); BLOOD UREA NITROGEN 11.3 mg/dL (7-18)
[2021-07-26 11:09] LABS: CREATININE 0.7 mg/dL (0.55-1.3)
[2021-07-26 11:11] LABS: BILIRUBIN,TOTAL 0.4 mg/dL (0.2-1); TOT PROT 7.8 g/dl (6.4-8.2)
[2021-07-26] MEDS ORDERED: GOSERELIN ACETATE 3.6 MG IMPLANT SYRINGE SQ ONE (13:00)
[2021-07-26] MEDS ORDERED: LIDOCAINE 1% P/F 10 MG/ML VIAL ID ONE (13:00)
[2021-07-26 13:57] VITALS: BP 102/70; PULSE 75; TEMP 98.4
== END 2021-07-26 12:35 | disposition home or self-care (01) ==
LOC: JONCCHEMO 08:29
PROVIDERS: ATTEND Internal Medicine Hematology & Oncology
DX: Z51.11 Encounter for antineoplastic chemotherapy (principal); C50.919 Malignant neoplasm of unspecified site of unspecified female breast
CPT/HCPCS: 36415; 80053; 84703; 85025; 96402; J9202

== ENCOUNTER 2021-11-07 08:34 | Day surgery (SDC) | payer MEDICARE, OTHER ==
[~2021-11-07 08:34] MED LIST changes: +LIDOCAINE HCL 1%, 10 MG/ML (20ML VIAL) ID ONE
[2021-11-07] MEDS ORDERED: GOSERELIN ACETATE 3.6 MG IMPLANT SYRINGE SQ ONE (10:00)
[2021-11-07] MEDS ORDERED: LIDOCAINE 1% P/F 10 MG/ML VIAL ID ONE (10:00)
[2021-11-07 10:17] LABS: BASO % 0.9 % (0-2.0); HEMATOCRIT 37.3 % (32.4-45.2); LYMPH % 22.9 % (8-40); MCH 26.2 pg (25.7-33.7); MCHC 32.3 g/dl (32.0-36.0); MEAN PLT VOLUME 9.3 fl (7.5-11.1); MONO % 4.6 % (3.8-10.2); NEUT % 65.6 % (42.8-82.8); PLATELET COUNT 164 10^3/uL (134-434); RDW 13.8 % (11.6-15.6); WHITE BLOOD COUNT 5.6 K/mm3 (4.0-10.0)
[2021-11-07 10:34] LABS: ALBUMIN 4.2 g/dl (3.4-5.0); CALCIUM 9.3 mg/dL (8.5-10.1)
[2021-11-07 10:35] LABS: BLOOD UREA NITROGEN 9.6 mg/dL (7-18)
[2021-11-07 10:36] LABS: CREATININE 0.8 mg/dL (0.55-1.3)
[2021-11-07 10:39] LABS: BILIRUBIN,TOTAL 0.4 mg/dL (0.2-1); TOT PROT 7.8 g/dl (6.4-8.2)
[2021-11-07 15:21] VITALS: BP 112/65; PULSE 73; TEMP 98.1
== END 2021-11-07 11:20 | disposition home or self-care (01) ==
LOC: JONCCHEMO 08:34
PROVIDERS: ATTEND Internal Medicine Hematology & Oncology
DX: Z51.11 Encounter for antineoplastic chemotherapy (principal); C50.919 Malignant neoplasm of unspecified site of unspecified female breast; C77.3 Secondary and unspecified malignant neoplasm of axilla and upper limb lymph nodes
CPT/HCPCS: 36415; 80053; 82306; 84703; 85025; 96401; J9202

== ENCOUNTER → 2021-11-14 | Day surgery (SDC) | payer MEDICARE, OTHER ==
[2021-11-14 10:50] LABS: BASO % 1.1 % (0-2.0); HEMATOCRIT 35.4 % (32.4-45.2); MCH 27.2 pg (25.7-33.7); MEAN PLT VOLUME 8.7 fl (7.5-11.1); MONO % 4.8 % (3.8-10.2); NEUT % 70.1 % (42.8-82.8); PLATELET COUNT 142 10^3/uL (134-434); RBC 4.42 M/mm3 (3.60-5.2); RDW 13.8 % (11.6-15.6); WHITE BLOOD COUNT 6.5 K/mm3 (4.0-10.0)
[2021-11-14 10:58] LABS: INR 0.99 (0.83-1.09); PROTHROMBIN TIME (PATIENT) 11.4 SEC (9.7-13.0)
[2021-11-14 14:01] VITALS: BP 106/61; PULSE 72
== END | disposition home or self-care (01) ==
LOC: JRADIR 10:00
PROVIDERS: ATTEND Internal Medicine Hematology & Oncology
PROC: 0JPT0XZ Removal of Tunneled Vascular Access Device from Trunk Subcutaneous Tissue and Fascia, Open Approach (ICD-10-PCS; principal; 2021-11-14)
DX: Z45.2 Encounter for adjustment and management of vascular access device (principal); C50.911 Malignant neoplasm of unspecified site of right female breast
CPT/HCPCS: 36415; 36590; 85025; 85610

== ENCOUNTER 2022-01-24 07:54 | Day surgery (SDC) | payer MEDICARE, OTHER ==
[~2022-01-24 07:54] MED LIST changes: -LIDOCAINE 1% P/F 10 MG/ML VIAL ID ONE
[2022-01-24] MEDS ORDERED: GOSERELIN ACETATE 3.6 MG IMPLANT SYRINGE SQ ONE (15:30)
[2022-01-24] MEDS ORDERED: LIDOCAINE HCL 1%, 10 MG/ML (20ML VIAL) ID ONE (15:30)
[2022-01-24 15:44] LABS: BASO % 0.4 % (0-2.0); EOS % 2.5 % (0-4.5); HEMATOCRIT 35.4 % (32.4-45.2); HEMOGLOBIN 11.7 GM/dL (10.7-15.3); LYMPH % 21.8 % (8-40); MCH 26.4 pg (25.7-33.7); MCHC 33.1 g/dl (32.0-36.0); MEAN CELL VOLUME 79.7 fl (80-96); MEAN PLT VOLUME 8.8 fl (7.5-11.1); MONO % 4.4 % (3.8-10.2); NEUT % 70.9 % (42.8-82.8); PLATELET COUNT 173 10^3/uL (134-434); RBC 4.44 M/mm3 (3.60-5.2); RDW 13.7 % (11.6-15.6); WHITE BLOOD COUNT 7.1 K/mm3 (4.0-10.0)
[2022-01-24 16:09] LABS: ALBUMIN 3.9 g/dl (3.4-5.0); CALCIUM 9.5 mg/dL (8.5-10.1)
[2022-01-24 16:13] LABS: CREATININE 0.7 mg/dL (0.55-1.3)
[2022-01-24 16:14] LABS: BILIRUBIN,TOTAL 0.3 mg/dL (0.2-1); TOT PROT 7.6 g/dl (6.4-8.2)
[2022-01-24 16:31] VITALS: BP 108/72; PULSE 68; TEMP 98.4
== END 2022-01-24 16:31 | disposition home or self-care (01) ==
LOC: JONCCHEMO 07:54
PROVIDERS: ATTEND Internal Medicine Hematology & Oncology
DX: Z51.11 Encounter for antineoplastic chemotherapy (principal); C50.911 Malignant neoplasm of unspecified site of right female breast
CPT/HCPCS: 36415; 80053; 84703; 85025; 96402; J9202

== ENCOUNTER 2022-03-06 07:26 | Day surgery (SDC) | payer MEDICARE, OTHER ==
[2022-03-06 15:47] LABS: BASO % 0.4 % (0-2.0); EOS % 2.1 % (0-4.5); HEMATOCRIT 37.4 % (32.4-45.2); HEMOGLOBIN 12.3 GM/dL (10.7-15.3); LYMPH % 18.2 % (8-40); MCH 26.5 pg (25.7-33.7); MCHC 32.9 g/dl (32.0-36.0); MEAN CELL VOLUME 80.5 fl (80-96); MEAN PLT VOLUME 9.6 fl (7.5-11.1); MONO % 3.2 % (3.8-10.2); NEUT % 76.1 % (42.8-82.8); PLATELET COUNT 167 10^3/uL (134-434); RBC 4.65 M/mm3 (3.60-5.2); RDW 13.4 % (11.6-15.6)
[2022-03-06] MEDS ORDERED: GOSERELIN ACETATE SQ ONE (16:00)
[2022-03-06] MEDS ORDERED: LIDOCAINE HCL 1%, 10 MG/ML (20ML VIAL) ID ONE (16:00)
[2022-03-06 16:05] LABS: CALCIUM 9.2 mg/dL (8.5-10.1)
[2022-03-06 16:06] LABS: BLOOD UREA NITROGEN 11.5 mg/dL (7-18)
[2022-03-06 16:10] LABS: CREATININE 0.7 mg/dL (0.55-1.3)
[2022-03-06 16:12] LABS: BILIRUBIN,TOTAL 0.3 mg/dL (0.2-1); TOT PROT 7.5 g/dl (6.4-8.2)
[2022-03-06 16:33] VITALS: BP 100/64; PULSE 75; TEMP 98.2
== END 2022-03-06 17:00 | disposition home or self-care (01) ==
LOC: JONCCHEMO 07:26
PROVIDERS: ATTEND Internal Medicine Hematology & Oncology
DX: Z51.11 Encounter for antineoplastic chemotherapy (principal); C50.911 Malignant neoplasm of unspecified site of right female breast
CPT/HCPCS: 36415; 80053; 82670; 84703; 85025; 96402; J9202

== ENCOUNTER 2024-09-12 20:43 | Emergency (ER) | payer MEDICARE, OTHER ==
[2024-09-12 20:56] VITALS: BP 130/81; PULSE 98; RESP 17; TEMP 99.1; BMI 29.9
[2024-09-12] MEDS ORDERED: ACETAMINOPHEN INJECTION 100 ML ONE (22:14)
[2024-09-12 22:36] LABS: BASO % 0.6 % (0-2.0); EOS % 1.9 % (0-4.5); HEMATOCRIT 37.4 % (32.4-45.2); HEMOGLOBIN 12.4 GM/dL (10.7-15.3); LYMPH % 19.5 % (8-40); MCH 26.5 pg (25.7-33.7); MCHC 33.3 g/dl (32.0-36.0); MEAN CELL VOLUME 79.6 fl (80-96); MEAN PLT VOLUME 8.5 fl (7.5-11.1); MONO % 4.2 % (3.8-10.2); NEUT % 73.8 % (42.8-82.8); PLATELET COUNT 238 10^3/uL (134-434); RDW 13.8 % (11.6-15.6); WHITE BLOOD COUNT 10.3 K/mm3 (4.0-10.0)
[2024-09-12 22:40] LABS: EPI CELLS 15 /uL (0-25.1); HYALINE CASTS 0 /uL (0-3.1); PH,URINE 7.5 (5.0-8.0); URINE APPEARANCE CLOUDY; URINE BACTERIA 550 /uL (0-1359); URINE BILIRUBIN NEGATIVE (NEGATIVE); URINE COLOR YELLOW; URINE GLUCOSE (UA) NEGATIVE (NEGATIVE); URINE KETONE NEGATIVE (NEGATIVE); URINE LEUK ESTERASE NEGATIVE (NEGATIVE); URINE NITRITE NEGATIVE (NEGATIVE); URINE PROTEIN NEGATIVE (NEGATIVE); URINE RBC 16 /uL (0-23.9); URINE UROBILINOGEN 0.2 mg/dL (0.2-1.0); URINE WBC 10 /uL (0-25.8)
[2024-09-12 22:59] LABS: CHLORIDE 106 mmol/L (98-107); POTASSIUM 3.7 mmol/L (3.5-5.1); SODIUM 140 mmol/L (136-145)
[2024-09-12 23:01] LABS: ALBUMIN 4.1 g/dl (3.4-5.0); ANION GAP 6 mmol/L (4-13); BLOOD UREA NITROGEN 9.8 mg/dL (7-18); CO2 28 mmol/L (21-32); GLUCOSE,RANDOM 96 mg/dL (74-106)
[2024-09-12 23:04] LABS: CREATININE 0.8 mg/dL (0.55-1.3); SGOT/AST 20 U/L (15-37); SGPT/ALT 20 U/L (13-61)
[2024-09-12 23:06] LABS: BILIRUBIN,TOTAL 0.3 mg/dL (0.2-1); TOT PROT 7.6 g/dl (6.4-8.2)
[2024-09-12 23:07] LABS: ALK PHOS 110 U/L (45-117)
[2024-09-12 23:18] LABS: YEAST NONE SEEN (NEGATIVE)
[2024-09-12] MEDS: ACETAMINOPHEN 1000 MG/100 ML BAG IVPB ONE (23:58)
[2024-09-13] MEDS ORDERED: CEPHALEXIN MONOHYDRATE 500 MG CAPSULE (UD) PO ONE (01:09)
== END 2024-09-13 01:46 | disposition home or self-care (01) ==
LOC: JER 20:43
PROC: 3E033NZ Introduction of Analgesics, Hypnotics, Sedatives into Peripheral Vein, Percutaneous Approach (ICD-10-PCS; principal; 2024-09-12)
DX: N83.201 Unspecified ovarian cyst, right side (principal); R10.12 Left upper quadrant pain; N93.9 Abnormal uterine and vaginal bleeding, unspecified
CPT/HCPCS: 36415; 74177-TC; 76830-TC; 80053; 81003; 83690; 84702; 85025; 87086; 99285-25; J0131; Q9967